=== PATIENT | male | born 1970 | race Two or more races ===

== ENCOUNTER 2019-07-15 22:43 | Emergency (ER) | payer MEDICAID ==
[~2019-07-15] VITALS: Ht 182.9 cm; Wt 176.9 kg
[2019-07-15] MEDS ORDERED: IPRATROPIUM BROM 0.5 MG/2.5ML INH SOL NEB ONE (23:00)
[2019-07-15] MEDS ORDERED: ALBUTEROL SULF 2.5 MG/0.5ML(0.5%) NEB SOLN NEB ONE (23:00)
[2019-07-15 23:39] LABS: Basophils # (auto) 0.1 uL; Basophils % (auto) 0.9 % (0.0-2.0); Eosinophils # (auto) 0.2 uL; Eosinophils % (auto) 2.3 % (0.0-7.0); Hemoglobin 12.3 g/dL (13.5-17.5); Lymphocytes # (auto) 0.6 uL; Lymphocytes % (auto) 7.3 % (10.0-50.0); Mean Corpuscular Hemoglobin 26.1 pg (28.0-32.0); Mean Corpuscular Hgb Conc. 33.1 g/dL (32.0-36.0); Mean Corpuscular Volume 78.7 fL (80.0-100.0); Monocytes # (auto) 0.4 uL; Monocytes % (auto) 4.9 % (0.0-12.0); Neutrophils # (auto) 6.6 uL; Neutrophils % (auto) 84.6 % (37.0-80.0); Nucleated Red Blood Cells % 0.2 %; Platelet Count (auto) 156 10^3/uL (140-450); Red Blood Cells 4.71 10^6/uL (4.5-5.90); Red Cell Distribution Width 17.2 % (11.8-14.3); White Blood Cell 7.8 10^3/uL (4.4-10.8)
[2019-07-15 23:51] LABS: Albumin 3.1 g/dL (3.4-5.0); Anion Gap 9 (5-15); Blood Urea Nitrogen 19 mg/dL (7-18); Calcium 8.7 mg/dL (8.5-10.1); Carbon Dioxide 26 mmol/L (21-32); Chloride 101 mmol/L (98-107); Glucose 175 mg/dL (74-106); Magnesium 1.9 mg/dL (1.6-2.6); Potassium 3.9 mmol/L (3.5-5.1); Sodium 136 mmol/L (136-145)
[2019-07-15 23:54] LABS: Alanine Aminotransferase 21 U/L (16-61); Aspartate Aminotransferase 16 U/L (15-37); BUN/Creatinine Ratio 15.4; GFR African American 80 mL/min; GFR Non-African American 66 mL/min
[2019-07-16] LABS: Alkaline Phosphatase 74 U/L (45-117); Bilirubin, Total 0.7 mg/dL (0.2-1.0); Total Protein 7.6 g/dL (6.4-8.2)
[2019-07-16] MEDS ORDERED: ALBUTEROL SULF 2.5 MG/0.5ML(0.5%) NEB SOLN NEB ONE (05:15)
[2019-07-16] MEDS ORDERED: IPRATROPIUM BROM 0.5 MG/2.5ML INH SOL NEB ONE (05:15)
[2019-07-16 06:09] VITALS: BP 114/118
== END 2019-07-16 06:11 | disposition home or self-care (01) ==
LOC: ER 22:43
DX: J44.1 Chronic obstructive pulmonary disease with (acute) exacerbation (principal); E66.01 Morbid (severe) obesity due to excess calories; E11.9 Type 2 diabetes mellitus without complications; I10 Essential (primary) hypertension; Z76.0 Encounter for issue of repeat prescription; Z68.43 Body mass index [BMI] 50.0-59.9, adult; Z98.61 Coronary angioplasty status
CPT/HCPCS: 36415; 71045; 80053; 83735; 83880; 84484; 85025; 93005; 94640; 99284; J7611; J7644

== ENCOUNTER 2020-08-24 15:29 | Inpatient (IN) | payer MEDICAID ==
[~2020-08-24] VITALS: Ht 182.9 cm; Wt 177.4 kg
[2020-08-24] MEDS ORDERED: cloNIDine HCL 0.1 MG TAB PO ONE (15:30)
[2020-08-24] MEDS ORDERED: FUROSEMIDE 40 MG/4 ML VIAL IV ONE ×2 (16:00→18:15)
[2020-08-24] MEDS ORDERED: METOPROLOL TARTRATE 1MG/1ML-5ML VIAL IV ONE (16:00)
[2020-08-24 16:23] LABS: Basophils # (auto) 0.1 10 ^3/uL (0-0.2); Lymphocytes # (auto) 0.9 10 ^3/uL (0.4-5.4); Monocytes # (auto) 0.3 10 ^3/uL (0-1.3); Nucleated Red Blood Cells % 0.4 %
[2020-08-24 16:25] LABS: Basophils % (auto) 0.8 % (0.0-2.0); Eosinophils # (auto) 0.2 10 ^3/uL (0-0.8); Eosinophils % (auto) 2.2 % (0.0-7.0); Hematocrit 39.1 % (41.0-53.0); Hemoglobin 12.9 g/dL (13.5-17.5); Lymphocytes % (auto) 12.5 % (10.0-50.0); Mean Corpuscular Hemoglobin 26.7 pg (28.0-32.0); Mean Corpuscular Hgb Conc. 33.1 g/dL (32.0-36.0); Mean Corpuscular Volume 80.5 fL (80.0-100.0); Monocytes % (auto) 3.8 % (0.0-12.0); Neutrophils # (auto) 5.9 10 ^3/uL (1.6-8.6); Neutrophils % (auto) 80.7 % (37.0-80.0); Platelet Count (auto) 141 10^3/uL (140-450); Red Blood Cells 4.85 10^6/uL (4.5-5.90); Red Cell Distribution Width 18.9 % (11.8-14.3); White Blood Cell 7.3 10^3/uL (4.4-10.8)
[2020-08-24 16:40] LABS: Albumin 2.8 g/dL (3.4-5.0); Calcium 8.2 mg/dL (8.5-10.1); Potassium 4.3 mmol/L (3.5-5.1)
[2020-08-24 16:42] LABS: BUN/Creatinine Ratio 12.1
[2020-08-24 16:46] LABS: Bilirubin, Total 0.6 mg/dL (0.2-1.0); Total Protein 7.4 g/dL (6.4-8.2)
[2020-08-24] MEDS ORDERED: AZITHROMYCIN 500MG/ 250ML 250 ML IV ONE (17:30)
[2020-08-24] MEDS ORDERED: cefTRIAXone 1GM/50ML D5W 50 ML IV ONE (17:30)
[2020-08-24] MEDS ORDERED: LABETALOL HCL 5 MG/ML 4ML SYRINGE IV ONE (18:15)
[2020-08-24] MEDS ORDERED: NITROGLYCERIN 0.4 MG SL TAB SL PRN ×2 (18:15→20:15)
[2020-08-24] MEDS ORDERED: INSULIN LANTUS (GLARGINE) 1 /0.01ml (100units/ml) SC ONE (18:15)
[2020-08-24] MEDS ORDERED: MORPHINE SULF INJ 2 MG/ML SYRINGE 1ML IV PRN ×3 (18:15→20:15)
[2020-08-24] MEDS ORDERED: INSLANTI SC (19:36)
[2020-08-24] MEDS ORDERED: CLOP75TA70 PO (20:00)
[2020-08-24] MEDS ORDERED: VITATAB19 PO (20:00)
[2020-08-24] MEDS ORDERED: CYCL10TA6 PO (20:00)
[2020-08-24] MEDS ORDERED: ASPI-543 PO (20:00)
[2020-08-24] MEDS ORDERED: SERT-274 PO (20:00)
[2020-08-24] MEDS ORDERED: SULF400T11 PO (20:00)
[2020-08-24] MEDS ORDERED: ISOS10TA2 PO (20:00)
[2020-08-24] MEDS ORDERED: POTA10TA51 PO (20:00)
[2020-08-24] MEDS ORDERED: GEMF600T7 PO (20:00)
[2020-08-24] MEDS ORDERED: ACET120S38 PR (20:00)
[2020-08-24] MEDS ORDERED: LOSA-69 PO (20:00)
[2020-08-24] MEDS ORDERED: FURO1TAB31 PO (20:00)
[2020-08-24] MEDS ORDERED: CARV3.1240 PO (20:00)
[2020-08-24] MEDS ORDERED: ACETAMINOPHEN 325 MG TAB PO PRN (20:15)
[2020-08-24] MEDS ORDERED: hydrALAZINE HCL 20 MG/ML VL IV PRN (20:15)
[2020-08-24] MEDS ORDERED: LORazepam 0.5 MG TAB PO PRN (20:15)
[2020-08-24] MEDS ORDERED: DOCUSATE SOD 100 MG CAP PO PRN (20:15)
[2020-08-24] MEDS ORDERED: ONDANSETRON HCL 4 MG/2 ML VIAL IV PRN (20:15)
[2020-08-24] MEDS ORDERED: DEXTROSE (50%) 50ML SYRG IV PRN (20:15)
[2020-08-24] MEDS ORDERED: ATORVASTATIN 20 MG TAB PO ONE (20:15)
[2020-08-24] MEDS ORDERED: ALUM & MAG HYDROX-SIMETH LIQ(MAALOX) 30 ML PO PRN (20:15)
[2020-08-24] MEDS: DOXYCYCLINE 100MG/250ML 250 ML IV SCH (20:52)
[2020-08-24] MEDS: ALBUMIN 25% 100 ML IV SCH ×2 (20:53→22:00)
[2020-08-24 21:42] VITALS: BP 141/90
[2020-08-24] MEDS: IPRATROPIUM BROM 0.5 MG/2.5ML INH SOL NEB SCH (21:53)
[2020-08-24] MEDS: ALBUTEROL SULF 2.5 MG/0.5ML(0.5%) NEB SOLN NEB PRN (21:53)
[2020-08-24] MEDS: methylPREDNISolone SOD SUCC 40 MG/ML VL IV SCH (22:42)
[2020-08-24] MEDS: CARVEDILOL 3.125 MG TAB PO SCH (22:43)
[2020-08-24] MEDS: ATORVASTATIN 20 MG TAB PO SCH (22:44)
[2020-08-24] MEDS: GEMFIBROZIL 600 MG TAB PO SCH (22:44)
[2020-08-24] MEDS: ENOXAPARIN SOD 40 MG/0.4 ML SYRINGE SC SCH (22:44)
[2020-08-24] MEDS: ACCU-CHEK COMFORT CURVE STRIP VI SCH (22:45)
[2020-08-24] MEDS: INSULIN LANTUS (GLARGINE) 1 /0.01ml (100units/ml) SC SCH (22:45)
[2020-08-24] MEDS: InsuLIN REG 1unit/0.01ml Soln (100units/ml) SC SCH (22:46)
[2020-08-25 01:20] VITALS: BP 128/83
[2020-08-25 01:49] VITALS: BP 128/83
[2020-08-25] MEDS ORDERED: INFLUENZA QUAD 2020-2021 0.5 ML SYRG IM ONE (02:15)
[2020-08-25 02:28] LABS: Urine Bacteria FEW /hpf (None Seen); Urine Blood Negative /uL (Negative); Urine Hyaline Cast MOD /lpf (0 - 2); Urine Mucus FEW (None Seen); Urine Specific Gravity 1.012 (1.001-1.035); Urine WBC 5 /hpf (0 - 3)
[2020-08-25 02:37] LABS: Amphetamine Screen, Urine POSITIVE (NEGATIVE); Barbiturate Scree,Urine NEGATIVE (NEGATIVE); Benzodiazephine Screen, Urine NEGATIVE (NEGATIVE); Cannabinoid Screen, Urine NEGATIVE (NEGATIVE); Cocaine Screen, Urine NEGATIVE (NEGATIVE); Phencyclidine Screen, Urine NEGATIVE (NEGATIVE)
[2020-08-25 02:44] LABS: Opiate Scree,Urine NEGATIVE (NEGATIVE)
[2020-08-25] MEDS: ALBUTEROL SULF 2.5 MG/0.5ML(0.5%) NEB SOLN NEB PRN ×6 (02:49→22:50)
[2020-08-25] MEDS: IPRATROPIUM BROM 0.5 MG/2.5ML INH SOL NEB SCH ×6 (02:49→22:50)
[2020-08-25] MEDS: FUROSEMIDE 40 MG/4 ML VIAL IV SCH ×2 (06:40→18:20)
[2020-08-25] MEDS: methylPREDNISolone SOD SUCC 40 MG/ML VL IV SCH ×3 (06:40→22:29)
[2020-08-25] MEDS: ACCU-CHEK COMFORT CURVE STRIP VI SCH ×4 (06:56→22:41)
[2020-08-25] MEDS: InsuLIN REG 1unit/0.01ml Soln (100units/ml) SC SCH ×4 (07:01→22:40)
[2020-08-25 07:50] LABS: Basophils # (auto) 0 10 ^3/uL (0-0.2); Eosinophils # (auto) 0 10 ^3/uL (0-0.8); Lymphocytes # (auto) 0.6 10 ^3/uL (0.4-5.4); Mean Corpuscular Hemoglobin 26.5 pg (28.0-32.0); Monocytes # (auto) 0.1 10 ^3/uL (0-1.3); Monocytes % (auto) 0.7 % (0.0-12.0); Neutrophils # (auto) 7.3 10 ^3/uL (1.6-8.6); Nucleated Red Blood Cells % 0.2 %
[2020-08-25 07:54] LABS: Basophils % (auto) 0.3 % (0.0-2.0); Hematocrit 37.9 % (41.0-53.0); Hemoglobin 12.5 g/dL (13.5-17.5); Lymphocytes % (auto) 7.1 % (10.0-50.0); Mean Corpuscular Hgb Conc. 32.9 g/dL (32.0-36.0); Mean Corpuscular Volume 80.7 fL (80.0-100.0); Neutrophils % (auto) 91.9 % (37.0-80.0); Platelet Count (auto) 149 10^3/uL (140-450); Red Cell Distribution Width 18.9 % (11.8-14.3); White Blood Cell 7.9 10^3/uL (4.4-10.8)
[2020-08-25 08:04] LABS: Albumin 3.3 g/dL (3.4-5.0); Calcium 8.3 mg/dL (8.5-10.1); Potassium 5.1 mmol/L (3.5-5.1)
[2020-08-25 08:12] LABS: INR 1.08 (0.9-1.15); Partial Thromboplastin Time 32.4 sec (23.0-31.2)
[2020-08-25 08:13] LABS: BUN/Creatinine Ratio 15.8; Bilirubin, Total 0.7 mg/dL (0.2-1.0); Magnesium 2.1 mg/dL (1.6-2.6); Phosphorus 4.2 mg/dL (2.5-4.90); Total Protein 7.6 g/dL (6.4-8.2)
[2020-08-25] MEDS: CARVEDILOL 3.125 MG TAB PO SCH ×2 (09:28→22:29)
[2020-08-25] MEDS: DOXYCYCLINE 100MG/250ML 250 ML IV SCH ×2 (09:28→22:30)
[2020-08-25] MEDS: LOSARTAN POTASSIUM 50 MG TAB PO SCH (09:29)
[2020-08-25] MEDS: ASPirin-EC 81 mg tab PO SCH (09:29)
[2020-08-25] MEDS: GEMFIBROZIL 600 MG TAB PO SCH ×2 (09:30→22:29)
[2020-08-25] MEDS: ISOSORBIDE DINITRATE 10 MG TAB PO SCH (09:30)
[2020-08-25] MEDS: ENOXAPARIN SOD 40 MG/0.4 ML SYRINGE SC SCH ×2 (09:31→22:29)
[2020-08-25] MEDS: SERTRALINE HCL 50 MG TAB PO SCH (09:31)
[2020-08-25] MEDS: CLOPIDOGREL BISULFATE 75 MG TAB PO SCH (09:31)
[2020-08-25] MEDS ORDERED: INSULIN LANTUS (GLARGINE) 1 /0.01ml (100units/ml) SC ONE (12:30)
[2020-08-25 12:57] VITALS: BP 131/68
[2020-08-25 16:38] VITALS: BP 127/82
[2020-08-25 22:00] VITALS: BP 149/85
[2020-08-25] MEDS: ATORVASTATIN 20 MG TAB PO SCH (22:28)
[2020-08-25] MEDS: INSULIN LANTUS (GLARGINE) 1 /0.01ml (100units/ml) SC SCH (22:40)
[2020-08-26] MEDS: IPRATROPIUM BROM 0.5 MG/2.5ML INH SOL NEB SCH ×6 (02:00→22:00)
[2020-08-26 05:00] VITALS: BP 148/83
[2020-08-26] MEDS: ALBUTEROL SULF 2.5 MG/0.5ML(0.5%) NEB SOLN NEB PRN ×3 (06:24→19:01)
[2020-08-26] MEDS: FUROSEMIDE 40 MG/4 ML VIAL IV SCH ×2 (06:29→18:09)
[2020-08-26] MEDS: methylPREDNISolone SOD SUCC 40 MG/ML VL IV SCH ×3 (06:29→22:12)
[2020-08-26] MEDS: ACCU-CHEK COMFORT CURVE STRIP VI SCH ×4 (06:30→22:10)
[2020-08-26] MEDS: InsuLIN REG 1unit/0.01ml Soln (100units/ml) SC SCH ×4 (06:30→22:11)
[2020-08-26] MEDS: DOXYCYCLINE 100MG/250ML 250 ML IV SCH ×2 (08:22→20:12)
[2020-08-26 09:00] VITALS: BP 137/89
[2020-08-26] MEDS: CARVEDILOL 3.125 MG TAB PO SCH ×2 (09:58→22:12)
[2020-08-26] MEDS: ISOSORBIDE DINITRATE 10 MG TAB PO SCH (09:58)
[2020-08-26] MEDS: ASPirin-EC 81 mg tab PO SCH (09:58)
[2020-08-26] MEDS: LOSARTAN POTASSIUM 50 MG TAB PO SCH (09:58)
[2020-08-26] MEDS: GEMFIBROZIL 600 MG TAB PO SCH ×2 (09:58→22:12)
[2020-08-26] MEDS: ENOXAPARIN SOD 40 MG/0.4 ML SYRINGE SC SCH ×2 (09:59→22:12)
[2020-08-26] MEDS: SERTRALINE HCL 50 MG TAB PO SCH (09:59)
[2020-08-26] MEDS: CLOPIDOGREL BISULFATE 75 MG TAB PO SCH (09:59)
[2020-08-26 13:00] VITALS: BP 109/75
[2020-08-26] MEDS: BUDESONIDE (INHALATION) 0.5 MG/2 ML NEB NEB SCH (19:01)
[2020-08-26] MEDS: INSULIN LANTUS (GLARGINE) 1 /0.01ml (100units/ml) SC SCH (22:10)
[2020-08-26] MEDS: ATORVASTATIN 20 MG TAB PO SCH (22:12)
[2020-08-26 22:45] VITALS: BP 117/69
[2020-08-27] VITALS (7 sets, daily range): BP systolic 114–151; BP diastolic 62–107
[2020-08-27] MEDS: IPRATROPIUM BROM 0.5 MG/2.5ML INH SOL NEB SCH ×6 (01:57→21:50)
[2020-08-27 06:20] LABS: Basophils # (auto) 0 10 ^3/uL (0-0.2); Eosinophils # (auto) 0 10 ^3/uL (0-0.8); Hematocrit 38.6 % (41.0-53.0); Hemoglobin 12.7 g/dL (13.5-17.5); Lymphocytes # (auto) 0.9 10 ^3/uL (0.4-5.4); Lymphocytes % (auto) 9.3 % (10.0-50.0); Mean Corpuscular Hemoglobin 26.2 pg (28.0-32.0); Mean Corpuscular Hgb Conc. 32.9 g/dL (32.0-36.0); Mean Corpuscular Volume 79.7 fL (80.0-100.0); Monocytes # (auto) 0.3 10 ^3/uL (0-1.3); Monocytes % (auto) 3.2 % (0.0-12.0); Neutrophils # (auto) 8.3 10 ^3/uL (1.6-8.6); Neutrophils % (auto) 87.5 % (37.0-80.0); Nucleated Red Blood Cells % 0.3 %; Platelet Count (auto) 169 10^3/uL (140-450); Red Blood Cells 4.84 10^6/uL (4.5-5.90); White Blood Cell 9.4 10^3/uL (4.4-10.8)
[2020-08-27] MEDS: methylPREDNISolone SOD SUCC 40 MG/ML VL IV SCH ×3 (06:22→21:34)
[2020-08-27] MEDS: ACCU-CHEK COMFORT CURVE STRIP VI SCH ×4 (06:22→21:43)
[2020-08-27] MEDS: FUROSEMIDE 40 MG/4 ML VIAL IV SCH ×2 (06:22→17:32)
[2020-08-27] MEDS: InsuLIN REG 1unit/0.01ml Soln (100units/ml) SC SCH ×4 (06:23→21:42)
[2020-08-27] MEDS: ALBUTEROL SULF 2.5 MG/0.5ML(0.5%) NEB SOLN NEB PRN ×4 (06:35→21:50)
[2020-08-27 06:38] LABS: BUN/Creatinine Ratio 22.9; Calcium 8.9 mg/dL (8.5-10.1); Potassium 4.4 mmol/L (3.5-5.1)
[2020-08-27] MEDS: DOXYCYCLINE 100MG/250ML 250 ML IV SCH ×2 (07:57→19:45)
[2020-08-27] MEDS: SERTRALINE HCL 50 MG TAB PO SCH (09:43)
[2020-08-27] MEDS: CLOPIDOGREL BISULFATE 75 MG TAB PO SCH (09:44)
[2020-08-27] MEDS: CARVEDILOL 3.125 MG TAB PO SCH ×2 (09:44→21:35)
[2020-08-27] MEDS: ISOSORBIDE DINITRATE 10 MG TAB PO SCH (09:45)
[2020-08-27] MEDS: ASPirin-EC 81 mg tab PO SCH (09:46)
[2020-08-27] MEDS: LOSARTAN POTASSIUM 50 MG TAB PO SCH (09:46)
[2020-08-27] MEDS: ENOXAPARIN SOD 40 MG/0.4 ML SYRINGE SC SCH ×2 (09:47→21:34)
[2020-08-27] MEDS: GEMFIBROZIL 600 MG TAB PO SCH ×2 (09:47→21:34)
[2020-08-27] MEDS: BUDESONIDE (INHALATION) 0.5 MG/2 ML NEB NEB SCH ×2 (10:31→18:30)
[2020-08-27] MEDS: cefTRIAXone 1GM/50ML D5W 50 ML IV SCH (11:01)
[2020-08-27] MEDS: INSULIN LANTUS (GLARGINE) 1 /0.01ml (100units/ml) SC SCH (21:43)
[2020-08-28] MEDS: IPRATROPIUM BROM 0.5 MG/2.5ML INH SOL NEB SCH ×6 (00:18→22:23)
[2020-08-28 05:00] VITALS: BP 125/92
[2020-08-28] MEDS: FUROSEMIDE 40 MG/4 ML VIAL IV SCH ×2 (05:52→17:08)
[2020-08-28] MEDS: methylPREDNISolone SOD SUCC 40 MG/ML VL IV SCH ×3 (05:53→21:31)
[2020-08-28] MEDS: ACCU-CHEK COMFORT CURVE STRIP VI SCH ×4 (06:05→21:32)
[2020-08-28] MEDS: InsuLIN REG 1unit/0.01ml Soln (100units/ml) SC SCH ×4 (06:16→22:00)
[2020-08-28] MEDS: ALBUTEROL SULF 2.5 MG/0.5ML(0.5%) NEB SOLN NEB PRN ×2 (06:50→19:49)
[2020-08-28] MEDS: BUDESONIDE (INHALATION) 0.5 MG/2 ML NEB NEB SCH ×2 (06:50→22:22)
[2020-08-28] MEDS: DOXYCYCLINE 100MG/250ML 250 ML IV SCH ×2 (07:58→20:07)
[2020-08-28 08:00] VITALS: BP 152/93
[2020-08-28 08:16] VITALS: BP 152/93
[2020-08-28] MEDS: LOSARTAN POTASSIUM 50 MG TAB PO SCH (09:22)
[2020-08-28] MEDS: CLOPIDOGREL BISULFATE 75 MG TAB PO SCH (09:22)
[2020-08-28] MEDS: GEMFIBROZIL 600 MG TAB PO SCH ×2 (09:23→21:31)
[2020-08-28] MEDS: SERTRALINE HCL 50 MG TAB PO SCH (09:23)
[2020-08-28] MEDS: ASPirin-EC 81 mg tab PO SCH (09:24)
[2020-08-28] MEDS: CARVEDILOL 3.125 MG TAB PO SCH ×2 (09:24→21:31)
[2020-08-28] MEDS: ISOSORBIDE DINITRATE 10 MG TAB PO SCH (09:25)
[2020-08-28] MEDS: ENOXAPARIN SOD 40 MG/0.4 ML SYRINGE SC SCH ×2 (09:25→21:32)
[2020-08-28] MEDS: cefTRIAXone 1GM/50ML D5W 50 ML IV SCH (11:00)
[2020-08-28 12:31] VITALS: BP 130/74
[2020-08-28 16:06] VITALS: BP 153/79
[2020-08-28 21:43] VITALS: BP 156/86
[2020-08-28] MEDS: INSULIN LANTUS (GLARGINE) 1 /0.01ml (100units/ml) SC SCH (21:59)
[2020-08-29] MEDS: IPRATROPIUM BROM 0.5 MG/2.5ML INH SOL NEB SCH ×6 (02:06→23:00)
[2020-08-29 05:27] VITALS: BP 126/92
[2020-08-29] MEDS: BUDESONIDE (INHALATION) 0.5 MG/2 ML NEB NEB SCH ×2 (06:00→23:00)
[2020-08-29] MEDS: methylPREDNISolone SOD SUCC 40 MG/ML VL IV SCH ×3 (06:16→21:48)
[2020-08-29] MEDS: ACCU-CHEK COMFORT CURVE STRIP VI SCH ×4 (06:16→21:41)
[2020-08-29] MEDS: FUROSEMIDE 40 MG/4 ML VIAL IV SCH ×2 (06:16→17:25)
[2020-08-29] MEDS: InsuLIN REG 1unit/0.01ml Soln (100units/ml) SC SCH ×4 (06:17→21:42)
[2020-08-29] MEDS: DOXYCYCLINE 100MG/250ML 250 ML IV SCH ×2 (07:34→20:13)
[2020-08-29 07:35] VITALS: BP 157/108
[2020-08-29 09:00] VITALS: BP 157/108
[2020-08-29] MEDS: ENOXAPARIN SOD 40 MG/0.4 ML SYRINGE SC SCH ×2 (10:22→21:41)
[2020-08-29] MEDS: CLOPIDOGREL BISULFATE 75 MG TAB PO SCH (10:22)
[2020-08-29] MEDS: ASPirin-EC 81 mg tab PO SCH (10:22)
[2020-08-29] MEDS: cefTRIAXone 1GM/50ML D5W 50 ML IV SCH (10:22)
[2020-08-29] MEDS: GEMFIBROZIL 600 MG TAB PO SCH ×2 (10:22→21:40)
[2020-08-29] MEDS: CARVEDILOL 3.125 MG TAB PO SCH ×2 (10:23→21:40)
[2020-08-29] MEDS: LOSARTAN POTASSIUM 50 MG TAB PO SCH (10:23)
[2020-08-29] MEDS: SERTRALINE HCL 50 MG TAB PO SCH (10:24)
[2020-08-29] MEDS: ISOSORBIDE DINITRATE 10 MG TAB PO SCH (10:24)
[2020-08-29 12:54] VITALS: BP 111/73
[2020-08-29 17:00] VITALS: BP 145/102
[2020-08-29] MEDS: HYDROcodone-ACET 5/325MG TAB PO PRN (17:33)
[2020-08-29] MEDS: INSULIN LANTUS (GLARGINE) 1 /0.01ml (100units/ml) SC SCH (21:41)
[2020-08-29 22:30] VITALS: BP 153/82
[2020-08-30] MEDS: HYDROcodone-ACET 5/325MG TAB PO PRN ×2 (00:06→09:24)
[2020-08-30] MEDS: IPRATROPIUM BROM 0.5 MG/2.5ML INH SOL NEB SCH ×3 (02:19→09:55)
[2020-08-30 05:30] VITALS: BP 122/71
[2020-08-30] MEDS: FUROSEMIDE 40 MG/4 ML VIAL IV SCH (05:41)
[2020-08-30] MEDS: methylPREDNISolone SOD SUCC 40 MG/ML VL IV SCH ×2 (05:41→14:00)
[2020-08-30] MEDS: BUDESONIDE (INHALATION) 0.5 MG/2 ML NEB NEB SCH (06:18)
[2020-08-30] MEDS: ACCU-CHEK COMFORT CURVE STRIP VI SCH ×2 (06:31→11:50)
[2020-08-30] MEDS: InsuLIN REG 1unit/0.01ml Soln (100units/ml) SC SCH ×2 (06:31→11:55)
[2020-08-30] MEDS: cefTRIAXone 1GM/50ML D5W 50 ML IV SCH (09:22)
[2020-08-30] MEDS: ASPirin-EC 81 mg tab PO SCH (09:23)
[2020-08-30] MEDS: LOSARTAN POTASSIUM 50 MG TAB PO SCH (09:23)
[2020-08-30] MEDS: CLOPIDOGREL BISULFATE 75 MG TAB PO SCH (09:24)
[2020-08-30] MEDS: ISOSORBIDE DINITRATE 10 MG TAB PO SCH (09:25)
[2020-08-30] MEDS: CARVEDILOL 3.125 MG TAB PO SCH (09:26)
[2020-08-30] MEDS: SERTRALINE HCL 50 MG TAB PO SCH (09:26)
[2020-08-30] MEDS: ENOXAPARIN SOD 40 MG/0.4 ML SYRINGE SC SCH (09:27)
[2020-08-30] MEDS: GEMFIBROZIL 600 MG TAB PO SCH (09:27)
[2020-08-30] MEDS: DOXYCYCLINE 100MG/250ML 250 ML IV SCH (09:28)
[2020-08-30] MEDS: ALBUTEROL SULF 2.5 MG/0.5ML(0.5%) NEB SOLN NEB PRN (09:55)
[2020-08-30 13:00] VITALS: BP 119/81
== END 2020-08-30 11:40 | disposition home or self-care (01) | DRG 139 ==
LOC: ER 15:29 → TELE 18:08 → TELE-EAST 23:30 → TELE-WESTW 08-25 03:40
PROVIDERS: ADMIT Hospitalist; ATTEND Family Medicine
DX: J18.9 Pneumonia, unspecified organism (principal); I16.1 Hypertensive emergency; I50.43 Acute on chronic combined systolic (congestive) and diastolic (congestive) heart failure; I50.82 Biventricular heart failure; E78.1 Pure hyperglyceridemia; E11.42 Type 2 diabetes mellitus with diabetic polyneuropathy; I13.0 Hypertensive heart and chronic kidney disease with heart failure and stage 1 through stage 4 chronic kidney disease, or unspecified chronic kidney disease; J44.0 Chronic obstructive pulmonary disease with (acute) lower respiratory infection; I25.5 Ischemic cardiomyopathy; E11.65 Type 2 diabetes mellitus with hyperglycemia; D64.9 Anemia, unspecified; K21.9 Gastro-esophageal reflux disease without esophagitis; J45.901 Unspecified asthma with (acute) exacerbation; E66.2 Morbid (severe) obesity with alveolar hypoventilation; I87.2 Venous insufficiency (chronic) (peripheral); E78.5 Hyperlipidemia, unspecified; I25.10 Atherosclerotic heart disease of native coronary artery without angina pectoris; F15.10 Other stimulant abuse, uncomplicated; E87.5 Hyperkalemia; Z20.822 Contact with and (suspected) exposure to COVID-19; Z68.43 Body mass index [BMI] 50.0-59.9, adult; E11.22 Type 2 diabetes mellitus with diabetic chronic kidney disease; Z79.4 Long term (current) use of insulin; Z87.01 Personal history of pneumonia (recurrent); Z95.5 Presence of coronary angioplasty implant and graft; Z23 Encounter for immunization; N18.31 Chronic kidney disease, stage 3a; E44.0 Moderate protein-calorie malnutrition
CPT/HCPCS: 36415; 71045; 71250; 80048; 80053; 80061; 80307; 81001; 82306; 82962; 83036; 83735; 83880; 84100; 84443; 84484; 85025; 85610; 85730; 87040; 87086; 87426; 87804; 93005; 93306; 94640; 96365; 96368; 96375; G0378; J0696; J1815; J3490; P9047

== ENCOUNTER 2020-09-16 22:47 | Inpatient (IN) | payer MEDICAID ==
[~2020-09-16] VITALS: Ht 182.9 cm; Wt 192.2 kg
[~2020-09-16 22:47] MED LIST: ACET120S38 PR; ASPI-543 PO; CARV3.1240 PO; CLOP75TA70 PO; CYCL10TA6 PO; FURO1TAB31 PO; GEMF600T7 PO; INSLANTI SC; ISOS10TA2 PO; LOSA-69 PO; POTA10TA51 PO; SERT-274 PO; SULF400T11 PO; VITATAB19 PO
[2020-09-16 23:59] LABS: Basophils # (auto) 0.1 10 ^3/uL (0-0.2); Basophils % (auto) 1.2 % (0.0-2.0); Eosinophils # (auto) 0.2 10 ^3/uL (0-0.8); Eosinophils % (auto) 2.9 % (0.0-7.0); Hematocrit 37.4 % (41.0-53.0); Hemoglobin 12.2 g/dL (13.5-17.5); Lymphocytes # (auto) 1.1 10 ^3/uL (0.4-5.4); Lymphocytes % (auto) 17.6 % (10.0-50.0); Mean Corpuscular Hemoglobin 26.3 pg (28.0-32.0); Mean Corpuscular Hgb Conc. 32.6 g/dL (32.0-36.0); Mean Corpuscular Volume 80.6 fL (80.0-100.0); Monocytes # (auto) 0.3 10 ^3/uL (0-1.3); Monocytes % (auto) 4.2 % (0.0-12.0); Neutrophils # (auto) 4.8 10 ^3/uL (1.6-8.6); Neutrophils % (auto) 74.1 % (37.0-80.0); Nucleated Red Blood Cells % 0.4 %; Platelet Count (auto) 115 10^3/uL (140-450); Red Blood Cells 4.64 10^6/uL (4.5-5.90); Red Cell Distribution Width 18.8 % (11.8-14.3); White Blood Cell 6.5 10^3/uL (4.4-10.8)
[2020-09-17] VITALS (7 sets, daily range): BP systolic 110–150; BP diastolic 68–101
[2020-09-17 00:12] LABS: Albumin 2.8 g/dL (3.4-5.0); BUN/Creatinine Ratio 17.3; Calcium 8.2 mg/dL (8.5-10.1); Potassium 4.2 mmol/L (3.5-5.1)
[2020-09-17 00:14] LABS: INR 1.06 (0.9-1.15); Partial Thromboplastin Time 28.9 sec (23.0-31.2)
[2020-09-17 00:22] LABS: Bilirubin, Total 0.5 mg/dL (0.2-1.0); Total Protein 6.9 g/dL (6.4-8.2)
[2020-09-17] MEDS ORDERED: FUROSEMIDE 40 MG/4 ML VIAL IV ONE (01:15)
[2020-09-17] MEDS ORDERED: AZITHROMYCIN 500MG/ 250ML 250 ML IV ONE (01:30)
[2020-09-17] MEDS ORDERED: cefTRIAXone 1GM/50ML D5W 50 ML IV ONE (01:30)
[2020-09-17] MEDS ORDERED: ONDANSETRON HCL 4 MG/2 ML VIAL IV PRN (02:45)
[2020-09-17] MEDS ORDERED: DOCUSATE SOD 100 MG CAP PO PRN (02:45)
[2020-09-17] MEDS ORDERED: NITROGLYCERIN 0.4 MG SL TAB SL PRN (02:45)
[2020-09-17] MEDS ORDERED: ACETAMINOPHEN 325 MG TAB PO PRN (02:45)
[2020-09-17] MEDS ORDERED: MORPHINE SULF INJ 2 MG/ML SYRINGE 1ML IV PRN (02:45)
[2020-09-17] MEDS ORDERED: DEXTROSE (50%) 50ML SYRG IV PRN (02:45)
[2020-09-17 02:59] LABS: Urine Bacteria FEW /hpf (None Seen); Urine Blood Negative /uL (Negative); Urine Specific Gravity 1.011 (1.001-1.035); Urine WBC 1 /hpf (0 - 3)
[2020-09-17] MEDS: HYDROcodone-ACET 5/325MG TAB PO PRN ×2 (03:07→04:25)
[2020-09-17] MEDS ORDERED: ALBUTEROL SULF HFA 90MCG INH 200DOSE IN SCH (06:00)
[2020-09-17] MEDS: SODIUM CHLOR 0.9% PF (SALINE LOCK) 10ML VIAL/SYR IV SCH ×3 (06:03→20:54)
[2020-09-17] MEDS: ACCU-CHEK COMFORT CURVE STRIP VI SCH ×6 (06:03→23:53)
[2020-09-17] MEDS: InsuLIN REG 1unit/0.01ml Soln (100units/ml) SC SCH ×6 (06:07→23:55)
[2020-09-17] MEDS: INSULIN LANTUS (GLARGINE) 1 /0.01ml (100units/ml) SC SCH ×2 (06:38→21:21)
[2020-09-17 07:28] LABS: Basophils # (auto) 0 10 ^3/uL (0-0.2); Eosinophils # (auto) 0.2 10 ^3/uL (0-0.8); Lymphocytes # (auto) 1.2 10 ^3/uL (0.4-5.4); Lymphocytes % (auto) 21.9 % (10.0-50.0); Mean Corpuscular Volume 80.5 fL (80.0-100.0); Monocytes # (auto) 0.3 10 ^3/uL (0-1.3)
[2020-09-17 07:30] LABS: Basophils % (auto) 0.7 % (0.0-2.0); Eosinophils % (auto) 3.3 % (0.0-7.0); Hematocrit 35.8 % (41.0-53.0); Hemoglobin 11.6 g/dL (13.5-17.5); Mean Corpuscular Hemoglobin 26.2 pg (28.0-32.0); Mean Corpuscular Hgb Conc. 32.5 g/dL (32.0-36.0); Monocytes % (auto) 5.5 % (0.0-12.0); Neutrophils # (auto) 3.6 10 ^3/uL (1.6-8.6); Neutrophils % (auto) 68.6 % (37.0-80.0); Nucleated Red Blood Cells % 0.1 %; Platelet Count (auto) 106 10^3/uL (140-450); Red Blood Cells 4.44 10^6/uL (4.5-5.90); Red Cell Distribution Width 18.5 % (11.8-14.3); White Blood Cell 5.3 10^3/uL (4.4-10.8)
[2020-09-17 07:42] LABS: Albumin 2.7 g/dL (3.4-5.0); Calcium 8.5 mg/dL (8.5-10.1); Potassium 3.9 mmol/L (3.5-5.1)
[2020-09-17 07:47] LABS: BUN/Creatinine Ratio 19.4; Bilirubin, Total 0.6 mg/dL (0.2-1.0); Total Protein 6.6 g/dL (6.4-8.2)
[2020-09-17] MEDS: FUROSEMIDE 40 MG/4 ML VIAL IV SCH (08:38)
[2020-09-17] MEDS: FAMOTIDINE (10MG/ML) 2ML VL IV SCH ×2 (08:38→20:50)
[2020-09-17] MEDS: ZINC SULFATE 220mg CAP or TAB PO SCH (08:39)
[2020-09-17] MEDS: ASPirin 81 mg TAB PO SCH (08:39)
[2020-09-17] MEDS: ASCORBIC ACID 500 MG TAB PO SCH ×2 (08:39→20:53)
[2020-09-17] MEDS: CHOLECALCIFEROL (VITD3) 2,000 UNIT CAP/TAB PO SCH (08:39)
[2020-09-17] MEDS: MULTIPLE VITAMIN TAB PO SCH (08:39)
[2020-09-17] MEDS: GEMFIBROZIL 600 MG TAB PO SCH (08:40)
[2020-09-17] MEDS: CARVEDILOL 12.5 MG TAB PO SCH ×2 (08:40→20:54)
[2020-09-17] MEDS: HEPARIN SODIUM (PORCINE) 5000 UNITS/ML 1ML VIAL SC SCH ×2 (08:51→21:21)
[2020-09-17] MEDS ORDERED: SERTRALINE HCL 50 MG TAB PO SCH (10:00)
[2020-09-17] MEDS: cefTRIAXone 1GM/50ML D5W 50 ML IV SCH (20:48)
[2020-09-17] MEDS: AZITHROMYCIN 500MG/ 250ML 250 ML IV SCH (21:25)
[2020-09-18] VITALS (7 sets, daily range): BP systolic 82–143; BP diastolic 48–89
[2020-09-18] MEDS ORDERED: ALBUMIN 5% 250 ML IV ONE (01:15)
[2020-09-18] MEDS: ACCU-CHEK COMFORT CURVE STRIP VI SCH ×5 (04:47→21:01)
[2020-09-18] MEDS: InsuLIN REG 1unit/0.01ml Soln (100units/ml) SC SCH ×5 (04:48→21:03)
[2020-09-18 05:37] LABS: Basophils # (auto) 0 10 ^3/uL (0-0.2); Basophils % (auto) 0.7 % (0.0-2.0); Eosinophils # (auto) 0.2 10 ^3/uL (0-0.8); Eosinophils % (auto) 3.6 % (0.0-7.0); Hematocrit 35.2 % (41.0-53.0); Hemoglobin 11.7 g/dL (13.5-17.5); Lymphocytes # (auto) 1.2 10 ^3/uL (0.4-5.4); Lymphocytes % (auto) 22.1 % (10.0-50.0); Mean Corpuscular Hgb Conc. 33.2 g/dL (32.0-36.0); Mean Corpuscular Volume 81.2 fL (80.0-100.0); Monocytes # (auto) 0.4 10 ^3/uL (0-1.3); Monocytes % (auto) 6.4 % (0.0-12.0); Neutrophils # (auto) 3.7 10 ^3/uL (1.6-8.6); Neutrophils % (auto) 67.2 % (37.0-80.0); Nucleated Red Blood Cells % 0.3 %; Platelet Count (auto) 118 10^3/uL (140-450); Red Blood Cells 4.33 10^6/uL (4.5-5.90); Red Cell Distribution Width 18.5 % (11.8-14.3); White Blood Cell 5.5 10^3/uL (4.4-10.8)
[2020-09-18] MEDS: SODIUM CHLOR 0.9% PF (SALINE LOCK) 10ML VIAL/SYR IV SCH ×3 (06:00→21:04)
[2020-09-18 06:05] LABS: Albumin 2.8 g/dL (3.4-5.0); Calcium 8.3 mg/dL (8.5-10.1); Potassium 4.4 mmol/L (3.5-5.1)
[2020-09-18 06:09] LABS: BUN/Creatinine Ratio 21.1; Bilirubin, Total 0.4 mg/dL (0.2-1.0); Total Protein 6.7 g/dL (6.4-8.2)
[2020-09-18] MEDS: INSULIN LANTUS (GLARGINE) 1 /0.01ml (100units/ml) SC SCH ×2 (07:41→21:43)
[2020-09-18] MEDS: MULTIPLE VITAMIN TAB PO SCH (10:16)
[2020-09-18] MEDS: GEMFIBROZIL 600 MG TAB PO SCH (10:16)
[2020-09-18] MEDS: ZINC SULFATE 220mg CAP or TAB PO SCH (10:16)
[2020-09-18] MEDS: ASCORBIC ACID 500 MG TAB PO SCH ×2 (10:16→21:05)
[2020-09-18] MEDS: FAMOTIDINE (10MG/ML) 2ML VL IV SCH ×2 (10:16→21:04)
[2020-09-18] MEDS: CHOLECALCIFEROL (VITD3) 2,000 UNIT CAP/TAB PO SCH (10:16)
[2020-09-18] MEDS: ASPirin 81 mg TAB PO SCH (10:16)
[2020-09-18] MEDS: HEPARIN SODIUM (PORCINE) 5000 UNITS/ML 1ML VIAL SC SCH ×2 (10:22→21:12)
[2020-09-18] MEDS: FUROSEMIDE 40 MG/4 ML VIAL IV SCH (13:29)
[2020-09-18] MEDS: CARVEDILOL 12.5 MG TAB PO SCH ×3 (13:31→21:05)
[2020-09-18] MEDS: HYDROcodone-ACET 5/325MG TAB PO PRN (21:01)
[2020-09-18] MEDS: cefTRIAXone 1GM/50ML D5W 50 ML IV SCH (21:04)
[2020-09-18] MEDS: AZITHROMYCIN 500MG/ 250ML 250 ML IV SCH (21:44)
[2020-09-19] MEDS: ACCU-CHEK COMFORT CURVE STRIP VI SCH ×4 (00:27→12:53)
[2020-09-19] MEDS: InsuLIN REG 1unit/0.01ml Soln (100units/ml) SC SCH ×4 (00:36→12:57)
[2020-09-19 05:00] VITALS: BP 131/71
[2020-09-19 06:21] LABS: Basophils # (auto) 0.1 10 ^3/uL (0-0.2); Eosinophils # (auto) 0.2 10 ^3/uL (0-0.8); Hemoglobin 11.7 g/dL (13.5-17.5); Lymphocytes # (auto) 1.3 10 ^3/uL (0.4-5.4); Monocytes # (auto) 0.3 10 ^3/uL (0-1.3); Monocytes % (auto) 6.1 % (0.0-12.0); Nucleated Red Blood Cells % 0.2 %
[2020-09-19 06:24] LABS: Eosinophils % (auto) 3.4 % (0.0-7.0); Hematocrit 35.9 % (41.0-53.0); Lymphocytes % (auto) 24.7 % (10.0-50.0); Mean Corpuscular Hemoglobin 26.5 pg (28.0-32.0); Mean Corpuscular Hgb Conc. 32.7 g/dL (32.0-36.0); Mean Corpuscular Volume 81.2 fL (80.0-100.0); Neutrophils # (auto) 3.4 10 ^3/uL (1.6-8.6); Neutrophils % (auto) 64.8 % (37.0-80.0); Platelet Count (auto) 112 10^3/uL (140-450); Red Blood Cells 4.42 10^6/uL (4.5-5.90); Red Cell Distribution Width 19.1 % (11.8-14.3); White Blood Cell 5.3 10^3/uL (4.4-10.8)
[2020-09-19 06:41] LABS: BUN/Creatinine Ratio 21.9; Calcium 8.2 mg/dL (8.5-10.1)
[2020-09-19] MEDS: SODIUM CHLOR 0.9% PF (SALINE LOCK) 10ML VIAL/SYR IV SCH ×2 (06:59→14:00)
[2020-09-19] MEDS: INSULIN LANTUS (GLARGINE) 1 /0.01ml (100units/ml) SC SCH (07:00)
[2020-09-19 08:05] VITALS: BP 134/87
[2020-09-19] MEDS: MULTIPLE VITAMIN TAB PO SCH (09:28)
[2020-09-19] MEDS: ZINC SULFATE 220mg CAP or TAB PO SCH (09:28)
[2020-09-19] MEDS: ASPirin 81 mg TAB PO SCH (09:28)
[2020-09-19] MEDS: ASCORBIC ACID 500 MG TAB PO SCH (09:29)
[2020-09-19] MEDS: GEMFIBROZIL 600 MG TAB PO SCH (09:29)
[2020-09-19] MEDS: FAMOTIDINE (10MG/ML) 2ML VL IV SCH (09:29)
[2020-09-19] MEDS: CHOLECALCIFEROL (VITD3) 2,000 UNIT CAP/TAB PO SCH (09:29)
[2020-09-19 09:30] VITALS: BP 134/87
[2020-09-19] MEDS: FUROSEMIDE 40 MG/4 ML VIAL IV SCH (09:30)
[2020-09-19] MEDS: HEPARIN SODIUM (PORCINE) 5000 UNITS/ML 1ML VIAL SC SCH (09:30)
[2020-09-19] MEDS: CARVEDILOL 12.5 MG TAB PO SCH (10:00)
[2020-09-19] MEDS ORDERED: AMOX500T86 PO (12:04)
[2020-09-19 13:08] VITALS: BP 134/87
== END 2020-09-19 14:46 | disposition home or self-care (01) | DRG 142 ==
LOC: ER 22:47 → TELE 22:48 → TELE-EAST 09-17 05:10 → TELE-WESTW 09-17 13:05
PROVIDERS: ADMIT Nurse Practitioner Family; ATTEND Internal Medicine Pulmonary Disease
DX: J84.9 Interstitial pulmonary disease, unspecified (principal); J96.01 Acute respiratory failure with hypoxia; N17.9 Acute kidney failure, unspecified; I50.31 Acute diastolic (congestive) heart failure; E44.1 Mild protein-calorie malnutrition; J44.0 Chronic obstructive pulmonary disease with (acute) lower respiratory infection; J44.1 Chronic obstructive pulmonary disease with (acute) exacerbation; E66.01 Morbid (severe) obesity due to excess calories; I48.20 Chronic atrial fibrillation, unspecified; Z68.43 Body mass index [BMI] 50.0-59.9, adult; I11.0 Hypertensive heart disease with heart failure; I48.91 Unspecified atrial fibrillation; E88.09 Other disorders of plasma-protein metabolism, not elsewhere classified; E11.65 Type 2 diabetes mellitus with hyperglycemia; Z20.822 Contact with and (suspected) exposure to COVID-19; I25.10 Atherosclerotic heart disease of native coronary artery without angina pectoris; G47.33 Obstructive sleep apnea (adult) (pediatric); G40.909 Epilepsy, unspecified, not intractable, without status epilepticus; F15.10 Other stimulant abuse, uncomplicated; E78.5 Hyperlipidemia, unspecified; Z82.3 Family history of stroke; Z91.19 Patient's noncompliance with other medical treatment and regimen; Z80.0 Family history of malignant neoplasm of digestive organs; Z82.49 Family history of ischemic heart disease and other diseases of the circulatory system; Z79.899 Other long term (current) drug therapy; Z79.4 Long term (current) use of insulin
CPT/HCPCS: 36415; 71045; 78582; 80048; 80053; 80061; 81001; 82962; 83880; 84484; 85025; 85379; 85610; 85730; 87040; 87081; 87426; 93005; 93970; 96365; 96367; 96375; G0378; J0696; J1815; J2405; J3490

== ENCOUNTER 2021-01-22 02:06 | Inpatient (IN) | payer MEDICAID ==
[~2021-01-22] VITALS: Ht 182.9 cm; Wt 188.2 kg
[~2021-01-22 02:06] MED LIST changes: +AMOX500T86 PO; +GEMF-19 PO; -GEMF600T7 PO; -SERT-274 PO; +SERT50TA19 PO; -SULF400T11 PO
[2021-01-22 03:20] LABS: Basophils # (auto) 0.1 10 ^3/uL (0-0.2); Eosinophils # (auto) 0.2 10 ^3/uL (0-0.8); Hemoglobin 10.1 g/dL (13.5-17.5); Mean Corpuscular Hemoglobin 24.3 pg (28.0-32.0); Monocytes # (auto) 0.4 10 ^3/uL (0-1.3); Nucleated Red Blood Cells % 0.1 %; Red Blood Cells 4.14 10^6/uL (4.5-5.90)
[2021-01-22 03:22] LABS: Basophils % (auto) 1.4 % (0.0-2.0); Eosinophils % (auto) 3.2 % (0.0-7.0); Hematocrit 31.1 % (41.0-53.0); Lymphocytes % (auto) 15.1 % (10.0-50.0); Mean Corpuscular Hgb Conc. 32.3 g/dL (32.0-36.0); Monocytes % (auto) 5.6 % (0.0-12.0); Neutrophils # (auto) 5.1 10 ^3/uL (1.6-8.6); Neutrophils % (auto) 74.7 % (37.0-80.0); Red Cell Distribution Width 19.8 % (11.8-14.3); White Blood Cell 6.8 10^3/uL (4.4-10.8)
[2021-01-22 03:40] LABS: Alanine Aminotransferase 20 U/L (16-61); Albumin 3.3 g/dL (3.4-5.0); Anion Gap 6 (5-15); Aspartate Aminotransferase 17 U/L (15-37); BUN/Creatinine Ratio 24.3; Blood Urea Nitrogen 37 mg/dL (7-18); Calcium 8.4 mg/dL (8.5-10.1); Carbon Dioxide 26 mmol/L (21-32); Chloride 105 mmol/L (98-107); GFR African American 62 mL/min; GFR Non-African American 51 mL/min; Glucose 173 mg/dL (74-106); Potassium 3.8 mmol/L (3.5-5.1); Sodium 137 mmol/L (136-145)
[2021-01-22 03:44] LABS: Alkaline Phosphatase 84 U/L (45-117); Bilirubin, Total 0.5 mg/dL (0.2-1.0); Total Protein 7.5 g/dL (6.4-8.2)
[2021-01-22] MEDS ORDERED: ACETAMINOPHEN 500 MG TAB PO ONE (04:00)
[2021-01-22] MEDS ORDERED: CLINDAMYCIN 600MG IV 50 ML IV ONE (07:15)
[2021-01-22] MEDS ORDERED: cefTRIAXone 1GM/50ML D5W 50 ML IV ONE (07:15)
[2021-01-22] MEDS ORDERED: FUROSEMIDE 40 MG/4 ML VIAL IV ONE (07:45)
[2021-01-22] MEDS ORDERED: ONDANSETRON HCL 4 MG/2 ML VIAL IV PRN ×2 (09:45)
[2021-01-22] MEDS ORDERED: MORPHINE SULF INJ 2 MG/ML SYRINGE 1ML IV PRN ×3 (09:45)
[2021-01-22] MEDS ORDERED: ACETAMINOPHEN 500 MG TAB PO PRN ×2 (09:45)
[2021-01-22] MEDS ORDERED: NITROGLYCERIN 0.4 MG SL TAB SL PRN (09:45)
[2021-01-22] MEDS ORDERED: hydrALAZINE HCL 20 MG/ML VL IV PRN (09:45)
[2021-01-22] MEDS ORDERED: HYDROcodone-ACET 5/325MG TAB PO PRN (09:45)
[2021-01-22] MEDS ORDERED: DEXTROSE (50%) 50ML SYRG IV PRN (10:00)
[2021-01-22] MEDS: METOPROLOL TARTRATE 25 MG TAB PO SCH ×2 (10:32→22:39)
[2021-01-22] MEDS: ASPirin-EC 81 mg tab PO SCH (10:32)
[2021-01-22] MEDS: LISINOPRIL 10 MG TAB PO SCH (10:33)
[2021-01-22] MEDS: HYDROcodone-ACET 5/325MG TAB PO PRN ×2 (10:38→23:51)
[2021-01-22] MEDS: InsuLIN REG 1unit/0.01ml Soln (100units/ml) SC SCH ×3 (11:30→23:00)
[2021-01-22] MEDS: ACCU-CHEK COMFORT CURVE STRIP VI SCH ×3 (11:41→22:54)
[2021-01-22] MEDS ORDERED: CLINDAMYCIN 300MG IV 50 ML IV SCH (14:00)
[2021-01-22] MEDS: FUROSEMIDE 20 MG/2 ML VIAL IV SCH (18:00)
[2021-01-22] MEDS: ATORVASTATIN 20 MG TAB PO SCH (22:38)
[2021-01-22] MEDS: CLINDAMYCIN 300MG IV 50 ML IV SCH (22:54)
[2021-01-22] MEDS ORDERED: METO25TA5 PO (23:45)
[2021-01-22] MEDS ORDERED: MULTCAP45 PO (23:45)
[2021-01-22] MEDS ORDERED: FERR-20 PO (23:45)
[2021-01-22] MEDS ORDERED: CHOLPOW40 XX (23:45)
[2021-01-22] MEDS ORDERED: RIV20T PO (23:45)
[2021-01-23 00:10] VITALS: BP 124/68
[2021-01-23] MEDS ORDERED: INFLUENZA QUAD 2020-2021 0.5 ML SYRG IM ONE (00:45)
[2021-01-23 05:15] VITALS: BP 101/55
[2021-01-23] MEDS: CLINDAMYCIN 300MG IV 50 ML IV SCH ×3 (05:58→21:21)
[2021-01-23] MEDS: ACCU-CHEK COMFORT CURVE STRIP VI SCH ×4 (06:07→21:31)
[2021-01-23] MEDS: FUROSEMIDE 20 MG/2 ML VIAL IV SCH ×2 (06:07→17:56)
[2021-01-23] MEDS: InsuLIN REG 1unit/0.01ml Soln (100units/ml) SC SCH ×4 (06:07→21:33)
[2021-01-23 08:41] VITALS: BP 103/61
[2021-01-23] MEDS: METOPROLOL TARTRATE 25 MG TAB PO SCH ×2 (10:00→21:21)
[2021-01-23] MEDS: ASPirin-EC 81 mg tab PO SCH (10:00)
[2021-01-23] MEDS: LISINOPRIL 10 MG TAB PO SCH (10:00)
[2021-01-23] MEDS: cefTRIAXone 1GM/50ML D5W 50 ML IV SCH (10:00)
[2021-01-23] MEDS: HYDROcodone-ACET 5/325MG TAB PO PRN ×2 (10:09→21:22)
[2021-01-23 13:00] VITALS: BP 97/61
[2021-01-23 17:00] VITALS: BP 123/74
[2021-01-23] MEDS: ATORVASTATIN 20 MG TAB PO SCH (21:21)
[2021-01-23 21:36] VITALS: BP 150/89
[2021-01-24 04:35] VITALS: BP 128/68
[2021-01-24] MEDS: CLINDAMYCIN 300MG IV 50 ML IV SCH ×3 (05:57→21:43)
[2021-01-24] MEDS: FUROSEMIDE 20 MG/2 ML VIAL IV SCH ×2 (05:57→17:16)
[2021-01-24] MEDS: InsuLIN REG 1unit/0.01ml Soln (100units/ml) SC SCH ×4 (06:04→21:53)
[2021-01-24] MEDS: ACCU-CHEK COMFORT CURVE STRIP VI SCH ×4 (06:04→21:52)
[2021-01-24 08:54] VITALS: BP 120/71
[2021-01-24] MEDS: cefTRIAXone 1GM/50ML D5W 50 ML IV SCH (08:54)
[2021-01-24] MEDS: ASPirin-EC 81 mg tab PO SCH (09:35)
[2021-01-24] MEDS: METOPROLOL TARTRATE 25 MG TAB PO SCH ×2 (09:36→21:43)
[2021-01-24] MEDS: LISINOPRIL 10 MG TAB PO SCH (09:38)
[2021-01-24 13:00] VITALS: BP 117/77
[2021-01-24 17:00] VITALS: BP 142/89
[2021-01-24] MEDS: HYDROcodone-ACET 5/325MG TAB PO PRN ×2 (17:03→21:43)
[2021-01-24] MEDS: ATORVASTATIN 20 MG TAB PO SCH (21:43)
[2021-01-24 22:00] VITALS: BP 125/72
[2021-01-25 05:00] VITALS: BP 125/70
[2021-01-25] MEDS: CLINDAMYCIN 300MG IV 50 ML IV SCH (05:53)
[2021-01-25] MEDS: FUROSEMIDE 20 MG/2 ML VIAL IV SCH (05:54)
[2021-01-25] MEDS: InsuLIN REG 1unit/0.01ml Soln (100units/ml) SC SCH ×2 (06:01→11:48)
[2021-01-25] MEDS: ACCU-CHEK COMFORT CURVE STRIP VI SCH ×2 (06:01→11:42)
[2021-01-25 08:42] VITALS: BP 141/84
[2021-01-25] MEDS: ASPirin-EC 81 mg tab PO SCH (08:54)
[2021-01-25] MEDS: cefTRIAXone 1GM/50ML D5W 50 ML IV SCH (08:54)
[2021-01-25] MEDS: METOPROLOL TARTRATE 25 MG TAB PO SCH (08:56)
[2021-01-25] MEDS: HYDROcodone-ACET 5/325MG TAB PO PRN (08:56)
[2021-01-25] MEDS: LISINOPRIL 10 MG TAB PO SCH (08:56)
[2021-01-25 13:31] VITALS: BP 125/72
[2021-01-25 13:55] VITALS: BP 141/84
== END 2021-01-25 14:00 | disposition home health service (06) | DRG 133 ==
LOC: ER 02:06 → TELE 09:41 → TELE-CENTR 22:40
PROVIDERS: ADMIT Nurse Practitioner Acute Care; ATTEND Family Medicine
DX: J96.21 Acute and chronic respiratory failure with hypoxia (principal); I50.43 Acute on chronic combined systolic (congestive) and diastolic (congestive) heart failure; J18.9 Pneumonia, unspecified organism; E11.22 Type 2 diabetes mellitus with diabetic chronic kidney disease; L03.115 Cellulitis of right lower limb; I13.0 Hypertensive heart and chronic kidney disease with heart failure and stage 1 through stage 4 chronic kidney disease, or unspecified chronic kidney disease; N18.32 Chronic kidney disease, stage 3b; E66.01 Morbid (severe) obesity due to excess calories; E88.09 Other disorders of plasma-protein metabolism, not elsewhere classified; I25.10 Atherosclerotic heart disease of native coronary artery without angina pectoris; D63.8 Anemia in other chronic diseases classified elsewhere; B96.5 Pseudomonas (aeruginosa) (mallei) (pseudomallei) as the cause of diseases classified elsewhere; Z68.43 Body mass index [BMI] 50.0-59.9, adult; E78.00 Pure hypercholesterolemia, unspecified; F41.9 Anxiety disorder, unspecified; I48.91 Unspecified atrial fibrillation; J44.1 Chronic obstructive pulmonary disease with (acute) exacerbation; Z20.822 Contact with and (suspected) exposure to COVID-19; Z79.4 Long term (current) use of insulin; Z79.899 Other long term (current) drug therapy; Z80.0 Family history of malignant neoplasm of digestive organs; Z82.3 Family history of stroke; Z82.49 Family history of ischemic heart disease and other diseases of the circulatory system; Z98.61 Coronary angioplasty status
CPT/HCPCS: 36415; 71045; 80053; 82962; 83605; 83880; 84484; 85025; 86141; 87040; 87077; 87081; 87186; 87205; 87426; 93005; 96365; 96366; 96367; 96375; 99291; G0378; J0696; J1815; J3490

== ENCOUNTER 2021-03-05 04:24 | Inpatient (IN) | payer MEDICAID ==
[~2021-03-05] VITALS: Ht 182.9 cm; Wt 192.0 kg
[~2021-03-05 04:24] MED LIST changes: +CHOLPOW40 XX; +FERR-20 PO; +METO25TA5 PO; +MULTCAP45 PO; +RIV20T PO
[2021-03-05] MEDS ORDERED: NITROGLYCERIN 0.4MG/HR TOPICAL PATCH TD ONE (05:00)
[2021-03-05] MEDS ORDERED: ENALAPRILAT 1.25 MG/ML-1ML VIAL IV ONE (05:00)
[2021-03-05] MEDS ORDERED: methylPREDNISolone SOD SUCC 125 MG/2 ML VL IV ONE (06:15)
[2021-03-05] MEDS ORDERED: HYDROcodone-ACET 10/325MG TAB PO ONE (06:30)
[2021-03-05 06:52] LABS: Basophils # (auto) 0.1 10 ^3/uL (0-0.2); Eosinophils # (auto) 0.3 10 ^3/uL (0-0.8); Monocytes # (auto) 0.4 10 ^3/uL (0-1.3); Red Blood Cells 4.52 10^6/uL (4.5-5.90); White Blood Cell 6.3 10^3/uL (4.4-10.8)
[2021-03-05 06:55] LABS: Basophils % (auto) 1.3 % (0.0-2.0); Eosinophils % (auto) 4.9 % (0.0-7.0); Hemoglobin 10.8 g/dL (13.5-17.5); Lymphocytes % (auto) 15.8 % (10.0-50.0); Mean Corpuscular Hemoglobin 23.8 pg (28.0-32.0); Mean Corpuscular Hgb Conc. 32.5 g/dL (32.0-36.0); Mean Corpuscular Volume 73.1 fL (80.0-100.0); Monocytes % (auto) 5.9 % (0.0-12.0); Neutrophils # (auto) 4.6 10 ^3/uL (1.6-8.6); Neutrophils % (auto) 72.1 % (37.0-80.0); Nucleated Red Blood Cells % 0.1 %
[2021-03-05 07:05] LABS: Red Cell Distribution Width 20.6 % (11.8-14.3)
[2021-03-05 07:33] LABS: Albumin 3.1 g/dL (3.4-5.0); Anion Gap 8 (5-15); Blood Urea Nitrogen 34 mg/dL (7-18); Calcium 8.7 mg/dL (8.5-10.1); Carbon Dioxide 27 mmol/L (21-32); Chloride 104 mmol/L (98-107); Glucose 131 mg/dL (74-106); Magnesium 2.5 mg/dL (1.6-2.6); Potassium 4.1 mmol/L (3.5-5.1); Sodium 139 mmol/L (136-145)
[2021-03-05 07:35] LABS: Alanine Aminotransferase 17 U/L (16-61); Aspartate Aminotransferase 18 U/L (15-37); BUN/Creatinine Ratio 20.7; GFR African American 57 mL/min; GFR Non-African American 47 mL/min
[2021-03-05 07:40] LABS: Alkaline Phosphatase 97 U/L (45-117); Bilirubin, Total 0.6 mg/dL (0.2-1.0); Total Protein 7.5 g/dL (6.4-8.2)
[2021-03-05 08:20] LABS: Urine Bacteria NONE SEEN /hpf (None Seen); Urine Blood Negative /uL (Negative); Urine Hyaline Cast FEW /lpf (0 - 2); Urine Specific Gravity 1.011 (1.001-1.035); Urine WBC 3 /hpf (0 - 3)
[2021-03-05] MEDS ORDERED: NITROGLYCERIN 0.4 MG SL TAB SL PRN (09:30)
[2021-03-05] MEDS ORDERED: MORPHINE SULFATE INJECTION 2 MG/ML SYRG IV PRN ×2 (09:30)
[2021-03-05] MEDS ORDERED: ACETAMINOPHEN 500 MG TAB PO PRN (09:30)
[2021-03-05] MEDS ORDERED: DOCUSATE SOD 100 MG CAP PO PRN (09:30)
[2021-03-05] MEDS ORDERED: ONDANSETRON HCL 4 MG/2 ML VIAL IV PRN (09:30)
[2021-03-05] MEDS: cefTRIAXone 1GM/50ML D5W 50 ML IV SCH (11:08)
[2021-03-05] MEDS: LOSARTAN POTASSIUM 50 MG TAB PO SCH (11:09)
[2021-03-05] MEDS: CARVEDILOL 3.125 MG TAB PO SCH ×2 (11:09→22:13)
[2021-03-05] MEDS: ASPirin-EC 81 mg tab PO SCH (11:10)
[2021-03-05] MEDS: CLOPIDOGREL BISULFATE 75 MG TAB PO SCH (11:10)
[2021-03-05] MEDS: GEMFIBROZIL 600 MG TAB PO SCH ×2 (11:10→22:13)
[2021-03-05] MEDS: SERTRALINE HCL 50 MG TAB PO SCH (11:10)
[2021-03-05] MEDS: INSULIN LANTUS (GLARGINE) 1 /0.01ml (100units/ml) SC SCH (11:11)
[2021-03-05] MEDS: BUDESONIDE (INHALATION) 0.5 MG/2 ML NEB NEB SCH ×2 (11:17→18:53)
[2021-03-05] MEDS: IPRATROPIUM BROM 0.5 MG/2.5ML INH SOL NEB SCH ×2 (11:17→18:53)
[2021-03-05] MEDS: ALBUTEROL SULF 2.5 MG/0.5ML(0.5%) NEB SOLN NEB SCH ×2 (11:17→18:53)
[2021-03-05] MEDS ORDERED: ALBUTEROL SULF HFA 90MCG INH 200DOSE IN SCH (14:00)
[2021-03-05] MEDS: CYCLOBENZAPRINE HCL 10 MG TAB PO SCH ×2 (14:07→22:13)
[2021-03-05] MEDS: HYDROcodone-ACET 5/325MG TAB PO PRN (16:25)
[2021-03-05] MEDS: BUMETANIDE 2.5mg/10ml (0.25 mg/ml) INJ IV SCH (18:00)
[2021-03-05] MEDS: SPIRONOLACTONE 25 MG TAB PO SCH (18:00)
[2021-03-06 03:15] VITALS: BP 133/91
[2021-03-06] MEDS: BUDESONIDE (INHALATION) 0.5 MG/2 ML NEB NEB SCH ×2 (05:32→18:58)
[2021-03-06] MEDS: ALBUTEROL SULF 2.5 MG/0.5ML(0.5%) NEB SOLN NEB SCH ×3 (05:32→18:58)
[2021-03-06] MEDS: IPRATROPIUM BROM 0.5 MG/2.5ML INH SOL NEB SCH ×3 (05:32→18:58)
[2021-03-06] MEDS: SPIRONOLACTONE 25 MG TAB PO SCH ×2 (06:14→17:22)
[2021-03-06] MEDS: BUMETANIDE 2.5mg/10ml (0.25 mg/ml) INJ IV SCH (06:14)
[2021-03-06] MEDS: CYCLOBENZAPRINE HCL 10 MG TAB PO SCH ×3 (06:15→21:26)
[2021-03-06] MEDS: ASPirin-EC 81 mg tab PO SCH (08:55)
[2021-03-06] MEDS: CARVEDILOL 3.125 MG TAB PO SCH ×2 (08:55→21:26)
[2021-03-06] MEDS: LOSARTAN POTASSIUM 50 MG TAB PO SCH (08:55)
[2021-03-06] MEDS: cefTRIAXone 1GM/50ML D5W 50 ML IV SCH (08:55)
[2021-03-06] MEDS: SERTRALINE HCL 50 MG TAB PO SCH (08:56)
[2021-03-06] MEDS: GEMFIBROZIL 600 MG TAB PO SCH ×2 (08:56→21:27)
[2021-03-06] MEDS: CLOPIDOGREL BISULFATE 75 MG TAB PO SCH (08:56)
[2021-03-06] MEDS: INSULIN LANTUS (GLARGINE) 1 /0.01ml (100units/ml) SC SCH (09:37)
[2021-03-06 17:00] VITALS: BP 138/94
[2021-03-06] MEDS: HYDROcodone-ACET 5/325MG TAB PO PRN (17:23)
[2021-03-06] MEDS ORDERED: predniSONE 20 MG TAB PO ONE (19:30)
[2021-03-06] MEDS: ENOXAPARIN SOD 150 MG/1 ML SYRINGE SC SCH (21:27)
[2021-03-06 22:20] VITALS: BP 117/74
[2021-03-07 05:00] VITALS: BP 120/69
[2021-03-07] MEDS: FUROSEMIDE 100 MG/10ML VIAL IV SCH ×2 (05:20→17:36)
[2021-03-07] MEDS: SPIRONOLACTONE 25 MG TAB PO SCH ×2 (05:20→17:36)
[2021-03-07] MEDS: CYCLOBENZAPRINE HCL 10 MG TAB PO SCH ×3 (05:21→20:47)
[2021-03-07 05:30] LABS: Alcohol, Urine < 3.0 mg/dL (0-10); Amphetamine Screen, Urine NEGATIVE (NEGATIVE); Barbiturate Scree,Urine NEGATIVE (NEGATIVE); Benzodiazephine Screen, Urine NEGATIVE (NEGATIVE); Cannabinoid Screen, Urine NEGATIVE (NEGATIVE); Cocaine Screen, Urine NEGATIVE (NEGATIVE); Opiate Scree,Urine NEGATIVE (NEGATIVE); Phencyclidine Screen, Urine NEGATIVE (NEGATIVE)
[2021-03-07] MEDS: BUDESONIDE (INHALATION) 0.5 MG/2 ML NEB NEB SCH ×2 (07:34→19:47)
[2021-03-07] MEDS: ALBUTEROL SULF 2.5 MG/0.5ML(0.5%) NEB SOLN NEB SCH ×3 (07:34→19:47)
[2021-03-07] MEDS: IPRATROPIUM BROM 0.5 MG/2.5ML INH SOL NEB SCH ×3 (07:34→19:47)
[2021-03-07 09:00] VITALS: BP 132/85
[2021-03-07] MEDS: cefTRIAXone 1GM/50ML D5W 50 ML IV SCH (09:29)
[2021-03-07] MEDS: CLOPIDOGREL BISULFATE 75 MG TAB PO SCH (09:30)
[2021-03-07] MEDS: ASPirin-EC 81 mg tab PO SCH (09:30)
[2021-03-07] MEDS: GEMFIBROZIL 600 MG TAB PO SCH ×2 (09:30→20:47)
[2021-03-07] MEDS: CARVEDILOL 3.125 MG TAB PO SCH ×2 (09:30→20:47)
[2021-03-07] MEDS: LOSARTAN POTASSIUM 50 MG TAB PO SCH (09:30)
[2021-03-07] MEDS: ENOXAPARIN SOD 150 MG/1 ML SYRINGE SC SCH ×2 (09:31→20:46)
[2021-03-07] MEDS: SERTRALINE HCL 50 MG TAB PO SCH (09:31)
[2021-03-07] MEDS ORDERED: predniSONE 20 MG TAB PO SCH (10:00)
[2021-03-07] MEDS: INSULIN LANTUS (GLARGINE) 1 /0.01ml (100units/ml) SC SCH (10:30)
[2021-03-07] MEDS: HYDROcodone-ACET 5/325MG TAB PO PRN ×2 (12:52→20:36)
[2021-03-07 13:00] VITALS: BP 147/100
[2021-03-07 17:00] VITALS: BP 145/88
[2021-03-07 22:37] VITALS: BP 151/102
[2021-03-08 05:04] VITALS: BP 134/79
[2021-03-08] MEDS: FUROSEMIDE 100 MG/10ML VIAL IV SCH ×2 (05:47→18:18)
[2021-03-08] MEDS: SPIRONOLACTONE 25 MG TAB PO SCH ×2 (05:47→18:18)
[2021-03-08] MEDS: CYCLOBENZAPRINE HCL 10 MG TAB PO SCH ×3 (05:48→21:47)
[2021-03-08 06:14] LABS: Basophils # (auto) 0 10 ^3/uL (0-0.2); Eosinophils # (auto) 0 10 ^3/uL (0-0.8); Eosinophils % (auto) 0.7 % (0.0-7.0); Hemoglobin 11.1 g/dL (13.5-17.5); Monocytes # (auto) 0.4 10 ^3/uL (0-1.3); Nucleated Red Blood Cells % 0.1 %
[2021-03-08 06:16] LABS: Basophils % (auto) 0.4 % (0.0-2.0); Hematocrit 34.3 % (41.0-53.0); Lymphocytes # (auto) 0.8 10 ^3/uL (0.4-5.4); Lymphocytes % (auto) 11.8 % (10.0-50.0); Mean Corpuscular Hemoglobin 23.8 pg (28.0-32.0); Mean Corpuscular Hgb Conc. 32.3 g/dL (32.0-36.0); Mean Corpuscular Volume 73.5 fL (80.0-100.0); Monocytes % (auto) 6.7 % (0.0-12.0); Neutrophils # (auto) 5.2 10 ^3/uL (1.6-8.6); Neutrophils % (auto) 80.4 % (37.0-80.0); Red Blood Cells 4.66 10^6/uL (4.5-5.90); Red Cell Distribution Width 19.6 % (11.8-14.3); White Blood Cell 6.5 10^3/uL (4.4-10.8)
[2021-03-08] MEDS: ALBUTEROL SULF 2.5 MG/0.5ML(0.5%) NEB SOLN NEB SCH ×3 (06:25→18:27)
[2021-03-08] MEDS: IPRATROPIUM BROM 0.5 MG/2.5ML INH SOL NEB SCH ×3 (06:25→18:27)
[2021-03-08] MEDS: BUDESONIDE (INHALATION) 0.5 MG/2 ML NEB NEB SCH ×2 (06:26→18:27)
[2021-03-08 06:30] LABS: BUN/Creatinine Ratio 30.3; Potassium 3.9 mmol/L (3.5-5.1)
[2021-03-08] MEDS: cefTRIAXone 1GM/50ML D5W 50 ML IV SCH (11:29)
[2021-03-08] MEDS: ENOXAPARIN SOD 150 MG/1 ML SYRINGE SC SCH ×2 (11:30→21:47)
[2021-03-08] MEDS: GEMFIBROZIL 600 MG TAB PO SCH ×2 (11:30→21:47)
[2021-03-08] MEDS: ASPirin-EC 81 mg tab PO SCH (11:30)
[2021-03-08] MEDS: SERTRALINE HCL 50 MG TAB PO SCH (11:30)
[2021-03-08] MEDS: CLOPIDOGREL BISULFATE 75 MG TAB PO SCH (11:31)
[2021-03-08] MEDS: CARVEDILOL 3.125 MG TAB PO SCH ×2 (11:32→21:55)
[2021-03-08] MEDS: LOSARTAN POTASSIUM 50 MG TAB PO SCH (11:32)
[2021-03-08] MEDS: INSULIN LANTUS (GLARGINE) 1 /0.01ml (100units/ml) SC SCH (11:38)
[2021-03-08] MEDS: HYDROcodone-ACET 5/325MG TAB PO PRN (15:41)
[2021-03-08 22:00] VITALS: BP 124/79
[2021-03-09 05:00] VITALS: BP 130/84
[2021-03-09] MEDS: IPRATROPIUM BROM 0.5 MG/2.5ML INH SOL NEB SCH ×2 (06:39→12:08)
[2021-03-09] MEDS: SPIRONOLACTONE 25 MG TAB PO SCH (06:39)
[2021-03-09] MEDS: FUROSEMIDE 100 MG/10ML VIAL IV SCH (06:39)
[2021-03-09] MEDS: CYCLOBENZAPRINE HCL 10 MG TAB PO SCH ×2 (06:39→14:00)
[2021-03-09] MEDS: ALBUTEROL SULF 2.5 MG/0.5ML(0.5%) NEB SOLN NEB SCH ×2 (06:39→12:08)
[2021-03-09] MEDS: BUDESONIDE (INHALATION) 0.5 MG/2 ML NEB NEB SCH (06:40)
[2021-03-09 09:00] VITALS: BP 131/76
[2021-03-09] MEDS: SERTRALINE HCL 50 MG TAB PO SCH (09:10)
[2021-03-09] MEDS: GEMFIBROZIL 600 MG TAB PO SCH (09:10)
[2021-03-09] MEDS: cefTRIAXone 1GM/50ML D5W 50 ML IV SCH (09:10)
[2021-03-09] MEDS: CLOPIDOGREL BISULFATE 75 MG TAB PO SCH (09:10)
[2021-03-09] MEDS: ASPirin-EC 81 mg tab PO SCH (09:10)
[2021-03-09] MEDS: ENOXAPARIN SOD 150 MG/1 ML SYRINGE SC SCH (09:11)
[2021-03-09] MEDS: LOSARTAN POTASSIUM 50 MG TAB PO SCH (09:43)
[2021-03-09] MEDS: CARVEDILOL 3.125 MG TAB PO SCH (09:43)
[2021-03-09] MEDS: INSULIN LANTUS (GLARGINE) 1 /0.01ml (100units/ml) SC SCH (09:46)
[2021-03-09] MEDS ORDERED: FURO1TAB31 PO (11:57)
[2021-03-09] MEDS ORDERED: POTA10TA51 PO (11:57)
[2021-03-09] MEDS ORDERED: SPIR25TA PO (11:59)
[2021-03-09 13:00] VITALS: BP_SYST 129; BP_SYST 131; BP_DIAS 76; BP_DIAS 87
== END 2021-03-09 15:30 | disposition home health service (06) | DRG 133 ==
LOC: ER 04:24 → TELE 09:17 → TELE-WESTW 03-06 11:51
PROVIDERS: ADMIT Nurse Practitioner Acute Care; ATTEND Internal Medicine Nephrology
DX: J96.21 Acute and chronic respiratory failure with hypoxia (principal); I50.43 Acute on chronic combined systolic (congestive) and diastolic (congestive) heart failure; L03.115 Cellulitis of right lower limb; J44.1 Chronic obstructive pulmonary disease with (acute) exacerbation; Z68.43 Body mass index [BMI] 50.0-59.9, adult; L03.116 Cellulitis of left lower limb; E11.22 Type 2 diabetes mellitus with diabetic chronic kidney disease; R56.9 Unspecified convulsions; I13.0 Hypertensive heart and chronic kidney disease with heart failure and stage 1 through stage 4 chronic kidney disease, or unspecified chronic kidney disease; E66.01 Morbid (severe) obesity due to excess calories; N18.31 Chronic kidney disease, stage 3a; I48.91 Unspecified atrial fibrillation; E78.5 Hyperlipidemia, unspecified; Z20.822 Contact with and (suspected) exposure to COVID-19; I25.10 Atherosclerotic heart disease of native coronary artery without angina pectoris; Z79.01 Long term (current) use of anticoagulants; Z79.02 Long term (current) use of antithrombotics/antiplatelets; Z79.4 Long term (current) use of insulin; Z79.899 Other long term (current) drug therapy; Z80.0 Family history of malignant neoplasm of digestive organs; Z82.3 Family history of stroke; Z82.49 Family history of ischemic heart disease and other diseases of the circulatory system; Z83.3 Family history of diabetes mellitus; Z86.718 Personal history of other venous thrombosis and embolism; Z87.09 Personal history of other diseases of the respiratory system
CPT/HCPCS: 36415; 71045; 71250; 80048; 80053; 80307; 81001; 82962; 83735; 83880; 84484; 85025; 85379; 87040; 87081; 87086; 87426; 93005; 93306; 93970; 94640; 96374; 96375; 99291; G0378; J0696; J1815

== ENCOUNTER 2021-04-08 00:43 | Inpatient (IN) | payer MEDICAID ==
[~2021-04-08] VITALS: Ht 182.9 cm; Wt 176.9 kg
[~2021-04-08 00:43] MED LIST changes: -ACET120S38 PR; -AMOX500T86 PO; -ASPI-543 PO; -CARV3.1240 PO; -CYCL10TA6 PO; -POTA10TA51 PO; +SPIR25TA PO; -VITATAB19 PO
[2021-04-08 01:38] LABS: Basophils # (auto) 0.1 10 ^3/uL (0-0.2); Basophils % (auto) 1.6 % (0.0-2.0); Eosinophils # (auto) 0.1 10 ^3/uL (0-0.8); Eosinophils % (auto) 2.3 % (0.0-7.0); Hematocrit 35.5 % (41.0-53.0); Hemoglobin 11.2 g/dL (13.5-17.5); Lymphocytes # (auto) 0.7 10 ^3/uL (0.4-5.4); Mean Corpuscular Hemoglobin 23.5 pg (28.0-32.0); Mean Corpuscular Hgb Conc. 31.6 g/dL (32.0-36.0); Mean Corpuscular Volume 74.3 fL (80.0-100.0); Monocytes # (auto) 0.4 10 ^3/uL (0-1.3); Neutrophils % (auto) 79.1 % (37.0-80.0); Nucleated Red Blood Cells % 0.2 %; Red Blood Cells 4.78 10^6/uL (4.5-5.90); Red Cell Distribution Width 21.4 % (11.8-14.3); White Blood Cell 6.3 10^3/uL (4.4-10.8)
[2021-04-08 01:57] LABS: Albumin 3.4 g/dL (3.4-5.0); Anion Gap 7 (5-15); BUN/Creatinine Ratio 23.4; Blood Urea Nitrogen 36 mg/dL (7-18); Calcium 8.7 mg/dL (8.5-10.1); Carbon Dioxide 26 mmol/L (21-32); Chloride 105 mmol/L (98-107); GFR African American 61 mL/min; GFR Non-African American 51 mL/min; Glucose 221 mg/dL (74-106); Potassium 4.6 mmol/L (3.5-5.1); Sodium 138 mmol/L (136-145)
[2021-04-08 02:05] LABS: INR 1.26 (0.9-1.15); Partial Thromboplastin Time 32.6 sec (23.6-33.0)
[2021-04-08 02:06] LABS: Alanine Aminotransferase 24 U/L (16-61); Alkaline Phosphatase 83 U/L (45-117); Aspartate Aminotransferase 17 U/L (15-37); Bilirubin, Total 0.5 mg/dL (0.2-1.0); Total Protein 7.7 g/dL (6.4-8.2)
[2021-04-08] MEDS ORDERED: FUROSEMIDE 100 MG/10ML VIAL IV ONE (03:00)
[2021-04-08] MEDS ORDERED: ONDANSETRON HCL 4 MG/2 ML VIAL IV PRN (07:30)
[2021-04-08] MEDS ORDERED: DOCUSATE SOD 100 MG CAP PO PRN (07:30)
[2021-04-08] MEDS ORDERED: NITROGLYCERIN 0.4 MG SL TAB SL PRN (07:30)
[2021-04-08] MEDS ORDERED: ACETAMINOPHEN 325 MG TAB PO PRN (07:30)
[2021-04-08] MEDS ORDERED: MORPHINE SULFATE 4 MG/ML SYR/VIAL IV PRN (07:30)
[2021-04-08] MEDS ORDERED: MORPHINE SULFATE INJECTION 2 MG/ML SYRG IV PRN (07:30)
[2021-04-08] MEDS ORDERED: DEXTROSE (50%) 50ML SYRG IV PRN (07:30)
[2021-04-08 08:08] LABS: Eosinophils # (auto) 0.2 10 ^3/uL (0-0.8); Monocytes # (auto) 0.4 10 ^3/uL (0-1.3); Neutrophils # (auto) 4.9 10 ^3/uL (1.6-8.6); Red Blood Cells 4.87 10^6/uL (4.5-5.90); White Blood Cell 6.4 10^3/uL (4.4-10.8)
[2021-04-08 08:09] LABS: Basophils # (auto) 0.1 10 ^3/uL (0-0.2); Eosinophils % (auto) 3.3 % (0.0-7.0); Hematocrit 36.5 % (41.0-53.0); Hemoglobin 11.4 g/dL (13.5-17.5); Lymphocytes # (auto) 0.9 10 ^3/uL (0.4-5.4); Lymphocytes % (auto) 13.8 % (10.0-50.0); Mean Corpuscular Hemoglobin 23.5 pg (28.0-32.0); Mean Corpuscular Hgb Conc. 31.4 g/dL (32.0-36.0); Mean Corpuscular Volume 74.9 fL (80.0-100.0); Monocytes % (auto) 6.2 % (0.0-12.0); Neutrophils % (auto) 75.7 % (37.0-80.0); Nucleated Red Blood Cells % 0.4 %; Red Cell Distribution Width 20.7 % (11.8-14.3)
[2021-04-08 08:24] LABS: Albumin 3.7 g/dL (3.4-5.0); Potassium 4.9 mmol/L (3.5-5.1)
[2021-04-08 08:31] LABS: BUN/Creatinine Ratio 21.7; Bilirubin, Total 0.7 mg/dL (0.2-1.0); Calcium 9.4 mg/dL (8.5-10.1)
[2021-04-08] MEDS: HYDROcodone-ACET 5/325MG TAB PO PRN ×2 (09:03→23:00)
[2021-04-08] MEDS: CARVEDILOL 12.5 MG TAB PO SCH ×2 (10:00→23:00)
[2021-04-08] MEDS ORDERED: FAMOTIDINE (10MG/ML) 2ML VL IV SCH (10:00)
[2021-04-08] MEDS: HEPARIN SODIUM (PORCINE) 5000 UNITS/ML 1ML VIAL SC SCH ×2 (10:00→23:00)
[2021-04-08] MEDS: ASCORBIC ACID 500 MG TAB PO SCH ×2 (10:00→23:00)
[2021-04-08] MEDS ORDERED: ZINC SULFATE 220mg CAP or TAB PO SCH (10:00)
[2021-04-08] MEDS ORDERED: FUROSEMIDE 20 MG/2 ML VIAL IV ONE (13:45)
[2021-04-08] MEDS: SODIUM CHLOR 0.9% PF (SALINE LOCK) 10ML VIAL/SYR IV SCH ×2 (14:00→23:00)
[2021-04-08] MEDS: methylPREDNISolone SOD SUCC 40 MG/ML VL IV SCH ×2 (14:00→23:00)
[2021-04-08] MEDS: ACCU-CHEK COMFORT CURVE STRIP VI SCH ×2 (17:00→23:00)
[2021-04-08] MEDS ORDERED: InsuLIN REG 1unit/0.01ml Soln (100units/ml) SC SCH (22:00)
[2021-04-08] MEDS: FUROSEMIDE 40 MG/4 ML VIAL IV SCH (23:00)
[2021-04-08] MEDS: InsuLIN REG 1unit/0.01ml Soln (100units/ml) SC SCH (23:00)
[2021-04-08] MEDS: CLOPIDOGREL BISULFATE 75 MG TAB PO SCH (23:00)
[2021-04-08] MEDS: MULTIPLE VITAMIN TAB PO SCH (23:00)
[2021-04-09 06:30] LABS: Basophils # (auto) 0 10 ^3/uL (0-0.2); Eosinophils # (auto) 0 10 ^3/uL (0-0.8); Eosinophils % (auto) 0.2 % (0.0-7.0); Hemoglobin 11.1 g/dL (13.5-17.5); Monocytes # (auto) 0.1 10 ^3/uL (0-1.3); Monocytes % (auto) 1.1 % (0.0-12.0)
[2021-04-09 06:32] LABS: Basophils % (auto) 0.2 % (0.0-2.0); Hematocrit 34.4 % (41.0-53.0); Lymphocytes # (auto) 0.5 10 ^3/uL (0.4-5.4); Mean Corpuscular Hemoglobin 23.9 pg (28.0-32.0); Mean Corpuscular Hgb Conc. 32.3 g/dL (32.0-36.0); Neutrophils # (auto) 7.4 10 ^3/uL (1.6-8.6); Neutrophils % (auto) 92.5 % (37.0-80.0); Nucleated Red Blood Cells % 0.2 %; Red Blood Cells 4.65 10^6/uL (4.5-5.90); Red Cell Distribution Width 20.7 % (11.8-14.3)
[2021-04-09 06:53] LABS: Albumin 3.4 g/dL (3.4-5.0); BUN/Creatinine Ratio 26.6; Bilirubin, Total 0.6 mg/dL (0.2-1.0); Calcium 8.9 mg/dL (8.5-10.1); Total Protein 7.4 g/dL (6.4-8.2)
[2021-04-09 06:58] LABS: Potassium 5.8 mmol/L (3.5-5.1)
[2021-04-09] MEDS: ACCU-CHEK COMFORT CURVE STRIP VI SCH ×2 (07:00→11:30)
[2021-04-09] MEDS: InsuLIN REG 1unit/0.01ml Soln (100units/ml) SC SCH ×2 (07:00→12:17)
[2021-04-09] MEDS ORDERED: SODIUM ZIRCONIUM CYCL 10 GM PAK PO ONE ×2 (07:00→08:00)
[2021-04-09] MEDS: methylPREDNISolone SOD SUCC 40 MG/ML VL IV SCH (07:12)
[2021-04-09] MEDS ORDERED: ALBUTEROL SULF 2.5 MG/0.5ML(0.5%) NEB SOLN NEB ONE (08:00)
[2021-04-09] MEDS: HEPARIN SODIUM (PORCINE) 5000 UNITS/ML 1ML VIAL SC SCH (10:00)
[2021-04-09] MEDS: FUROSEMIDE 40 MG/4 ML VIAL IV SCH (10:23)
[2021-04-09] MEDS: MULTIPLE VITAMIN TAB PO SCH (10:24)
[2021-04-09] MEDS: CARVEDILOL 12.5 MG TAB PO SCH (10:24)
[2021-04-09] MEDS: CLOPIDOGREL BISULFATE 75 MG TAB PO SCH (10:25)
[2021-04-09 12:20] VITALS: BP 146/97
[2021-04-09] MEDS ORDERED: ERGOCALCIFEROL 50,000 UNIT(1.25MG) CAP PO SCH (23:00)
== END 2021-04-09 14:06 | disposition home or self-care (01) | DRG 194 ==
LOC: ER 00:44 → TELE 07:25
PROVIDERS: ADMIT Nurse Practitioner Family; ATTEND Internal Medicine
DX: I13.0 Hypertensive heart and chronic kidney disease with heart failure and stage 1 through stage 4 chronic kidney disease, or unspecified chronic kidney disease (principal); Z68.43 Body mass index [BMI] 50.0-59.9, adult; I42.9 Cardiomyopathy, unspecified; E11.22 Type 2 diabetes mellitus with diabetic chronic kidney disease; E87.5 Hyperkalemia; I50.43 Acute on chronic combined systolic (congestive) and diastolic (congestive) heart failure; E66.01 Morbid (severe) obesity due to excess calories; I87.2 Venous insufficiency (chronic) (peripheral); E78.5 Hyperlipidemia, unspecified; I25.10 Atherosclerotic heart disease of native coronary artery without angina pectoris; I48.91 Unspecified atrial fibrillation; I50.82 Biventricular heart failure; J44.9 Chronic obstructive pulmonary disease, unspecified; Z20.822 Contact with and (suspected) exposure to COVID-19; N18.9 Chronic kidney disease, unspecified; R56.9 Unspecified convulsions; E55.9 Vitamin D deficiency, unspecified; Z80.0 Family history of malignant neoplasm of digestive organs; Z82.3 Family history of stroke; Z82.49 Family history of ischemic heart disease and other diseases of the circulatory system; Z83.3 Family history of diabetes mellitus
CPT/HCPCS: 36415; 71045; 80053; 80061; 82962; 83880; 84132; 84484; 85025; 85610; 85730; 87426; 93005; 94640; G0378; J1815

== ENCOUNTER 2021-07-13 19:32 | Inpatient (IN) | payer MEDICAID ==
[~2021-07-13] VITALS: Ht 182.9 cm; Wt 174.6 kg
[2021-07-13 22:31] LABS: Basophils # (auto) 0.1 10 ^3/uL (0-0.2); Basophils % (auto) 0.8 % (0.0-2.0); Eosinophils # (auto) 0.2 10 ^3/uL (0-0.8); Mean Corpuscular Volume 79.3 fL (80.0-100.0); Monocytes # (auto) 0.4 10 ^3/uL (0-1.3)
[2021-07-13 22:32] LABS: Albumin 3.2 g/dL (3.4-5.0); Calcium 8.4 mg/dL (8.5-10.1); Potassium 4.2 mmol/L (3.5-5.1)
[2021-07-13 22:33] LABS: Eosinophils % (auto) 2.3 % (0.0-7.0); Hematocrit 35.1 % (41.0-53.0); Hemoglobin 11.5 g/dL (13.5-17.5); Lymphocytes # (auto) 0.8 10 ^3/uL (0.4-5.4); Lymphocytes % (auto) 11.3 % (10.0-50.0); Mean Corpuscular Hemoglobin 26.1 pg (28.0-32.0); Mean Corpuscular Hgb Conc. 32.9 g/dL (32.0-36.0); Monocytes % (auto) 5.6 % (0.0-12.0); Neutrophils # (auto) 5.4 10 ^3/uL (1.6-8.6); Nucleated Red Blood Cells % 0.2 %; Red Blood Cells 4.43 10^6/uL (4.5-5.90); White Blood Cell 6.8 10^3/uL (4.4-10.8)
[2021-07-13 22:38] LABS: Red Cell Distribution Width 22.2 % (11.8-14.3)
[2021-07-13 22:39] LABS: BUN/Creatinine Ratio 18.1; Bilirubin, Total 0.8 mg/dL (0.2-1.0)
[2021-07-14] MEDS ORDERED: ASPirin 81 mg TAB PO ONE (05:00)
[2021-07-14] MEDS ORDERED: MORPHINE SULFATE INJECTION 2 MG/ML SYRG IV PRN (06:45)
[2021-07-14] MEDS ORDERED: MORPHINE SULFATE 4 MG/ML SYR/VIAL IV PRN (06:45)
[2021-07-14] MEDS ORDERED: ONDANSETRON HCL 4 MG/2 ML VIAL IV PRN (06:45)
[2021-07-14] MEDS ORDERED: NITROGLYCERIN 0.4 MG SL TAB SL PRN (06:45)
[2021-07-14] MEDS ORDERED: DOCUSATE SOD 100 MG CAP PO PRN (06:45)
[2021-07-14] MEDS ORDERED: DEXTROSE (50%) 50ML SYRG IV PRN (06:45)
[2021-07-14] MEDS ORDERED: ACETAMINOPHEN 325 MG TAB PO PRN (06:45)
[2021-07-14 07:58] LABS: Cholesterol 146 mg/dL (< 200); HDL Cholesterol 34 mg/dL (40-59); LDL Cholesterol 81 mg/dL (< 100); Triglycerides 175 mg/dL (< 150)
[2021-07-14] MEDS: ACCU-CHEK COMFORT CURVE STRIP VI SCH ×4 (08:00→23:01)
[2021-07-14] MEDS: InsuLIN REG 1unit/0.01ml Soln (100units/ml) SC SCH ×4 (08:30→23:25)
[2021-07-14 08:40] LABS: Urine Bacteria NONE SEEN /hpf (None Seen); Urine Blood Negative /uL (Negative); Urine Specific Gravity 1.016 (1.001-1.035); Urine WBC 19 /hpf (0 - 3)
[2021-07-14] MEDS: AZITHROMYCIN 500MG/ 250ML 250 ML IV SCH (09:16)
[2021-07-14] MEDS: FAMOTIDINE (10MG/ML) 2ML VL IV SCH ×2 (09:16→23:25)
[2021-07-14] MEDS: ASPirin 81 mg TAB PO SCH (09:16)
[2021-07-14] MEDS: FUROSEMIDE 40 MG/4 ML VIAL IV SCH (09:16)
[2021-07-14] MEDS: HYDROcodone-ACET 5/325MG TAB PO PRN ×2 (09:16→23:25)
[2021-07-14] MEDS: APIXABAN 5 MG TAB PO SCH ×2 (09:16→22:45)
[2021-07-14] MEDS ORDERED: cefTRIAXone 1GM/50ML D5W 50 ML IV ONE (12:15)
[2021-07-14] MEDS: SODIUM CHLOR 0.9% PF (SALINE LOCK) 10ML VIAL/SYR IV SCH ×2 (15:19→22:45)
[2021-07-14] MEDS: methylPREDNISolone SOD SUCC 40 MG/ML VL IV SCH ×2 (15:30→23:25)
[2021-07-14] MEDS ORDERED: hydrALAZINE HCL 20 MG/ML VL IV PRN (18:45)
[2021-07-14] MEDS: ATORVASTATIN 20 MG TAB PO SCH (22:45)
[2021-07-15 03:37] LABS: Basophils # (auto) 0 10 ^3/uL (0-0.2); Eosinophils # (auto) 0 10 ^3/uL (0-0.8); Lymphocytes # (auto) 0.5 10 ^3/uL (0.4-5.4); Mean Corpuscular Hgb Conc. 32.6 g/dL (32.0-36.0); Mean Corpuscular Volume 79.5 fL (80.0-100.0); Monocytes # (auto) 0.1 10 ^3/uL (0-1.3); Nucleated Red Blood Cells % 0.1 %
[2021-07-15 03:40] LABS: Basophils % (auto) 0.5 % (0.0-2.0); Hematocrit 38.7 % (41.0-53.0); Hemoglobin 12.6 g/dL (13.5-17.5); Lymphocytes % (auto) 5.8 % (10.0-50.0); Monocytes % (auto) 1.2 % (0.0-12.0); Neutrophils # (auto) 7.9 10 ^3/uL (1.6-8.6); Neutrophils % (auto) 92.5 % (37.0-80.0); Red Blood Cells 4.86 10^6/uL (4.5-5.90); White Blood Cell 8.5 10^3/uL (4.4-10.8)
[2021-07-15 03:41] LABS: Red Cell Distribution Width 22.2 % (11.8-14.3)
[2021-07-15 03:53] LABS: Albumin 3.7 g/dL (3.4-5.0); Calcium 9.5 mg/dL (8.5-10.1); Potassium 4.9 mmol/L (3.5-5.1)
[2021-07-15 03:56] LABS: BUN/Creatinine Ratio 20.3
[2021-07-15 04:18] LABS: Bilirubin, Total 0.9 mg/dL (0.2-1.0); Total Protein 7.6 g/dL (6.4-8.2)
[2021-07-15] MEDS: methylPREDNISolone SOD SUCC 40 MG/ML VL IV SCH ×3 (06:35→21:26)
[2021-07-15] MEDS: SODIUM CHLOR 0.9% PF (SALINE LOCK) 10ML VIAL/SYR IV SCH ×3 (06:35→21:27)
[2021-07-15] MEDS: ACCU-CHEK COMFORT CURVE STRIP VI SCH ×4 (06:40→21:28)
[2021-07-15] MEDS: InsuLIN REG 1unit/0.01ml Soln (100units/ml) SC SCH ×4 (07:13→21:13)
[2021-07-15] MEDS: HYDROcodone-ACET 5/325MG TAB PO PRN ×3 (08:16→21:27)
[2021-07-15] MEDS: APIXABAN 5 MG TAB PO SCH ×2 (08:18→21:28)
[2021-07-15] MEDS: ASPirin 81 mg TAB PO SCH (08:18)
[2021-07-15] MEDS: cefTRIAXone 1GM/50ML D5W 50 ML IV SCH (08:19)
[2021-07-15] MEDS: FAMOTIDINE (10MG/ML) 2ML VL IV SCH ×2 (09:03→21:26)
[2021-07-15] MEDS: AZITHROMYCIN 500MG/ 250ML 250 ML IV SCH (09:03)
[2021-07-15] MEDS: FUROSEMIDE 40 MG/4 ML VIAL IV SCH (09:03)
[2021-07-15 18:20] VITALS: BP 149/100
[2021-07-15] MEDS: ATORVASTATIN 20 MG TAB PO SCH (21:27)
[2021-07-15 22:00] VITALS: BP 152/94
[2021-07-15] MEDS ORDERED: INSULIN LANTUS (GLARGINE) 1 /0.01ml (100units/ml) SC SCH (22:00)
[2021-07-15 22:40] VITALS: BP 152/94
[2021-07-16 04:30] VITALS: BP 162/79
[2021-07-16] MEDS: InsuLIN REG 1unit/0.01ml Soln (100units/ml) SC SCH ×2 (05:30→12:09)
[2021-07-16] MEDS: ACCU-CHEK COMFORT CURVE STRIP VI SCH ×2 (05:42→12:09)
[2021-07-16] MEDS: SODIUM CHLOR 0.9% PF (SALINE LOCK) 10ML VIAL/SYR IV SCH ×2 (05:42→14:09)
[2021-07-16] MEDS: methylPREDNISolone SOD SUCC 40 MG/ML VL IV SCH ×2 (05:42→14:09)
[2021-07-16 06:08] VITALS: BP 147/75
[2021-07-16 09:00] VITALS: BP 129/92
[2021-07-16] MEDS: FUROSEMIDE 40 MG/4 ML VIAL IV SCH (09:59)
[2021-07-16] MEDS: ASPirin 81 mg TAB PO SCH (09:59)
[2021-07-16] MEDS: FAMOTIDINE (10MG/ML) 2ML VL IV SCH (09:59)
[2021-07-16] MEDS: APIXABAN 5 MG TAB PO SCH (09:59)
[2021-07-16] MEDS: cefTRIAXone 1GM/50ML D5W 50 ML IV SCH (09:59)
[2021-07-16] MEDS: AZITHROMYCIN 500MG/ 250ML 250 ML IV SCH (10:00)
[2021-07-16] MEDS ORDERED: ALBUAER3 IN (10:04)
[2021-07-16] MEDS ORDERED: PRED20TA2 PO (10:04)
[2021-07-16] MEDS ORDERED: AZIT500T66 PO (10:04)
[2021-07-16] MEDS ORDERED: ALBU0.084 NEB (10:04)
[2021-07-16 13:00] VITALS: BP 141/91
[2021-07-16 13:18] VITALS: BP 141/91
== END 2021-07-16 15:00 | disposition home or self-care (01) | DRG 139 ==
LOC: EDBD 19:34 → ER 19:34 → TELE 07-14 06:35 → TELE-CENTR 07-15 18:10
PROVIDERS: ADMIT Nurse Practitioner Family; ATTEND Family Medicine
PROC: 5A09357 Assistance with Respiratory Ventilation, Less than 24 Consecutive Hours, Continuous Positive Airway Pressure (ICD-10-PCS; principal; 2021-07-15)
DX: J18.9 Pneumonia, unspecified organism (principal); J96.21 Acute and chronic respiratory failure with hypoxia; I50.23 Acute on chronic systolic (congestive) heart failure; J44.1 Chronic obstructive pulmonary disease with (acute) exacerbation; I13.0 Hypertensive heart and chronic kidney disease with heart failure and stage 1 through stage 4 chronic kidney disease, or unspecified chronic kidney disease; J44.0 Chronic obstructive pulmonary disease with (acute) lower respiratory infection; E11.65 Type 2 diabetes mellitus with hyperglycemia; N39.0 Urinary tract infection, site not specified; E66.01 Morbid (severe) obesity due to excess calories; E11.22 Type 2 diabetes mellitus with diabetic chronic kidney disease; E11.40 Type 2 diabetes mellitus with diabetic neuropathy, unspecified; E78.00 Pure hypercholesterolemia, unspecified; E78.5 Hyperlipidemia, unspecified; I25.10 Atherosclerotic heart disease of native coronary artery without angina pectoris; I48.91 Unspecified atrial fibrillation; N18.9 Chronic kidney disease, unspecified; Z20.822 Contact with and (suspected) exposure to COVID-19; Z68.43 Body mass index [BMI] 50.0-59.9, adult; Z79.899 Other long term (current) drug therapy; Z80.0 Family history of malignant neoplasm of digestive organs; Z82.3 Family history of stroke; Z82.49 Family history of ischemic heart disease and other diseases of the circulatory system; Z83.3 Family history of diabetes mellitus; Z95.5 Presence of coronary angioplasty implant and graft; Z99.81 Dependence on supplemental oxygen
CPT/HCPCS: 36415; 71045; 80053; 80061; 81001; 82962; 83036; 83880; 84443; 84484; 85025; 87426; 93005; 94660; G0378; J0696; J1815; J3490

== ENCOUNTER 2021-07-22 00:19 | Inpatient (IN) | payer MEDICAID ==
[~2021-07-22] VITALS: Ht 182.9 cm; Wt 184.7 kg
[~2021-07-22 00:19] MED LIST changes: +ALBU0.084 NEB; +ALBUAER3 IN; +AZIT500T66 PO; +PRED20TA2 PO
[2021-07-22 02:09] LABS: Basophils # (auto) 0.1 10 ^3/uL (0-0.2); Eosinophils # (auto) 0 10 ^3/uL (0-0.8); Eosinophils % (auto) 0.4 % (0.0-7.0); Lymphocytes # (auto) 0.6 10 ^3/uL (0.4-5.4); Monocytes # (auto) 0.3 10 ^3/uL (0-1.3)
[2021-07-22 02:13] LABS: Basophils % (auto) 0.7 % (0.0-2.0); Hematocrit 39.1 % (41.0-53.0); Hemoglobin 12.5 g/dL (13.5-17.5); Lymphocytes % (auto) 5.6 % (10.0-50.0); Mean Corpuscular Hemoglobin 25.6 pg (28.0-32.0); Mean Corpuscular Hgb Conc. 31.8 g/dL (32.0-36.0); Mean Corpuscular Volume 80.4 fL (80.0-100.0); Monocytes % (auto) 2.9 % (0.0-12.0); Neutrophils # (auto) 9.4 10 ^3/uL (1.6-8.6); Neutrophils % (auto) 90.4 % (37.0-80.0); Nucleated Red Blood Cells % 0.1 %; Red Blood Cells 4.87 10^6/uL (4.5-5.90); White Blood Cell 10.4 10^3/uL (4.4-10.8)
[2021-07-22 02:15] LABS: Red Cell Distribution Width 21.1 % (11.8-14.3)
[2021-07-22 02:43] LABS: BUN/Creatinine Ratio 21.1; Calcium 8.3 mg/dL (8.5-10.1); Potassium 4.6 mmol/L (3.5-5.1)
[2021-07-22 02:48] LABS: Bilirubin, Total 0.6 mg/dL (0.2-1.0); Total Protein 6.7 g/dL (6.4-8.2)
[2021-07-22] MEDS ORDERED: levoFLOXacin 750MG 150 ML IV ONE (06:30)
[2021-07-22] MEDS ORDERED: cefTRIAXone 1GM/50ML D5W 50 ML IV ONE (06:30)
[2021-07-22] MEDS ORDERED: DEXTROSE (50%) 50ML SYRG IV PRN (10:15)
[2021-07-22] MEDS ORDERED: NITROGLYCERIN 0.4 MG SL TAB SL PRN (10:15)
[2021-07-22] MEDS ORDERED: MORPHINE SULFATE INJECTION 2 MG/ML SYRG IV PRN (10:15)
[2021-07-22] MEDS: ACCU-CHEK COMFORT CURVE STRIP VI SCH ×3 (15:04→22:00)
[2021-07-22] MEDS: InsuLIN REG 1unit/0.01ml Soln (100units/ml) SC SCH ×3 (15:05→22:00)
[2021-07-22] MEDS: DexAMETHasone SOD PHOS 10MG/1ML VIAL INJ IV SCH (15:07)
[2021-07-22 17:00] VITALS: BP 151/87
[2021-07-22 18:15] VITALS: BP 142/82
[2021-07-22] MEDS: HYDROcodone-ACET 10/325MG TAB PO PRN (19:13)
[2021-07-22] MEDS: METOPROLOL TARTRATE 25 MG TAB PO SCH (22:00)
[2021-07-22] MEDS: ASCORBIC ACID 500 MG TAB PO SCH (22:00)
[2021-07-22 23:00] VITALS: BP 149/91
[2021-07-23 06:00] VITALS: BP 147/86
[2021-07-23 06:11] LABS: Eosinophils # (auto) 0 10 ^3/uL (0-0.8); Hemoglobin 12.9 g/dL (13.5-17.5)
[2021-07-23 06:14] LABS: Basophils # (auto) 0 10 ^3/uL (0-0.2); Basophils % (auto) 0.4 % (0.0-2.0); Eosinophils % (auto) 0.1 % (0.0-7.0); Hematocrit 39.1 % (41.0-53.0); Lymphocytes # (auto) 0.9 10 ^3/uL (0.4-5.4); Lymphocytes % (auto) 9.3 % (10.0-50.0); Mean Corpuscular Hemoglobin 26.1 pg (28.0-32.0); Mean Corpuscular Hgb Conc. 32.9 g/dL (32.0-36.0); Mean Corpuscular Volume 79.2 fL (80.0-100.0); Monocytes # (auto) 0.5 10 ^3/uL (0-1.3); Monocytes % (auto) 4.6 % (0.0-12.0); Neutrophils # (auto) 8.5 10 ^3/uL (1.6-8.6); Neutrophils % (auto) 85.6 % (37.0-80.0); Nucleated Red Blood Cells % 0.2 %; Red Blood Cells 4.93 10^6/uL (4.5-5.90)
[2021-07-23 06:15] LABS: Red Cell Distribution Width 20.3 % (11.8-14.3)
[2021-07-23 06:53] LABS: Potassium 4.9 mmol/L (3.5-5.1)
[2021-07-23] MEDS: ACCU-CHEK COMFORT CURVE STRIP VI SCH ×4 (06:56→22:08)
[2021-07-23] MEDS: InsuLIN REG 1unit/0.01ml Soln (100units/ml) SC SCH ×4 (06:59→22:32)
[2021-07-23 07:03] LABS: Albumin 3.2 g/dL (3.4-5.0); BUN/Creatinine Ratio 27.7; Bilirubin, Total 0.4 mg/dL (0.2-1.0); Calcium 8.1 mg/dL (8.5-10.1); Total Protein 6.3 g/dL (6.4-8.2)
[2021-07-23] MEDS: HYDROcodone-ACET 10/325MG TAB PO PRN ×2 (08:08→18:06)
[2021-07-23] MEDS: cefTRIAXone 1GM/50ML D5W 50 ML IV SCH (08:23)
[2021-07-23] MEDS: DexAMETHasone SOD PHOS 10MG/1ML VIAL INJ IV SCH (08:24)
[2021-07-23] MEDS ORDERED: ENOXAPARIN SOD 40 MG/0.4 ML SYRINGE SC SCH (10:00)
[2021-07-23] MEDS ORDERED: AZITHROMYCIN 500MG/ 250ML 250 ML IV SCH (10:00)
[2021-07-23] MEDS: ZINC SULFATE 220mg CAP or TAB PO SCH (10:07)
[2021-07-23] MEDS: CLOPIDOGREL BISULFATE 75 MG TAB PO SCH (10:09)
[2021-07-23] MEDS: METOPROLOL TARTRATE 25 MG TAB PO SCH ×2 (10:09→22:08)
[2021-07-23] MEDS: ASCORBIC ACID 500 MG TAB PO SCH ×2 (10:09→22:08)
[2021-07-23] MEDS: CHOLECALCIFEROL (VITD3) 2,000 UNIT CAP/TAB PO SCH (10:10)
[2021-07-23] MEDS: INSULIN LANTUS (GLARGINE) 1 /0.01ml (100units/ml) SC SCH (10:12)
[2021-07-23] MEDS: ISOSORBIDE DINITRATE 10 MG TAB PO SCH (10:13)
[2021-07-23] MEDS ORDERED: SPIRONOLACTONE 25 MG TAB PO ONE (12:45)
[2021-07-23] MEDS ORDERED: FUROSEMIDE 40 MG/4 ML VIAL IV ONE (12:45)
[2021-07-23] MEDS ORDERED: REMDESIVIR PER PHARMACY 0 ML IV SCH (13:00)
[2021-07-23] MEDS ORDERED: REMDESIVIR 200 MG in NS 210ml LOADING DOSE ADULT IV ONE (15:00)
[2021-07-23] MEDS: RIVAROXABAN 20 MG TAB PO SCH (18:09)
[2021-07-23 22:00] VITALS: BP 122/89
[2021-07-24 05:15] VITALS: BP 134/90
[2021-07-24] MEDS: ACCU-CHEK COMFORT CURVE STRIP VI SCH ×4 (06:00→21:56)
[2021-07-24] MEDS: InsuLIN REG 1unit/0.01ml Soln (100units/ml) SC SCH ×4 (06:14→21:57)
[2021-07-24 07:14] LABS: Albumin 3.3 g/dL (3.4-5.0); BUN/Creatinine Ratio 27.5; Bilirubin, Total 0.4 mg/dL (0.2-1.0); Calcium 8.4 mg/dL (8.5-10.1); Total Protein 6.7 g/dL (6.4-8.2)
[2021-07-24 09:00] VITALS: BP 133/102
[2021-07-24] MEDS: HYDROcodone-ACET 10/325MG TAB PO PRN ×2 (10:15→21:56)
[2021-07-24] MEDS: DexAMETHasone SOD PHOS 4 MG/1ML SDV INJ IV SCH (11:42)
[2021-07-24] MEDS: cefTRIAXone 1GM/50ML D5W 50 ML IV SCH (11:42)
[2021-07-24] MEDS: FUROSEMIDE 40 MG/4 ML VIAL IV SCH (11:42)
[2021-07-24] MEDS: SPIRONOLACTONE 25 MG TAB PO SCH (11:43)
[2021-07-24] MEDS: ZINC SULFATE 220mg CAP or TAB PO SCH (11:43)
[2021-07-24] MEDS: ISOSORBIDE DINITRATE 10 MG TAB PO SCH (11:43)
[2021-07-24] MEDS: METOPROLOL TARTRATE 25 MG TAB PO SCH ×2 (11:43→21:55)
[2021-07-24] MEDS: CLOPIDOGREL BISULFATE 75 MG TAB PO SCH (11:43)
[2021-07-24] MEDS: ASCORBIC ACID 500 MG TAB PO SCH ×2 (11:44→21:55)
[2021-07-24] MEDS: CHOLECALCIFEROL (VITD3) 2,000 UNIT CAP/TAB PO SCH (11:44)
[2021-07-24] MEDS: SERTRALINE HCL 50 MG TAB PO SCH (11:44)
[2021-07-24] MEDS: INSULIN LANTUS (GLARGINE) 1 /0.01ml (100units/ml) SC SCH (12:02)
[2021-07-24 13:00] VITALS: BP 121/70
[2021-07-24] MEDS: REMDESIVIR 100mg 100 MG in SODIUM CHL 0.9% 230 ML IV SCH (15:40)
[2021-07-24 17:00] VITALS: BP 133/80
[2021-07-24] MEDS: RIVAROXABAN 20 MG TAB PO SCH (18:04)
[2021-07-24 22:00] VITALS: BP 150/100
[2021-07-25 05:00] VITALS: BP 129/89
[2021-07-25] MEDS: InsuLIN REG 1unit/0.01ml Soln (100units/ml) SC SCH ×4 (06:10→21:56)
[2021-07-25] MEDS: ACCU-CHEK COMFORT CURVE STRIP VI SCH ×4 (06:10→21:55)
[2021-07-25 07:09] LABS: Basophils # (auto) 0.1 10 ^3/uL (0-0.2); Hemoglobin 13.2 g/dL (13.5-17.5); Lymphocytes # (auto) 1.7 10 ^3/uL (0.4-5.4); Monocytes # (auto) 0.7 10 ^3/uL (0-1.3); Nucleated Red Blood Cells % 0.2 %; Red Cell Distribution Width 20.3 % (11.8-14.3)
[2021-07-25 07:15] LABS: Basophils % (auto) 0.6 % (0.0-2.0); Eosinophils # (auto) 0.1 10 ^3/uL (0-0.8); Eosinophils % (auto) 0.6 % (0.0-7.0); Hematocrit 40.7 % (41.0-53.0); Lymphocytes % (auto) 17.2 % (10.0-50.0); Mean Corpuscular Hemoglobin 25.9 pg (28.0-32.0); Mean Corpuscular Hgb Conc. 32.4 g/dL (32.0-36.0); Mean Corpuscular Volume 79.7 fL (80.0-100.0); Monocytes % (auto) 6.7 % (0.0-12.0); Neutrophils # (auto) 7.3 10 ^3/uL (1.6-8.6); Neutrophils % (auto) 74.9 % (37.0-80.0); White Blood Cell 9.8 10^3/uL (4.4-10.8)
[2021-07-25 07:39] LABS: Potassium 4.2 mmol/L (3.5-5.1)
[2021-07-25 07:40] VITALS: BP 142/94
[2021-07-25 08:01] LABS: Albumin 3.2 g/dL (3.4-5.0); BUN/Creatinine Ratio 25.4; Calcium 8.7 mg/dL (8.5-10.1)
[2021-07-25 08:04] LABS: Bilirubin, Total 0.5 mg/dL (0.2-1.0); Total Protein 6.8 g/dL (6.4-8.2)
[2021-07-25] MEDS: cefTRIAXone 1GM/50ML D5W 50 ML IV SCH (09:49)
[2021-07-25] MEDS: CHOLECALCIFEROL (VITD3) 2,000 UNIT CAP/TAB PO SCH (09:51)
[2021-07-25] MEDS: SERTRALINE HCL 50 MG TAB PO SCH (09:52)
[2021-07-25] MEDS: AZITHROMYCIN 250 MG TAB PO SCH (09:52)
[2021-07-25] MEDS: ASCORBIC ACID 500 MG TAB PO SCH ×2 (09:53→21:30)
[2021-07-25] MEDS: METOPROLOL TARTRATE 25 MG TAB PO SCH ×2 (09:53→21:29)
[2021-07-25] MEDS: SPIRONOLACTONE 25 MG TAB PO SCH (09:53)
[2021-07-25] MEDS: CLOPIDOGREL BISULFATE 75 MG TAB PO SCH (09:53)
[2021-07-25] MEDS: DexAMETHasone SOD PHOS 4 MG/1ML SDV INJ IV SCH (09:54)
[2021-07-25] MEDS: FUROSEMIDE 40 MG/4 ML VIAL IV SCH (09:54)
[2021-07-25] MEDS: ISOSORBIDE DINITRATE 10 MG TAB PO SCH (09:54)
[2021-07-25] MEDS: ZINC SULFATE 220mg CAP or TAB PO SCH (10:00)
[2021-07-25] MEDS: HYDROcodone-ACET 10/325MG TAB PO PRN ×2 (10:15→18:32)
[2021-07-25] MEDS: INSULIN LANTUS (GLARGINE) 1 /0.01ml (100units/ml) SC SCH (12:29)
[2021-07-25 12:55] VITALS: BP 108/63
[2021-07-25 16:25] VITALS: BP 109/71
[2021-07-25] MEDS: REMDESIVIR 100mg 100 MG in SODIUM CHL 0.9% 230 ML IV SCH (17:31)
[2021-07-25] MEDS: RIVAROXABAN 20 MG TAB PO SCH (17:31)
[2021-07-25 22:00] VITALS: BP 130/86
[2021-07-26 05:00] VITALS: BP 135/95
[2021-07-26] MEDS: ACCU-CHEK COMFORT CURVE STRIP VI SCH ×3 (05:57→17:00)
[2021-07-26] MEDS: InsuLIN REG 1unit/0.01ml Soln (100units/ml) SC SCH ×3 (05:58→17:00)
[2021-07-26] MEDS: HYDROcodone-ACET 10/325MG TAB PO PRN ×2 (05:58→16:36)
[2021-07-26 07:17] LABS: Albumin 3.2 g/dL (3.4-5.0); Calcium 8.3 mg/dL (8.5-10.1)
[2021-07-26 07:20] LABS: BUN/Creatinine Ratio 29.7; Bilirubin, Total 0.4 mg/dL (0.2-1.0); Total Protein 6.5 g/dL (6.4-8.2)
[2021-07-26 09:00] VITALS: BP 131/84
[2021-07-26] MEDS: cefTRIAXone 1GM/50ML D5W 50 ML IV SCH (09:14)
[2021-07-26] MEDS: FUROSEMIDE 40 MG/4 ML VIAL IV SCH (09:15)
[2021-07-26] MEDS: ZINC SULFATE 220mg CAP or TAB PO SCH (09:15)
[2021-07-26] MEDS: AZITHROMYCIN 250 MG TAB PO SCH (09:15)
[2021-07-26] MEDS: SPIRONOLACTONE 25 MG TAB PO SCH (09:16)
[2021-07-26] MEDS: METOPROLOL TARTRATE 25 MG TAB PO SCH (09:17)
[2021-07-26] MEDS: ISOSORBIDE DINITRATE 10 MG TAB PO SCH (09:17)
[2021-07-26] MEDS: CHOLECALCIFEROL (VITD3) 2,000 UNIT CAP/TAB PO SCH (09:18)
[2021-07-26] MEDS: ASCORBIC ACID 500 MG TAB PO SCH (09:18)
[2021-07-26] MEDS: CLOPIDOGREL BISULFATE 75 MG TAB PO SCH (09:18)
[2021-07-26] MEDS: SERTRALINE HCL 50 MG TAB PO SCH (09:18)
[2021-07-26] MEDS ORDERED: DexAMETHasone 4 MG TAB PO SCH (10:00)
[2021-07-26] MEDS: INSULIN LANTUS (GLARGINE) 1 /0.01ml (100units/ml) SC SCH (11:31)
[2021-07-26] MEDS ORDERED: DEXA4TAB90 PO (11:42)
[2021-07-26] MEDS ORDERED: ASCO500C5 OR (11:42)
[2021-07-26] MEDS ORDERED: ZINC220T6 PO (11:42)
[2021-07-26 12:57] VITALS: BP 131/84
[2021-07-26 13:06] VITALS: BP 122/80
[2021-07-26] MEDS: REMDESIVIR 100mg 100 MG in SODIUM CHL 0.9% 230 ML IV SCH (16:20)
[2021-07-26 17:00] VITALS: BP 132/88
[2021-07-26] MEDS: RIVAROXABAN 20 MG TAB PO SCH (18:00)
== END 2021-07-26 20:55 | disposition home or self-care (01) | DRG 720 ==
LOC: ER 00:21 → TELE 10:02 → TELE-EAST 16:37 → TELE-WESTW 07-24 06:30
PROVIDERS: ADMIT Internal Medicine; ATTEND Internal Medicine
PROC: XW033E5 Introduction of Remdesivir Anti-infective into Peripheral Vein, Percutaneous Approach, New Technology Group 5 (ICD-10-PCS; principal; 2021-07-23)
PROC: 5A09357 Assistance with Respiratory Ventilation, Less than 24 Consecutive Hours, Continuous Positive Airway Pressure (ICD-10-PCS; 2021-07-24)
PROC: 5A09357 Assistance with Respiratory Ventilation, Less than 24 Consecutive Hours, Continuous Positive Airway Pressure (ICD-10-PCS; 2021-07-25)
DX: A41.89 Other specified sepsis (principal); J96.01 Acute respiratory failure with hypoxia; J12.82 Pneumonia due to coronavirus disease 2019; I50.43 Acute on chronic combined systolic (congestive) and diastolic (congestive) heart failure; U07.1 COVID-19; D89.839 Cytokine release syndrome, grade unspecified; N17.9 Acute kidney failure, unspecified; N18.9 Chronic kidney disease, unspecified; E11.22 Type 2 diabetes mellitus with diabetic chronic kidney disease; I48.91 Unspecified atrial fibrillation; E66.01 Morbid (severe) obesity due to excess calories; Z68.43 Body mass index [BMI] 50.0-59.9, adult; G47.30 Sleep apnea, unspecified; I25.10 Atherosclerotic heart disease of native coronary artery without angina pectoris; I13.0 Hypertensive heart and chronic kidney disease with heart failure and stage 1 through stage 4 chronic kidney disease, or unspecified chronic kidney disease; J44.0 Chronic obstructive pulmonary disease with (acute) lower respiratory infection; F32.A Depression, unspecified; J96.21 Acute and chronic respiratory failure with hypoxia; Z83.3 Family history of diabetes mellitus; Z82.49 Family history of ischemic heart disease and other diseases of the circulatory system; Z80.0 Family history of malignant neoplasm of digestive organs; Z79.02 Long term (current) use of antithrombotics/antiplatelets; Z79.899 Other long term (current) drug therapy; Z82.3 Family history of stroke
CPT/HCPCS: 36415; 71045; 80053; 82962; 83605; 83880; 84484; 85025; 87040; 87426; 93005; 94660; 94760; 96365; G0378; J0696; J1100; J1815; J1956

== ENCOUNTER 2021-09-20 23:14 | Emergency (ER) | payer MEDICAID ==
[~2021-09-20] VITALS: Ht 182.9 cm; Wt 179.2 kg
[~2021-09-20 23:14] MED LIST changes: +ASCO500C5 OR; +DEXA4TAB90 PO; +ZINC220T6 PO
[2021-09-21 00:07] LABS: Basophils # (auto) 0.1 10 ^3/uL (0-0.2); Basophils % (auto) 1.2 % (0.0-2.0); Eosinophils # (auto) 0.2 10 ^3/uL (0-0.8); Eosinophils % (auto) 1.9 % (0.0-7.0); Hematocrit 41.9 % (41.0-53.0); Hemoglobin 14.3 g/dL (13.5-17.5); Lymphocytes # (auto) 1.2 10 ^3/uL (0.4-5.4); Lymphocytes % (auto) 12.1 % (10.0-50.0); Mean Corpuscular Hemoglobin 27.4 pg (28.0-32.0); Mean Corpuscular Hgb Conc. 34.1 g/dL (32.0-36.0); Mean Corpuscular Volume 80.2 fL (80.0-100.0); Monocytes # (auto) 0.4 10 ^3/uL (0-1.3); Monocytes % (auto) 4.3 % (0.0-12.0); Neutrophils % (auto) 80.5 % (37.0-80.0); Nucleated Red Blood Cells % 0.4 %; Red Blood Cells 5.22 10^6/uL (4.5-5.90)
[2021-09-21 00:12] LABS: Red Cell Distribution Width 20.5 % (11.8-14.3)
[2021-09-21] MEDS ORDERED: HYDROmorphone HCL 2 MG/ML VL IV ONE (00:15)
[2021-09-21 00:24] LABS: Albumin 3.5 g/dL (3.4-5.0); Potassium 3.9 mmol/L (3.5-5.1)
[2021-09-21 00:26] LABS: BUN/Creatinine Ratio 13.4
[2021-09-21 00:40] LABS: Bilirubin, Total 1.2 mg/dL (0.2-1.0); Total Protein 7.3 g/dL (6.4-8.2)
[2021-09-21] MEDS ORDERED: KETOROLAC TROMETH 30 MG/ML 1ML VIAL IV ONE (06:00)
[2021-09-21 07:02] VITALS: BP 143/87
== END 2021-09-21 05:49 | disposition home or self-care (01) ==
LOC: ER 23:16
DX: M54.6 Pain in thoracic spine (principal); E66.01 Morbid (severe) obesity due to excess calories; I13.0 Hypertensive heart and chronic kidney disease with heart failure and stage 1 through stage 4 chronic kidney disease, or unspecified chronic kidney disease; E11.22 Type 2 diabetes mellitus with diabetic chronic kidney disease; N18.9 Chronic kidney disease, unspecified; I50.89 Other heart failure; J44.9 Chronic obstructive pulmonary disease, unspecified; E78.6 Lipoprotein deficiency; Z68.43 Body mass index [BMI] 50.0-59.9, adult
CPT/HCPCS: 36415; 71045; 80053; 83690; 83880; 84484; 85025; 93005; 96374; 96375; 99285; J1170; J1885

== ENCOUNTER 2021-11-30 14:55 | Inpatient (IN) | payer MEDICAID ==
[~2021-11-30] VITALS: Ht 182.9 cm; Wt 180.6 kg
[2021-11-30] MEDS ORDERED: PANTOPRAZOLE 40 MG/10 ML VIAL INJ IV ONE (15:15)
[2021-11-30] MEDS ORDERED: KETOROLAC TROMETH 30 MG/ML 1ML VIAL IV ONE (15:15)
[2021-11-30] MEDS ORDERED: MORPHINE SULFATE 4 MG/ML SYR/VIAL IV ONE (15:15)
[2021-11-30 15:43] LABS: Basophils # (auto) 0.1 10 ^3/uL (0-0.2); Basophils % (auto) 0.8 % (0.0-2.0); Eosinophils # (auto) 0.2 10 ^3/uL (0-0.8); Eosinophils % (auto) 1.4 % (0.0-7.0); Hematocrit 38.6 % (41.0-53.0); Hemoglobin 12.6 g/dL (13.5-17.5); Lymphocytes # (auto) 0.8 10 ^3/uL (0.4-5.4); Lymphocytes % (auto) 6.7 % (10.0-50.0); Mean Corpuscular Hemoglobin 27.1 pg (28.0-32.0); Mean Corpuscular Hgb Conc. 32.7 g/dL (32.0-36.0); Mean Corpuscular Volume 82.7 fL (80.0-100.0); Monocytes # (auto) 0.5 10 ^3/uL (0-1.3); Monocytes % (auto) 4.8 % (0.0-12.0); Neutrophils # (auto) 9.7 10 ^3/uL (1.6-8.6); Neutrophils % (auto) 86.3 % (37.0-80.0); Nucleated Red Blood Cells % 0.2 %; Red Blood Cells 4.66 10^6/uL (4.5-5.90); Red Cell Distribution Width 18.7 % (11.8-14.3); White Blood Cell 11.2 10^3/uL (4.4-10.8)
[2021-11-30 16:00] LABS: Albumin 3.2 g/dL (3.4-5.0); BUN/Creatinine Ratio 15.3; Calcium 8.6 mg/dL (8.5-10.1); Potassium 4.6 mmol/L (3.5-5.1)
[2021-11-30 16:03] LABS: Total Protein 6.7 g/dL (6.4-8.2)
[2021-11-30 16:44] LABS: INR 1.19 (0.9-1.15); Partial Thromboplastin Time 33.4 sec (23.6-33.0)
[2021-11-30] MEDS ORDERED: methylPREDNISolone SOD SUCC 125 MG/2 ML VL IV ONE (16:45)
[2021-11-30] MEDS ORDERED: levoFLOXacin 500MG 100 ML IV ONE (16:45)
[2021-11-30] MEDS ORDERED: ALBUTEROL SULF HFA 90MCG INH 200DOSE IN SCH (22:00)
[2021-11-30] MEDS ORDERED: LORazepam 2MG/ML-1ML VIAL ONE (22:19)
[2021-11-30] MEDS ORDERED: ONDANSETRON HCL 4 MG/2 ML VIAL IV PRN (22:30)
[2021-11-30] MEDS ORDERED: ACETAMINOPHEN 325 MG TAB PO PRN (22:30)
[2021-11-30] MEDS ORDERED: AZITHROMYCIN 500MG/ 250ML 250 ML IV ONE (22:30)
[2021-11-30] MEDS ORDERED: DEXTROSE (50%) 50ML SYRG IV PRN (22:30)
[2021-11-30] MEDS ORDERED: DOCUSATE SOD 100 MG CAP PO PRN (22:30)
[2021-11-30] MEDS ORDERED: MORPHINE SULFATE INJ 2 MG/ml SYRG IV PRN (23:15)
[2021-11-30] MEDS ORDERED: NITROGLYCERIN 0.4 MG SL TAB SL PRN (23:15)
[2021-12-01 03:48] LABS: Basophils # (auto) 0 10 ^3/uL (0-0.2); Basophils % (auto) 0.3 % (0.0-2.0); Eosinophils # (auto) 0 10 ^3/uL (0-0.8); Eosinophils % (auto) 0.1 % (0.0-7.0); Hematocrit 41.8 % (41.0-53.0); Hemoglobin 13.8 g/dL (13.5-17.5); Lymphocytes # (auto) 0.4 10 ^3/uL (0.4-5.4); Lymphocytes % (auto) 3.5 % (10.0-50.0); Mean Corpuscular Hemoglobin 27.5 pg (28.0-32.0); Mean Corpuscular Volume 83.3 fL (80.0-100.0); Monocytes # (auto) 0.2 10 ^3/uL (0-1.3); Monocytes % (auto) 1.4 % (0.0-12.0); Neutrophils # (auto) 10.6 10 ^3/uL (1.6-8.6); Neutrophils % (auto) 94.7 % (37.0-80.0); Nucleated Red Blood Cells % 0.2 %; Red Blood Cells 5.02 10^6/uL (4.5-5.90); Red Cell Distribution Width 18.8 % (11.8-14.3); White Blood Cell 11.2 10^3/uL (4.4-10.8)
[2021-12-01 04:14] LABS: Albumin 3.7 g/dL (3.4-5.0); BUN/Creatinine Ratio 16.8; Calcium 8.8 mg/dL (8.5-10.1)
[2021-12-01 04:17] LABS: Total Protein 7.1 g/dL (6.4-8.2)
[2021-12-01 04:46] LABS: Potassium 5.7 mmol/L (3.5-5.1)
[2021-12-01] MEDS: SODIUM CHLOR 0.9% PF (SALINE LOCK) 10ML VIAL/SYR IV SCH ×3 (07:34→22:03)
[2021-12-01] MEDS: methylPREDNISolone SOD SUCC 40 MG/ML VL IV SCH ×3 (07:42→22:03)
[2021-12-01] MEDS: ACCU-CHEK COMFORT CURVE STRIP VI SCH ×4 (07:42→23:42)
[2021-12-01] MEDS: InsuLIN REG 1unit/0.01ml Soln (100units/ml) SC SCH ×4 (07:43→23:49)
[2021-12-01] MEDS: cefTRIAXone 1GM/50ML D5W 50 ML IV SCH (09:24)
[2021-12-01] MEDS: MULTIPLE VITAMIN TAB PO SCH (09:32)
[2021-12-01] MEDS: CLOPIDOGREL BISULFATE 75 MG TAB PO SCH (09:32)
[2021-12-01] MEDS: ASPirin 81 mg TAB PO SCH (09:32)
[2021-12-01] MEDS: ASCORBIC ACID 500 MG TAB PO SCH ×2 (09:32→23:49)
[2021-12-01] MEDS: ZINC SULFATE 220mg CAP or TAB PO SCH (09:32)
[2021-12-01] MEDS: FAMOTIDINE (10MG/ML) 2ML VL IV SCH ×2 (09:33→22:03)
[2021-12-01] MEDS ORDERED: FUROSEMIDE 40 MG/4 ML VIAL IV SCH (10:00)
[2021-12-01 10:40] LABS: Potassium 5.2 mmol/L (3.5-5.1)
[2021-12-01 10:47] LABS: Albumin 3.2 g/dL (3.4-5.0); BUN/Creatinine Ratio 18.6; Bilirubin, Total 0.8 mg/dL (0.2-1.0); Calcium 8.5 mg/dL (8.5-10.1); Total Protein 7.4 g/dL (6.4-8.2)
[2021-12-01 13:55] LABS: Cholesterol 179 mg/dL (< 200)
[2021-12-01 13:57] LABS: HDL Cholesterol 37 mg/dL (40-59); LDL Cholesterol 122 mg/dL (< 100); Triglycerides 145 mg/dL (< 150)
[2021-12-01 16:30] LABS: Urine Bacteria NONE SEEN /hpf (None Seen); Urine Blood Negative /uL (Negative); Urine Specific Gravity 1.016 (1.001-1.035); Urine WBC 4 /hpf (0 - 3)
[2021-12-01 16:40] VITALS: BP 126/87
[2021-12-01 16:47] LABS: Protein, Urine 91.2 mg/dL (0.0-11.9)
[2021-12-01] MEDS ORDERED: SPIR25TA8 PO (17:21)
[2021-12-01] MEDS ORDERED: ERGO2000 PO (17:21)
[2021-12-01] MEDS ORDERED: ISOS20TA5 PO (17:21)
[2021-12-01] MEDS ORDERED: FURO40TA4 PO (17:21)
[2021-12-01] MEDS ORDERED: POTA10TA51 PO (17:21)
[2021-12-01] MEDS ORDERED: METO25TA5 PO (17:21)
[2021-12-01] MEDS ORDERED: APIX5TAB PO (17:21)
[2021-12-01 17:28] VITALS: BP 124/82
[2021-12-01] MEDS: FUROSEMIDE 40 MG/4 ML VIAL IV SCH (17:38)
[2021-12-01 18:27] VITALS: BP 126/87
[2021-12-01 18:37] LABS: Urine Bacteria FEW /hpf (None Seen); Urine Blood Negative /uL (Negative); Urine Hyaline Cast FEW /lpf (0 - 2); Urine Specific Gravity 1.011 (1.001-1.035); Urine WBC 17 /hpf (0 - 3)
[2021-12-01 22:00] VITALS: BP 106/70
[2021-12-01] MEDS: AZITHROMYCIN 500MG/ 250ML 250 ML IV SCH (22:02)
[2021-12-02 05:00] VITALS: BP 121/70
[2021-12-02] MEDS: SODIUM CHLOR 0.9% PF (SALINE LOCK) 10ML VIAL/SYR IV SCH ×3 (05:36→21:02)
[2021-12-02] MEDS: FUROSEMIDE 40 MG/4 ML VIAL IV SCH ×2 (05:36→12:35)
[2021-12-02] MEDS: methylPREDNISolone SOD SUCC 40 MG/ML VL IV SCH ×2 (05:37→21:01)
[2021-12-02] MEDS: ACCU-CHEK COMFORT CURVE STRIP VI SCH ×4 (05:58→21:08)
[2021-12-02] MEDS: InsuLIN REG 1unit/0.01ml Soln (100units/ml) SC SCH ×4 (06:35→21:15)
[2021-12-02 08:10] VITALS: BP 130/76
[2021-12-02 09:00] VITALS: BP 130/76
[2021-12-02] MEDS: cefTRIAXone 1GM/50ML D5W 50 ML IV SCH (09:50)
[2021-12-02] MEDS: ZINC SULFATE 220mg CAP or TAB PO SCH (09:50)
[2021-12-02] MEDS: ASPirin 81 mg TAB PO SCH (09:50)
[2021-12-02] MEDS: FAMOTIDINE (10MG/ML) 2ML VL IV SCH (09:50)
[2021-12-02] MEDS: ASCORBIC ACID 500 MG TAB PO SCH ×2 (09:51→21:01)
[2021-12-02] MEDS: CLOPIDOGREL BISULFATE 75 MG TAB PO SCH (09:51)
[2021-12-02] MEDS: MULTIPLE VITAMIN TAB PO SCH (09:51)
[2021-12-02] MEDS: HYDROcodone-ACET 5/325MG TAB PO PRN (12:54)
[2021-12-02 13:00] VITALS: BP 128/71
[2021-12-02] MEDS ORDERED: IPRATROPIUM BROM 0.5 MG/2.5ML INH SOL NEB PRN (13:45)
[2021-12-02] MEDS ORDERED: LEVALBUTEROL HCL 1.25 MG/3 ML NEB NEB PRN (13:45)
[2021-12-02 16:44] VITALS: BP 127/82
[2021-12-02] MEDS ORDERED: SODIUM ZIRCONIUM CYCL 10 GM PAK PO ONE (19:45)
[2021-12-02 20:30] LABS: BUN/Creatinine Ratio 28.3; Calcium 8.7 mg/dL (8.5-10.1); Potassium 4.5 mmol/L (3.5-5.1)
[2021-12-02] MEDS: APIXABAN 5 MG TAB PO SCH (21:01)
[2021-12-02] MEDS: AZITHROMYCIN 500MG/ 250ML 250 ML IV SCH (21:02)
[2021-12-02] MEDS: METOPROLOL TARTRATE 25 MG TAB PO SCH (21:07)
[2021-12-02] MEDS: INSULIN LANTUS (GLARGINE) 1 /0.01ml (100units/ml) SC SCH (21:16)
[2021-12-02] MEDS: PANTOPRAZOLE 40 MG TAB PO SCH (21:43)
[2021-12-02 22:00] VITALS: BP 132/71
[2021-12-03 05:00] VITALS: BP 115/84
[2021-12-03 05:53] LABS: Basophils # (auto) 0 10 ^3/uL (0-0.2); Basophils % (auto) 0.1 % (0.0-2.0); Eosinophils # (auto) 0 10 ^3/uL (0-0.8); Hematocrit 42.2 % (41.0-53.0); Hemoglobin 14.1 g/dL (13.5-17.5); Lymphocytes # (auto) 0.8 10 ^3/uL (0.4-5.4); Lymphocytes % (auto) 7.1 % (10.0-50.0); Mean Corpuscular Hemoglobin 27.8 pg (28.0-32.0); Mean Corpuscular Hgb Conc. 33.4 g/dL (32.0-36.0); Mean Corpuscular Volume 83.2 fL (80.0-100.0); Monocytes # (auto) 0.5 10 ^3/uL (0-1.3); Neutrophils # (auto) 10.4 10 ^3/uL (1.6-8.6); Neutrophils % (auto) 88.8 % (37.0-80.0); Nucleated Red Blood Cells % 0.1 %; Red Blood Cells 5.07 10^6/uL (4.5-5.90); Red Cell Distribution Width 18.3 % (11.8-14.3); White Blood Cell 11.7 10^3/uL (4.4-10.8)
[2021-12-03] MEDS: SODIUM CHLOR 0.9% PF (SALINE LOCK) 10ML VIAL/SYR IV SCH (06:09)
[2021-12-03] MEDS: ACCU-CHEK COMFORT CURVE STRIP VI SCH ×4 (06:09→22:14)
[2021-12-03] MEDS: InsuLIN REG 1unit/0.01ml Soln (100units/ml) SC SCH ×4 (06:10→22:13)
[2021-12-03 06:23] LABS: Potassium 4.4 mmol/L (3.5-5.1)
[2021-12-03 06:35] LABS: Albumin 3.4 g/dL (3.4-5.0); BUN/Creatinine Ratio 31.1; Calcium 8.9 mg/dL (8.5-10.1)
[2021-12-03 06:37] LABS: Bilirubin, Total 0.5 mg/dL (0.2-1.0); Magnesium 2.5 mg/dL (1.6-2.6)
[2021-12-03 08:35] VITALS: BP 136/92
[2021-12-03] MEDS: cefTRIAXone 1GM/50ML D5W 50 ML IV SCH (10:27)
[2021-12-03] MEDS: FUROSEMIDE 40 MG/4 ML VIAL IV SCH (10:28)
[2021-12-03] MEDS: methylPREDNISolone SOD SUCC 40 MG/ML VL IV SCH (10:29)
[2021-12-03] MEDS: ASPirin 81 mg TAB PO SCH (10:30)
[2021-12-03] MEDS: APIXABAN 5 MG TAB PO SCH ×2 (10:30→22:10)
[2021-12-03] MEDS: PANTOPRAZOLE 40 MG TAB PO SCH (10:32)
[2021-12-03] MEDS: ASCORBIC ACID 500 MG TAB PO SCH ×2 (10:33→22:10)
[2021-12-03] MEDS: METOPROLOL TARTRATE 25 MG TAB PO SCH ×2 (10:33→22:11)
[2021-12-03] MEDS: CHOLECALCIFEROL (VITD3) 2,000 UNIT CAP/TAB PO SCH (10:34)
[2021-12-03 12:37] VITALS: BP 112/74
[2021-12-03 17:24] VITALS: BP 149/95
[2021-12-03] MEDS: AZITHROMYCIN 500MG/ 250ML 250 ML IV SCH (20:32)
[2021-12-03] MEDS: HYDROcodone-ACET 5/325MG TAB PO PRN (21:02)
[2021-12-03 22:00] VITALS: BP 117/89
[2021-12-03] MEDS: INSULIN LANTUS (GLARGINE) 1 /0.01ml (100units/ml) SC SCH (22:12)
[2021-12-04 05:00] VITALS: BP 131/90
[2021-12-04 06:34] LABS: Basophils # (auto) 0 10 ^3/uL (0-0.2); Basophils % (auto) 0.2 % (0.0-2.0); Eosinophils # (auto) 0 10 ^3/uL (0-0.8); Eosinophils % (auto) 0.4 % (0.0-7.0); Hematocrit 41.4 % (41.0-53.0); Hemoglobin 13.7 g/dL (13.5-17.5); Lymphocytes # (auto) 1.1 10 ^3/uL (0.4-5.4); Lymphocytes % (auto) 12.2 % (10.0-50.0); Mean Corpuscular Hemoglobin 27.3 pg (28.0-32.0); Mean Corpuscular Hgb Conc. 33.1 g/dL (32.0-36.0); Mean Corpuscular Volume 82.5 fL (80.0-100.0); Monocytes # (auto) 0.7 10 ^3/uL (0-1.3); Monocytes % (auto) 7.8 % (0.0-12.0); Neutrophils # (auto) 7.3 10 ^3/uL (1.6-8.6); Neutrophils % (auto) 79.4 % (37.0-80.0); Nucleated Red Blood Cells % 0.3 %; Red Blood Cells 5.02 10^6/uL (4.5-5.90); Red Cell Distribution Width 18.1 % (11.8-14.3); White Blood Cell 9.2 10^3/uL (4.4-10.8)
[2021-12-04 06:56] LABS: Calcium 8.6 mg/dL (8.5-10.1); Potassium 3.9 mmol/L (3.5-5.1)
[2021-12-04] MEDS: ACCU-CHEK COMFORT CURVE STRIP VI SCH ×3 (07:12→16:52)
[2021-12-04] MEDS: InsuLIN REG 1unit/0.01ml Soln (100units/ml) SC SCH ×3 (07:12→16:52)
[2021-12-04 09:00] VITALS: BP 124/74
[2021-12-04] MEDS: cefTRIAXone 1GM/50ML D5W 50 ML IV SCH (09:02)
[2021-12-04] MEDS: FUROSEMIDE 40 MG/4 ML VIAL IV SCH (09:02)
[2021-12-04] MEDS: APIXABAN 5 MG TAB PO SCH (09:03)
[2021-12-04] MEDS: METOPROLOL TARTRATE 25 MG TAB PO SCH (09:04)
[2021-12-04] MEDS: CHOLECALCIFEROL (VITD3) 2,000 UNIT CAP/TAB PO SCH (09:04)
[2021-12-04] MEDS: ASCORBIC ACID 500 MG TAB PO SCH (09:04)
[2021-12-04] MEDS: PANTOPRAZOLE 40 MG TAB PO SCH (09:04)
[2021-12-04] MEDS ORDERED: predniSONE 20 MG TAB PO SCH (10:00)
[2021-12-04 13:00] VITALS: BP 127/70
[2021-12-04] MEDS ORDERED: DOXY-286 PO (13:01)
[2021-12-04] MEDS ORDERED: PRED20TA2 PO (13:01)
[2021-12-04 14:53] VITALS: BP 127/70
== END 2021-12-04 17:03 | disposition home or self-care (01) | DRG 133 ==
LOC: ER 14:55 → EDBD 14:55 → TELE 23:08 → TELE-WESTW 12-01 16:40
PROVIDERS: ADMIT Nurse Practitioner Family; ATTEND Internal Medicine
PROC: 5A09357 Assistance with Respiratory Ventilation, Less than 24 Consecutive Hours, Continuous Positive Airway Pressure (ICD-10-PCS; principal; 2021-12-02)
PROC: 5A09357 Assistance with Respiratory Ventilation, Less than 24 Consecutive Hours, Continuous Positive Airway Pressure (ICD-10-PCS; 2021-12-03)
PROC: 5A09357 Assistance with Respiratory Ventilation, Less than 24 Consecutive Hours, Continuous Positive Airway Pressure (ICD-10-PCS; 2021-12-04)
DX: J96.21 Acute and chronic respiratory failure with hypoxia (principal); N17.0 Acute kidney failure with tubular necrosis; I50.43 Acute on chronic combined systolic (congestive) and diastolic (congestive) heart failure; J18.9 Pneumonia, unspecified organism; I13.0 Hypertensive heart and chronic kidney disease with heart failure and stage 1 through stage 4 chronic kidney disease, or unspecified chronic kidney disease; I48.19 Other persistent atrial fibrillation; D63.8 Anemia in other chronic diseases classified elsewhere; E11.22 Type 2 diabetes mellitus with diabetic chronic kidney disease; E66.2 Morbid (severe) obesity with alveolar hypoventilation; Z20.822 Contact with and (suspected) exposure to COVID-19; J44.1 Chronic obstructive pulmonary disease with (acute) exacerbation; K21.9 Gastro-esophageal reflux disease without esophagitis; J98.11 Atelectasis; E11.65 Type 2 diabetes mellitus with hyperglycemia; M19.032 Primary osteoarthritis, left wrist; N18.32 Chronic kidney disease, stage 3b; E87.5 Hyperkalemia; E55.9 Vitamin D deficiency, unspecified; E78.5 Hyperlipidemia, unspecified; I25.10 Atherosclerotic heart disease of native coronary artery without angina pectoris; J44.0 Chronic obstructive pulmonary disease with (acute) lower respiratory infection; T38.0X5A Adverse effect of glucocorticoids and synthetic analogues, initial encounter; I25.2 Old myocardial infarction; Z79.02 Long term (current) use of antithrombotics/antiplatelets; Z79.4 Long term (current) use of insulin; Z80.0 Family history of malignant neoplasm of digestive organs; Z82.3 Family history of stroke; Z82.49 Family history of ischemic heart disease and other diseases of the circulatory system; Z83.3 Family history of diabetes mellitus; Z86.16 Personal history of COVID-19; Y92.89 Other specified places as the place of occurrence of the external cause; Z68.43 Body mass index [BMI] 50.0-59.9, adult
CPT/HCPCS: 36415; 36600; 71045; 71046; 73100; 76775; 80048; 80053; 80061; 81001; 82010; 82306; 82570; 82728; 82805; 82962; 83036; 83735; 83880; 83970; 84100; 84156; 84300; 84443; 84484; 85025; 85379; 85610; 85730; 86141; 93005; 93306; 94660; 96365; 96375; C9113; G0378; J0696; J1815; J1885; J1956; J3490

== ENCOUNTER 2022-01-02 01:25 | Emergency (ER) | payer MEDICAID ==
[~2022-01-02] VITALS: Ht 182.9 cm; Wt 176.9 kg
[~2022-01-02 01:25] MED LIST changes: +APIX5TAB PO; -AZIT500T66 PO; -CHOLPOW40 XX; -CLOP75TA70 PO; -DEXA4TAB90 PO; +DOXY-286 PO; +ERGO2000 PO; +FURO40TA4 PO; -GEMF-19 PO; -ISOS10TA2 PO; +ISOS20TA5 PO; -LOSA-69 PO; -MULTCAP45 PO; +POTA10TA51 PO; -RIV20T PO; -SERT50TA19 PO; +SPIR25TA8 PO
[2022-01-02 02:56] LABS: Basophils # (auto) 0.1 10 ^3/uL (0-0.2); Eosinophils # (auto) 0.2 10 ^3/uL (0-0.8); Eosinophils % (auto) 2.8 % (0.0-7.0); Hematocrit 38.5 % (41.0-53.0); Hemoglobin 12.8 g/dL (13.5-17.5); Lymphocytes # (auto) 0.9 10 ^3/uL (0.4-5.4); Lymphocytes % (auto) 12.2 % (10.0-50.0); Mean Corpuscular Hgb Conc. 33.2 g/dL (32.0-36.0); Mean Corpuscular Volume 81.2 fL (80.0-100.0); Monocytes # (auto) 0.4 10 ^3/uL (0-1.3); Neutrophils # (auto) 5.7 10 ^3/uL (1.6-8.6); Nucleated Red Blood Cells % 0.3 %; Red Blood Cells 4.74 10^6/uL (4.5-5.90); Red Cell Distribution Width 18.6 % (11.8-14.3); White Blood Cell 7.2 10^3/uL (4.4-10.8)
[2022-01-02 03:12] LABS: Albumin 3.1 g/dL (3.4-5.0); BUN/Creatinine Ratio 16.5; Calcium 8.6 mg/dL (8.5-10.1); Magnesium 1.8 mg/dL (1.6-2.6); Potassium 4.1 mmol/L (3.5-5.1)
[2022-01-02 03:15] LABS: Bilirubin, Total 0.8 mg/dL (0.2-1.0); Total Protein 6.5 g/dL (6.4-8.2)
[2022-01-02] MEDS ORDERED: NITROGLYCERIN 0.4 MG SL TAB SL ONE (04:00)
[2022-01-02] MEDS ORDERED: FUROSEMIDE 100 MG/10ML VIAL IV ONE (04:00)
[2022-01-02] MEDS ORDERED: HYDROcodone-ACET 5/325MG TAB PO ONE (07:00)
[2022-01-02 07:35] VITALS: BP 130/88
== END 2022-01-02 08:53 | disposition home or self-care (01) ==
LOC: ER 01:25
DX: R07.89 Other chest pain (principal); R06.00 Dyspnea, unspecified; I13.0 Hypertensive heart and chronic kidney disease with heart failure and stage 1 through stage 4 chronic kidney disease, or unspecified chronic kidney disease; E11.22 Type 2 diabetes mellitus with diabetic chronic kidney disease; N18.9 Chronic kidney disease, unspecified; I50.9 Heart failure, unspecified; I25.10 Atherosclerotic heart disease of native coronary artery without angina pectoris; I48.91 Unspecified atrial fibrillation; J44.9 Chronic obstructive pulmonary disease, unspecified; E78.5 Hyperlipidemia, unspecified; Z86.2 Personal history of diseases of the blood and blood-forming organs and certain disorders involving the immune mechanism; Z79.4 Long term (current) use of insulin; Z79.899 Other long term (current) drug therapy; Z79.2 Long term (current) use of antibiotics; Z20.822 Contact with and (suspected) exposure to COVID-19
CPT/HCPCS: 36415; 71045; 80053; 83605; 83735; 83880; 84484; 85025; 87426; 93005; 96374; 99285; J1940

== ENCOUNTER 2022-01-08 05:30 | Inpatient (IN) | payer MEDICAID ==
[~2022-01-08] VITALS: Ht 188 cm; Wt 179.3 kg
[2022-01-08 06:23] LABS: Albumin 3.4 g/dL (3.4-5.0); BUN/Creatinine Ratio 19.3; Calcium 8.6 mg/dL (8.5-10.1)
[2022-01-08 06:25] LABS: Basophils # (auto) 0.1 10 ^3/uL (0-0.2); Basophils % (auto) 0.8 % (0.0-2.0); Bilirubin, Total 0.8 mg/dL (0.2-1.0); Eosinophils # (auto) 0.1 10 ^3/uL (0-0.8); Eosinophils % (auto) 1.6 % (0.0-7.0); Hematocrit 39.4 % (41.0-53.0); Hemoglobin 12.9 g/dL (13.5-17.5); Lymphocytes % (auto) 12.3 % (10.0-50.0); Mean Corpuscular Hemoglobin 26.6 pg (28.0-32.0); Mean Corpuscular Hgb Conc. 32.7 g/dL (32.0-36.0); Mean Corpuscular Volume 81.5 fL (80.0-100.0); Monocytes # (auto) 0.4 10 ^3/uL (0-1.3); Monocytes % (auto) 4.4 % (0.0-12.0); Neutrophils # (auto) 6.7 10 ^3/uL (1.6-8.6); Neutrophils % (auto) 80.9 % (37.0-80.0); Nucleated Red Blood Cells % 0.7 %; Red Blood Cells 4.84 10^6/uL (4.5-5.90); Red Cell Distribution Width 19.5 % (11.8-14.3); Total Protein 6.8 g/dL (6.4-8.2); White Blood Cell 8.3 10^3/uL (4.4-10.8)
[2022-01-08] MEDS ORDERED: FUROSEMIDE 40 MG/4 ML VIAL IV ONE (07:00)
[2022-01-08] MEDS ORDERED: HYDROcodone-ACET 5/325MG TAB PO ONE (10:45)
[2022-01-08] MEDS ORDERED: HEPARIN SODIUM (PORCINE) 5000 UNITS/ML 1ML VIAL SC SCH (11:45)
[2022-01-08] MEDS ORDERED: DOCUSATE SOD 100 MG CAP PO PRN (11:45)
[2022-01-08] MEDS ORDERED: NITROGLYCERIN 0.4 MG SL TAB SL PRN (11:45)
[2022-01-08] MEDS ORDERED: ACETAMINOPHEN 325 MG TAB PO PRN (11:45)
[2022-01-08] MEDS ORDERED: MORPHINE SULFATE INJ 2 MG/ml SYRG IV PRN (11:45)
[2022-01-08] MEDS ORDERED: ONDANSETRON HCL 4 MG/2 ML VIAL IV PRN (11:45)
[2022-01-08] MEDS ORDERED: HYDROmorphone HCL 2 MG/ML VL/or syr IV PRN (11:45)
[2022-01-08] MEDS ORDERED: DEXTROSE (50%) 50ML SYRG IV PRN (12:00)
[2022-01-08] MEDS ORDERED: ALBUTEROL SULF HFA 90MCG INH 200DOSE IN PRN (12:00)
[2022-01-08] MEDS ORDERED: ERGOCALCIFEROL 50,000 UNIT(1.25MG) CAP PO SCH (12:30)
[2022-01-08] MEDS ORDERED: LABETALOL HCL 5 MG/ML 4ML SYRINGE IV PRN (13:15)
[2022-01-08] MEDS: ceFAZolin 1GM/50ML 50 ML IV SCH (13:20)
[2022-01-08 13:37] VITALS: BP 159/117
[2022-01-08] MEDS ORDERED: ALBUTEROL SULF 2.5 MG/0.5ML(0.5%) NEB SOLN NEB PRN (14:00)
[2022-01-08 14:02] LABS: Creatinine, Urine 45 mg/dL (30.0-125.0); Sodium Urine 86 mmol/L (40-220)
[2022-01-08] MEDS: SODIUM CHLOR 0.9% PF (SALINE LOCK) 10ML VIAL/SYR IV SCH ×2 (14:02→22:28)
[2022-01-08] MEDS: ACCU-CHEK COMFORT CURVE STRIP VI SCH ×2 (17:00→22:30)
[2022-01-08] MEDS: InsuLIN REG 1unit/0.01ml Soln (100units/ml) SC SCH ×2 (17:04→22:52)
[2022-01-08] MEDS: SPIRONOLACTONE 25 MG TAB PO SCH (18:17)
[2022-01-08] MEDS: APIXABAN 5 MG TAB PO SCH (22:48)
[2022-01-08] MEDS: METOPROLOL TARTRATE 25 MG TAB PO SCH (22:49)
[2022-01-08] MEDS: FUROSEMIDE 40 MG/4 ML VIAL IV SCH (22:49)
[2022-01-08] MEDS: INSULIN LANTUS (GLARGINE) 1 /0.01ml (100units/ml) SC SCH (22:54)
[2022-01-09] VITALS (7 sets, daily range): BP systolic 94–130; BP diastolic 40–79
[2022-01-09] MEDS: ceFAZolin 1GM/50ML 50 ML IV SCH ×4 (00:52→22:11)
[2022-01-09] MEDS: HYDROcodone-ACET 5/325MG TAB PO PRN ×2 (00:53→18:13)
[2022-01-09] MEDS: SPIRONOLACTONE 25 MG TAB PO SCH ×2 (06:06→17:09)
[2022-01-09] MEDS: SODIUM CHLOR 0.9% PF (SALINE LOCK) 10ML VIAL/SYR IV SCH ×3 (06:06→22:14)
[2022-01-09] MEDS: InsuLIN REG 1unit/0.01ml Soln (100units/ml) SC SCH ×4 (07:00→22:18)
[2022-01-09] MEDS: ACCU-CHEK COMFORT CURVE STRIP VI SCH ×4 (07:57→22:16)
[2022-01-09] MEDS: FUROSEMIDE 40 MG/4 ML VIAL IV SCH ×2 (09:52→22:13)
[2022-01-09] MEDS: SACUBITRIL-VALSARTAN 24mg/26mg TAB PO SCH ×2 (09:53→22:14)
[2022-01-09] MEDS: ASCORBIC ACID 500 MG TAB PO SCH (09:53)
[2022-01-09] MEDS: DAPAGLIFLOZIN 5 MG TAB PO SCH (09:53)
[2022-01-09] MEDS: ZINC SULFATE 220mg CAP or TAB PO SCH (09:53)
[2022-01-09] MEDS: ISOSORBIDE DINITRATE 10 MG TAB PO SCH (09:54)
[2022-01-09] MEDS: METOPROLOL TARTRATE 25 MG TAB PO SCH ×2 (09:55→22:21)
[2022-01-09] MEDS: APIXABAN 5 MG TAB PO SCH ×2 (09:55→22:14)
[2022-01-09] MEDS: FERROUS SULFATE 325mg EC TAB PO SCH (12:01)
[2022-01-09] MEDS: INSULIN LANTUS (GLARGINE) 1 /0.01ml (100units/ml) SC SCH (22:17)
[2022-01-10] VITALS (8 sets, daily range): BP systolic 99–137; BP diastolic 50–74
[2022-01-10] MEDS: SPIRONOLACTONE 25 MG TAB PO SCH ×2 (05:38→17:07)
[2022-01-10] MEDS: ceFAZolin 1GM/50ML 50 ML IV SCH ×3 (05:38→22:19)
[2022-01-10] MEDS: SODIUM CHLOR 0.9% PF (SALINE LOCK) 10ML VIAL/SYR IV SCH ×3 (06:07→22:19)
[2022-01-10] MEDS: ACCU-CHEK COMFORT CURVE STRIP VI SCH ×4 (06:08→22:19)
[2022-01-10] MEDS: InsuLIN REG 1unit/0.01ml Soln (100units/ml) SC SCH ×4 (06:08→22:53)
[2022-01-10] MEDS: FUROSEMIDE 40 MG/4 ML VIAL IV SCH ×2 (09:57→22:17)
[2022-01-10] MEDS: ISOSORBIDE DINITRATE 10 MG TAB PO SCH (09:57)
[2022-01-10] MEDS: ZINC SULFATE 220mg CAP or TAB PO SCH (09:58)
[2022-01-10] MEDS: DAPAGLIFLOZIN 5 MG TAB PO SCH (09:58)
[2022-01-10] MEDS: SACUBITRIL-VALSARTAN 24mg/26mg TAB PO SCH ×2 (09:58→22:17)
[2022-01-10] MEDS: ASCORBIC ACID 500 MG TAB PO SCH (09:58)
[2022-01-10] MEDS: METOPROLOL TARTRATE 25 MG TAB PO SCH ×2 (09:58→22:18)
[2022-01-10] MEDS: APIXABAN 5 MG TAB PO SCH ×2 (09:58→22:18)
[2022-01-10] MEDS: FERROUS SULFATE 325mg EC TAB PO SCH (12:03)
[2022-01-10] MEDS: INSULIN LANTUS (GLARGINE) 1 /0.01ml (100units/ml) SC SCH (22:52)
[2022-01-10] MEDS: HYDROcodone-ACET 5/325MG TAB PO PRN (23:39)
[2022-01-11 04:46] VITALS: BP 127/66
[2022-01-11] MEDS: SODIUM CHLOR 0.9% PF (SALINE LOCK) 10ML VIAL/SYR IV SCH ×2 (05:57→14:10)
[2022-01-11] MEDS: SPIRONOLACTONE 25 MG TAB PO SCH (05:57)
[2022-01-11] MEDS: ceFAZolin 1GM/50ML 50 ML IV SCH ×2 (05:57→14:10)
[2022-01-11] MEDS: InsuLIN REG 1unit/0.01ml Soln (100units/ml) SC SCH ×2 (06:48→12:06)
[2022-01-11] MEDS: ACCU-CHEK COMFORT CURVE STRIP VI SCH ×2 (06:48→12:04)
[2022-01-11] MEDS ORDERED: DAPA1TAB4 PO (08:05)
[2022-01-11] MEDS ORDERED: SACU1TAB PO (08:05)
[2022-01-11 09:00] VITALS: BP 140/67
[2022-01-11] MEDS: ZINC SULFATE 220mg CAP or TAB PO SCH (09:17)
[2022-01-11] MEDS: APIXABAN 5 MG TAB PO SCH (09:17)
[2022-01-11] MEDS: ISOSORBIDE DINITRATE 10 MG TAB PO SCH (09:18)
[2022-01-11] MEDS: METOPROLOL TARTRATE 25 MG TAB PO SCH (09:19)
[2022-01-11] MEDS: DAPAGLIFLOZIN 5 MG TAB PO SCH (09:19)
[2022-01-11] MEDS: FUROSEMIDE 40 MG/4 ML VIAL IV SCH (09:20)
[2022-01-11] MEDS: SACUBITRIL-VALSARTAN 24mg/26mg TAB PO SCH (09:20)
[2022-01-11] MEDS: ASCORBIC ACID 500 MG TAB PO SCH (09:20)
[2022-01-11 10:25] VITALS: BP 123/67
[2022-01-11] MEDS: FERROUS SULFATE 325mg EC TAB PO SCH (12:02)
[2022-01-11 12:58] VITALS: BP 82/49
[2022-01-11 14:50] VITALS: BP 100/62
== END 2022-01-11 16:15 | disposition home or self-care (01) | DRG 194 ==
LOC: ER 05:30 → TELE 11:51 → TELE-CENTR 23:21
PROVIDERS: ADMIT Internal Medicine Cardiovascular Disease; ATTEND Family Medicine
DX: I13.0 Hypertensive heart and chronic kidney disease with heart failure and stage 1 through stage 4 chronic kidney disease, or unspecified chronic kidney disease (principal); J96.20 Acute and chronic respiratory failure, unspecified whether with hypoxia or hypercapnia; D68.59 Other primary thrombophilia; D63.8 Anemia in other chronic diseases classified elsewhere; L03.116 Cellulitis of left lower limb; E66.2 Morbid (severe) obesity with alveolar hypoventilation; I42.9 Cardiomyopathy, unspecified; I48.19 Other persistent atrial fibrillation; I50.33 Acute on chronic diastolic (congestive) heart failure; Z68.43 Body mass index [BMI] 50.0-59.9, adult; E11.22 Type 2 diabetes mellitus with diabetic chronic kidney disease; N18.9 Chronic kidney disease, unspecified; E11.40 Type 2 diabetes mellitus with diabetic neuropathy, unspecified; E78.00 Pure hypercholesterolemia, unspecified; I25.10 Atherosclerotic heart disease of native coronary artery without angina pectoris; Z20.822 Contact with and (suspected) exposure to COVID-19; J44.1 Chronic obstructive pulmonary disease with (acute) exacerbation; Z79.01 Long term (current) use of anticoagulants; Z86.16 Personal history of COVID-19; Z87.01 Personal history of pneumonia (recurrent); Z95.5 Presence of coronary angioplasty implant and graft; Z71.3 Dietary counseling and surveillance; Z79.4 Long term (current) use of insulin
CPT/HCPCS: 36415; 71045; 80053; 82570; 82962; 83880; 84300; 84484; 85025; 87081; 93005; 96372; 96374; 96375; 96376; G0378; J0690; J1815

== ENCOUNTER 2022-02-17 07:08 | Emergency (ER) | payer MEDICAID ==
[~2022-02-17] VITALS: Ht 182.9 cm; Wt 172.0 kg
[~2022-02-17 07:08] MED LIST changes: +DAPA1TAB4 PO; +SACU1TAB PO
[2022-02-17 07:45] VITALS: BP 125/58
[2022-02-17] MEDS ORDERED: HYDROcodone-ACET 5/325MG TAB PO ONE (07:45)
[2022-02-17] MEDS ORDERED: ONDANSETRON ODT 4 MG TAB PO ONE (07:45)
[2022-02-17] MEDS ORDERED: HYDROcodone-ACET 10/325MG TAB PO ONE (08:00)
== END 2022-02-17 10:12 | disposition home or self-care (01) ==
LOC: ER 07:08
DX: S52.614A Nondisplaced fracture of right ulna styloid process, initial encounter for closed fracture (principal); I13.0 Hypertensive heart and chronic kidney disease with heart failure and stage 1 through stage 4 chronic kidney disease, or unspecified chronic kidney disease; E11.22 Type 2 diabetes mellitus with diabetic chronic kidney disease; N18.9 Chronic kidney disease, unspecified; I50.9 Heart failure, unspecified; I25.10 Atherosclerotic heart disease of native coronary artery without angina pectoris; E78.5 Hyperlipidemia, unspecified; I48.91 Unspecified atrial fibrillation; J44.9 Chronic obstructive pulmonary disease, unspecified; Z79.899 Other long term (current) drug therapy; Z79.4 Long term (current) use of insulin; X58.XXXA Exposure to other specified factors, initial encounter; Y93.89 Activity, other specified; Y92.89 Other specified places as the place of occurrence of the external cause; Y99.8 Other external cause status
CPT/HCPCS: 29125; 73100; 99283; Q0162

== ENCOUNTER 2022-05-08 23:40 | Emergency (ER) | payer MEDICAID ==
[~2022-05-08] VITALS: Ht 182.9 cm; Wt 180.5 kg
[2022-05-09] MEDS ORDERED: KETOROLAC TROMETH 60MG/2ML VIAL IM ONE (07:00)
[2022-05-09] MEDS ORDERED: methylPREDNISolone SOD SUCC 125 MG/2 ML VL IM ONE (07:00)
[2022-05-09] MEDS ORDERED: METH4PAK PO (07:16)
[2022-05-09] MEDS ORDERED: COLC1CAP PO (07:16)
[2022-05-09 07:37] VITALS: BP 115/77
== END 2022-05-09 07:47 | disposition home or self-care (01) ==
LOC: ER 23:49
DX: M10.9 Gout, unspecified (principal); I13.0 Hypertensive heart and chronic kidney disease with heart failure and stage 1 through stage 4 chronic kidney disease, or unspecified chronic kidney disease; E11.22 Type 2 diabetes mellitus with diabetic chronic kidney disease; N18.9 Chronic kidney disease, unspecified; I50.9 Heart failure, unspecified; I25.10 Atherosclerotic heart disease of native coronary artery without angina pectoris; I48.91 Unspecified atrial fibrillation; E78.5 Hyperlipidemia, unspecified; J44.9 Chronic obstructive pulmonary disease, unspecified; Z86.2 Personal history of diseases of the blood and blood-forming organs and certain disorders involving the immune mechanism; Z79.4 Long term (current) use of insulin; Z79.899 Other long term (current) drug therapy
CPT/HCPCS: 96372; 99284; J1885; J2930

== ENCOUNTER 2022-08-21 19:36 | Inpatient (IN) | payer MEDICAID ==
[~2022-08-21] VITALS: Ht 188 cm; Wt 174.5 kg
[~2022-08-21 19:36] MED LIST changes: +COLC1CAP PO; +METH4PAK PO
[2022-08-21 21:32] LABS: Basophils # (auto) 0.1 10 ^3/uL (0-0.2); Basophils % (auto) 0.4 % (0.0-2.0); Eosinophils # (auto) 0.1 10 ^3/uL (0-0.8); Eosinophils % (auto) 0.9 % (0.0-7.0); Hematocrit 45.9 % (41.0-53.0); Hemoglobin 15.5 g/dL (13.5-17.5); Lymphocytes # (auto) 0.9 10 ^3/uL (0.4-5.4); Lymphocytes % (auto) 6.1 % (10.0-50.0); Mean Corpuscular Hgb Conc. 33.7 g/dL (32.0-36.0); Monocytes # (auto) 0.8 10 ^3/uL (0-1.3); Neutrophils # (auto) 13.1 10 ^3/uL (1.6-8.6); Neutrophils % (auto) 87.6 % (37.0-80.0); Nucleated Red Blood Cells % 0.1 %; Red Blood Cells 5.53 10^6/uL (4.5-5.90); Red Cell Distribution Width 18.5 % (11.8-14.3)
[2022-08-21 21:45] LABS: Albumin 3.3 g/dL (3.4-5.0); BUN/Creatinine Ratio 15.7; Calcium 8.8 mg/dL (8.5-10.1); Magnesium 2.3 mg/dL (1.6-2.6); Potassium 4.4 mmol/L (3.5-5.1)
[2022-08-21 21:48] LABS: Bilirubin, Total 1.4 mg/dL (0.2-1.0); Total Protein 7.4 g/dL (6.4-8.2)
[2022-08-21 22:42] LABS: INR 1.13 (0.9-1.15); Partial Thromboplastin Time 40.9 sec (24.6-33.4)
[2022-08-22] MEDS ORDERED: DEXTROSE (50%) 50ML SYRG IV PRN (02:00)
[2022-08-22] MEDS ORDERED: ONDANSETRON HCL 4 MG/2 ML VIAL IV PRN (02:00)
[2022-08-22] MEDS ORDERED: DOCUSATE SOD 100 MG CAP PO PRN (02:00)
[2022-08-22] MEDS ORDERED: ACETAMINOPHEN 325 MG TAB PO PRN (02:00)
[2022-08-22 03:08] LABS: Albumin 2.8 g/dL (3.4-5.0); BUN/Creatinine Ratio 16.9; Basophils # (auto) 0.1 10 ^3/uL (0-0.2); Basophils % (auto) 0.6 % (0.0-2.0); Calcium 8.6 mg/dL (8.5-10.1); Eosinophils # (auto) 0.1 10 ^3/uL (0-0.8); Eosinophils % (auto) 0.8 % (0.0-7.0); Hematocrit 43.1 % (41.0-53.0); Hemoglobin 14.3 g/dL (13.5-17.5); Lymphocytes % (auto) 7.7 % (10.0-50.0); Mean Corpuscular Hemoglobin 27.6 pg (28.0-32.0); Mean Corpuscular Hgb Conc. 33.2 g/dL (32.0-36.0); Mean Corpuscular Volume 83.1 fL (80.0-100.0); Monocytes # (auto) 0.7 10 ^3/uL (0-1.3); Monocytes % (auto) 5.6 % (0.0-12.0); Neutrophils % (auto) 85.3 % (37.0-80.0); Nucleated Red Blood Cells % 0.3 %; Potassium 4.4 mmol/L (3.5-5.1); Red Blood Cells 5.18 10^6/uL (4.5-5.90); White Blood Cell 12.9 10^3/uL (4.4-10.8)
[2022-08-22 03:10] LABS: Bilirubin, Total 1.2 mg/dL (0.2-1.0); Total Protein 6.6 g/dL (6.4-8.2)
[2022-08-22] MEDS ORDERED: NITROGLYCERIN 0.4 MG SL TAB SL PRN (03:30)
[2022-08-22] MEDS ORDERED: MORPHINE SULFATE INJ 2 MG/ml SYRG IV PRN (03:30)
[2022-08-22 03:46] LABS: Urine Bacteria FEW /hpf (None Seen); Urine Blood Negative /uL (Negative); Urine Specific Gravity 1.009 (1.001-1.035); Urine WBC 6 /hpf (0 - 3)
[2022-08-22] MEDS: SODIUM CHLOR 0.9% PF (SALINE LOCK) 10ML VIAL/SYR IV SCH ×2 (06:13→14:00)
[2022-08-22] MEDS: ACCU-CHEK COMFORT CURVE STRIP VI SCH ×3 (07:04→17:00)
[2022-08-22] MEDS: InsuLIN REG 1unit/0.01ml Soln (100units/ml) SC SCH ×3 (07:25→17:56)
[2022-08-22] MEDS: cefTRIAXone 1GM/50ML D5W 50 ML IV SCH (09:11)
[2022-08-22] MEDS: APIXABAN 5 MG TAB PO SCH ×2 (10:04→21:23)
[2022-08-22] MEDS: CARVEDILOL 3.125 MG TAB PO SCH ×2 (10:05→21:24)
[2022-08-22] MEDS: SPIRONOLACTONE 25 MG TAB PO SCH (10:05)
[2022-08-22] MEDS: FAMOTIDINE (10MG/ML) 2ML VL IV SCH (10:05)
[2022-08-22] MEDS: HYDROcodone-ACET 5/325MG TAB PO PRN ×2 (10:06→21:23)
[2022-08-22] MEDS ORDERED: IPRATROPIUM BROM 0.5 MG/2.5ML INH SOL NEB PRN (18:00)
[2022-08-22 21:09] VITALS: BP 96/61
[2022-08-22 22:04] VITALS: BP 117/66
[2022-08-23] MEDS: SODIUM CHLOR 0.9% PF (SALINE LOCK) 10ML VIAL/SYR IV SCH ×4 (00:53→22:48)
[2022-08-23] MEDS: HYDROcodone-ACET 5/325MG TAB PO PRN ×3 (00:54→22:55)
[2022-08-23] MEDS: ACCU-CHEK COMFORT CURVE STRIP VI SCH ×5 (00:54→22:48)
[2022-08-23] MEDS: InsuLIN REG 1unit/0.01ml Soln (100units/ml) SC SCH ×5 (00:57→22:50)
[2022-08-23 05:00] VITALS: BP 100/64
[2022-08-23 07:08] LABS: Basophils # (auto) 0.1 10 ^3/uL (0-0.2); Basophils % (auto) 0.7 % (0.0-2.0); Eosinophils # (auto) 0.2 10 ^3/uL (0-0.8); Eosinophils % (auto) 1.9 % (0.0-7.0); Hematocrit 41.5 % (41.0-53.0); Hemoglobin 13.9 g/dL (13.5-17.5); Lymphocytes # (auto) 1.1 10 ^3/uL (0.4-5.4); Lymphocytes % (auto) 13.4 % (10.0-50.0); Mean Corpuscular Hgb Conc. 33.6 g/dL (32.0-36.0); Mean Corpuscular Volume 83.3 fL (80.0-100.0); Monocytes # (auto) 0.7 10 ^3/uL (0-1.3); Monocytes % (auto) 7.9 % (0.0-12.0); Neutrophils # (auto) 6.4 10 ^3/uL (1.6-8.6); Neutrophils % (auto) 76.1 % (37.0-80.0); Nucleated Red Blood Cells % 0.2 %; Red Blood Cells 4.98 10^6/uL (4.5-5.90); Red Cell Distribution Width 18.8 % (11.8-14.3); White Blood Cell 8.4 10^3/uL (4.4-10.8)
[2022-08-23 07:38] LABS: Albumin 2.5 g/dL (3.4-5.0); BUN/Creatinine Ratio 18.9; Calcium 8.5 mg/dL (8.5-10.1); Potassium 4.3 mmol/L (3.5-5.1)
[2022-08-23 07:41] LABS: Bilirubin, Total 0.9 mg/dL (0.2-1.0); Total Protein 6.4 g/dL (6.4-8.2)
[2022-08-23 09:00] VITALS: BP 118/83
[2022-08-23] MEDS: FAMOTIDINE (10MG/ML) 2ML VL IV SCH (09:41)
[2022-08-23] MEDS: cefTRIAXone 1GM/50ML D5W 50 ML IV SCH (09:41)
[2022-08-23] MEDS: SPIRONOLACTONE 25 MG TAB PO SCH (09:41)
[2022-08-23] MEDS: APIXABAN 5 MG TAB PO SCH ×2 (09:42→22:55)
[2022-08-23] MEDS: CARVEDILOL 3.125 MG TAB PO SCH ×2 (09:43→22:56)
[2022-08-23 13:00] VITALS: BP 117/73
[2022-08-23 17:00] VITALS: BP 120/71
[2022-08-23 22:00] VITALS: BP 133/83
[2022-08-23] MEDS: METOPROLOL TARTRATE 25 MG TAB PO SCH (22:57)
[2022-08-24 05:00] VITALS: BP 101/50
[2022-08-24] MEDS: SODIUM CHLOR 0.9% PF (SALINE LOCK) 10ML VIAL/SYR IV SCH ×3 (06:51→21:41)
[2022-08-24] MEDS: ACCU-CHEK COMFORT CURVE STRIP VI SCH ×4 (06:51→21:41)
[2022-08-24] MEDS: FUROSEMIDE 40 MG/4 ML VIAL IV SCH ×2 (06:51→17:23)
[2022-08-24] MEDS: InsuLIN REG 1unit/0.01ml Soln (100units/ml) SC SCH ×4 (06:57→22:00)
[2022-08-24 09:00] VITALS: BP 115/63
[2022-08-24] MEDS: cefTRIAXone 1GM/50ML D5W 50 ML IV SCH (09:36)
[2022-08-24] MEDS ORDERED: FUROSEMIDE 40 MG TAB PO SCH (10:00)
[2022-08-24] MEDS: CARVEDILOL 3.125 MG TAB PO SCH ×2 (10:54→21:39)
[2022-08-24] MEDS: FAMOTIDINE (10MG/ML) 2ML VL IV SCH (10:54)
[2022-08-24] MEDS: SPIRONOLACTONE 25 MG TAB PO SCH (10:54)
[2022-08-24] MEDS: APIXABAN 5 MG TAB PO SCH ×2 (10:55→21:37)
[2022-08-24] MEDS: METOPROLOL TARTRATE 25 MG TAB PO SCH ×2 (10:56→21:40)
[2022-08-24 13:00] VITALS: BP 106/71
[2022-08-24 17:00] VITALS: BP 109/76
[2022-08-24] MEDS: HYDROcodone-ACET 5/325MG TAB PO PRN (21:38)
[2022-08-24 22:00] VITALS: BP 131/84
[2022-08-25 05:00] VITALS: BP 118/60
[2022-08-25] MEDS: FUROSEMIDE 40 MG/4 ML VIAL IV SCH ×2 (05:38→17:46)
[2022-08-25] MEDS: SODIUM CHLOR 0.9% PF (SALINE LOCK) 10ML VIAL/SYR IV SCH ×3 (05:38→21:55)
[2022-08-25] MEDS: ACCU-CHEK COMFORT CURVE STRIP VI SCH ×4 (06:15→21:55)
[2022-08-25] MEDS: InsuLIN REG 1unit/0.01ml Soln (100units/ml) SC SCH ×4 (06:16→21:46)
[2022-08-25 09:00] VITALS: BP 131/87
[2022-08-25] MEDS: APIXABAN 5 MG TAB PO SCH ×2 (09:42→21:49)
[2022-08-25] MEDS: CARVEDILOL 3.125 MG TAB PO SCH ×2 (09:43→21:49)
[2022-08-25] MEDS: cefTRIAXone 1GM/50ML D5W 50 ML IV SCH (09:44)
[2022-08-25] MEDS: FAMOTIDINE (10MG/ML) 2ML VL IV SCH (09:44)
[2022-08-25] MEDS: METOPROLOL TARTRATE 25 MG TAB PO SCH ×2 (09:45→21:51)
[2022-08-25] MEDS: HYDROcodone-ACET 5/325MG TAB PO PRN ×2 (09:46→21:49)
[2022-08-25] MEDS: SPIRONOLACTONE 25 MG TAB PO SCH (09:46)
[2022-08-25 13:00] VITALS: BP 118/70
[2022-08-25 16:51] VITALS: BP 119/67
[2022-08-25 20:39] VITALS: BP 119/67
[2022-08-25 22:00] VITALS: BP 116/87
[2022-08-26 05:00] VITALS: BP 155/72
[2022-08-26] MEDS: InsuLIN REG 1unit/0.01ml Soln (100units/ml) SC SCH ×2 (07:12→12:09)
[2022-08-26] MEDS: FUROSEMIDE 40 MG/4 ML VIAL IV SCH (07:15)
[2022-08-26] MEDS: HYDROcodone-ACET 5/325MG TAB PO PRN (07:18)
[2022-08-26] MEDS: ACCU-CHEK COMFORT CURVE STRIP VI SCH ×2 (07:19→12:07)
[2022-08-26] MEDS: SODIUM CHLOR 0.9% PF (SALINE LOCK) 10ML VIAL/SYR IV SCH ×2 (07:19→14:39)
[2022-08-26 09:00] VITALS: BP 147/91
[2022-08-26] MEDS: APIXABAN 5 MG TAB PO SCH (09:48)
[2022-08-26] MEDS: FAMOTIDINE (10MG/ML) 2ML VL IV SCH (09:49)
[2022-08-26] MEDS: CARVEDILOL 3.125 MG TAB PO SCH (09:50)
[2022-08-26] MEDS: SPIRONOLACTONE 25 MG TAB PO SCH (09:50)
[2022-08-26] MEDS: METOPROLOL TARTRATE 25 MG TAB PO SCH (09:51)
[2022-08-26] MEDS: cefTRIAXone 1GM/50ML D5W 50 ML IV SCH (09:52)
[2022-08-26] MEDS ORDERED: FURO1TAB31 PO (10:26)
[2022-08-26 13:00] VITALS: BP 103/60
[2022-08-26 14:48] VITALS: BP 118/58
== END 2022-08-26 16:36 | disposition home or self-care (01) | DRG 111 ==
LOC: ER 19:36 → EDBD 19:36 → TELE 08-22 03:30 → TELE-EAST 08-22 20:36
PROVIDERS: ADMIT Nurse Practitioner Family; ATTEND Internal Medicine
DX: H81.10 Benign paroxysmal vertigo, unspecified ear (principal); J96.01 Acute respiratory failure with hypoxia; Z68.43 Body mass index [BMI] 50.0-59.9, adult; I50.9 Heart failure, unspecified; I13.0 Hypertensive heart and chronic kidney disease with heart failure and stage 1 through stage 4 chronic kidney disease, or unspecified chronic kidney disease; D72.829 Elevated white blood cell count, unspecified; R55 Syncope and collapse; E11.22 Type 2 diabetes mellitus with diabetic chronic kidney disease; I48.91 Unspecified atrial fibrillation; E78.5 Hyperlipidemia, unspecified; Z20.822 Contact with and (suspected) exposure to COVID-19; E66.01 Morbid (severe) obesity due to excess calories; S96.919A Strain of unspecified muscle and tendon at ankle and foot level, unspecified foot, initial encounter; N18.9 Chronic kidney disease, unspecified; I25.10 Atherosclerotic heart disease of native coronary artery without angina pectoris; J44.9 Chronic obstructive pulmonary disease, unspecified; W18.39XA Other fall on same level, initial encounter; Y93.89 Activity, other specified; Y92.89 Other specified places as the place of occurrence of the external cause; Y99.8 Other external cause status; Z83.3 Family history of diabetes mellitus; Z82.49 Family history of ischemic heart disease and other diseases of the circulatory system; Z82.3 Family history of stroke; Z80.0 Family history of malignant neoplasm of digestive organs
CPT/HCPCS: 36415; 70450; 73610; 74176; 80053; 81001; 82962; 83036; 83690; 83735; 83880; 84484; 85025; 85379; 85610; 85730; 87040; 87426; 93005; 93306; 93971; 94640; 96365; 96372; 96375; G0378; J0696; J1815; J3490

== ENCOUNTER 2022-09-03 14:29 | Inpatient (IN) | payer MEDICAID ==
[~2022-09-03] VITALS: Ht 188 cm; Wt 186.0 kg
[~2022-09-03 14:29] MED LIST changes: -FURO40TA4 PO
[2022-09-03 14:53] LABS: Basophils # (auto) 0.1 10 ^3/uL (0-0.2); Basophils % (auto) 0.9 % (0.0-2.0); Eosinophils # (auto) 0.2 10 ^3/uL (0-0.8); Eosinophils % (auto) 2.4 % (0.0-7.0); Hematocrit 43.4 % (41.0-53.0); Hemoglobin 14.3 g/dL (13.5-17.5); Lymphocytes # (auto) 0.9 10 ^3/uL (0.4-5.4); Lymphocytes % (auto) 10.3 % (10.0-50.0); Mean Corpuscular Hgb Conc. 32.9 g/dL (32.0-36.0); Mean Corpuscular Volume 81.8 fL (80.0-100.0); Monocytes # (auto) 0.5 10 ^3/uL (0-1.3); Monocytes % (auto) 5.1 % (0.0-12.0); Neutrophils # (auto) 7.2 10 ^3/uL (1.6-8.6); Neutrophils % (auto) 81.3 % (37.0-80.0); Nucleated Red Blood Cells % 0.7 %; Red Cell Distribution Width 18.7 % (11.8-14.3); White Blood Cell 8.8 10^3/uL (4.4-10.8)
[2022-09-03 15:20] LABS: INR 1.08 (0.9-1.15); Partial Thromboplastin Time 36.6 sec (24.6-33.4)
[2022-09-03 15:23] LABS: Albumin 3.2 g/dL (3.4-5.0); BUN/Creatinine Ratio 22.4; Calcium 8.7 mg/dL (8.5-10.1); Potassium 4.4 mmol/L (3.5-5.1)
[2022-09-03 15:26] LABS: Bilirubin, Total 0.7 mg/dL (0.2-1.0); Total Protein 6.7 g/dL (6.4-8.2)
[2022-09-03] MEDS ORDERED: FUROSEMIDE 40 MG/4 ML VIAL IV ONE (16:00)
[2022-09-03] MEDS ORDERED: IPRATROPIUM BROM 0.5 MG/2.5ML INH SOL NEB PRN (18:45)
[2022-09-03] MEDS ORDERED: MORPHINE SULFATE INJ 2 MG/ml SYRG IV PRN (18:45)
[2022-09-03] MEDS ORDERED: NITROGLYCERIN 0.4 MG SL TAB SL PRN (18:45)
[2022-09-03] MEDS ORDERED: ALBUTEROL SULF 2.5 MG/0.5ML(0.5%) NEB SOLN NEB PRN (18:45)
[2022-09-03 19:21] VITALS: BP 160/97
[2022-09-03] MEDS ORDERED: PANTOPRAZOLE 40 MG/10 ML VIAL INJ IV ONE (19:45)
[2022-09-03] MEDS ORDERED: DEXTROSE (50%) 50ML SYRG IV PRN (19:45)
[2022-09-03 21:55] LABS: INR 1.09 (0.9-1.15)
[2022-09-03 21:56] LABS: Partial Thromboplastin Time 36.5 sec (24.6-33.4)
[2022-09-03] MEDS: ACCU-CHEK COMFORT CURVE STRIP VI SCH (22:00)
[2022-09-03] MEDS: ENOXAPARIN SOD 150 MG/1 ML SYRINGE SC SCH (22:42)
[2022-09-03] MEDS: methylPREDNISolone SOD SUCC 125 MG/2 ML VL IV SCH (22:42)
[2022-09-03] MEDS: SODIUM CHLORIDE 0.9% 1,000 ML IV SCH (22:43)
[2022-09-03] MEDS: InsuLIN REG 1unit/0.01ml Soln (100units/ml) SC SCH (22:43)
[2022-09-04 01:12] LABS: Urine Bacteria NONE SEEN /hpf (None Seen); Urine Blood Negative /uL (Negative); Urine Hyaline Cast FEW /lpf (0 - 2); Urine Specific Gravity 1.008 (1.001-1.035); Urine WBC 8 /hpf (0 - 3)
[2022-09-04] MEDS ORDERED: HYDROcodone-ACET 5/325MG TAB PO ONE (01:15)
[2022-09-04 05:14] LABS: Basophils # (auto) 0 10 ^3/uL (0-0.2); Basophils % (auto) 0.2 % (0.0-2.0); Eosinophils # (auto) 0 10 ^3/uL (0-0.8); Eosinophils % (auto) 0.3 % (0.0-7.0); Hematocrit 43.3 % (41.0-53.0); Hemoglobin 14.4 g/dL (13.5-17.5); Lymphocytes # (auto) 0.6 10 ^3/uL (0.4-5.4); Lymphocytes % (auto) 5.5 % (10.0-50.0); Mean Corpuscular Hemoglobin 27.5 pg (28.0-32.0); Mean Corpuscular Hgb Conc. 33.4 g/dL (32.0-36.0); Mean Corpuscular Volume 82.4 fL (80.0-100.0); Monocytes # (auto) 0.1 10 ^3/uL (0-1.3); Monocytes % (auto) 1.2 % (0.0-12.0); Neutrophils # (auto) 9.9 10 ^3/uL (1.6-8.6); Neutrophils % (auto) 92.8 % (37.0-80.0); Nucleated Red Blood Cells % 0.4 %; Red Blood Cells 5.25 10^6/uL (4.5-5.90); Red Cell Distribution Width 18.5 % (11.8-14.3); White Blood Cell 10.7 10^3/uL (4.4-10.8)
[2022-09-04 05:18] LABS: Calcium 9.1 mg/dL (8.5-10.1); Potassium 4.5 mmol/L (3.5-5.1)
[2022-09-04 05:22] LABS: Albumin 3.3 g/dL (3.4-5.0); BUN/Creatinine Ratio 24.5
[2022-09-04 05:24] LABS: Bilirubin, Total 0.9 mg/dL (0.2-1.0); Total Protein 7.8 g/dL (6.4-8.2)
[2022-09-04] MEDS: InsuLIN REG 1unit/0.01ml Soln (100units/ml) SC SCH ×4 (06:59→22:17)
[2022-09-04] MEDS: ACCU-CHEK COMFORT CURVE STRIP VI SCH ×4 (07:00→22:24)
[2022-09-04] MEDS ORDERED: dilTIAZem 25 MG/5 ML VIAL IV ONE (07:00)
[2022-09-04] MEDS: IPRATROPIUM BROM 0.5 MG/2.5ML INH SOL NEB SCH ×3 (07:12→18:06)
[2022-09-04] MEDS: ALBUTEROL SULF 2.5 MG/0.5ML(0.5%) NEB SOLN NEB SCH ×2 (07:12→11:43)
[2022-09-04] MEDS: SODIUM CHLORIDE 0.9% 1,000 ML IV SCH ×2 (08:38→10:45)
[2022-09-04] MEDS ORDERED: ONDANSETRON HCL 4 MG/2 ML VIAL IV PRN (08:45)
[2022-09-04] MEDS: methylPREDNISolone SOD SUCC 125 MG/2 ML VL IV SCH (10:26)
[2022-09-04] MEDS: FUROSEMIDE 20 MG/2 ML VIAL IV SCH (10:26)
[2022-09-04] MEDS: ENOXAPARIN SOD 150 MG/1 ML SYRINGE SC SCH (10:26)
[2022-09-04] MEDS: PANTOPRAZOLE 40 MG/10 ML VIAL INJ IV SCH (10:26)
[2022-09-04 14:42] VITALS: BP 148/99
[2022-09-04] MEDS: HYDROcodone-ACET 5/325MG TAB PO PRN (16:58)
[2022-09-04] MEDS: LEVALBUTEROL HCL 1.25 MG/3 ML NEB NEB SCH (18:06)
[2022-09-04] MEDS ORDERED: METOPROLOL TARTRATE 25 MG TAB PO SCH (22:00)
[2022-09-04] MEDS: APIXABAN 5 MG TAB PO SCH (22:21)
[2022-09-04] MEDS: METOPROLOL TARTRATE 25 MG TAB PO SCH (22:22)
[2022-09-04] MEDS: SACUBITRIL-VALSARTAN 24mg/26mg TAB PO SCH (22:22)
[2022-09-04 23:36] VITALS: BP 145/98
[2022-09-05] MEDS: LEVALBUTEROL HCL 1.25 MG/3 ML NEB NEB SCH ×3 (00:16→11:43)
[2022-09-05 04:56] VITALS: BP 153/99
[2022-09-05] MEDS: InsuLIN REG 1unit/0.01ml Soln (100units/ml) SC SCH ×3 (06:20→16:03)
[2022-09-05] MEDS: ACCU-CHEK COMFORT CURVE STRIP VI SCH ×3 (06:34→15:44)
[2022-09-05] MEDS: IPRATROPIUM BROM 0.5 MG/2.5ML INH SOL NEB SCH ×2 (07:00→11:43)
[2022-09-05] MEDS ORDERED: EMPAGLIFLOZIN 10 MG TAB PO SCH (07:00)
[2022-09-05 07:14] LABS: BUN/Creatinine Ratio 25.6; Calcium 8.4 mg/dL (8.5-10.1); Potassium 4.1 mmol/L (3.5-5.1)
[2022-09-05 07:30] VITALS: BP 115/80
[2022-09-05 07:36] LABS: Basophils # (auto) 0 10 ^3/uL (0-0.2); Basophils % (auto) 0.1 % (0.0-2.0); Eosinophils # (auto) 0 10 ^3/uL (0-0.8); Hematocrit 41.2 % (41.0-53.0); Hemoglobin 13.7 g/dL (13.5-17.5); Lymphocytes # (auto) 0.8 10 ^3/uL (0.4-5.4); Lymphocytes % (auto) 7.7 % (10.0-50.0); Mean Corpuscular Hemoglobin 27.5 pg (28.0-32.0); Mean Corpuscular Hgb Conc. 33.2 g/dL (32.0-36.0); Mean Corpuscular Volume 82.7 fL (80.0-100.0); Monocytes # (auto) 0.5 10 ^3/uL (0-1.3); Monocytes % (auto) 5.3 % (0.0-12.0); Neutrophils # (auto) 8.9 10 ^3/uL (1.6-8.6); Neutrophils % (auto) 86.9 % (37.0-80.0); Nucleated Red Blood Cells % 0.8 %; Red Blood Cells 4.98 10^6/uL (4.5-5.90); Red Cell Distribution Width 18.1 % (11.8-14.3); White Blood Cell 10.2 10^3/uL (4.4-10.8)
[2022-09-05 08:00] VITALS: BP 115/80
[2022-09-05] MEDS ORDERED: DEXTROSE (50%) 50ML SYRG IV PRN (10:15)
[2022-09-05] MEDS: PANTOPRAZOLE 40 MG/10 ML VIAL INJ IV SCH (10:34)
[2022-09-05] MEDS: HYDROcodone-ACET 5/325MG TAB PO PRN (10:35)
[2022-09-05] MEDS: FUROSEMIDE 20 MG/2 ML VIAL IV SCH (10:35)
[2022-09-05] MEDS: APIXABAN 5 MG TAB PO SCH (10:36)
[2022-09-05] MEDS: SACUBITRIL-VALSARTAN 24mg/26mg TAB PO SCH (10:36)
[2022-09-05] MEDS: METOPROLOL TARTRATE 25 MG TAB PO SCH (10:36)
[2022-09-05 12:00] VITALS: BP 142/82
[2022-09-05 12:46] VITALS: BP 115/80
[2022-09-05 16:00] VITALS: BP 129/87
== END 2022-09-05 17:31 | disposition home or self-care (01) | DRG 133 ==
LOC: ER 14:29 → TELE 18:56 → TELE-E-ADS 09-04 15:42 → TELE-EAST 09-04 18:09
PROVIDERS: ADMIT Registered Nurse; ATTEND Nurse Practitioner Acute Care
PROC: 5A09357 Assistance with Respiratory Ventilation, Less than 24 Consecutive Hours, Continuous Positive Airway Pressure (ICD-10-PCS; principal; 2022-09-04)
DX: J96.21 Acute and chronic respiratory failure with hypoxia (principal); I50.43 Acute on chronic combined systolic (congestive) and diastolic (congestive) heart failure; N17.9 Acute kidney failure, unspecified; Z68.43 Body mass index [BMI] 50.0-59.9, adult; I13.0 Hypertensive heart and chronic kidney disease with heart failure and stage 1 through stage 4 chronic kidney disease, or unspecified chronic kidney disease; E11.22 Type 2 diabetes mellitus with diabetic chronic kidney disease; I48.91 Unspecified atrial fibrillation; E11.65 Type 2 diabetes mellitus with hyperglycemia; E66.01 Morbid (severe) obesity due to excess calories; G47.33 Obstructive sleep apnea (adult) (pediatric); I25.10 Atherosclerotic heart disease of native coronary artery without angina pectoris; N18.32 Chronic kidney disease, stage 3b; J44.9 Chronic obstructive pulmonary disease, unspecified; E78.5 Hyperlipidemia, unspecified; Z20.822 Contact with and (suspected) exposure to COVID-19; Z87.01 Personal history of pneumonia (recurrent)
CPT/HCPCS: 36415; 71045; 78582; 80048; 80053; 81001; 82962; 83880; 84484; 85025; 85379; 85610; 85730; 87426; 93005; 93970; 94640; 94660; C9113; G0378; J1815

== ENCOUNTER 2023-02-06 00:02 | Inpatient (IN) | payer MEDICAID ==
[~2023-02-06] VITALS: Ht 182.9 cm; Wt 177.2 kg
[~2023-02-06 00:02] MED LIST changes: -FERR-20 PO; +FERR325T24 PO
[2023-02-06 00:32] LABS: Basophils # (auto) 0.1 10 ^3/uL (0-0.2); Basophils % (auto) 1.3 % (0.0-2.0); Eosinophils # (auto) 0.2 10 ^3/uL (0-0.8); Eosinophils % (auto) 2.8 % (0.0-7.0); Hematocrit 47.1 % (41.0-53.0); Hemoglobin 15.5 g/dL (13.5-17.5); Lymphocytes # (auto) 1.1 10 ^3/uL (0.4-5.4); Lymphocytes % (auto) 13.4 % (10.0-50.0); Mean Corpuscular Hemoglobin 27.7 pg (28.0-32.0); Mean Corpuscular Hgb Conc. 32.8 g/dL (32.0-36.0); Mean Corpuscular Volume 84.5 fL (80.0-100.0); Monocytes # (auto) 0.4 10 ^3/uL (0-1.3); Monocytes % (auto) 5.1 % (0.0-12.0); Neutrophils # (auto) 6.6 10 ^3/uL (1.6-8.6); Neutrophils % (auto) 77.4 % (37.0-80.0); Nucleated Red Blood Cells % 1.3 %; Red Blood Cells 5.58 10^6/uL (4.5-5.90); Red Cell Distribution Width 19.2 % (11.8-14.3); White Blood Cell 8.5 10^3/uL (4.4-10.8)
[2023-02-06 00:45] LABS: Large Platelets FEW; Platelet Estimate Decreased
[2023-02-06 00:47] LABS: INR 1.17 (0.9-1.15); Partial Thromboplastin Time 35.3 SEC (24.5-34.5); Prothrombin Time 12.2 sec (9.3-11.8)
[2023-02-06 00:52] LABS: Albumin 3.3 g/dL (3.4-5.0); BUN/Creatinine Ratio 18.8 (10.0-20.0); Calcium 8.5 mg/dL (8.5-10.1); Magnesium 2.2 mg/dL (1.6-2.6)
[2023-02-06] MEDS ORDERED: IPRATROPIUM BROM 0.5 MG/2.5ML INH SOL ONE (04:13)
[2023-02-06] MEDS ORDERED: ALBUTEROL SULF 2.5 MG/0.5ML(0.5%) NEB SOLN ONE (04:13)
[2023-02-06] MEDS ORDERED: DexAMETHasone SOD PHOS 10MG/1ML VIAL INJ IV ONE (04:15)
[2023-02-06] MEDS ORDERED: FUROSEMIDE 20 MG/2 ML VIAL IV ONE (04:15)
[2023-02-06] MEDS ORDERED: IPRATROPIUM BROM 0.5 MG/2.5ML INH SOL NEB ONE (04:15)
[2023-02-06] MEDS ORDERED: ALBUTEROL SULF 2.5 MG/0.5ML(0.5%) NEB SOLN NEB ONE (04:15)
[2023-02-06 04:52] VITALS: PULSE 101; RESP 20; O2SAT 96
[2023-02-06] MEDS ORDERED: ONDANSETRON HCL 4 MG/2 ML VIAL IV PRN (06:15)
[2023-02-06] MEDS ORDERED: ALBUTEROL SULF 2.5 MG/0.5ML(0.5%) NEB SOLN NEB PRN (06:15)
[2023-02-06] MEDS ORDERED: MORPHINE SULFATE INJ 2 MG/ml SYRG IV PRN ×3 (06:15→19:15)
[2023-02-06] MEDS ORDERED: DEXTROSE (50%) 50ML SYRG IV PRN ×2 (06:15→12:45)
[2023-02-06] MEDS ORDERED: NITROGLYCERIN 0.4 MG SL TAB SL PRN (06:15)
[2023-02-06] MEDS ORDERED: IPRATROPIUM BROM 0.5 MG/2.5ML INH SOL NEB PRN (06:15)
[2023-02-06] MEDS ORDERED: HYDROcodone-ACET 10/325MG TAB PO ONE (06:15)
[2023-02-06] MEDS ORDERED: ACETAMINOPHEN 325 MG TAB PO PRN (06:15)
[2023-02-06] MEDS ORDERED: DOCUSATE SOD 100 MG CAP PO PRN (06:15)
[2023-02-06 06:50] VITALS: BP 110/86; PULSE 105; RESP 20; TEMP 98.6; O2SAT 96
[2023-02-06] MEDS ORDERED: ACCU-CHEK COMFORT CURVE STRIP VI SCH (07:00)
[2023-02-06] MEDS ORDERED: InsuLIN REG 1unit/0.01ml Soln (100units/ml) SC SCH ×2 (07:00→22:00)
[2023-02-06 07:28] LABS: Basophils # (auto) 0.1 10 ^3/uL (0-0.2); Basophils % (auto) 0.7 % (0.0-2.0); Eosinophils # (auto) 0.2 10 ^3/uL (0-0.8); Eosinophils % (auto) 2.2 % (0.0-7.0); Hematocrit 46.9 % (41.0-53.0); Hemoglobin 15.4 g/dL (13.5-17.5); Lymphocytes # (auto) 0.7 10 ^3/uL (0.4-5.4); Lymphocytes % (auto) 8.6 % (10.0-50.0); Mean Corpuscular Hemoglobin 27.6 pg (28.0-32.0); Mean Corpuscular Hgb Conc. 32.8 g/dL (32.0-36.0); Mean Corpuscular Volume 84.4 fL (80.0-100.0); Monocytes # (auto) 0.2 10 ^3/uL (0-1.3); Monocytes % (auto) 2.6 % (0.0-12.0); Neutrophils # (auto) 6.8 10 ^3/uL (1.6-8.6); Neutrophils % (auto) 85.9 % (37.0-80.0); Nucleated Red Blood Cells % 0.2 %; Red Blood Cells 5.56 10^6/uL (4.5-5.90); Red Cell Distribution Width 18.9 % (11.8-14.3); White Blood Cell 7.9 10^3/uL (4.4-10.8)
[2023-02-06 07:31] LABS: Potassium 3.9 mmol/L (3.5-5.1)
[2023-02-06 07:37] LABS: Albumin 3.3 g/dL (3.4-5.0); BUN/Creatinine Ratio 19.9 (10.0-20.0); Bilirubin, Total 0.9 mg/dL (0.2-1.0); Calcium 8.7 mg/dL (8.5-10.1); Total Protein 7.2 g/dL (6.4-8.2)
[2023-02-06 08:00] VITALS: PULSE 102; RESP 14; O2SAT 94
[2023-02-06] MEDS ORDERED: CARVEDILOL 12.5 MG TAB PO SCH (10:00)
[2023-02-06] MEDS ORDERED: cefTRIAXone 1GM/50ML D5W 50 ML IV ONE (12:45)
[2023-02-06] MEDS ORDERED: amLODIPine BESYLATE 5 MG TAB PO ONE (12:45)
[2023-02-06] MEDS ORDERED: AZITHROMYCIN 500MG/ 250ML 250 ML IV ONE (13:45)
[2023-02-06 13:58] LABS: Urine Bacteria NONE SEEN /hpf (None Seen); Urine Blood TRACE /uL (Negative); Urine Clarity Clear (Clear); Urine Color Yellow (Yellow); Urine Protein, UAD 3+ (Negative); Urine Specific Gravity 1.015 (1.001-1.035); Urine Urobilinogen Normal (Negative); Urine WBC 10 /hpf (0 - 3)
[2023-02-06] MEDS ORDERED: methylPREDNISolone SOD SUCC 40 MG/ML VL IV SCH (14:00)
[2023-02-06] MEDS: FUROSEMIDE 20 MG/2 ML VIAL IV SCH (16:03)
[2023-02-06] MEDS: APIXABAN 5 MG TAB PO SCH (16:04)
[2023-02-06] MEDS: methylPREDNISolone SOD SUCC 40 MG/ML VL IV SCH ×2 (16:05→22:00)
[2023-02-06] MEDS: SODIUM CHLOR 0.9% PF (SALINE LOCK) 10ML VIAL/SYR IV SCH ×2 (16:06→22:00)
[2023-02-06] MEDS: ACCU-CHEK COMFORT CURVE STRIP VI SCH (18:51)
[2023-02-06] MEDS: HYDROcodone-ACET 5/325MG TAB PO PRN (19:39)
[2023-02-06] MEDS: InsuLIN REG 1unit/0.01ml Soln (100units/ml) SC SCH (19:39)
[2023-02-06 20:35] LABS: COVID19 ANTIGEN SOFIA FIA NEGATIVE (NEGATIVE); Rapid Influenza A Negative (Negative); Rapid Influenza B Negative (Negative)
[2023-02-06] MEDS: ATORVASTATIN 20 MG TAB PO SCH (22:00)
[2023-02-06 22:45] VITALS: BP 165/99; PULSE 79; RESP 20; RESP 22; TEMP 98.1; O2SAT 95
[2023-02-06 23:03] VITALS: RESP 22; O2SAT 3
[2023-02-07] VITALS (15 sets, daily range): BP systolic 131–162; BP diastolic 77–101; PULSE 62–98; RESP 16–21; TEMP 97.4–98.4; O2SAT 97–100
[2023-02-07] MEDS: DOXYCYCLINE 100 MG TAB/CAP PO SCH ×3 (00:23→21:16)
[2023-02-07] MEDS: CARVEDILOL 3.125 MG TAB PO SCH ×3 (00:25→21:23)
[2023-02-07] MEDS: APIXABAN 5 MG TAB PO SCH ×3 (00:26→21:16)
[2023-02-07 05:53] LABS: Basophils # (auto) 0 10 ^3/uL (0-0.2); Basophils % (auto) 0.1 % (0.0-2.0); Eosinophils # (auto) 0 10 ^3/uL (0-0.8); Hematocrit 48.4 % (41.0-53.0); Hemoglobin 15.6 g/dL (13.5-17.5); Lymphocytes # (auto) 0.7 10 ^3/uL (0.4-5.4); Lymphocytes % (auto) 7.4 % (10.0-50.0); Mean Corpuscular Hemoglobin 27.5 pg (28.0-32.0); Mean Corpuscular Hgb Conc. 32.3 g/dL (32.0-36.0); Mean Corpuscular Volume 85.1 fL (80.0-100.0); Monocytes # (auto) 0.1 10 ^3/uL (0-1.3); Monocytes % (auto) 1.5 % (0.0-12.0); Neutrophils # (auto) 8.2 10 ^3/uL (1.6-8.6); Nucleated Red Blood Cells % 0.7 %; Red Blood Cells 5.68 10^6/uL (4.5-5.90); Red Cell Distribution Width 19.2 % (11.8-14.3)
[2023-02-07] MEDS: InsuLIN REG 1unit/0.01ml Soln (100units/ml) SC SCH ×4 (06:00→17:35)
[2023-02-07] MEDS: ACCU-CHEK COMFORT CURVE STRIP VI SCH ×3 (06:00→17:32)
[2023-02-07 06:12] LABS: Potassium 4.4 mmol/L (3.5-5.1)
[2023-02-07 06:19] LABS: Albumin 3.3 g/dL (3.4-5.0); BUN/Creatinine Ratio 20.8 (10.0-20.0); Calcium 8.7 mg/dL (8.5-10.1); Total Protein 7.3 g/dL (6.4-8.2)
[2023-02-07] MEDS: SODIUM CHLOR 0.9% PF (SALINE LOCK) 10ML VIAL/SYR IV SCH ×3 (06:55→21:29)
[2023-02-07] MEDS: methylPREDNISolone SOD SUCC 40 MG/ML VL IV SCH ×3 (06:57→21:16)
[2023-02-07 08:01] LABS: Giant Platelets Few; Platelet Estimate Decreased
[2023-02-07] MEDS ORDERED: INSULIN LANTUS (GLARGINE) 1 /0.01ml (100units/ml) SC SCH (08:34)
[2023-02-07] MEDS: cefTRIAXone 1GM/50ML D5W 50 ML IV SCH (08:52)
[2023-02-07 09:05] LABS: Cholesterol 229 mg/dL (< 200); Triglycerides 141 mg/dL (< 150)
[2023-02-07 09:08] LABS: HDL Cholesterol 44 mg/dL (40-59); LDL Cholesterol 160 mg/dL (< 100)
[2023-02-07] MEDS ORDERED: AZITHROMYCIN 500MG/ 250ML 250 ML IV SCH (10:00)
[2023-02-07] MEDS ORDERED: amLODIPine BESYLATE 5 MG TAB PO SCH (10:00)
[2023-02-07] MEDS: FUROSEMIDE 20 MG/2 ML VIAL IV SCH (10:09)
[2023-02-07] MEDS: amLODIPine BESYLATE 5 MG TAB PO SCH (10:09)
[2023-02-07] MEDS: ATORVASTATIN 20 MG TAB PO SCH (21:17)
[2023-02-07] MEDS: HYDROcodone-ACET 5/325MG TAB PO PRN (21:49)
[2023-02-07] MEDS ORDERED: ATORVASTATIN 20 MG TAB PO SCH (22:00)
[2023-02-08] VITALS (13 sets, daily range): BP systolic 127–155; BP diastolic 78–90; PULSE 63–98; RESP 16–21; TEMP 97.7–98.2; O2SAT 97–100
[2023-02-08] MEDS: SODIUM CHLOR 0.9% PF (SALINE LOCK) 10ML VIAL/SYR IV SCH ×3 (06:11→22:34)
[2023-02-08] MEDS: methylPREDNISolone SOD SUCC 40 MG/ML VL IV SCH ×3 (06:21→22:35)
[2023-02-08] MEDS: INSULIN LANTUS (GLARGINE) 1 /0.01ml (100units/ml) SC SCH (06:22)
[2023-02-08] MEDS: ACCU-CHEK COMFORT CURVE STRIP VI SCH ×4 (06:23→17:39)
[2023-02-08] MEDS: InsuLIN REG 1unit/0.01ml Soln (100units/ml) SC SCH ×4 (06:26→17:39)
[2023-02-08 06:34] LABS: Calcium 8.6 mg/dL (8.5-10.1); Potassium 4.7 mmol/L (3.5-5.1)
[2023-02-08 06:36] LABS: BUN/Creatinine Ratio 27.9 (10.0-20.0)
[2023-02-08] MEDS: cefTRIAXone 1GM/50ML D5W 50 ML IV SCH (09:21)
[2023-02-08] MEDS: FUROSEMIDE 20 MG/2 ML VIAL IV SCH (09:22)
[2023-02-08] MEDS: CARVEDILOL 3.125 MG TAB PO SCH ×3 (09:23→23:36)
[2023-02-08] MEDS: amLODIPine BESYLATE 5 MG TAB PO SCH (09:26)
[2023-02-08] MEDS: DOXYCYCLINE 100 MG TAB/CAP PO SCH ×2 (09:26→22:39)
[2023-02-08] MEDS: APIXABAN 5 MG TAB PO SCH ×2 (09:26→22:38)
[2023-02-08 09:42] LABS: Basophils # (auto) 0 10 ^3/uL (0-0.2); Basophils % (auto) 0.1 % (0.0-2.0); Eosinophils # (auto) 0 10 ^3/uL (0-0.8); Hematocrit 47.9 % (41.0-53.0); Hemoglobin 15.4 g/dL (13.5-17.5); Lymphocytes # (auto) 0.5 10 ^3/uL (0.4-5.4); Lymphocytes % (auto) 5.6 % (10.0-50.0); Mean Corpuscular Hemoglobin 27.5 pg (28.0-32.0); Mean Corpuscular Hgb Conc. 32.1 g/dL (32.0-36.0); Mean Corpuscular Volume 85.8 fL (80.0-100.0); Monocytes # (auto) 0.2 10 ^3/uL (0-1.3); Monocytes % (auto) 2.3 % (0.0-12.0); Nucleated Red Blood Cells % 0.1 %; Red Blood Cells 5.58 10^6/uL (4.5-5.90); Red Cell Distribution Width 19.2 % (11.8-14.3); White Blood Cell 9.7 10^3/uL (4.4-10.8)
[2023-02-08] MEDS: ATORVASTATIN 20 MG TAB PO SCH (22:38)
[2023-02-08] MEDS: HYDROcodone-ACET 5/325MG TAB PO PRN (22:40)
[2023-02-09] VITALS (8 sets, daily range): BP systolic 104–155; BP diastolic 69–90; PULSE 82–98; RESP 17–26; TEMP 96.1–97.8; O2SAT 97–100
[2023-02-09] MEDS: InsuLIN REG 1unit/0.01ml Soln (100units/ml) SC SCH ×4 (06:00→17:23)
[2023-02-09] MEDS: SODIUM CHLOR 0.9% PF (SALINE LOCK) 10ML VIAL/SYR IV SCH ×2 (06:00→13:36)
[2023-02-09] MEDS: ACCU-CHEK COMFORT CURVE STRIP VI SCH ×4 (06:00→17:24)
[2023-02-09] MEDS: methylPREDNISolone SOD SUCC 40 MG/ML VL IV SCH (06:00)
[2023-02-09] MEDS: INSULIN LANTUS (GLARGINE) 1 /0.01ml (100units/ml) SC SCH (06:51)
[2023-02-09] MEDS: cefTRIAXone 1GM/50ML D5W 50 ML IV SCH (08:26)
[2023-02-09] MEDS: CARVEDILOL 3.125 MG TAB PO SCH (08:27)
[2023-02-09] MEDS: FUROSEMIDE 20 MG/2 ML VIAL IV SCH (08:27)
[2023-02-09] MEDS: DOXYCYCLINE 100 MG TAB/CAP PO SCH (08:27)
[2023-02-09] MEDS: APIXABAN 5 MG TAB PO SCH (08:28)
[2023-02-09] MEDS: amLODIPine BESYLATE 5 MG TAB PO SCH (08:28)
[2023-02-09] MEDS ORDERED: METH4PAK PO (10:45)
[2023-02-09] MEDS ORDERED: DOXY-286 PO ×2 (10:45)
[2023-02-09 11:04] LABS: Calcium 8.4 mg/dL (8.5-10.1)
[2023-02-09] MEDS: HYDROcodone-ACET 5/325MG TAB PO PRN (12:12)
[2023-02-09 12:16] LABS: Potassium 4.4 mmol/L (3.5-5.1)
[2023-02-09 12:51] LABS: BUN/Creatinine Ratio 28.4 (10.0-20.0)
[2023-02-10] MEDS ORDERED: INSULIN LANTUS (GLARGINE) 1 /0.01ml (100units/ml) SC SCH (07:00)
[2023-02-10] MEDS ORDERED: methylPREDNISolone SOD SUCC 40 MG/ML VL IV SCH (10:00)
== END 2023-02-09 18:20 | disposition home or self-care (01) | DRG 133 ==
LOC: ER 00:02 → TELE 06:25 → TELE-EAST 22:17 → EAST 02-07 18:05
PROVIDERS: ADMIT Internal Medicine; ATTEND Student in an Organized Health Care Education/Training Program
PROC: 5A09357 Assistance with Respiratory Ventilation, Less than 24 Consecutive Hours, Continuous Positive Airway Pressure (ICD-10-PCS; principal; 2023-02-07)
PROC: 5A09357 Assistance with Respiratory Ventilation, Less than 24 Consecutive Hours, Continuous Positive Airway Pressure (ICD-10-PCS; 2023-02-08)
PROC: 5A09357 Assistance with Respiratory Ventilation, Less than 24 Consecutive Hours, Continuous Positive Airway Pressure (ICD-10-PCS; 2023-02-09)
DX: J96.21 Acute and chronic respiratory failure with hypoxia (principal); N17.0 Acute kidney failure with tubular necrosis; I50.23 Acute on chronic systolic (congestive) heart failure; J44.1 Chronic obstructive pulmonary disease with (acute) exacerbation; J45.901 Unspecified asthma with (acute) exacerbation; Z68.43 Body mass index [BMI] 50.0-59.9, adult; E11.65 Type 2 diabetes mellitus with hyperglycemia; E66.01 Morbid (severe) obesity due to excess calories; I13.0 Hypertensive heart and chronic kidney disease with heart failure and stage 1 through stage 4 chronic kidney disease, or unspecified chronic kidney disease; E11.22 Type 2 diabetes mellitus with diabetic chronic kidney disease; N18.31 Chronic kidney disease, stage 3a; D64.9 Anemia, unspecified; E78.5 Hyperlipidemia, unspecified; M10.9 Gout, unspecified; I25.10 Atherosclerotic heart disease of native coronary artery without angina pectoris; I48.91 Unspecified atrial fibrillation; Z20.822 Contact with and (suspected) exposure to COVID-19; G47.33 Obstructive sleep apnea (adult) (pediatric); N39.0 Urinary tract infection, site not specified; Z98.61 Coronary angioplasty status; Z82.3 Family history of stroke; Z82.49 Family history of ischemic heart disease and other diseases of the circulatory system; Z83.3 Family history of diabetes mellitus; Z80.0 Family history of malignant neoplasm of digestive organs; Z79.01 Long term (current) use of anticoagulants; Z99.81 Dependence on supplemental oxygen
CPT/HCPCS: 36415; 71045; 71250; 76775; 80048; 80053; 80061; 81001; 82962; 83036; 83605; 83735; 83880; 84484; 85025; 85610; 85730; 87426; 87804; 93005; 93306; 94640; 94660; 96374; 96375; G0378; J0696; J1100; J1815

== ENCOUNTER 2023-02-23 11:58 | Inpatient (IN) | payer MEDICAID ==
[2023-02-23] VITALS (7 sets, daily range): BP systolic 139; BP diastolic 91; PULSE 87–100; RESP 12–20; O2SAT 95–99
[~2023-02-23] VITALS: Ht 182.9 cm; Wt 170.9 kg
[2023-02-23 12:58] LABS: Urine Bacteria MOD /hpf (None Seen); Urine Blood Negative /uL (Negative); Urine Clarity Clear (Clear); Urine Mucus FEW (None Seen); Urine Protein, UAD 2+ (Negative); Urine Specific Gravity 1.012 (1.001-1.035); Urine Urobilinogen Normal (Negative); Urine WBC 9 /hpf (0 - 3); Urine pH 5.5 (5.0-8.0)
[2023-02-23 12:59] LABS: Urine Color Straw (Yellow)
[2023-02-23 13:11] LABS: Alanine Aminotransferase 31 U/L (7-40); Albumin 3.9 g/dL (3.2-4.8); Alkaline Phosphatase 111 U/L (46-116); Anion Gap 6.1 (5-15); Aspartate Aminotransferase 17 U/L (13-40); Bilirubin, Total 0.7 mg/dL (0.2-1.0); Blood Urea Nitrogen 36 mg/dL (9-23); Calcium 8.8 mg/dL (8.5-10.1); Carbon Dioxide 25.9 mmol/L (20-30); Chloride 108 mmol/L (98-107); Glucose 192 mg/dL (74-106); Potassium 4.5 mmol/L (3.5-5.1); Sodium 140 mmol/L (136-145)
[2023-02-23] MEDS ORDERED: FUROSEMIDE 40 MG/4 ML VIAL IV ONE (15:30)
[2023-02-23] MEDS ORDERED: cefTRIAXone 1GM/50ML D5W 50 ML IV ONE (15:30)
[2023-02-23] MEDS ORDERED: DEXTROSE (50%) 50ML SYRG IV PRN (15:45)
[2023-02-23] MEDS ORDERED: MORPHINE SULFATE INJ 2 MG/ml SYRG IV PRN (15:45)
[2023-02-23] MEDS ORDERED: ACETAMINOPHEN 325 MG TAB PO PRN (15:45)
[2023-02-23] MEDS ORDERED: NITROGLYCERIN 0.4 MG SL TAB SL PRN (15:45)
[2023-02-23] MEDS ORDERED: ALBUTEROL SULF 2.5 MG/0.5ML(0.5%) NEB SOLN NEB PRN (16:00)
[2023-02-23] MEDS ORDERED: ERGOCALCIFEROL 50,000 UNIT(1.25MG) CAP PO SCH (16:00)
[2023-02-23] MEDS: ACCU-CHEK COMFORT CURVE STRIP VI SCH (17:46)
[2023-02-23] MEDS: InsuLIN REG 1unit/0.01ml Soln (100units/ml) SC SCH (17:46)
[2023-02-23] MEDS: ALBUTEROL SULF 2.5 MG/0.5ML(0.5%) NEB SOLN NEB SCH ×2 (18:03→21:30)
[2023-02-23] MEDS: IPRATROPIUM BROM 0.5 MG/2.5ML INH SOL NEB SCH ×2 (18:03→21:30)
[2023-02-24] VITALS (10 sets, daily range): PULSE 84–106; RESP 14–20; O2SAT 94–100
[2023-02-24] MEDS: InsuLIN REG 1unit/0.01ml Soln (100units/ml) SC SCH ×5 (01:18→22:53)
[2023-02-24] MEDS: ACCU-CHEK COMFORT CURVE STRIP VI SCH ×5 (01:18→22:47)
[2023-02-24] MEDS: APIXABAN 5 MG TAB PO SCH ×3 (01:41→23:11)
[2023-02-24] MEDS: COLCHICINE 0.6 MG CAP PO SCH ×3 (01:41→23:11)
[2023-02-24] MEDS: SACUBITRIL-VALSARTAN 24mg/26mg TAB PO SCH ×3 (01:42→23:12)
[2023-02-24] MEDS: METOPROLOL TARTRATE 25 MG TAB PO SCH ×3 (01:44→23:18)
[2023-02-24] MEDS: ALBUTEROL SULF 2.5 MG/0.5ML(0.5%) NEB SOLN NEB SCH ×6 (03:09→22:07)
[2023-02-24] MEDS: IPRATROPIUM BROM 0.5 MG/2.5ML INH SOL NEB SCH ×6 (03:09→22:07)
[2023-02-24 05:00] LABS: Basophils # (auto) 0 10 ^3/uL (0-0.2); Basophils % (auto) 0.6 % (0.0-2.0); Eosinophils # (auto) 0.2 10 ^3/uL (0-0.8); Eosinophils % (auto) 2.9 % (0.0-7.0); Hematocrit 43.2 % (41.0-53.0); Lymphocytes # (auto) 0.7 10 ^3/uL (0.4-5.4); Lymphocytes % (auto) 12.8 % (10.0-50.0); Mean Corpuscular Hemoglobin 27.5 pg (28.0-32.0); Mean Corpuscular Hgb Conc. 32.4 g/dL (32.0-36.0); Mean Corpuscular Volume 84.9 fL (80.0-100.0); Monocytes # (auto) 0.3 10 ^3/uL (0-1.3); Monocytes % (auto) 6.2 % (0.0-12.0); Neutrophils # (auto) 4.4 10 ^3/uL (1.6-8.6); Neutrophils % (auto) 77.5 % (37.0-80.0); Nucleated Red Blood Cells % 0.3 %; Red Blood Cells 5.09 10^6/uL (4.5-5.90); Red Cell Distribution Width 18.8 % (11.8-14.3); White Blood Cell 5.7 10^3/uL (4.4-10.8)
[2023-02-24 05:13] LABS: Alanine Aminotransferase 22 U/L (7-40); Albumin 3.8 g/dL (3.2-4.8); Alkaline Phosphatase 88 U/L (46-116); Anion Gap 5.8 (5-15); Aspartate Aminotransferase 12 U/L (13-40); BUN/Creatinine Ratio 19.2 (10.0-20.0); Calcium 8.5 mg/dL (8.7-10.4); Carbon Dioxide 25.2 mmol/L (20-30); Chloride 108 mmol/L (98-107); Glucose 121 mg/dL (74-106); Sodium 139 mmol/L (136-145)
[2023-02-24 05:58] LABS: Blood Urea Nitrogen 25 mg/dL (9-23)
[2023-02-24 09:12] LABS: Large Platelets FEW; Platelet Estimate Decreased
[2023-02-24] MEDS ORDERED: ENOXAPARIN SOD 40 MG/0.4 ML SYRINGE SC SCH (10:00)
[2023-02-24] MEDS: FUROSEMIDE 40 MG/4 ML VIAL IV SCH ×2 (10:04→12:36)
[2023-02-24] MEDS: cefTRIAXone 1GM/50ML D5W 50 ML IV SCH (10:04)
[2023-02-24] MEDS: FERROUS SULFATE 325mg EC TAB PO SCH (12:23)
[2023-02-24] MEDS: ISOSORBIDE DINITRATE 10 MG TAB PO SCH (12:26)
[2023-02-24] MEDS: HYDROcodone-ACET 5/325MG TAB PO PRN ×2 (12:27→20:35)
[2023-02-24] MEDS: ASCORBIC ACID 500 MG TAB PO SCH (12:27)
[2023-02-24] MEDS: ZINC SULFATE 220mg CAP or TAB PO SCH (12:31)
[2023-02-25] VITALS (20 sets, daily range): BP systolic 98–126; BP diastolic 58–81; PULSE 57–89; RESP 16–20; TEMP 97.7–98.2; O2SAT 96–100
[2023-02-25] MEDS ORDERED: HYDR-4072 PO (01:15)
[2023-02-25 01:46] LABS: COVID19 ANTIGEN SOFIA FIA NEGATIVE (NEGATIVE)
[2023-02-25] MEDS: ALBUTEROL SULF 2.5 MG/0.5ML(0.5%) NEB SOLN NEB SCH ×6 (01:58→22:03)
[2023-02-25] MEDS: IPRATROPIUM BROM 0.5 MG/2.5ML INH SOL NEB SCH ×6 (01:58→22:03)
[2023-02-25] MEDS: ACCU-CHEK COMFORT CURVE STRIP VI SCH ×4 (05:57→22:16)
[2023-02-25] MEDS: InsuLIN REG 1unit/0.01ml Soln (100units/ml) SC SCH ×4 (05:57→22:17)
[2023-02-25] MEDS: cefTRIAXone 1GM/50ML D5W 50 ML IV SCH (09:18)
[2023-02-25] MEDS: APIXABAN 5 MG TAB PO SCH ×2 (09:18→22:20)
[2023-02-25] MEDS: COLCHICINE 0.6 MG CAP PO SCH ×2 (09:18→22:19)
[2023-02-25] MEDS: ASCORBIC ACID 500 MG TAB PO SCH (09:19)
[2023-02-25] MEDS: HYDROcodone-ACET 5/325MG TAB PO PRN ×2 (09:19→22:19)
[2023-02-25] MEDS: FUROSEMIDE 40 MG/4 ML VIAL IV SCH (09:19)
[2023-02-25] MEDS: ISOSORBIDE DINITRATE 10 MG TAB PO SCH (09:20)
[2023-02-25] MEDS: ZINC SULFATE 220mg CAP or TAB PO SCH (10:15)
[2023-02-25] MEDS: SACUBITRIL-VALSARTAN 24mg/26mg TAB PO SCH ×2 (10:15→22:20)
[2023-02-25] MEDS: METOPROLOL TARTRATE 25 MG TAB PO SCH ×2 (10:16→22:00)
[2023-02-25] MEDS: FERROUS SULFATE 325mg EC TAB PO SCH (12:04)
[2023-02-26] VITALS (10 sets, daily range): BP systolic 104–118; BP diastolic 57–76; PULSE 55–97; RESP 16–20; TEMP 98.1–98.4; O2SAT 97–100
[2023-02-26] MEDS: IPRATROPIUM BROM 0.5 MG/2.5ML INH SOL NEB SCH ×3 (02:13→10:46)
[2023-02-26] MEDS: ALBUTEROL SULF 2.5 MG/0.5ML(0.5%) NEB SOLN NEB SCH ×3 (02:13→10:46)
[2023-02-26] MEDS: ACCU-CHEK COMFORT CURVE STRIP VI SCH ×2 (06:25→12:28)
[2023-02-26] MEDS: InsuLIN REG 1unit/0.01ml Soln (100units/ml) SC SCH ×2 (06:25→12:29)
[2023-02-26] MEDS: ASCORBIC ACID 500 MG TAB PO SCH (09:21)
[2023-02-26] MEDS: ZINC SULFATE 220mg CAP or TAB PO SCH (09:21)
[2023-02-26] MEDS: COLCHICINE 0.6 MG CAP PO SCH (09:21)
[2023-02-26] MEDS: cefTRIAXone 1GM/50ML D5W 50 ML IV SCH (09:21)
[2023-02-26] MEDS: APIXABAN 5 MG TAB PO SCH (09:21)
[2023-02-26] MEDS: SACUBITRIL-VALSARTAN 24mg/26mg TAB PO SCH (09:22)
[2023-02-26] MEDS: ISOSORBIDE DINITRATE 10 MG TAB PO SCH (09:22)
[2023-02-26] MEDS: METOPROLOL TARTRATE 25 MG TAB PO SCH (09:25)
[2023-02-26] MEDS: FUROSEMIDE 40 MG/4 ML VIAL IV SCH (09:25)
[2023-02-26] MEDS: HYDROcodone-ACET 5/325MG TAB PO PRN (10:27)
[2023-02-26] MEDS: FERROUS SULFATE 325mg EC TAB PO SCH (12:28)
== END 2023-02-26 14:15 | disposition home or self-care (01) | DRG 133 ==
LOC: ER 11:58 → TELE 15:45 → TELE-WESTW 02-24 23:51
PROVIDERS: ADMIT Nurse Practitioner Family; ATTEND Family Medicine
DX: J96.01 Acute respiratory failure with hypoxia (principal); I42.9 Cardiomyopathy, unspecified; N17.9 Acute kidney failure, unspecified; D63.8 Anemia in other chronic diseases classified elsewhere; I48.20 Chronic atrial fibrillation, unspecified; I13.0 Hypertensive heart and chronic kidney disease with heart failure and stage 1 through stage 4 chronic kidney disease, or unspecified chronic kidney disease; I50.22 Chronic systolic (congestive) heart failure; E11.22 Type 2 diabetes mellitus with diabetic chronic kidney disease; J44.1 Chronic obstructive pulmonary disease with (acute) exacerbation; D64.9 Anemia, unspecified; E11.65 Type 2 diabetes mellitus with hyperglycemia; E66.01 Morbid (severe) obesity due to excess calories; Z20.822 Contact with and (suspected) exposure to COVID-19; N18.9 Chronic kidney disease, unspecified; E78.5 Hyperlipidemia, unspecified; I25.10 Atherosclerotic heart disease of native coronary artery without angina pectoris; M10.9 Gout, unspecified; N39.0 Urinary tract infection, site not specified; Z99.81 Dependence on supplemental oxygen; Z95.5 Presence of coronary angioplasty implant and graft; Z79.899 Other long term (current) drug therapy; Z79.01 Long term (current) use of anticoagulants; Z68.43 Body mass index [BMI] 50.0-59.9, adult
CPT/HCPCS: 36415; 71045; 80053; 81001; 82962; 83880; 84484; 85025; 85379; 87086; 87426; 93005; 94640; 97163; 99291; G0378; J0696; J1815

== ENCOUNTER 2023-03-18 16:42 | Inpatient (IN) | payer MEDICAID ==
[2023-03-18] VITALS: PULSE 118; RESP 18; O2SAT 95
[~2023-03-18] VITALS: Ht 182.9 cm; Wt 175.1 kg
[~2023-03-18 16:42] MED LIST changes: -COLC1CAP PO; -DOXY-286 PO; -ERGO2000 PO; -FERR325T24 PO; +HYDR-4072 PO; -PRED20TA2 PO; -SPIR25TA8 PO
[2023-03-18 17:16] LABS: Urine Bacteria FEW /hpf (None Seen); Urine Blood Negative /uL (Negative); Urine Clarity Clear (Clear); Urine Color Yellow (Yellow); Urine Hyaline Cast FEW /lpf (0 - 2); Urine Protein, UAD 2+ (Negative); Urine Urobilinogen Normal (Negative); Urine WBC 15 /hpf (0 - 3); Urine pH 6.5 (5.0-8.0)
[2023-03-18 17:18] LABS: Basophils # (auto) 0.1 10 ^3/uL (0-0.2); Basophils % (auto) 1.2 % (0.0-2.0); Eosinophils # (auto) 0.2 10 ^3/uL (0-0.8); Eosinophils % (auto) 2.1 % (0.0-7.0); Hematocrit 43.3 % (41.0-53.0); Hemoglobin 14.3 g/dL (13.5-17.5); Lymphocytes # (auto) 0.9 10 ^3/uL (0.4-5.4); Lymphocytes % (auto) 10.8 % (10.0-50.0); Mean Corpuscular Hemoglobin 27.5 pg (28.0-32.0); Mean Corpuscular Hgb Conc. 32.9 g/dL (32.0-36.0); Mean Corpuscular Volume 83.5 fL (80.0-100.0); Monocytes # (auto) 0.4 10 ^3/uL (0-1.3); Monocytes % (auto) 5.4 % (0.0-12.0); Neutrophils # (auto) 6.4 10 ^3/uL (1.6-8.6); Neutrophils % (auto) 80.5 % (37.0-80.0); Nucleated Red Blood Cells % 0.6 %; Red Blood Cells 5.19 10^6/uL (4.5-5.90); Red Cell Distribution Width 18.6 % (11.8-14.3)
[2023-03-18 17:37] LABS: Alanine Aminotransferase 17 U/L (7-40); Albumin 4.4 g/dL (3.2-4.8); Alkaline Phosphatase 128 U/L (46-116); Anion Gap 5 (5-15); Aspartate Aminotransferase 13 U/L (13-40); BUN/Creatinine Ratio 14.8 (10.0-20.0); Blood Urea Nitrogen 22 mg/dL (9-23); Calcium 8.9 mg/dL (8.7-10.4); Carbon Dioxide 30 mmol/L (20-30); Chloride 106 mmol/L (98-107); Glucose 148 mg/dL (74-106); INR 1.16 (0.9-1.15); Magnesium 1.8 mg/dL (1.6-2.6); Partial Thromboplastin Time 35.7 SEC (24.5-34.5); Potassium 4.4 mmol/L (3.5-5.1); Prothrombin Time 12.1 sec (9.3-11.8); Sodium 141 mmol/L (136-145)
[2023-03-18 17:38] LABS: Bilirubin, Total 1.1 mg/dL (0.2-1.0); Total Protein 6.5 g/dL (5.7-8.2)
[2023-03-18] MEDS ORDERED: methylPREDNISolone SOD SUCC 40 MG/ML VL IV ONE (18:15)
[2023-03-18] MEDS ORDERED: ALBUTEROL SULF 2.5 MG/0.5ML(0.5%) NEB SOLN NEB ONE (18:15)
[2023-03-18] MEDS ORDERED: IPRATROPIUM BROM 0.5 MG/2.5ML INH SOL NEB ONE (18:15)
[2023-03-18] MEDS ORDERED: FUROSEMIDE 100 MG/10ML VIAL IV ONE (18:30)
[2023-03-18] MEDS ORDERED: cefTRIAXone 1GM/50ML D5W 50 ML IV ONE (19:00)
[2023-03-18] MEDS ORDERED: DOCUSATE SOD 100 MG CAP PO PRN (19:00)
[2023-03-18] MEDS ORDERED: ONDANSETRON HCL 4 MG/2 ML VIAL IV PRN (19:00)
[2023-03-18] MEDS ORDERED: ACETAMINOPHEN 325 MG TAB PO PRN (19:00)
[2023-03-18 19:33] VITALS: PULSE 106; RESP 15; O2SAT 94
[2023-03-18] MEDS ORDERED: DEXTROSE (50%) 50ML SYRG IV PRN (20:15)
[2023-03-18] MEDS ORDERED: MORPHINE SULFATE INJ 2 MG/ml SYRG IV PRN (20:15)
[2023-03-18] MEDS ORDERED: NITROGLYCERIN 0.4 MG SL TAB SL PRN (20:15)
[2023-03-18 21:53] VITALS: BP 144/80; PULSE 54; RESP 22; TEMP 98.8; O2SAT 95
[2023-03-18] MEDS: SODIUM CHLOR 0.9% PF (SALINE LOCK) 10ML VIAL/SYR IV SCH (22:12)
[2023-03-18] MEDS: ACCU-CHEK COMFORT CURVE STRIP VI SCH (22:20)
[2023-03-18] MEDS: APIXABAN 5 MG TAB PO SCH (22:33)
[2023-03-18] MEDS: methylPREDNISolone SOD SUCC 40 MG/ML VL IV SCH (22:33)
[2023-03-18] MEDS: FAMOTIDINE (10MG/ML) 2ML VL IV SCH (22:33)
[2023-03-18] MEDS: CARVEDILOL 3.125 MG TAB PO SCH (22:34)
[2023-03-18] MEDS: HYDROcodone-ACET 5/325MG TAB PO PRN (22:35)
[2023-03-18] MEDS: InsuLIN REG 1unit/0.01ml Soln (100units/ml) SC SCH (22:36)
[2023-03-18 23:50] VITALS: PULSE 107; RESP 18; O2SAT 93
[2023-03-18] MEDS: ALBUTEROL SULF 2.5 MG/0.5ML(0.5%) NEB SOLN NEB PRN (23:50)
[2023-03-18] MEDS: IPRATROPIUM BROM 0.5 MG/2.5ML INH SOL NEB PRN (23:50)
[2023-03-19] VITALS (13 sets, daily range): BP systolic 144–151; BP diastolic 70–92; PULSE 80–112; RESP 17–20; TEMP 98.7–98.8; O2SAT 90–97
[2023-03-19] MEDS ORDERED: guaiFENesin-DM 100/10mg/5ml SYR PO PRN (00:15)
[2023-03-19] MEDS ORDERED: dilTIAZem 25 MG/5 ML VIAL IV ONE (05:15)
[2023-03-19 05:22] LABS: Basophils # (auto) 0 10 ^3/uL (0-0.2); Basophils % (auto) 0.5 % (0.0-2.0); Eosinophils # (auto) 0 10 ^3/uL (0-0.8); Eosinophils % (auto) 0.1 % (0.0-7.0); Hematocrit 45.5 % (41.0-53.0); Hemoglobin 15.1 g/dL (13.5-17.5); Lymphocytes # (auto) 0.5 10 ^3/uL (0.4-5.4); Lymphocytes % (auto) 5.8 % (10.0-50.0); Mean Corpuscular Hemoglobin 27.8 pg (28.0-32.0); Mean Corpuscular Hgb Conc. 33.1 g/dL (32.0-36.0); Mean Corpuscular Volume 83.9 fL (80.0-100.0); Monocytes # (auto) 0.1 10 ^3/uL (0-1.3); Monocytes % (auto) 0.8 % (0.0-12.0); Neutrophils # (auto) 8.2 10 ^3/uL (1.6-8.6); Neutrophils % (auto) 92.8 % (37.0-80.0); Nucleated Red Blood Cells % 0.5 %; Red Blood Cells 5.42 10^6/uL (4.5-5.90); Red Cell Distribution Width 18.5 % (11.8-14.3); White Blood Cell 8.8 10^3/uL (4.4-10.8)
[2023-03-19] MEDS: methylPREDNISolone SOD SUCC 40 MG/ML VL IV SCH (05:34)
[2023-03-19] MEDS: SODIUM CHLOR 0.9% PF (SALINE LOCK) 10ML VIAL/SYR IV SCH ×3 (05:34→21:19)
[2023-03-19 05:40] LABS: Alanine Aminotransferase 17 U/L (7-40); Albumin 4.8 g/dL (3.2-4.8); Alkaline Phosphatase 137 U/L (46-116); Anion Gap 7 (5-15); Aspartate Aminotransferase 17 U/L (13-40); BUN/Creatinine Ratio 14.2 (10.0-20.0); Bilirubin, Total 1.1 mg/dL (0.2-1.0); Blood Urea Nitrogen 21 mg/dL (9-23); Calcium 9.4 mg/dL (8.7-10.4); Carbon Dioxide 28 mmol/L (20-30); Chloride 103 mmol/L (98-107); Potassium 4.4 mmol/L (3.5-5.1); Sodium 138 mmol/L (136-145)
[2023-03-19 05:41] LABS: Total Protein 7.5 g/dL (5.7-8.2)
[2023-03-19 05:52] LABS: Glucose 250 mg/dL (74-106)
[2023-03-19] MEDS: ALBUTEROL SULF 2.5 MG/0.5ML(0.5%) NEB SOLN NEB PRN ×2 (06:05→21:57)
[2023-03-19] MEDS: IPRATROPIUM BROM 0.5 MG/2.5ML INH SOL NEB PRN ×2 (06:05→21:57)
[2023-03-19] MEDS: ACCU-CHEK COMFORT CURVE STRIP VI SCH ×4 (06:43→21:19)
[2023-03-19] MEDS: InsuLIN REG 1unit/0.01ml Soln (100units/ml) SC SCH ×4 (06:43→21:16)
[2023-03-19 07:26] LABS: Anisocytosis Slight; Platelet Estimate Decreased
[2023-03-19 07:27] LABS: Giant Platelets Few
[2023-03-19] MEDS ORDERED: METOPROLOL TARTRATE 1MG/1ML-5ML VIAL IV ONE (08:15)
[2023-03-19] MEDS: cefTRIAXone 1GM/50ML D5W 50 ML IV SCH (08:59)
[2023-03-19] MEDS: HYDROcodone-ACET 5/325MG TAB PO PRN ×2 (09:05→21:14)
[2023-03-19] MEDS: FUROSEMIDE 40 MG/4 ML VIAL IV SCH (10:23)
[2023-03-19] MEDS: FAMOTIDINE (10MG/ML) 2ML VL IV SCH (10:24)
[2023-03-19] MEDS: CARVEDILOL 3.125 MG TAB PO SCH ×2 (10:24→21:13)
[2023-03-19] MEDS: APIXABAN 5 MG TAB PO SCH ×2 (10:24→21:13)
[2023-03-19 12:38] LABS: COVID19 ANTIGEN SOFIA FIA NEGATIVE (NEGATIVE)
[2023-03-19 12:39] LABS: Rapid Influenza A Negative (Negative); Rapid Influenza B Negative (Negative)
[2023-03-19] MEDS ORDERED: POTA-228 PO (12:56)
[2023-03-19] MEDS ORDERED: MET25T PO (12:56)
[2023-03-19] MEDS ORDERED: FURO40TA4 PO (12:56)
[2023-03-19] MEDS ORDERED: ALBU108A5 PO (12:56)
[2023-03-20] VITALS (11 sets, daily range): BP systolic 118–145; BP diastolic 88–97; PULSE 83–107; RESP 16–20; TEMP 97.4–98.1; O2SAT 91–100
[2023-03-20] MEDS: ACCU-CHEK COMFORT CURVE STRIP VI SCH ×4 (06:38→20:56)
[2023-03-20] MEDS: InsuLIN REG 1unit/0.01ml Soln (100units/ml) SC SCH ×4 (06:40→20:57)
[2023-03-20] MEDS: SODIUM CHLOR 0.9% PF (SALINE LOCK) 10ML VIAL/SYR IV SCH ×3 (06:41→20:56)
[2023-03-20] MEDS: cefTRIAXone 1GM/50ML D5W 50 ML IV SCH (09:31)
[2023-03-20] MEDS: FUROSEMIDE 40 MG/4 ML VIAL IV SCH (09:31)
[2023-03-20] MEDS: methylPREDNISolone SOD SUCC 40 MG/ML VL IV SCH (09:31)
[2023-03-20] MEDS: HYDROcodone-ACET 5/325MG TAB PO PRN ×2 (09:32→21:01)
[2023-03-20] MEDS: APIXABAN 5 MG TAB PO SCH ×2 (09:33→20:55)
[2023-03-20] MEDS: CARVEDILOL 3.125 MG TAB PO SCH ×2 (09:33→20:55)
[2023-03-21] VITALS (10 sets, daily range): BP systolic 137–160; BP diastolic 84–105; PULSE 81–98; RESP 17–20; TEMP 97.8–98; O2SAT 94–100
[2023-03-21] MEDS: ACCU-CHEK COMFORT CURVE STRIP VI SCH ×2 (06:57→11:41)
[2023-03-21] MEDS: InsuLIN REG 1unit/0.01ml Soln (100units/ml) SC SCH ×2 (06:57→11:41)
[2023-03-21] MEDS: SODIUM CHLOR 0.9% PF (SALINE LOCK) 10ML VIAL/SYR IV SCH ×2 (06:57→13:43)
[2023-03-21] MEDS: cefTRIAXone 1GM/50ML D5W 50 ML IV SCH (09:15)
[2023-03-21] MEDS: APIXABAN 5 MG TAB PO SCH (09:19)
[2023-03-21] MEDS: methylPREDNISolone SOD SUCC 40 MG/ML VL IV SCH (09:19)
[2023-03-21] MEDS: HYDROcodone-ACET 5/325MG TAB PO PRN (09:19)
[2023-03-21] MEDS: CARVEDILOL 3.125 MG TAB PO SCH (09:19)
[2023-03-21] MEDS: FUROSEMIDE 40 MG/4 ML VIAL IV SCH (09:20)
[2023-03-21] MEDS: ALBUTEROL SULF 2.5 MG/0.5ML(0.5%) NEB SOLN NEB PRN (09:54)
[2023-03-21] MEDS: IPRATROPIUM BROM 0.5 MG/2.5ML INH SOL NEB PRN (09:54)
[2023-03-21] MEDS ORDERED: METH4PAK PO (10:50)
[2023-03-21] MEDS ORDERED: AZIT500T66 PO (10:50)
[2023-03-23 08:54] LABS: Hepatitis B Surface Antigen Negative (Negative)
[2023-03-23 09:17] LABS: Hepatitis C Antibody Negative (Negative)
== END 2023-03-21 14:03 | disposition home or self-care (01) | DRG 140 ==
LOC: ER 16:42 → TELE 20:24 → TELE-WESTW 03-19 13:20
PROVIDERS: ADMIT Nurse Practitioner Family; ATTEND Family Medicine
PROC: 5A09357 Assistance with Respiratory Ventilation, Less than 24 Consecutive Hours, Continuous Positive Airway Pressure (ICD-10-PCS; principal; 2023-03-20)
PROC: 5A09357 Assistance with Respiratory Ventilation, Less than 24 Consecutive Hours, Continuous Positive Airway Pressure (ICD-10-PCS; 2023-03-21)
DX: J44.1 Chronic obstructive pulmonary disease with (acute) exacerbation (principal); J96.21 Acute and chronic respiratory failure with hypoxia; I50.23 Acute on chronic systolic (congestive) heart failure; N17.9 Acute kidney failure, unspecified; D63.8 Anemia in other chronic diseases classified elsewhere; Z68.43 Body mass index [BMI] 50.0-59.9, adult; I13.0 Hypertensive heart and chronic kidney disease with heart failure and stage 1 through stage 4 chronic kidney disease, or unspecified chronic kidney disease; N39.0 Urinary tract infection, site not specified; N18.9 Chronic kidney disease, unspecified; E11.22 Type 2 diabetes mellitus with diabetic chronic kidney disease; Z20.822 Contact with and (suspected) exposure to COVID-19; E66.01 Morbid (severe) obesity due to excess calories; M10.9 Gout, unspecified; I25.10 Atherosclerotic heart disease of native coronary artery without angina pectoris; I48.91 Unspecified atrial fibrillation; Z79.01 Long term (current) use of anticoagulants; Z80.0 Family history of malignant neoplasm of digestive organs; Z82.3 Family history of stroke; Z82.49 Family history of ischemic heart disease and other diseases of the circulatory system; Z83.3 Family history of diabetes mellitus; Z87.891 Personal history of nicotine dependence; Z95.5 Presence of coronary angioplasty implant and graft
CPT/HCPCS: 36415; 36600; 71045; 80053; 81001; 82805; 82962; 83036; 83735; 83880; 84484; 85025; 85379; 85610; 85730; 86803; 87081; 87086; 87340; 87426; 87804; 93005; 94640; 94660; 99291; G0378; J0696; J1815; J3490

== ENCOUNTER 2023-04-20 23:40 | Inpatient (IN) | payer MEDICAID ==
[~2023-04-20] VITALS: Ht 182.9 cm; Wt 177.6 kg
[~2023-04-20 23:40] MED LIST changes: -ALBU0.084 NEB; +ALBU108A5 PO; -ALBUAER3 IN; +AZIT500T66 PO; -FURO1TAB31 PO; +FURO40TA4 PO; +MET25T PO; -METO25TA5 PO; +POTA-228 PO; -POTA10TA51 PO
[2023-04-21] MEDS ORDERED: IPRATROPIUM BROM 0.5 MG/2.5ML INH SOL NEB ONE
[2023-04-21] MEDS ORDERED: ALBUTEROL SULF 2.5 MG/0.5ML(0.5%) NEB SOLN NEB ONE
[2023-04-21] MEDS ORDERED: ALBUTEROL MEDNEB 2.5 mg/3ml NEB ONE ×2 (00:05→13:39)
[2023-04-21 00:55] LABS: Basophils # (auto) 0.1 10 ^3/uL (0-0.2); Basophils % (auto) 1.1 % (0.0-2.0); Eosinophils # (auto) 0.2 10 ^3/uL (0-0.8); Eosinophils % (auto) 3.2 % (0.0-7.0); Hematocrit 47.7 % (41.0-53.0); Hemoglobin 15.4 g/dL (13.5-17.5); Lymphocytes # (auto) 0.9 10 ^3/uL (0.4-5.4); Lymphocytes % (auto) 12.4 % (10.0-50.0); Mean Corpuscular Hgb Conc. 32.3 g/dL (32.0-36.0); Mean Corpuscular Volume 86.6 fL (80.0-100.0); Monocytes # (auto) 0.4 10 ^3/uL (0-1.3); Monocytes % (auto) 5.5 % (0.0-12.0); Neutrophils # (auto) 5.4 10 ^3/uL (1.6-8.6); Neutrophils % (auto) 77.8 % (37.0-80.0); Nucleated Red Blood Cells % 0.2 %; Red Blood Cells 5.51 10^6/uL (4.5-5.90); White Blood Cell 6.9 10^3/uL (4.4-10.8)
[2023-04-21 00:56] LABS: Red Cell Distribution Width 21.2 % (11.8-14.3)
[2023-04-21 01:21] LABS: Alanine Aminotransferase 12 U/L (7-40); Albumin 4.3 g/dL (3.2-4.8); Alkaline Phosphatase 111 U/L (46-116); Anion Gap 7 (5-15); Aspartate Aminotransferase 11 U/L (13-40); BUN/Creatinine Ratio 13.6 (10.0-20.0); Bilirubin, Total 1.2 mg/dL (0.2-1.0); Blood Urea Nitrogen 22 mg/dL (9-23); Calcium 9.2 mg/dL (8.7-10.4); Carbon Dioxide 29 mmol/L (20-30); Chloride 105 mmol/L (98-107); Glucose 140 mg/dL (74-106); Potassium 4.3 mmol/L (3.5-5.1); Sodium 141 mmol/L (136-145); Total Protein 7.1 g/dL (5.7-8.2)
[2023-04-21] MEDS ORDERED: HEPARIN SODIUM (PORCINE) 5000 UNITS/ML 1ML VIAL IV ONE (02:00)
[2023-04-21] MEDS ORDERED: FUROSEMIDE 40 MG/4 ML VIAL IV ONE (02:00)
[2023-04-21 05:30] LABS: INR 1.14 (0.9-1.15); Partial Thromboplastin Time 35.8 SEC (24.5-34.5); Prothrombin Time 11.9 sec (9.3-11.8)
[2023-04-21] MEDS ORDERED: MORPHINE SULFATE INJ 2 MG/ml SYRG IV PRN ×2 (10:45→12:30)
[2023-04-21] MEDS ORDERED: DEXTROSE (50%) 50ML SYRG IV PRN ×2 (10:45→12:30)
[2023-04-21] MEDS ORDERED: ALBUTEROL SULF 2.5 MG/0.5ML(0.5%) NEB SOLN NEB PRN (10:45)
[2023-04-21] MEDS ORDERED: ACETAMINOPHEN 325 MG TAB PO PRN ×2 (10:45→12:00)
[2023-04-21] MEDS ORDERED: NITROGLYCERIN 0.4 MG SL TAB SL PRN ×2 (10:45→12:30)
[2023-04-21] MEDS ORDERED: HYDROcodone-ACET 10/325MG TAB PO PRN (10:45)
[2023-04-21] MEDS ORDERED: ASCORBIC ACID 500 MG TAB PO SCH (10:45)
[2023-04-21] MEDS ORDERED: ZINC SULFATE 220mg CAP or TAB PO SCH (10:46)
[2023-04-21] MEDS ORDERED: ENOXAPARIN SOD 150 MG/1 ML SYRINGE SC SCH ×2 (10:55→22:00)
[2023-04-21] MEDS ORDERED: ISOSORBIDE DINITRATE 10 MG TAB PO SCH (10:55)
[2023-04-21] MEDS ORDERED: ACCU-CHEK COMFORT CURVE STRIP VI SCH (11:30)
[2023-04-21] MEDS ORDERED: InsuLIN REG 1unit/0.01ml Soln (100units/ml) SC SCH (11:30)
[2023-04-21] MEDS ORDERED: ALBUTEROL MEDNEB 2.5 mg/3ml NEB NEB PRN ×2 (12:15→12:30)
[2023-04-21 12:21] VITALS: PULSE 108; RESP 20; O2SAT 98
[2023-04-21] MEDS ORDERED: ENOXAPARIN SOD 150 MG/1 ML SYRINGE SC ONE (13:20)
[2023-04-21] MEDS: ENOXAPARIN SOD 150 MG/1 ML SYRINGE SC SCH ×2 (13:21→23:54)
[2023-04-21] MEDS ORDERED: HYDROcodone-ACET 10/325MG TAB ONE (13:21)
[2023-04-21] MEDS: HYDROcodone-ACET 10/325MG TAB PO PRN ×2 (13:22→23:55)
[2023-04-21] MEDS ORDERED: IPRATROPIUM BROM 0.5 MG/2.5ML INH SOL ONE (13:39)
[2023-04-21] MEDS ORDERED: IPRATROPIUM BROM 0.5 MG/2.5ML INH SOL NEB SCH (14:00)
[2023-04-21] MEDS ORDERED: ALBUTEROL MEDNEB 2.5 mg/3ml NEB NEB SCH (14:00)
[2023-04-21] MEDS: ALBUTEROL MEDNEB 2.5 mg/3ml NEB NEB SCH ×3 (14:37→21:46)
[2023-04-21] MEDS: IPRATROPIUM BROM 0.5 MG/2.5ML INH SOL NEB SCH ×3 (14:37→21:46)
[2023-04-21] MEDS: ACCU-CHEK COMFORT CURVE STRIP VI SCH ×2 (17:00→22:00)
[2023-04-21] MEDS: InsuLIN REG 1unit/0.01ml Soln (100units/ml) SC SCH ×2 (17:58→22:50)
[2023-04-21] MEDS ORDERED: SPIRONOLACTONE 25 MG TAB PO SCH (18:00)
[2023-04-21] MEDS: SPIRONOLACTONE 25 MG TAB PO SCH (18:19)
[2023-04-21 18:20] VITALS: PULSE 97; RESP 20; O2SAT 96
[2023-04-21 18:30] VITALS: PULSE 99; RESP 20; O2SAT 98
[2023-04-21 19:45] VITALS: PULSE 99; RESP 19; O2SAT 95
[2023-04-21 21:40] VITALS: PULSE 93; RESP 20; O2SAT 99
[2023-04-21] MEDS ORDERED: SACUBITRIL-VALSARTAN 24mg/26mg TAB PO SCH (22:00)
[2023-04-21] MEDS: SACUBITRIL-VALSARTAN 24mg/26mg TAB PO SCH (23:11)
[2023-04-21 23:33] VITALS: BP_SYST 121; BP_SYST 125; BP_DIAS 63; PULSE 66; RESP 18; TEMP 36.6; O2SAT 96
[2023-04-22] VITALS (20 sets, daily range): BP systolic 100–126; BP diastolic 55–102; PULSE 58–112; RESP 17–22; TEMP 97.5–98.1; O2SAT 93–100
[2023-04-22] MEDS: IPRATROPIUM BROM 0.5 MG/2.5ML INH SOL NEB SCH ×5 (02:07→22:18)
[2023-04-22] MEDS: ALBUTEROL MEDNEB 2.5 mg/3ml NEB NEB SCH ×5 (02:08→22:17)
[2023-04-22 05:59] LABS: Basophils # (auto) 0.1 10 ^3/uL (0-0.2); Eosinophils # (auto) 0.2 10 ^3/uL (0-0.8); Eosinophils % (auto) 3.5 % (0.0-7.0); Hematocrit 42.6 % (41.0-53.0); Hemoglobin 13.8 g/dL (13.5-17.5); Mean Corpuscular Hemoglobin 27.8 pg (28.0-32.0); Mean Corpuscular Hgb Conc. 32.5 g/dL (32.0-36.0); Mean Corpuscular Volume 85.6 fL (80.0-100.0); Monocytes # (auto) 0.4 10 ^3/uL (0-1.3); Monocytes % (auto) 7.7 % (0.0-12.0); Neutrophils # (auto) 3.5 10 ^3/uL (1.6-8.6); Neutrophils % (auto) 67.8 % (37.0-80.0); Nucleated Red Blood Cells % 0.4 %; Red Blood Cells 4.97 10^6/uL (4.5-5.90); White Blood Cell 5.2 10^3/uL (4.4-10.8)
[2023-04-22 06:15] LABS: Alanine Aminotransferase 10 U/L (7-40); Albumin 3.9 g/dL (3.2-4.8); Alkaline Phosphatase 86 U/L (46-116); Anion Gap 7 (5-15); Aspartate Aminotransferase 15 U/L (13-40); BUN/Creatinine Ratio 15.3 (10.0-20.0); Bilirubin, Total 0.9 mg/dL (0.2-1.0); Blood Urea Nitrogen 28 mg/dL (9-23); Calcium 8.9 mg/dL (8.5-10.1); Carbon Dioxide 29 mmol/L (20-30); Chloride 105 mmol/L (98-107); Glucose 151 mg/dL (74-106); Potassium 4.3 mmol/L (3.5-5.1); Sodium 141 mmol/L (136-145); Total Protein 6.3 g/dL (5.7-8.2)
[2023-04-22 06:59] LABS: Red Cell Distribution Width 20.7 % (11.8-14.3)
[2023-04-22] MEDS: InsuLIN REG 1unit/0.01ml Soln (100units/ml) SC SCH ×4 (06:59→22:07)
[2023-04-22] MEDS: ACCU-CHEK COMFORT CURVE STRIP VI SCH ×4 (07:02→22:05)
[2023-04-22] MEDS: SPIRONOLACTONE 25 MG TAB PO SCH ×2 (07:02→17:29)
[2023-04-22] MEDS: ISOSORBIDE DINITRATE 10 MG TAB PO SCH (10:00)
[2023-04-22] MEDS ORDERED: METOPROLOL TARTRATE 25 MG TAB PO SCH (10:00)
[2023-04-22] MEDS ORDERED: POTASSIUM CHL 10 Meq TABLET PO SCH (10:00)
[2023-04-22] MEDS: HYDROcodone-ACET 10/325MG TAB PO PRN (11:34)
[2023-04-22] MEDS: SACUBITRIL-VALSARTAN 24mg/26mg TAB PO SCH ×2 (11:34→22:10)
[2023-04-22] MEDS: ASCORBIC ACID 500 MG TAB PO SCH (11:35)
[2023-04-22] MEDS: POTASSIUM CHL 10 Meq TABLET PO SCH (11:36)
[2023-04-22] MEDS: ZINC SULFATE 220mg CAP or TAB PO SCH (11:38)
[2023-04-22] MEDS: METOPROLOL TARTRATE 25 MG TAB PO SCH (11:38)
[2023-04-22 12:22] LABS: Free T4 (Free Thyroxine) 0.97 ng/dL (0.89-1.76)
[2023-04-22 12:35] LABS: Magnesium 2.2 mg/dL (1.6-2.6)
[2023-04-22] MEDS: ENOXAPARIN SOD 150 MG/1 ML SYRINGE SC SCH ×2 (13:38→23:41)
[2023-04-22 13:41] LABS: Base Excess -3.3 mmol/L (-2.0-2.0)
[2023-04-22 16:28] LABS: Urine Bacteria FEW /hpf (None Seen); Urine Blood Negative /uL (Negative); Urine Clarity HAZY (Clear); Urine Color Yellow (Yellow); Urine Hyaline Cast FEW /lpf (0 - 2); Urine Protein, UAD 2+ (Negative); Urine Specific Gravity 1.021 (1.001-1.035); Urine Sperm PRESENT /hpf (None Seen); Urine WBC 5 /hpf (0 - 3); Urine pH 5.5 (5.0-8.0)
[2023-04-22 16:39] LABS: Amphetamine Screen, Urine Pos (NEGATIVE); Barbiturate Scree,Urine Neg (NEGATIVE); Benzodiazephine Screen, Urine Neg (NEGATIVE); Cocaine Screen, Urine Neg (NEGATIVE); Opiate Scree,Urine Pos (NEGATIVE); Phencyclidine Screen, Urine Neg (NEGATIVE)
[2023-04-22 16:40] LABS: Cannabinoid Screen, Urine Neg (NEGATIVE)
[2023-04-23] VITALS (14 sets, daily range): BP systolic 97–114; BP diastolic 55–78; PULSE 58–115; RESP 18–22; TEMP 97.6–98.6; O2SAT 97–100
[2023-04-23] MEDS: HYDROcodone-ACET 10/325MG TAB PO PRN ×2 (01:53→10:03)
[2023-04-23] MEDS: ALBUTEROL MEDNEB 2.5 mg/3ml NEB NEB SCH ×4 (02:22→14:13)
[2023-04-23] MEDS: IPRATROPIUM BROM 0.5 MG/2.5ML INH SOL NEB SCH ×4 (02:22→14:13)
[2023-04-23] MEDS: SPIRONOLACTONE 25 MG TAB PO SCH (06:28)
[2023-04-23] MEDS: InsuLIN REG 1unit/0.01ml Soln (100units/ml) SC SCH ×2 (06:29→12:00)
[2023-04-23] MEDS: ACCU-CHEK COMFORT CURVE STRIP VI SCH ×2 (06:29→12:00)
[2023-04-23] MEDS ORDERED: EMPAGLIFLOZIN 10 MG TAB PO SCH (07:00)
[2023-04-23] MEDS: ISOSORBIDE DINITRATE 10 MG TAB PO SCH (09:53)
[2023-04-23] MEDS: SACUBITRIL-VALSARTAN 24mg/26mg TAB PO SCH (09:54)
[2023-04-23] MEDS: ZINC SULFATE 220mg CAP or TAB PO SCH (09:55)
[2023-04-23] MEDS: METOPROLOL TARTRATE 25 MG TAB PO SCH (09:55)
[2023-04-23] MEDS: POTASSIUM CHL 10 Meq TABLET PO SCH (09:56)
[2023-04-23] MEDS: ASCORBIC ACID 500 MG TAB PO SCH (09:56)
[2023-04-23] MEDS: ENOXAPARIN SOD 150 MG/1 ML SYRINGE SC SCH (12:01)
== END 2023-04-23 15:45 | disposition home or self-care (01) | DRG 194 ==
LOC: ER 23:40 → TELE 04-21 10:43 → TELE-CENTR 04-21 23:36
PROVIDERS: ADMIT Internal Medicine Pulmonary Disease; ATTEND Student in an Organized Health Care Education/Training Program
PROC: 5A09357 Assistance with Respiratory Ventilation, Less than 24 Consecutive Hours, Continuous Positive Airway Pressure (ICD-10-PCS; principal; 2023-04-22)
DX: I13.0 Hypertensive heart and chronic kidney disease with heart failure and stage 1 through stage 4 chronic kidney disease, or unspecified chronic kidney disease (principal); J96.21 Acute and chronic respiratory failure with hypoxia; N17.9 Acute kidney failure, unspecified; J44.1 Chronic obstructive pulmonary disease with (acute) exacerbation; I48.91 Unspecified atrial fibrillation; G62.9 Polyneuropathy, unspecified; I82.612 Acute embolism and thrombosis of superficial veins of left upper extremity; E11.22 Type 2 diabetes mellitus with diabetic chronic kidney disease; I50.23 Acute on chronic systolic (congestive) heart failure; L97.919 Non-pressure chronic ulcer of unspecified part of right lower leg with unspecified severity; L97.929 Non-pressure chronic ulcer of unspecified part of left lower leg with unspecified severity; N18.32 Chronic kidney disease, stage 3b; E66.01 Morbid (severe) obesity due to excess calories; I25.10 Atherosclerotic heart disease of native coronary artery without angina pectoris; E78.5 Hyperlipidemia, unspecified; M10.9 Gout, unspecified; Z86.718 Personal history of other venous thrombosis and embolism; Z68.43 Body mass index [BMI] 50.0-59.9, adult; Z99.81 Dependence on supplemental oxygen; Z71.3 Dietary counseling and surveillance
CPT/HCPCS: 36415; 36600; 71045; 80053; 80061; 80307; 81001; 82805; 82962; 83036; 83735; 83880; 84439; 84443; 84481; 84484; 85025; 85379; 85610; 85730; 93005; 93971; 94640; 94660; G0378; J1815

== ENCOUNTER 2023-05-14 16:07 | Inpatient (IN) | payer MEDICAID ==
[~2023-05-14] VITALS: Ht 182.9 cm; Wt 175.2 kg
[2023-05-14 17:41] LABS: Basophils # (auto) 0 10 ^3/uL (0-0.2); Basophils % (auto) 0.5 % (0.0-2.0); Eosinophils # (auto) 0.3 10 ^3/uL (0-0.8); Eosinophils % (auto) 4.3 % (0.0-7.0); Hematocrit 43.6 % (41.0-53.0); Lymphocytes # (auto) 0.5 10 ^3/uL (0.4-5.4); Lymphocytes % (auto) 7.9 % (10.0-50.0); Mean Corpuscular Hemoglobin 27.4 pg (28.0-32.0); Mean Corpuscular Volume 85.5 fL (80.0-100.0); Monocytes # (auto) 0.3 10 ^3/uL (0-1.3); Monocytes % (auto) 4.6 % (0.0-12.0); Neutrophils # (auto) 5.2 10 ^3/uL (1.6-8.6); Neutrophils % (auto) 82.7 % (37.0-80.0); Nucleated Red Blood Cells % 0.4 %; White Blood Cell 6.3 10^3/uL (4.4-10.8)
[2023-05-14 17:43] LABS: Red Cell Distribution Width 20.8 % (11.8-14.3)
[2023-05-14 17:59] LABS: Alanine Aminotransferase 16 U/L (7-40); Alkaline Phosphatase 104 U/L (46-116); Anion Gap 7 (5-15); Aspartate Aminotransferase 20 U/L (13-40); BUN/Creatinine Ratio 17.4 (10.0-20.0); Blood Urea Nitrogen 26 mg/dL (9-23); Calcium 8.5 mg/dL (8.7-10.4); Carbon Dioxide 27 mmol/L (20-30); Chloride 106 mmol/L (98-107); Glucose 189 mg/dL (74-106); Magnesium 2.1 mg/dL (1.6-2.6); Potassium 4.4 mmol/L (3.5-5.1); Sodium 140 mmol/L (136-145)
[2023-05-14 18:00] LABS: Bilirubin, Total 1.8 mg/dL (0.2-1.0); Total Protein 6.1 g/dL (5.7-8.2)
[2023-05-14 18:01] LABS: INR 1.16 (0.9-1.15); Partial Thromboplastin Time 35.2 SEC (24.5-34.5); Prothrombin Time 12.1 sec (9.3-11.8)
[2023-05-14] MEDS ORDERED: FUROSEMIDE 40 MG/4 ML VIAL IV ONE (18:30)
[2023-05-14 18:56] LABS: Platelet Estimate Decreased
[2023-05-14 18:57] LABS: Anisocytosis Slight
[2023-05-14] MEDS ORDERED: ALBUTEROL SULF 2.5 MG/0.5ML(0.5%) NEB SOLN NEB ONE (19:00)
[2023-05-14] MEDS ORDERED: IPRATROPIUM BROM 0.5 MG/2.5ML INH SOL NEB ONE (19:00)
[2023-05-14] MEDS ORDERED: methylPREDNISolone SOD SUCC 125 MG/2 ML VL IV ONE (19:00)
[2023-05-14] MEDS ORDERED: ALBUTEROL MEDNEB 2.5 mg/3ml NEB ONE (19:05)
[2023-05-14] MEDS ORDERED: ACETAMINOPHEN 325 MG TAB PO PRN (23:15)
[2023-05-14] MEDS ORDERED: DEXTROSE (50%) 50ML SYRG IV PRN (23:15)
[2023-05-14] MEDS ORDERED: NITROGLYCERIN 0.4 MG SL TAB SL PRN (23:15)
[2023-05-14] MEDS ORDERED: MORPHINE SULFATE INJ 2 MG/ml SYRG IV PRN (23:15)
[2023-05-14] MEDS ORDERED: ONDANSETRON HCL 4 MG/2 ML VIAL IV PRN (23:15)
[2023-05-14] MEDS ORDERED: DOCUSATE SOD 100 MG CAP PO PRN (23:15)
[2023-05-14] MEDS ORDERED: hydrALAZINE HCL 20 MG/ML VL IV PRN (23:15)
[2023-05-14 23:20] VITALS: PULSE 71; RESP 17; O2SAT 98
[2023-05-15 00:02] VITALS: O2SAT 95
[2023-05-15] MEDS: HYDROcodone-ACET 5/325MG TAB PO PRN ×2 (04:52→23:02)
[2023-05-15] MEDS ORDERED: methylPREDNISolone SOD SUCC 40 MG/ML VL IV SCH (06:00)
[2023-05-15] MEDS: SODIUM CHLOR 0.9% PF (SALINE LOCK) 10ML VIAL/SYR IV SCH ×3 (06:19→22:25)
[2023-05-15] MEDS: ACCU-CHEK COMFORT CURVE STRIP VI SCH ×4 (06:50→23:07)
[2023-05-15] MEDS: InsuLIN REG 1unit/0.01ml Soln (100units/ml) SC SCH ×4 (06:51→23:18)
[2023-05-15 07:33] LABS: Alanine Aminotransferase 12 U/L (7-40); Albumin 4.1 g/dL (3.2-4.8); Alkaline Phosphatase 101 U/L (46-116); Anion Gap 10 (5-15); Aspartate Aminotransferase 17 U/L (13-40); BUN/Creatinine Ratio 16.4 (10.0-20.0); Blood Urea Nitrogen 22 mg/dL (9-23); Calcium 8.3 mg/dL (8.5-10.1); Carbon Dioxide 23 mmol/L (20-30); Chloride 105 mmol/L (98-107); Glucose 228 mg/dL (74-106); Potassium 4.6 mmol/L (3.5-5.1); Sodium 138 mmol/L (136-145)
[2023-05-15 07:34] LABS: Bilirubin, Total 1.6 mg/dL (0.2-1.0); Total Protein 6.5 g/dL (5.7-8.2)
[2023-05-15 07:45] LABS: Basophils # (auto) 0 10 ^3/uL (0-0.2); Basophils % (auto) 0.3 % (0.0-2.0); Eosinophils # (auto) 0 10 ^3/uL (0-0.8); Eosinophils % (auto) 0.3 % (0.0-7.0); Hematocrit 46.7 % (41.0-53.0); Hemoglobin 15.2 g/dL (13.5-17.5); Lymphocytes # (auto) 0.4 10 ^3/uL (0.4-5.4); Lymphocytes % (auto) 4.9 % (10.0-50.0); Mean Corpuscular Hemoglobin 27.8 pg (28.0-32.0); Mean Corpuscular Hgb Conc. 32.6 g/dL (32.0-36.0); Mean Corpuscular Volume 85.1 fL (80.0-100.0); Monocytes # (auto) 0.1 10 ^3/uL (0-1.3); Monocytes % (auto) 1.1 % (0.0-12.0); Neutrophils # (auto) 7.1 10 ^3/uL (1.6-8.6); Neutrophils % (auto) 93.4 % (37.0-80.0); Nucleated Red Blood Cells % 0.1 %; Red Blood Cells 5.48 10^6/uL (4.5-5.90); White Blood Cell 7.6 10^3/uL (4.4-10.8)
[2023-05-15 08:05] LABS: Red Cell Distribution Width 20.7 % (11.8-14.3)
[2023-05-15] MEDS ORDERED: CALCIUM GLUC 1,000mg/50ml-NS 50 ML IV ONE (08:45)
[2023-05-15] MEDS: APIXABAN 5 MG TAB PO SCH ×2 (10:00→23:02)
[2023-05-15] MEDS: FAMOTIDINE (10MG/ML) 2ML VL IV SCH ×2 (10:00→23:00)
[2023-05-15] MEDS: FUROSEMIDE 40 MG/4 ML VIAL IV SCH (10:00)
[2023-05-15] MEDS: CARVEDILOL 12.5 MG TAB PO SCH ×2 (10:00→23:03)
[2023-05-15] MEDS: SACUBITRIL-VALSARTAN 24mg/26mg TAB PO SCH ×2 (11:06→23:01)
[2023-05-15] MEDS: SPIRONOLACTONE 25 MG TAB PO SCH (11:06)
[2023-05-15 17:44] VITALS: PULSE 118; RESP 23; O2SAT 96
[2023-05-15 19:30] VITALS: PULSE 107; RESP 17; O2SAT 94
[2023-05-15 20:12] VITALS: BP 168/95; PULSE 118; RESP 20; TEMP 97.7; O2SAT 96
[2023-05-15] MEDS: methylPREDNISolone SOD SUCC 40 MG/ML VL IV SCH (23:00)
[2023-05-15 23:46] VITALS: BP 156/78; PULSE 96; RESP 18; TEMP 97.9; O2SAT 96; O2SAT 98
[2023-05-16] VITALS (10 sets, daily range): BP systolic 131–149; BP diastolic 82–98; PULSE 69–88; RESP 18–21; TEMP 97.3–97.7; O2SAT 92–100
[2023-05-16] MEDS: IPRATROPIUM BROM 0.5 MG/2.5ML INH SOL NEB PRN ×2 (01:45→06:53)
[2023-05-16] MEDS: ALBUTEROL MEDNEB 2.5 mg/3ml NEB NEB PRN ×2 (01:45→06:53)
[2023-05-16] MEDS: SODIUM CHLOR 0.9% PF (SALINE LOCK) 10ML VIAL/SYR IV SCH ×3 (05:27→22:00)
[2023-05-16] MEDS: ACCU-CHEK COMFORT CURVE STRIP VI SCH ×4 (05:28→23:11)
[2023-05-16] MEDS: InsuLIN REG 1unit/0.01ml Soln (100units/ml) SC SCH ×4 (05:44→23:22)
[2023-05-16 06:50] LABS: Basophils # (auto) 0 10 ^3/uL (0-0.2); Basophils % (auto) 0.1 % (0.0-2.0); Eosinophils # (auto) 0 10 ^3/uL (0-0.8); Hematocrit 45.9 % (41.0-53.0); Hemoglobin 14.8 g/dL (13.5-17.5); Lymphocytes # (auto) 0.6 10 ^3/uL (0.4-5.4); Lymphocytes % (auto) 5.7 % (10.0-50.0); Mean Corpuscular Hemoglobin 27.7 pg (28.0-32.0); Mean Corpuscular Hgb Conc. 32.3 g/dL (32.0-36.0); Mean Corpuscular Volume 85.5 fL (80.0-100.0); Monocytes # (auto) 0.3 10 ^3/uL (0-1.3); Monocytes % (auto) 2.5 % (0.0-12.0); Neutrophils # (auto) 9.7 10 ^3/uL (1.6-8.6); Neutrophils % (auto) 91.7 % (37.0-80.0); Nucleated Red Blood Cells % 0.1 %; Red Blood Cells 5.36 10^6/uL (4.5-5.90); Red Cell Distribution Width 20.4 % (11.8-14.3); White Blood Cell 10.6 10^3/uL (4.4-10.8)
[2023-05-16 07:15] LABS: Alanine Aminotransferase 14 U/L (7-40); Anion Gap 11 (5-15); Aspartate Aminotransferase 19 U/L (13-40); BUN/Creatinine Ratio 20.6 (10.0-20.0); Blood Urea Nitrogen 28 mg/dL (9-23); Calcium 8.6 mg/dL (8.5-10.1); Carbon Dioxide 22 mmol/L (20-30); Chloride 105 mmol/L (98-107); Glucose 235 mg/dL (74-106); LDL Cholesterol 92 mg/dL (< 100); Potassium 4.7 mmol/L (3.5-5.1); Sodium 138 mmol/L (136-145); Triglycerides 135 mg/dL (< 150)
[2023-05-16 07:17] LABS: Bilirubin, Total 1.1 mg/dL (0.2-1.0); Cholesterol 138 mg/dL (< 200); HDL Cholesterol 26 mg/dL (40-59); Total Protein 6.4 g/dL (5.7-8.2)
[2023-05-16 09:32] LABS: Alkaline Phosphatase 101 U/L (46-116); Magnesium 2.3 mg/dL (1.6-2.6)
[2023-05-16] MEDS: FUROSEMIDE 40 MG/4 ML VIAL IV SCH (10:27)
[2023-05-16] MEDS: FAMOTIDINE (10MG/ML) 2ML VL IV SCH ×2 (10:27→23:11)
[2023-05-16] MEDS: CARVEDILOL 12.5 MG TAB PO SCH ×2 (10:27→23:10)
[2023-05-16] MEDS: methylPREDNISolone SOD SUCC 40 MG/ML VL IV SCH ×2 (10:27→23:10)
[2023-05-16] MEDS: APIXABAN 5 MG TAB PO SCH ×2 (10:27→23:03)
[2023-05-16] MEDS: SPIRONOLACTONE 25 MG TAB PO SCH (10:50)
[2023-05-16] MEDS: SACUBITRIL-VALSARTAN 24mg/26mg TAB PO SCH ×2 (10:50→23:03)
[2023-05-16] MEDS: HYDROcodone-ACET 5/325MG TAB PO PRN ×2 (17:28→23:02)
[2023-05-16] MEDS: ATORVASTATIN 20 MG TAB PO SCH (23:02)
[2023-05-17] VITALS (11 sets, daily range): BP systolic 134–142; BP diastolic 79–101; PULSE 70–94; RESP 18–20; TEMP 97.6–98.8; O2SAT 93–100
[2023-05-17] MEDS: SODIUM CHLOR 0.9% PF (SALINE LOCK) 10ML VIAL/SYR IV SCH ×3 (06:24→22:06)
[2023-05-17] MEDS: ACCU-CHEK COMFORT CURVE STRIP VI SCH ×4 (06:35→22:06)
[2023-05-17] MEDS: InsuLIN REG 1unit/0.01ml Soln (100units/ml) SC SCH ×4 (06:40→22:10)
[2023-05-17] MEDS: IPRATROPIUM BROM 0.5 MG/2.5ML INH SOL NEB PRN ×2 (06:51→07:30)
[2023-05-17] MEDS: ALBUTEROL MEDNEB 2.5 mg/3ml NEB NEB PRN ×2 (06:51→07:30)
[2023-05-17 06:59] LABS: Urine Bacteria NONE SEEN /hpf (None Seen); Urine Blood Negative /uL (Negative); Urine Clarity Clear (Clear); Urine Color Yellow (Yellow); Urine Mucus FEW (None Seen); Urine Protein, UAD 2+ (Negative); Urine Specific Gravity 1.019 (1.001-1.035); Urine Urobilinogen Normal (Negative); Urine WBC 7 /hpf (0 - 3)
[2023-05-17 07:04] LABS: Amphetamine Screen, Urine Neg (NEGATIVE); Barbiturate Scree,Urine Neg (NEGATIVE); Benzodiazephine Screen, Urine Neg (NEGATIVE); Cannabinoid Screen, Urine Neg (NEGATIVE); Cocaine Screen, Urine Neg (NEGATIVE); Opiate Scree,Urine Neg (NEGATIVE); Phencyclidine Screen, Urine Neg (NEGATIVE)
[2023-05-17 07:05] LABS: Creatinine, Urine 61.16 mg/dL (30.0-125.0); Urine Protein/Creatinine Ratio 3.88
[2023-05-17] MEDS: HYDROcodone-ACET 5/325MG TAB PO PRN ×3 (08:36→20:46)
[2023-05-17] MEDS: FUROSEMIDE 40 MG/4 ML VIAL IV SCH (10:21)
[2023-05-17] MEDS: FAMOTIDINE (10MG/ML) 2ML VL IV SCH ×2 (10:21→22:06)
[2023-05-17] MEDS: SPIRONOLACTONE 25 MG TAB PO SCH (10:22)
[2023-05-17] MEDS: methylPREDNISolone SOD SUCC 40 MG/ML VL IV SCH ×2 (10:22→22:06)
[2023-05-17] MEDS: SACUBITRIL-VALSARTAN 24mg/26mg TAB PO SCH ×2 (10:22→22:03)
[2023-05-17] MEDS: APIXABAN 5 MG TAB PO SCH ×2 (10:22→22:03)
[2023-05-17] MEDS: CARVEDILOL 12.5 MG TAB PO SCH ×2 (10:22→22:04)
[2023-05-17] MEDS: ATORVASTATIN 20 MG TAB PO SCH (22:03)
[2023-05-18] VITALS (10 sets, daily range): BP systolic 140–156; BP diastolic 70–108; PULSE 67–99; RESP 15–20; TEMP 97.7–98.1; O2SAT 96–98
[2023-05-18] MEDS: SODIUM CHLOR 0.9% PF (SALINE LOCK) 10ML VIAL/SYR IV SCH ×2 (05:53→14:00)
[2023-05-18] MEDS: ACCU-CHEK COMFORT CURVE STRIP VI SCH ×3 (05:54→17:00)
[2023-05-18 06:03] LABS: Basophils # (auto) 0 10 ^3/uL (0-0.2); Basophils % (auto) 0.2 % (0.0-2.0); Eosinophils # (auto) 0 10 ^3/uL (0-0.8); Hematocrit 44.6 % (41.0-53.0); Hemoglobin 14.6 g/dL (13.5-17.5); Lymphocytes # (auto) 0.6 10 ^3/uL (0.4-5.4); Lymphocytes % (auto) 7.3 % (10.0-50.0); Mean Corpuscular Hemoglobin 27.8 pg (28.0-32.0); Mean Corpuscular Hgb Conc. 32.6 g/dL (32.0-36.0); Mean Corpuscular Volume 85.1 fL (80.0-100.0); Monocytes # (auto) 0.2 10 ^3/uL (0-1.3); Monocytes % (auto) 2.8 % (0.0-12.0); Neutrophils # (auto) 7.8 10 ^3/uL (1.6-8.6); Neutrophils % (auto) 89.7 % (37.0-80.0); Nucleated Red Blood Cells % 0.6 %; Red Blood Cells 5.24 10^6/uL (4.5-5.90); Red Cell Distribution Width 19.9 % (11.8-14.3); White Blood Cell 8.7 10^3/uL (4.4-10.8)
[2023-05-18 06:05] LABS: Alanine Aminotransferase 18 U/L (7-40); Albumin 3.8 g/dL (3.2-4.8); Alkaline Phosphatase 78 U/L (46-116); Anion Gap 2 (5-15); Aspartate Aminotransferase 14 U/L (13-40); BUN/Creatinine Ratio 21.1 (10.0-20.0); Blood Urea Nitrogen 30 mg/dL (9-23); Calcium 8.6 mg/dL (8.7-10.4); Carbon Dioxide 31 mmol/L (20-30); Chloride 101 mmol/L (98-107); Glucose 236 mg/dL (74-106); Potassium 4.7 mmol/L (3.5-5.1); Sodium 134 mmol/L (136-145)
[2023-05-18 06:06] LABS: Total Protein 6.2 g/dL (5.7-8.2)
[2023-05-18] MEDS: InsuLIN REG 1unit/0.01ml Soln (100units/ml) SC SCH ×4 (06:30→19:55)
[2023-05-18] MEDS: APIXABAN 5 MG TAB PO SCH (08:54)
[2023-05-18] MEDS: methylPREDNISolone SOD SUCC 40 MG/ML VL IV SCH (08:54)
[2023-05-18] MEDS: SACUBITRIL-VALSARTAN 24mg/26mg TAB PO SCH (08:54)
[2023-05-18] MEDS: FAMOTIDINE (10MG/ML) 2ML VL IV SCH (08:54)
[2023-05-18] MEDS: CARVEDILOL 12.5 MG TAB PO SCH (08:55)
[2023-05-18] MEDS: FUROSEMIDE 40 MG/4 ML VIAL IV SCH (08:55)
[2023-05-18] MEDS: SPIRONOLACTONE 25 MG TAB PO SCH (08:55)
[2023-05-18 10:20] LABS: Hepatitis B Surface Antigen Negative (Negative)
[2023-05-18 10:42] LABS: Hepatitis C Antibody Negative (Negative)
[2023-05-18] MEDS: HYDROcodone-ACET 5/325MG TAB PO PRN ×2 (11:30→20:39)
[2023-05-18] MEDS ORDERED: PRED20TA2 PO (16:04)
[2023-05-18] MEDS ORDERED: UMEC1AER IN (16:04)
== END 2023-05-18 20:40 | disposition home or self-care (01) | DRG 133 ==
LOC: ER 16:07 → TELE 23:22 → TELE-WESTW 05-15 22:40
PROVIDERS: ADMIT Nurse Practitioner Family; ATTEND Nurse Practitioner Acute Care
PROC: 5A09357 Assistance with Respiratory Ventilation, Less than 24 Consecutive Hours, Continuous Positive Airway Pressure (ICD-10-PCS; principal; 2023-05-17)
PROC: 5A09357 Assistance with Respiratory Ventilation, Less than 24 Consecutive Hours, Continuous Positive Airway Pressure (ICD-10-PCS; 2023-05-18)
DX: J96.21 Acute and chronic respiratory failure with hypoxia (principal); I50.23 Acute on chronic systolic (congestive) heart failure; N17.9 Acute kidney failure, unspecified; E66.2 Morbid (severe) obesity with alveolar hypoventilation; I48.19 Other persistent atrial fibrillation; E11.22 Type 2 diabetes mellitus with diabetic chronic kidney disease; I13.0 Hypertensive heart and chronic kidney disease with heart failure and stage 1 through stage 4 chronic kidney disease, or unspecified chronic kidney disease; E11.65 Type 2 diabetes mellitus with hyperglycemia; Z68.43 Body mass index [BMI] 50.0-59.9, adult; E78.5 Hyperlipidemia, unspecified; I25.10 Atherosclerotic heart disease of native coronary artery without angina pectoris; N18.9 Chronic kidney disease, unspecified; J44.1 Chronic obstructive pulmonary disease with (acute) exacerbation; Z80.0 Family history of malignant neoplasm of digestive organs; Z82.3 Family history of stroke; Z82.49 Family history of ischemic heart disease and other diseases of the circulatory system; Z82.5 Family history of asthma and other chronic lower respiratory diseases; Z83.3 Family history of diabetes mellitus; Z95.5 Presence of coronary angioplasty implant and graft
CPT/HCPCS: 36415; 71045; 76775; 80053; 80061; 80307; 81001; 82306; 82570; 82607; 82962; 83605; 83735; 83880; 83970; 84100; 84156; 84300; 84443; 84484; 85025; 85610; 85730; 86803; 87340; 93005; 94640; 94660; G0378; J1815; J3490

== ENCOUNTER 2023-11-18 01:15 | Inpatient (IN) | payer MEDICAID ==
[~2023-11-18] VITALS: Ht 182.9 cm; Wt 164.3 kg
[2023-11-18] VITALS (9 sets, daily range): BP systolic 131; BP diastolic 81; PULSE 98–117; RESP 18–20; TEMP 98; O2SAT 92–98
[~2023-11-18 01:15] MED LIST changes: -AZIT500T66 PO; -METH4PAK PO; +PRED20TA2 PO; +UMEC1AER IN
[2023-11-18 01:51] LABS: Basophils # (auto) 0.1 10 ^3/uL (0-0.2); Basophils % (auto) 0.9 % (0.0-2.0); Eosinophils # (auto) 0.3 10 ^3/uL (0-0.8); Hematocrit 48.1 % (41.0-53.0); Hemoglobin 15.2 g/dL (13.5-17.5); Lymphocytes # (auto) 0.9 10 ^3/uL (0.4-5.4); Lymphocytes % (auto) 10.6 % (10.0-50.0); Mean Corpuscular Hemoglobin 27.2 pg (28.0-32.0); Mean Corpuscular Hgb Conc. 31.5 g/dL (32.0-36.0); Mean Corpuscular Volume 86.4 fL (80.0-100.0); Monocytes # (auto) 0.5 10 ^3/uL (0-1.3); Monocytes % (auto) 5.6 % (0.0-12.0); Neutrophils % (auto) 79.9 % (37.0-80.0); Nucleated Red Blood Cells % 0.2 %; Red Blood Cells 5.57 10^6/uL (4.5-5.90); Red Cell Distribution Width 19.4 % (11.8-14.3); White Blood Cell 8.8 10^3/uL (4.4-10.8)
[2023-11-18 02:07] LABS: INR 1.23 (0.9-1.15); Partial Thromboplastin Time 29.9 SEC (24.5-34.5); Prothrombin Time 12.8 sec (9.3-11.8)
[2023-11-18 02:18] LABS: Alanine Aminotransferase 21 U/L (7-40); Albumin 3.9 g/dL (3.2-4.8); Alkaline Phosphatase 105 U/L (46-116); Anion Gap 5 (5-15); Aspartate Aminotransferase 21 U/L (13-40); BUN/Creatinine Ratio 14.8 (10.0-20.0); Bilirubin, Total 1.1 mg/dL (0.2-1.0); Blood Urea Nitrogen 25 mg/dL (9-23); Calcium 9.6 mg/dL (8.7-10.4); Carbon Dioxide 30 mmol/L (20-30); Chloride 107 mmol/L (98-107); Glucose 122 mg/dL (74-106); Magnesium 2.2 mg/dL (1.6-2.6); Potassium 4.3 mmol/L (3.5-5.1); Sodium 142 mmol/L (136-145); Total Protein 6.6 g/dL (5.7-8.2)
[2023-11-18 02:23] LABS: Giant Platelets Few; Large Platelets FEW; Platelet Estimate Decreased
[2023-11-18 06:10] LABS: Urine Bacteria FEW /hpf (None Seen); Urine Blood TRACE /uL (Negative); Urine Clarity Clear (Clear); Urine Color Light-Yellow (Yellow); Urine Hyaline Cast FEW /lpf (0 - 2); Urine Protein, UAD 2+ (Negative); Urine Specific Gravity 1.012 (1.001-1.035); Urine Urobilinogen Normal (Negative); Urine WBC 5 /hpf (0 - 3); Urine pH 5.5 (5.0-9.0)
[2023-11-18] MEDS: ONDANSETRON HCL 4 MG/2 ML VIAL IV ONE (11:26)
[2023-11-18] MEDS: MORPHINE SULFATE INJ 2 MG/ml SYRG IV ONE (11:26)
[2023-11-18] MEDS: cefTRIAXone 1GM/50ML D5W 50 ML IV ONE (11:27)
[2023-11-18] MEDS: METOPROLOL TARTRATE 50 MG TAB PO ONE (14:15)
[2023-11-18] MEDS ORDERED: IPRATROPIUM BROM 0.5 MG/2.5ML INH SOL NEB PRN (14:15)
[2023-11-18] MEDS ORDERED: DEXTROSE (50%) 50ML SYRG IV PRN (14:30)
[2023-11-18] MEDS ORDERED: MORPHINE SULFATE INJ 2 MG/ml SYRG IV PRN (14:30)
[2023-11-18] MEDS ORDERED: NITROGLYCERIN 0.4 MG SL TAB SL PRN (14:30)
[2023-11-18 14:54] LABS: Triglycerides 313 mg/dL (< 150)
[2023-11-18 14:55] LABS: LDL Cholesterol 95 mg/dL (< 100)
[2023-11-18 14:56] LABS: Cholesterol 162 mg/dL (< 200); HDL Cholesterol 28 mg/dL (40-59)
[2023-11-18] MEDS ORDERED: SERT-160 PO (14:59)
[2023-11-18] MEDS ORDERED: ATOR40TA52 PO (14:59)
[2023-11-18] MEDS: methylPREDNISolone SOD SUCC 125 MG/2 ML VL IV SCH (16:08)
[2023-11-18] MEDS: FUROSEMIDE 40 MG/4 ML VIAL IV ONE (16:08)
[2023-11-18] MEDS: InsuLIN REG 1unit/0.01ml Soln (100units/ml) SC SCH (17:30)
[2023-11-18] MEDS: ACCU-CHEK COMFORT CURVE STRIP VI SCH (17:30)
[2023-11-18] MEDS: METOPROLOL TARTRATE 25 MG TAB PO SCH (18:56)
[2023-11-18] MEDS: IPRATROPIUM BROM 0.5 MG/2.5ML INH SOL NEB SCH (19:01)
[2023-11-18] MEDS: HYDROcodone-ACET 5/325MG TAB PO ONE (20:53)
[2023-11-18] MEDS: CLINDAMYCIN 600MG IV 50 ML IV SCH (23:52)
[2023-11-19] VITALS (20 sets, daily range): BP systolic 116–142; BP diastolic 77–106; PULSE 57–97; RESP 16–22; TEMP 97.2–98.3; O2SAT 90–100
[2023-11-19] MEDS: HEPARIN SODIUM (PORCINE) 5000 UNITS/ML 1ML VIAL SC SCH (00:04)
[2023-11-19] MEDS: INSULIN LANTUS (GLARGINE) 1 /0.01ml (100units/ml) SC SCH ×2 (00:10→22:32)
[2023-11-19 06:08] LABS: Basophils # (auto) 0 10 ^3/uL (0-0.2); Basophils % (auto) 0.3 % (0.0-2.0); Eosinophils # (auto) 0 10 ^3/uL (0-0.8); Eosinophils % (auto) 0.1 % (0.0-7.0); Hemoglobin 16.1 g/dL (13.5-17.5); Lymphocytes # (auto) 0.5 10 ^3/uL (0.4-5.4); Lymphocytes % (auto) 6.8 % (10.0-50.0); Mean Corpuscular Hemoglobin 27.4 pg (28.0-32.0); Mean Corpuscular Hgb Conc. 31.5 g/dL (32.0-36.0); Mean Corpuscular Volume 86.9 fL (80.0-100.0); Monocytes # (auto) 0.1 10 ^3/uL (0-1.3); Monocytes % (auto) 1.1 % (0.0-12.0); Neutrophils # (auto) 6.4 10 ^3/uL (1.6-8.6); Neutrophils % (auto) 91.7 % (37.0-80.0); Nucleated Red Blood Cells % 0.2 %; Red Blood Cells 5.87 10^6/uL (4.5-5.90); Red Cell Distribution Width 19.3 % (11.8-14.3)
[2023-11-19 06:18] LABS: Chloride 106 mmol/L (98-107); Potassium 4.6 mmol/L (3.5-5.1); Sodium 140 mmol/L (136-145)
[2023-11-19 06:19] LABS: Anion Gap 8 (5-15); Calcium 9.4 mg/dL (8.7-10.4); Carbon Dioxide 26 mmol/L (20-30)
[2023-11-19 06:24] LABS: BUN/Creatinine Ratio 15.9 (10.0-20.0); Blood Urea Nitrogen 28 mg/dL (9-23); Glucose 178 mg/dL (74-106)
[2023-11-19 06:25] LABS: Magnesium 2.5 mg/dL (1.6-2.6)
[2023-11-19] MEDS: METOPROLOL TARTRATE 50 MG TAB PO SCH (08:44)
[2023-11-19] MEDS: ISOSORBIDE DINITRATE 10 MG TAB PO SCH (08:45)
[2023-11-19] MEDS: EMPAGLIFLOZIN 10 MG TAB PO SCH (08:45)
[2023-11-19] MEDS: POTASSIUM CHL 10 Meq TABLET PO SCH (08:45)
[2023-11-19] MEDS: FUROSEMIDE 40 MG/4 ML VIAL IV SCH (08:45)
[2023-11-19] MEDS ORDERED: UMEC1AER INH (13:52)
[2023-11-19] MEDS: HYDROcodone-ACET 10/325MG TAB PO PRN (14:14)
[2023-11-19] MEDS: INSULIN LANTUS (GLARGINE) 1 /0.01ml (100units/ml) SC ONE (14:17)
[2023-11-19] MEDS ORDERED: IPRA0.00 NEB (15:45)
[2023-11-19] MEDS ORDERED: SEMA2INJ3 SC (15:45)
[2023-11-19] MEDS ORDERED: INSU1INJ19 SC (15:45)
[2023-11-19] MEDS ORDERED: IBUP-1456 PO (15:45)
[2023-11-19] MEDS ORDERED: ENOXAPARIN SOD 100 MG/1 ML SYRINGE SC SCH (22:00)
[2023-11-19] MEDS: methylPREDNISolone SOD SUCC 125 MG/2 ML VL IV SCH (22:21)
[2023-11-19] MEDS: ENOXAPARIN SOD 150 MG/1 ML SYRINGE SC SCH (22:22)
[2023-11-20] VITALS (19 sets, daily range): BP systolic 109–126; BP diastolic 64–86; PULSE 52–101; RESP 16–20; TEMP 97.3–98; O2SAT 92–100
[2023-11-20 07:51] LABS: INR 1.31 (0.9-1.15); Partial Thromboplastin Time 33.8 SEC (24.5-34.5); Prothrombin Time 13.6 sec (9.3-11.8)
[2023-11-20 08:02] LABS: Basophils # (auto) 0 10 ^3/uL (0-0.2); Basophils % (auto) 0.5 % (0.0-2.0); Eosinophils # (auto) 0 10 ^3/uL (0-0.8); Hematocrit 47.6 % (41.0-53.0); Hemoglobin 14.9 g/dL (13.5-17.5); Lymphocytes # (auto) 0.5 10 ^3/uL (0.4-5.4); Lymphocytes % (auto) 5.2 % (10.0-50.0); Mean Corpuscular Hemoglobin 26.8 pg (28.0-32.0); Mean Corpuscular Hgb Conc. 31.2 g/dL (32.0-36.0); Mean Corpuscular Volume 85.8 fL (80.0-100.0); Monocytes # (auto) 0.3 10 ^3/uL (0-1.3); Monocytes % (auto) 3.4 % (0.0-12.0); Neutrophils # (auto) 9.1 10 ^3/uL (1.6-8.6); Neutrophils % (auto) 90.9 % (37.0-80.0); Nucleated Red Blood Cells % 0.6 %; Red Blood Cells 5.55 10^6/uL (4.5-5.90); Red Cell Distribution Width 19.4 % (11.8-14.3)
[2023-11-20 08:09] LABS: Alanine Aminotransferase 28 U/L (7-40); Albumin 4.1 g/dL (3.2-4.8); Alkaline Phosphatase 100 U/L (46-116); Anion Gap 7 (5-15); Aspartate Aminotransferase 27 U/L (13-40); BUN/Creatinine Ratio 16.3 (10.0-20.0); Blood Urea Nitrogen 29 mg/dL (9-23); Calcium 9.1 mg/dL (8.5-10.1); Carbon Dioxide 23 mmol/L (20-30); Chloride 105 mmol/L (98-107); Glucose 145 mg/dL (74-106); Magnesium 2.5 mg/dL (1.6-2.6); Potassium 4.7 mmol/L (3.5-5.1)
[2023-11-20 08:10] LABS: Bilirubin, Total 0.9 mg/dL (0.2-1.0); Phosphorus 5.5 mg/dL (2.4-5.1); Total Protein 6.6 g/dL (5.7-8.2)
[2023-11-20 08:13] LABS: Sodium 135 mmol/L (136-145)
[2023-11-20] MEDS: FUROSEMIDE 40 MG TAB PO SCH (11:31)
[2023-11-20] MEDS ORDERED: VANCOMYCIN PER PHARMACY 0 MG IV SCH (15:30)
[2023-11-20] MEDS ORDERED: CEFEPIME 1GM/ 50ML 50 ML IV SCH (15:51)
[2023-11-20] MEDS ORDERED: VANCOMYCIN 1GM/200ML 200 ML IV ONE ×2 (16:00→16:15)
[2023-11-20] MEDS: CEFEPIME 1GM/ 50ML 50 ML IV ONE (16:23)
[2023-11-20] MEDS: VANCOMYCIN 1GM/200ML 200 ML IV SCH (17:58)
[2023-11-20] MEDS: CEFEPIME 1GM/ 50ML 50 ML IV SCH (22:02)
[2023-11-21] VITALS (22 sets, daily range): BP systolic 107–126; BP diastolic 76–87; PULSE 62–99; RESP 15–20; TEMP 97.7–98; O2SAT 97–100
[2023-11-21 05:45] LABS: Basophils # (auto) 0 10 ^3/uL (0-0.2); Eosinophils # (auto) 0 10 ^3/uL (0-0.8); Red Cell Distribution Width 19.3 % (11.8-14.3)
[2023-11-21 05:48] LABS: Basophils % (auto) 0.3 % (0.0-2.0); Hematocrit 49.7 % (41.0-53.0); Hemoglobin 15.5 g/dL (13.5-17.5); Lymphocytes % (auto) 9.5 % (10.0-50.0); Mean Corpuscular Hemoglobin 26.8 pg (28.0-32.0); Mean Corpuscular Hgb Conc. 31.3 g/dL (32.0-36.0); Mean Corpuscular Volume 85.8 fL (80.0-100.0); Monocytes # (auto) 0.7 10 ^3/uL (0-1.3); Monocytes % (auto) 7.1 % (0.0-12.0); Neutrophils # (auto) 8.4 10 ^3/uL (1.6-8.6); Neutrophils % (auto) 83.1 % (37.0-80.0); Nucleated Red Blood Cells % 0.7 %; Red Blood Cells 5.79 10^6/uL (4.5-5.90); White Blood Cell 10.1 10^3/uL (4.4-10.8)
[2023-11-21 06:03] LABS: Alanine Aminotransferase 31 U/L (7-40); Albumin 4.2 g/dL (3.2-4.8); Alkaline Phosphatase 92 U/L (46-116); Anion Gap 6 (5-15); Aspartate Aminotransferase 21 U/L (13-40); Calcium 9.3 mg/dL (8.7-10.4); Carbon Dioxide 27 mmol/L (20-30); Chloride 103 mmol/L (98-107); Glucose 119 mg/dL (74-106); Magnesium 2.6 mg/dL (1.6-2.6); Phosphorus 4.7 mg/dL (2.4-5.1); Potassium 4.1 mmol/L (3.5-5.1); Sodium 136 mmol/L (136-145)
[2023-11-21 06:04] LABS: Bilirubin, Total 0.7 mg/dL (0.2-1.0); Total Protein 6.8 g/dL (5.7-8.2)
[2023-11-21 06:09] LABS: Blood Urea Nitrogen 38 mg/dL (9-23)
[2023-11-21 08:26] LABS: Large Platelets FEW; Platelet Estimate Decrea; Stomatocytes Few
[2023-11-21] MEDS: methylPREDNISolone SOD SUCC 125 MG/2 ML VL IV SCH (10:07)
[2023-11-21] MEDS: VANCOMYCIN 1GM/200ML 200 ML IV SCH (19:27)
[2023-11-22] VITALS (22 sets, daily range): BP systolic 109–141; BP diastolic 73–90; PULSE 50–102; RESP 18–22; TEMP 97.4–98.7; O2SAT 94–100
[2023-11-22 06:03] LABS: Basophils # (auto) 0 10 ^3/uL (0-0.2); Basophils % (auto) 0.3 % (0.0-2.0); Eosinophils # (auto) 0 10 ^3/uL (0-0.8); Hematocrit 44.3 % (41.0-53.0); Hemoglobin 14.2 g/dL (13.5-17.5); Lymphocytes # (auto) 0.8 10 ^3/uL (0.4-5.4); Mean Corpuscular Hemoglobin 27.2 pg (28.0-32.0); Monocytes # (auto) 0.7 10 ^3/uL (0-1.3); Monocytes % (auto) 9.1 % (0.0-12.0); Neutrophils # (auto) 6.1 10 ^3/uL (1.6-8.6); Neutrophils % (auto) 79.6 % (37.0-80.0); Nucleated Red Blood Cells % 0.1 %; Red Blood Cells 5.21 10^6/uL (4.5-5.90); Red Cell Distribution Width 18.9 % (11.8-14.3); White Blood Cell 7.7 10^3/uL (4.4-10.8)
[2023-11-22 06:23] LABS: Anion Gap 6 (5-15); Carbon Dioxide 25 mmol/L (20-30); Chloride 105 mmol/L (98-107); Potassium 4.1 mmol/L (3.5-5.1); Sodium 136 mmol/L (136-145)
[2023-11-22 06:24] LABS: Calcium 8.5 mg/dL (8.5-10.1)
[2023-11-22 06:29] LABS: Glucose 136 mg/dL (74-106)
[2023-11-22 06:37] LABS: BUN/Creatinine Ratio 23.6 (10.0-20.0); Blood Urea Nitrogen 41 mg/dL (9-23)
[2023-11-22 21:38] LABS: Amphetamine Screen, Urine Neg (NEGATIVE); Barbiturate Scree,Urine Neg (NEGATIVE); Benzodiazephine Screen, Urine Neg (NEGATIVE); Cannabinoid Screen, Urine Neg (NEGATIVE); Cocaine Screen, Urine Neg (NEGATIVE); Opiate Scree,Urine Neg (NEGATIVE); Phencyclidine Screen, Urine Neg (NEGATIVE)
[2023-11-23] VITALS (22 sets, daily range): BP systolic 117–186; BP diastolic 80–99; PULSE 59–100; RESP 18–20; TEMP 97.6–98.5; O2SAT 95–100
[2023-11-23 05:28] LABS: Basophils # (auto) 0 10 ^3/uL (0-0.2); Basophils % (auto) 0.2 % (0.0-2.0); Eosinophils # (auto) 0 10 ^3/uL (0-0.8); Eosinophils % (auto) 0.3 % (0.0-7.0); Hematocrit 46.8 % (41.0-53.0); Lymphocytes # (auto) 0.8 10 ^3/uL (0.4-5.4); Lymphocytes % (auto) 13.1 % (10.0-50.0); Mean Corpuscular Hemoglobin 27.1 pg (28.0-32.0); Mean Corpuscular Volume 84.7 fL (80.0-100.0); Monocytes # (auto) 0.6 10 ^3/uL (0-1.3); Monocytes % (auto) 9.9 % (0.0-12.0); Neutrophils # (auto) 4.9 10 ^3/uL (1.6-8.6); Neutrophils % (auto) 76.5 % (37.0-80.0); Nucleated Red Blood Cells % 0.5 %; Red Blood Cells 5.53 10^6/uL (4.5-5.90); Red Cell Distribution Width 18.8 % (11.8-14.3); White Blood Cell 6.5 10^3/uL (4.4-10.8)
[2023-11-23 05:44] LABS: Alanine Aminotransferase 43 U/L (7-40); Albumin 4.1 g/dL (3.2-4.8); Alkaline Phosphatase 81 U/L (46-116); Anion Gap 4 (5-15); Aspartate Aminotransferase 29 U/L (13-40); BUN/Creatinine Ratio 22.4 (10.0-20.0); Bilirubin, Total 0.6 mg/dL (0.2-1.0); Blood Urea Nitrogen 43 mg/dL (9-23); Calcium 9.1 mg/dL (8.7-10.4); Carbon Dioxide 29 mmol/L (20-30); Chloride 105 mmol/L (98-107); Glucose 117 mg/dL (74-106); Potassium 4.3 mmol/L (3.5-5.1); Sodium 138 mmol/L (136-145); Total Protein 6.5 g/dL (5.7-8.2)
[2023-11-23] MEDS: VANCOMYCIN 1GM/200ML 200 ML IV SCH (10:52)
[2023-11-24] VITALS (28 sets, daily range): BP systolic 118–172; BP diastolic 68–100; PULSE 56–101; RESP 15–20; TEMP 97.7–98.3; O2SAT 94–100
[2023-11-24 05:38] LABS: Basophils # (auto) 0.1 10 ^3/uL (0-0.2); Eosinophils # (auto) 0.1 10 ^3/uL (0-0.8); Eosinophils % (auto) 2.1 % (0.0-7.0); Hematocrit 46.3 % (41.0-53.0); Hemoglobin 14.5 g/dL (13.5-17.5); Lymphocytes # (auto) 0.8 10 ^3/uL (0.4-5.4); Lymphocytes % (auto) 12.4 % (10.0-50.0); Mean Corpuscular Hemoglobin 27.1 pg (28.0-32.0); Mean Corpuscular Hgb Conc. 31.4 g/dL (32.0-36.0); Mean Corpuscular Volume 86.2 fL (80.0-100.0); Monocytes # (auto) 0.5 10 ^3/uL (0-1.3); Monocytes % (auto) 8.6 % (0.0-12.0); Neutrophils # (auto) 4.8 10 ^3/uL (1.6-8.6); Neutrophils % (auto) 75.9 % (37.0-80.0); Nucleated Red Blood Cells % 0.6 %; Red Blood Cells 5.37 10^6/uL (4.5-5.90); Red Cell Distribution Width 18.9 % (11.8-14.3); White Blood Cell 6.3 10^3/uL (4.4-10.8)
[2023-11-24 05:49] LABS: INR 1.23 (0.9-1.15); Partial Thromboplastin Time 32.5 SEC (24.5-34.5); Prothrombin Time 12.8 sec (9.3-11.8)
[2023-11-24 05:58] LABS: Alanine Aminotransferase 44 U/L (7-40); Albumin 3.8 g/dL (3.2-4.8); Alkaline Phosphatase 69 U/L (46-116); Anion Gap 7 (5-15); Aspartate Aminotransferase 28 U/L (13-40); BUN/Creatinine Ratio 19.8 (10.0-20.0); Calcium 8.8 mg/dL (8.7-10.4); Carbon Dioxide 25 mmol/L (20-30); Chloride 106 mmol/L (98-107); Glucose 108 mg/dL (74-106); Magnesium 2.6 mg/dL (1.6-2.6); Phosphorus 3.3 mg/dL (2.4-5.1); Potassium 4.3 mmol/L (3.5-5.1); Sodium 138 mmol/L (136-145)
[2023-11-24 05:59] LABS: Bilirubin, Total 0.8 mg/dL (0.2-1.0)
[2023-11-24 06:14] LABS: Blood Urea Nitrogen 33 mg/dL (9-23)
[2023-11-24] MEDS: CARVEDILOL 3.125 MG TAB PO SCH (11:26)
[2023-11-24] MEDS ORDERED: LIDOCAINE 1% (LOCAL ANESTH.) PF 5ml SDV ID ONE (14:45)
[2023-11-24] MEDS: SODIUM CHLOR 0.9% PF (SALINE LOCK) 10ML VIAL/SYR IV SCH (22:07)
[2023-11-25] VITALS (17 sets, daily range): BP systolic 123–165; BP diastolic 71–99; PULSE 48–101; RESP 16–21; TEMP 36.9; O2SAT 92–100
[2023-11-25 03:23] LABS: Basophils # (auto) 0.1 10 ^3/uL (0-0.2); Basophils % (auto) 0.9 % (0.0-2.0); Eosinophils # (auto) 0.2 10 ^3/uL (0-0.8); Hemoglobin 14.1 g/dL (13.5-17.5); Lymphocytes # (auto) 0.6 10 ^3/uL (0.4-5.4); Mean Corpuscular Hemoglobin 26.6 pg (28.0-32.0); Mean Corpuscular Hgb Conc. 31.6 g/dL (32.0-36.0); Mean Corpuscular Volume 84.1 fL (80.0-100.0); Monocytes # (auto) 0.5 10 ^3/uL (0-1.3); Monocytes % (auto) 8.1 % (0.0-12.0); Neutrophils # (auto) 5.3 10 ^3/uL (1.6-8.6); White Blood Cell 6.7 10^3/uL (4.4-10.8)
[2023-11-25 03:34] LABS: Alanine Aminotransferase 43 U/L (7-40); Alkaline Phosphatase 79 U/L (46-116); Anion Gap 7 (5-15); Aspartate Aminotransferase 27 U/L (13-40); BUN/Creatinine Ratio 18.3 (10.0-20.0); Bilirubin, Total 0.9 mg/dL (0.2-1.0); Blood Urea Nitrogen 30 mg/dL (9-23); Calcium 9.2 mg/dL (8.7-10.4); Carbon Dioxide 23 mmol/L (20-30); Chloride 108 mmol/L (98-107); Glucose 94 mg/dL (74-106); Magnesium 2.5 mg/dL (1.6-2.6); Phosphorus 3.1 mg/dL (2.4-5.1); Potassium 4.1 mmol/L (3.5-5.1); Sodium 138 mmol/L (136-145); Total Protein 6.3 g/dL (5.7-8.2)
[2023-11-25 03:35] LABS: Eosinophils % (auto) 2.9 % (0.0-7.0); Hematocrit 44.7 % (41.0-53.0); Neutrophils % (auto) 79.1 % (37.0-80.0); Nucleated Red Blood Cells % 0.2 %; Red Blood Cells 5.32 10^6/uL (4.5-5.90); Red Cell Distribution Width 18.7 % (11.8-14.3)
[2023-11-25] MEDS ORDERED: HYDR-2792 PO (10:43)
[2023-11-25] MEDS ORDERED: CARV-214 PO (10:43)
[2023-11-25] MEDS: hydrALAZINE HCL 10 MG TAB PO SCH (13:33)
[2023-11-25] MEDS ORDERED: ASPI-325 PO (14:41)
[2023-11-25] MEDS: cefTRIAXone 1GM/50ML D5W 50 ML IV ONE (15:07)
[2023-11-25] MEDS: VANCOMYCIN 1GM/200ML 200 ML IV SCH (21:56)
[2023-11-26] VITALS (21 sets, daily range): BP systolic 122–147; BP diastolic 67–90; PULSE 49–77; RESP 16–20; TEMP 97.4–98.2; O2SAT 94–100
[2023-11-26] MEDS: cefTRIAXone 1GM/50ML D5W 50 ML IV SCH (08:56)
[2023-11-26] MEDS: APIXABAN 5 MG TAB PO SCH (10:42)
[2023-11-27] VITALS (11 sets, daily range): BP systolic 117–132; BP diastolic 72–100; PULSE 48–80; RESP 16–24; TEMP 97.5–98.1; O2SAT 96–100
[2023-11-27 06:13] LABS: Potassium 4.3 mmol/L (3.5-5.1)
[2023-11-27 06:14] LABS: Calcium 8.9 mg/dL (8.5-10.1)
[2023-11-27 06:19] LABS: BUN/Creatinine Ratio 25.5 (10.0-20.0)
[2023-11-27 06:21] LABS: Albumin 3.8 g/dL (3.2-4.8); Phosphorus 3.6 mg/dL (2.4-5.1)
[2023-11-27] MEDS ORDERED: CLOT1CRE56 TOP (16:18)
[2023-11-27] MEDS: VANCOMYCIN 1GM/200ML 200 ML IV SCH (17:01)
[2023-11-27] MEDS ORDERED: CLOTRIMAZOLE 1 % CREAM 15GM TOP SCH (22:00)
== END 2023-11-27 18:51 | disposition home health service (06) | DRG 133 ==
LOC: ER 01:15 → TELE 14:22 → TELE-CENTR 21:55 → CENTRAL 11-26 03:07
PROVIDERS: ADMIT Internal Medicine Pulmonary Disease; ATTEND Emergency Medicine
PROC: 5A09357 Assistance with Respiratory Ventilation, Less than 24 Consecutive Hours, Continuous Positive Airway Pressure (ICD-10-PCS; 2023-11-19)
PROC: 5A09357 Assistance with Respiratory Ventilation, Less than 24 Consecutive Hours, Continuous Positive Airway Pressure (ICD-10-PCS; 2023-11-21)
PROC: 5A09357 Assistance with Respiratory Ventilation, Less than 24 Consecutive Hours, Continuous Positive Airway Pressure (ICD-10-PCS; 2023-11-22)
PROC: 5A09357 Assistance with Respiratory Ventilation, Less than 24 Consecutive Hours, Continuous Positive Airway Pressure (ICD-10-PCS; 2023-11-23)
PROC: 02HV33Z Insertion of Infusion Device into Superior Vena Cava, Percutaneous Approach (ICD-10-PCS; principal; 2023-11-24)
PROC: B548ZZA Ultrasonography of Superior Vena Cava, Guidance (ICD-10-PCS; 2023-11-24)
PROC: 5A09357 Assistance with Respiratory Ventilation, Less than 24 Consecutive Hours, Continuous Positive Airway Pressure (ICD-10-PCS; 2023-11-24)
PROC: 5A09357 Assistance with Respiratory Ventilation, Less than 24 Consecutive Hours, Continuous Positive Airway Pressure (ICD-10-PCS; 2023-11-25)
DX: J96.01 Acute respiratory failure with hypoxia (principal); N17.0 Acute kidney failure with tubular necrosis; I50.43 Acute on chronic combined systolic (congestive) and diastolic (congestive) heart failure; J44.1 Chronic obstructive pulmonary disease with (acute) exacerbation; J45.901 Unspecified asthma with (acute) exacerbation; I48.19 Other persistent atrial fibrillation; M86.8X7 Other osteomyelitis, ankle and foot; I13.0 Hypertensive heart and chronic kidney disease with heart failure and stage 1 through stage 4 chronic kidney disease, or unspecified chronic kidney disease; E11.621 Type 2 diabetes mellitus with foot ulcer; L97.529 Non-pressure chronic ulcer of other part of left foot with unspecified severity; E66.01 Morbid (severe) obesity due to excess calories; E11.22 Type 2 diabetes mellitus with diabetic chronic kidney disease; F41.9 Anxiety disorder, unspecified; E78.5 Hyperlipidemia, unspecified; N18.32 Chronic kidney disease, stage 3b; I25.10 Atherosclerotic heart disease of native coronary artery without angina pectoris; E11.51 Type 2 diabetes mellitus with diabetic peripheral angiopathy without gangrene; I87.2 Venous insufficiency (chronic) (peripheral); G47.33 Obstructive sleep apnea (adult) (pediatric); E11.69 Type 2 diabetes mellitus with other specified complication; Z98.61 Coronary angioplasty status; I25.2 Old myocardial infarction; Z68.42 Body mass index [BMI] 45.0-49.9, adult; Z82.49 Family history of ischemic heart disease and other diseases of the circulatory system; Z82.3 Family history of stroke; Z82.5 Family history of asthma and other chronic lower respiratory diseases; Z83.3 Family history of diabetes mellitus; Z80.0 Family history of malignant neoplasm of digestive organs; Z80.1 Family history of malignant neoplasm of trachea, bronchus and lung; Z79.01 Long term (current) use of anticoagulants
CPT/HCPCS: 36415; 36569; 71045; 73630; 73700; 73718; 78582; 80048; 80053; 80061; 80069; 80202; 80307; 80320; 81001; 82306; 82565; 82607; 82962; 83036; 83605; 83735; 83880; 84100; 84443; 84484; 84550; 85025; 85379; 85610; 85730; 86850; 86900; 86901; 87040; 87077; 87086; 87186; 87205; 93005; 93306; 93925; 93970; 94640; 94660; G0378; J1815; J2405; J3490; J7042

== ENCOUNTER 2023-12-18 13:27 | Emergency (ER) | payer MEDICAID ==
[~2023-12-18] VITALS: Ht 182.9 cm; Wt 174.4 kg
[~2023-12-18 13:27] MED LIST changes: +ASPI-325 PO; +ATOR40TA52 PO; +CARV-214 PO; +CLOT1CRE56 TOP; +HYDR-2792 PO; +INSU1INJ19 SC; +IPRA0.00 NEB; -MET25T PO; -PRED20TA2 PO; -SACU1TAB PO; +SEMA2INJ3 SC; +SERT-160 PO; -SPIR25TA PO; -UMEC1AER IN; +UMEC1AER INH; -ZINC220T6 PO
[2023-12-18 14:54] LABS: Basophils # (auto) 0.1 10 ^3/uL (0-0.2); Eosinophils # (auto) 0.4 10 ^3/uL (0-0.8); Hemoglobin 13.3 g/dL (13.5-17.5); Lymphocytes # (auto) 0.8 10 ^3/uL (0.4-5.4); White Blood Cell 6.5 10^3/uL (4.4-10.8)
[2023-12-18 14:57] LABS: Basophils % (auto) 1.2 % (0.0-2.0); Eosinophils % (auto) 5.5 % (0.0-7.0); Hematocrit 41.3 % (41.0-53.0); Lymphocytes % (auto) 11.8 % (10.0-50.0); Mean Corpuscular Hgb Conc. 32.3 g/dL (32.0-36.0); Mean Corpuscular Volume 80.6 fL (80.0-100.0); Monocytes # (auto) 0.5 10 ^3/uL (0-1.3); Monocytes % (auto) 8.2 % (0.0-12.0); Neutrophils # (auto) 4.8 10 ^3/uL (1.6-8.6); Neutrophils % (auto) 73.3 % (37.0-80.0); Nucleated Red Blood Cells % 0.4 %; Red Blood Cells 5.12 10^6/uL (4.5-5.90); Red Cell Distribution Width 19.5 % (11.8-14.3)
[2023-12-18 15:11] LABS: Alanine Aminotransferase 27 U/L (7-40); Albumin 3.8 g/dL (3.2-4.8); Alkaline Phosphatase 132 U/L (46-116); Anion Gap 3 (5-15); Aspartate Aminotransferase 23 U/L (13-40); Blood Urea Nitrogen 32 mg/dL (9-23); Carbon Dioxide 33 mmol/L (20-30); Chloride 102 mmol/L (98-107); Glucose 173 mg/dL (74-106); Potassium 4.1 mmol/L (3.5-5.1); Sodium 138 mmol/L (136-145)
[2023-12-18 15:12] LABS: Bilirubin, Total 0.7 mg/dL (0.2-1.0)
[2023-12-18 15:47] LABS: INR 1.18 (0.9-1.15); Partial Thromboplastin Time 33.9 SEC (24.5-34.5); Prothrombin Time 12.4 sec (9.3-11.8)
[2023-12-18] MEDS: LIDOCAINE 1% (LOCAL ANESTH.) PF 5ml SDV ID ONE (17:45)
[2023-12-18 19:44] VITALS: BP 118/70; PULSE 67; RESP 16; TEMP 98; O2SAT 98
[2023-12-18] MEDS ORDERED: SODIUM CHLOR 0.9% PF (SALINE LOCK) 10ML VIAL/SYR IV SCH (22:00)
== END 2023-12-18 20:15 | disposition home or self-care (01) ==
LOC: ER 13:27
DX: T82.898A Other specified complication of vascular prosthetic devices, implants and grafts, initial encounter (principal); R53.1 Weakness; E11.22 Type 2 diabetes mellitus with diabetic chronic kidney disease; I13.0 Hypertensive heart and chronic kidney disease with heart failure and stage 1 through stage 4 chronic kidney disease, or unspecified chronic kidney disease; N18.9 Chronic kidney disease, unspecified; I50.9 Heart failure, unspecified; J44.9 Chronic obstructive pulmonary disease, unspecified; E78.5 Hyperlipidemia, unspecified; Z46.6 Encounter for fitting and adjustment of urinary device
CPT/HCPCS: 36415; 71045; 80053; 82962; 83880; 85025; 85610; 85730; 93005

== ENCOUNTER 2024-08-29 16:11 | Emergency (ER) | payer MEDICAID ==
[~2024-08-29] VITALS: Ht 182.9 cm; Wt 128.0 kg
--- NOTE | 2024-08-29 17:00 | ECG ---
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
[2024-08-29 17:27] LABS: Basophils # (auto) 0.1 10 ^3/uL (0-0.2); Basophils % (auto) 1.1 % (0.0-2.0); Eosinophils # (auto) 0.3 10 ^3/uL (0-0.8); Eosinophils % (auto) 4.2 % (0.0-7.0); Hematocrit 45.1 % (41.0-53.0); Hemoglobin 14.9 g/dL (13.5-17.5); Lymphocytes # (auto) 1.2 10 ^3/uL (0.4-5.4); Lymphocytes % (auto) 14.5 % (10.0-50.0); Mean Corpuscular Hemoglobin 27.4 pg (28.0-32.0); Mean Corpuscular Hgb Conc. 32.9 g/dL (32.0-36.0); Mean Corpuscular Volume 83.1 fL (80.0-100.0); Monocytes # (auto) 0.5 10 ^3/uL (0-1.3); Monocytes % (auto) 5.9 % (0.0-12.0); Neutrophils # (auto) 5.9 10 ^3/uL (1.6-8.6); Neutrophils % (auto) 74.3 % (37.0-80.0); Nucleated Red Blood Cells % 0.7 %; Platelet Count (auto) 127 10^3/uL (140-450); Red Blood Cells 5.43 10^6/uL (4.5-5.90); Red Cell Distribution Width 19.1 % (11.8-14.3); White Blood Cell 7.9 10^3/uL (4.4-10.8)
--- NOTE | 2024-08-29 17:31 | ED.PDOC ---
HPI Comments 53 y.o male presents to the ED for an evaluation of an abnormal EKG reading at PCP office today. Patient reports going to PCP due to running out of insulin and a physical exam and was told that his EKG looked abnormal. Patient has no acute or new symptoms or pain at this time. Patient has been out of his insulin for about 3-4 days and BG upon ED arrival read 217. Vitals BP: 110/69 HR: 60 Temp: 97.6 F RR: 28 SPO2: 96% RA Past medical history: DM, HTN, AFIB. 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 REVIEW OF SYSTEMS: CONSTITUTIONAL: Denies acute: fever, diaphoresis, chills, generalized weakness. HEAD: Denies acute: headache, photophobia Eyes: Denies acute: Double vision, vision loss, eye pain, eye discharge. EARS: Denies acute: tinnitus, hearing loss, ear discharge, ear pain, THROAT: Denies acute: sore throat, swelling, difficulty swallowing , pain with swallowing, change in voice. NECK: Denies acute: neck pain, neck swelling, stiff neck. HEART: Denies acute : chest pain, palpitations, LUNGS: Denies acute: SOB, wheezing, cough, hemoptysis ABDOMEN: Denies acute: abdominal pain, Nausea, Vomiting, diarrhea, melena , hematemesis, hematochezia SKIN: Denies acute: rash, redness, lesions, itchiness. EXTREMITIES: Denies acute: calf pain, numbness, tingling, weakness, denies pain in extremity. Denies acute: Low back pain. Neuro: Denies acute: focal neurological deficit, motor or sensory focal neurological deficit, tremors, seizure like activity, confusion, dizziness, change in mental status, loss of bowel or bladder function, cauda equina like symptoms. : Denies acute: dysuria, hematuria, flank pain, increase in urinary frequency. PSYCH: Denies acute: hallucination, suicidal ideation, homicidal ideation. PHYSICAL EXAM: General: no acute distress, awake and alert. Head: normocephalic, atraumatic. Neck: supple, trachea is midline, no swelling. Throat: Normal phonation. Eyes:, no erythema, no purulent discharge, no proptosis, no icterus. Heart: regular rate, regular rhythm, no significant murmur appreciated. Lungs: no apparent respiratory distress, Able to speak in full sentences. No wheezing, no rhonchi, no crackles. No stridors Clear to auscultation bilaterally. Abdomen: non tender to palpation, non distended, soft, no guarding, no rebound, + bowel sounds. Obese Neuro: Awake, Alert, oriented to name, self, situation, follows commands GCS=15. Speech is normal. Skin: no petechia, no purpura, no cyanosis, non-pale, not jaundice. Lower extremities: --trace bilateral - Pitting edema. Noted bilateral venous stasis. no deformity, no focal swelling, no calf TTP. Makes eye contact. moves all four extremities. Face: no apparent facial droop. ED COURSE: Chief Complaint: Abnormal LAB's Time Seen by MD: 17:23 Primary Care Provider: [place] Reviewed Notes: Nurses Notes, Allergies Allergies: Coded Allergies: NO KNOWN ALLERGIES (Unverified , 08/14/13) Home Meds Active Scripts Clotrimazole (Lotrimin) 1 Applic Ap, 1 APPLIC TOP Q12HR for 42 Days, #30 GRAMS 1 Refill apply twice a day to toes Prov:AMADEO LLANOS MD 11/27/23 Aspirin (Aspirin Low Dose) 81 Mg Tab, 81 MG PO DAILY for 30 Days, #30 TAB Prov:ISAEL CHIN RESIDENT 11/25/23 Hydralazine Hcl (Hydralazine Hcl) 10 Mg Tab, 10 MG PO Q8HR for 30 Days, #90 TAB Prov:ISAEL CHIN RESIDENT 11/25/23 Carvedilol (COREG) 3.125 Mg Tab, 6.25 MG PO Q12HR for 30 Days, #120 TAB Prov:ISAEL CHIN RESIDENT 11/25/23 Dapagliflozin Propanediol (Farxiga) 10 Mg Tab, 10 MG PO DAILY, #90 TAB Prov:DESIREE MARTIN MD 01/11/22 Ascorbic Acid (VITAMIN C) 500 Mg Chw, 500 MG OR DAILY for 30 Days, #30 TAB.CHEW Prov:LELA EDUARDO MD 07/26/21 Reported Medications Ipratropium-Albuterol (Ipratropium [place]/Albut) 1 Mattie Mattie, 3 ML NEB Q6HR PRN for DIFFICULTY BREATHING 11/19/23 Insulin Glargine (Basaglar Kwikpen) 100 Unit/Ml Inj, 40 UNIT SC HS 11/19/23 Semaglutide (Ozempic) 2 Mg/3 Ml Inj, 0.25 MG SC QWEEKLY 11/19/23 Umeclidinium-Vilanterol (Anoro Ellipta 62.5-25 Mcg/INH) 1 Aer Aer, 1 PUFF INH DAILY 11/19/23 Sertraline Hcl (Sertraline Hcl) 100 Mg Tab, 1 TAB PO DAILY 11/18/23 Atorvastatin Calcium (ATORVASTATIN CALCIUM) 40 Mg Tab, 1 TAB PO DAILY 11/18/23 Potassium Chloride (Potassium Chloride ER) 10 Meq Tab, 1 TAB PO DAILY 03/19/23 Albuterol Sulfate (Albuterol Sulfate Hfa) 108 Mcg/Act Aer, 2 PUFF PO Q6HPRN PRN for dyspnea 03/19/23 Furosemide (Furosemide) 40 Mg Tab, 1 TAB PO DAILY 03/19/23 Hydrocodone-Acetaminophen (Hydrocodone/Acetaminophen 10-325 mg) 1 Tab Tab, 1 TAB PO Q6HR PRN for SEVERE PAIN 02/25/23 Apixaban Base (ELIQUIS) 5 Mg Tab, 5 MG PO BID, TAB 12/01/21 Isosorbide Dinitrate (Isosorbide Dinitrate) 20 Mg Tab, 30 MG PO DAILY, MG 12/01/21 Insulin Glargine (Lantus) 100 Unit/Ml Inj, 50 UNIT SC 08/24/20 Information Source: Patient Mode of Arrival: Wheelchair Past Medical History PAST MEDICAL HISTORY: AFIB, Anemia, Asthma, CAD, CHF, CKF, COPD, DM, Gout, High Lipids, HTN Surgical History: PTCA Family History Family History: Unknown Social History Smoker: Non-Smoker Alcohol: Denies ETOH Use Drugs: Denies Drug Use Lives In: Home Was a procedure done? Was a procedure done?: No CP Differential Dx Differential Diagnosis: N/A Differential Diagnosis: N/A X-Ray, Labs, Meds, VS Vital Signs Date Time Temp Pulse Resp B/P (MAP) Pulse Ox O2 Delivery O2 Flow Rate FiO2 08/29/24 17:52 78 08/29/24 16:36 97.6 60 28 110/69 (83) 96 Lab Test 08/29/24 23:05 08/29/24 22:50 08/29/24 20:41 08/29/24 18:23 Range/Units Influenza Type A Antigen Pending Influenza Type B Antigen Pending SARS-CoV-2 Antigen (Rapid) Pending Urine Color Pending Urine Clarity Pending Urine pH Pending Urine Specific [place] Pending Urine Protein Pending Urine Ketones Pending Urine Blood Pending Urine Nitrite Pending Urine Bilirubin Pending Urine Urobilinogen Pending Urine Leukocyte Esterase Pending Urine RBC Pending Urine Microscopic WBC Pending Urine Squamous Epithelial Cells Pending Urine Bacteria Pending Urine Glucose Pending Troponin I High Sensitivity 36 35 </=54 ng/L Test 08/29/24 17:09 Range/Units White Blood Count 7.9 4.4-10.8 10^3/uL Red Blood Count 5.43 4.5-5.90 10^6/uL Hemoglobin 14.9 13.5-17.5 g/dL Hematocrit 45.1 41.0-53.0 % Mean Corpuscular Volume 83.1 80.0-100.0 fL Mean Corpuscular Hemoglobin 27.4 L 28.0-32.0 pg Mean Corpuscular Hemoglobin Concent 32.9 32.0-36.0 g/dL Red Cell Distribution Width 19.1 H 11.8-14.3 % Platelet Count 127 L 140-450 10^3/uL Mean Platelet Volume 10.2 6.9-10.8 fL Neutrophils (%) (Auto) 74.3 37.0-80.0 % Lymphocytes (%) (Auto) 14.5 10.0-50.0 % Monocytes (%) (Auto) 5.9 0.0-12.0 % Eosinophils (%) (Auto) 4.2 0.0-7.0 % Basophils (%) (Auto) 1.1 0.0-2.0 % Neutrophils # (Auto) 5.9 1.6-8.6 10 ^3/uL Lymphocytes # (Auto) 1.2 0.4-5.4 10 ^3/uL Monocytes # (Auto) 0.5 0-1.3 10 ^3/uL Eosinophils # (Auto) 0.3 0-0.8 10 ^3/uL Basophils # (Auto) 0.1 0-0.2 10 ^3/uL Nucleated Red Blood Cells 0.7 % Sodium Level 141 136-145 mmol/L Potassium Level 4.3 3.5-5.1 mmol/L Chloride Level 102 98-107 mmol/L Carbon Dioxide Level 30 20-31 mmol/L Anion Gap 9 5-15 Blood Urea Nitrogen 33 H 9-23 mg/dL Creatinine 2.04 H 0.700-1.30 mg/dL Glomerular Filtration Rate Calc 38 >90 mL/min BUN/Creatinine Ratio 16.2 10.0-20.0 Serum Glucose 226 H 74-106 mg/dL Lactic Acid Level 2.0 0.4-2.0 mmol/L Calcium Level 9.4 8.7-10.4 mg/dL Total Bilirubin 0.8 0.2-1.0 mg/dL Aspartate Amino Transferase (AST) < 8 L 13-40 U/L Alanine Aminotransferase (ALT) 16 7-40 U/L Alkaline Phosphatase 99 46-116 U/L Troponin I High Sensitivity 34 </=54 ng/L B-Type Natriuretic Peptide 203.38 0-100 pg/mL Total Protein 6.3 5.7-8.2 g/dL Albumin 4.0 3.2-4.8 g/dL [place] [address] Ph: [phone] DIAGNOSTIC IMAGING Diagnostic Imaging Report : [id number] Signed PATIENT: TRINITY MARIANO ACCT: [id number] UNIT: [id number] : 1970 LOC: ER ROOM / BED: / AGE / SEX: 53 / M ADM STATUS: REG ER SERVICE [id number] ORDERING PHYSICIAN: ARTURO BOWLING DO PROCEDURE(s): CXRP - CHEST PORTABLE REASON: dizzy, ORDER NUMBER(s): [id number], ACCESSION NUMBER(s): [id number] CHEST RADIOGRAPH Indication: dizzy, Technique: Single frontal view of the chest was obtained COMPARISON: XY CHEST PORTABLE on DOS: 12/18/23, XY CHEST PORTABLE on DOS: 12/18/23, XY CHEST PORTABLE on DOS: 11/30/23, XY CHEST PORTABLE on DOS: 11/24/23, XY CHEST PORTABLE on DOS: 11/19/23 FINDINGS: Lines and Tubes: None Lungs: Diffuse increased interstitial prominence Pleura: No effusion. No pneumothorax. Cardiomediastinal contours: Cardiomegaly Bones: Unremarkable IMPRESSION: Pulmonary vascular congestion ATED BY: NED ORTIZ MD DICTATED DATE/TIME: 08/29/241728 SIGNED BY: NED ORTIZ MD SIGNED DATE/TIME: 08/29/241728 CC: Time of 1ST Reevaluation: 17:27 Reevaluation 1ST: Unchanged Patient Education/Counseling: Diagnosis, Treatment Family Education/Counseling: No Family Present Assigned to Dr. Dr. Marlow. Urinalysis and serology are still pending. I anticipate the patient will be discharged since he is completely asymptomatic. The care of this patient was transitioned to my colleague Dr. Marlow. Departure 1 Departure Time of Disposition: 19:46 Impression: Primary Impression: Atrial fibrillation Disposition: 30 STILL A PATIENT Condition: Stable Additional Instructions: Additional discharge instructions: You MUST follow-up with your primary care/family doctor in 1 to 2 days. If you are unable to see your primary care/family doctor, please return to our emergency room for re-assessment and re-evaluation in 1 to 2 days. Return to the emergency room here in our facility or to the nearest ER [facility] if your symptoms change or worsen. CONSULTATIONS: you MUST Follow-up for consultation as soon as possible with: -cardiology in 1-2 days. Please call for appointment You MUST call the consultants office yourself to make an appointment. You may need to arrange that through your insurance and/or your primary/family doctor. If you are unable to see the field service consultant in 1 to 2 days, you must return to our emergency room (or any other ER of your choice) for re-assessment and re- evaluation. Adequate fluid hydration. Monitor blood sugar closely. Please comply with insulin. Discharged With: Self Critical Care Note Critical Care Time?: No I personally scribed for ARTURO BOWLING DO ([email or web address]) on 08/29/24 at 17:31. Electronically submitted by Angelica Dalton ([facility]). I personally scribed for ARTURO BOWLING DO ([email or web address]) on 08/29/24 at 21:28. Electronically submitted by Angelica Dalton ([facility]). RATURO BOWLING DO Aug 29, 2024 17:31
--- NOTE | 2024-08-29 17:34 | DVH ---
CHEST RADIOGRAPH Indication: dizzy, Technique: Single frontal view of the chest was obtained COMPARISON: XY CHEST PORTABLE on DOS: 12/18/23, XY CHEST PORTABLE on DOS: 12/18/23, XY CHEST PORTABLE o n DOS: 11/30/23, XY CHEST PORTABLE on DOS: 11/24/23, XY CHEST PORTABLE on DOS: 11/19/23 FINDINGS: Lines and Tubes: None Lungs: Diffuse increased interstitial prominence Pleura: No effusion. No pneumothorax. Cardiomediastinal contours: Cardiomegaly Bones: Unremarkable IMPRESSION: Pulmonary vascular congestion
[2024-08-29 17:44] LABS: Alanine Aminotransferase 16 U/L (7-40); Alkaline Phosphatase 99 U/L (46-116); Anion Gap 9 (5-15); BUN/Creatinine Ratio 16.2 (10.0-20.0); Bilirubin, Total 0.8 mg/dL (0.2-1.0); Calcium 9.4 mg/dL (8.7-10.4); Carbon Dioxide 30 mmol/L (20-31); Chloride 102 mmol/L (98-107); Potassium 4.3 mmol/L (3.5-5.1); Sodium 141 mmol/L (136-145); Total Protein 6.3 g/dL (5.7-8.2)
[2024-08-29 18:24] LABS: Aspartate Aminotransferase < 8 U/L (13-40); Blood Urea Nitrogen 33 mg/dL (9-23); Glucose 226 mg/dL (74-106)
[2024-08-29 23:32] LABS: Urine Bacteria FEW /hpf (None Seen); Urine Blood TRACE /uL (Negative); Urine Budding Yeast OCCASIONAL /hpf (None Seen); Urine Clarity Clear (Clear); Urine Color Light-Yellow (Yellow); Urine Hyaline Cast MANY /lpf (0 - 2); Urine Mucus FEW (None Seen); Urine Protein, UAD 2+ (Negative); Urine Specific Gravity 1.014 (1.001-1.035); Urine Squamous Epithelial Cell FEW /hpf (<5); Urine Urobilinogen Normal (Negative); Urine WBC 7 /HPF (0-3); Urine pH 5.5 (5.0-9.0)
[2024-08-29 23:47] VITALS: BP 149/73; TEMP 98.1
[2024-08-29] MEDS: FUROSEMIDE 40 MG/4 ML VIAL IV ONE (23:50)
[2024-08-29 23:59] LABS: COVID19 ANTIGEN SOFIA FIA NEGATIVE (NEGATIVE)
[2024-08-30] LABS: Rapid Influenza A Negative (Negative); Rapid Influenza B Negative (Negative)
[2024-08-30] MEDS ORDERED: FLUC150T38 PO (00:23)
[2024-08-30] MEDS ORDERED: CIPR-173 PO (00:23)
[2024-08-30 01:02] VITALS: PULSE 85; RESP 14; O2SAT 98
--- NOTE | 2024-08-30 10:36 | ECG ---
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
--- NOTE | 2024-08-30 10:37 | ECG ---
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
== END 2024-08-30 01:04 | disposition home or self-care (01) ==
LOC: ER 16:11
DX: I48.91 Unspecified atrial fibrillation (principal); I11.0 Hypertensive heart disease with heart failure; I50.9 Heart failure, unspecified; E11.9 Type 2 diabetes mellitus without complications; I25.10 Atherosclerotic heart disease of native coronary artery without angina pectoris; I25.2 Old myocardial infarction; R94.31 Abnormal electrocardiogram [ECG] [EKG]; J44.9 Chronic obstructive pulmonary disease, unspecified; Z79.4 Long term (current) use of insulin; Z79.82 Long term (current) use of aspirin; Z79.84 Long term (current) use of oral hypoglycemic drugs; Z79.85 Long-term (current) use of injectable non-insulin antidiabetic drugs; Z79.899 Other long term (current) drug therapy; Z79.01 Long term (current) use of anticoagulants; Z20.822 Contact with and (suspected) exposure to COVID-19
CPT/HCPCS: 36415; 71045; 80053; 81001; 82962; 83605; 83880; 84484; 85025; 87426; 87804; 93005; 96374; 99285; J1940

== ENCOUNTER 2024-12-22 00:42 | Inpatient (IN) | payer MEDICAID ==
[~2024-12-22] VITALS: Ht 182.9 cm; Wt 180.6 kg
[2024-12-22] VITALS (12 sets, daily range): BP systolic 103–129; BP diastolic 60–83; PULSE 75–113; RESP 14–22; TEMP 97.9; O2SAT 94–100
[~2024-12-22 00:42] MED LIST changes: +CIPR-173 PO; +FLUC150T38 PO
--- NOTE | 2024-12-22 00:55 | ED.PDOC ---
History of Present Illness HPI Comments 54 y/o morbidly obese M is BIBA for c/c nonradiating, sternal chest pain. Per EMS report, pain is reported to have began, suddenly and unprovoked, 1x hour prior to arrival. Patient described pain as burning in quality. He has a history of AFib on Eliquis, CHF, COPD on home O2, HTN, IA, and PTCA. Patient was found on scene with a 98% SpO2 on home O2, systolic pressure of 150, and ST elevation in V2 and V3. Patient took 1x NTG dose prior to arrival and was given 2x additional doses en route, with pain converting from a 10/10 to an 8/10 in severity along with ST elevation absence. Patient has no further acute associated symptoms endorsed. Patient was seen here on August 29, 2024 for AFib. Per previous [facility] medical record, patient has a here serial of anemia, asthma, CAD, CK of, DM, gout, and hyperlipidemia. Time Seen by MD: 12:40 Primary Care Provider: [place] Reviewed Notes: Nurses Notes, Dinkey Mechanic Notes, Medications, Allergies Allergies: Coded Allergies: NO KNOWN ALLERGIES (Unverified , 08/14/13) Home Meds Active Scripts Fluconazole (Diflucan) 150 Mg Tab, 1 TAB PO ONCE, #1 TAB 1 Refill Prov:NGUYỄN AMADOR MD 08/30/24 Ciprofloxacin Hcl (Cipro) 500 Mg Tab, 1 TAB PO BID for 7 Days, #14 TAB Prov:NGUYỄN AMADOR MD 08/30/24 Clotrimazole (Lotrimin) 1 Applic Ap, 1 APPLIC TOP Q12HR for 42 Days, #30 GRAMS 1 Refill apply twice a day to toes Prov:AMADEO LLANOS MD 11/27/23 Aspirin (Aspirin Low Dose) 81 Mg Tab, 81 MG PO DAILY for 30 Days, #30 TAB Prov:ISAEL CHIN 11/25/23 Hydralazine Hcl (Hydralazine Hcl) 10 Mg Tab, 10 MG PO Q8HR for 30 Days, #90 TAB Prov:ISAEL CHIN 11/25/23 Carvedilol (COREG) 3.125 Mg Tab, 6.25 MG PO Q12HR for 30 Days, #120 TAB Prov:ISAEL CHIN 11/25/23 Dapagliflozin Propanediol (Farxiga) 10 Mg Tab, 10 MG PO DAILY, #90 TAB Prov:DESIREE MARTIN MD 01/11/22 Ascorbic Acid (VITAMIN C) 500 Mg Chw, 500 MG OR DAILY for 30 Days, #30 TAB.CHEW Prov:LELA EDUARDO MD 07/26/21 Reported Medications Ipratropium-Albuterol (Ipratropium [place]/Albut) 1 Mattie Mattie, 3 ML NEB Q6HR PRN for DIFFICULTY BREATHING 11/19/23 Insulin Glargine (Basaglar Kwikpen) 100 Unit/Ml Inj, 40 UNIT SC HS 11/19/23 Semaglutide (Ozempic) 2 Mg/3 Ml Inj, 0.25 MG SC QWEEKLY 11/19/23 Umeclidinium-Vilanterol (Anoro Ellipta 62.5-25 Mcg/INH) 1 Aer Aer, 1 PUFF INH DAILY 11/19/23 Sertraline Hcl (Sertraline Hcl) 100 Mg Tab, 1 TAB PO DAILY 11/18/23 Atorvastatin Calcium (ATORVASTATIN CALCIUM) 40 Mg Tab, 1 TAB PO DAILY 11/18/23 Potassium Chloride (Potassium Chloride ER) 10 Meq Tab, 1 TAB PO DAILY 03/19/23 Albuterol Sulfate (Albuterol Sulfate Hfa) 108 Mcg/Act Aer, 2 PUFF PO Q6HPRN PRN for dyspnea 03/19/23 Furosemide (Furosemide) 40 Mg Tab, 1 TAB PO DAILY 03/19/23 Hydrocodone-Acetaminophen (Hydrocodone/Acetaminophen 10-325 mg) 1 Tab Tab, 1 TAB PO Q6HR PRN for SEVERE PAIN 02/25/23 Apixaban Base (ELIQUIS) 5 Mg Tab, 5 MG PO BID, TAB 12/01/21 Isosorbide Dinitrate (Isosorbide Dinitrate) 20 Mg Tab, 30 MG PO DAILY, MG 12/01/21 Insulin Glargine (Lantus) 100 Unit/Ml Inj, 50 UNIT SC 08/24/20 Information Source: Patient, Emergency Med Personnel Mode of Arrival: EMS Severity: Moderate Timing: Hours Duration: Since onset Prehospital treatment: 12 Lead EKG, Supply Controller, NTG Past Medical History PAST MEDICAL HISTORY: AFIB, Anemia, Asthma, CAD, CHF, CKF, COPD, DM, Gout, High Lipids, HTN Surgical History: PTCA Family History Family History: Unknown Social History Smoker: Non-Smoker Alcohol: Denies ETOH Use Drugs: Denies Drug Use Lives In: Home All Other Systems: Reviewed and Negative (Comprehensive review of systems are negative unless otherwise stated in HPI) Physical Exam General Appearance: No Apparent Distress, Obese HEENT: Normal ENT Inspection, Pharynx Normal, TMs Normal Neck: Full Range of Motion, Non-Tender, Normal, Normal Inspection Respiratory: Chest Non-Tender, Lungs Clear, No Accessory Muscle Use, No Respiratory Distress, Normal Breath Sounds Cardiovascular: Irregular (irregularly irregular), No Edema, No JVD, No Murmur, No Gallop, Normal Peripheral Pulses Breast Exam: Deferred Gastrointestinal: No Organomegaly, Non Tender, No Pulsatile Mass, Normal Bowel Sounds, Soft Genitalia: Deferred Pelvic: Deferred Rectal: Deferred Extremities: No calf tenderness, Normal capillary refill, Normal inspection, Normal range of motion, Non-tender, No pedal edema Musculoskeletal : Apperance: Normal Neurologic: Alert, hearing aid specialist II-XII nml as Tested, No Motor Deficits, Normal Affect, Normal Mood, No Sensory Deficits Cerebellar Function: Normal Reflexes: Normal Skin: Dry, Normal Color, Warm Lymphatic: No Adenopathy Was a procedure done? Was a procedure done?: No EKG EKG : Pulse Rate (adult): 145 [place]: Normal Cardiac Rhythm: Afib Block: None Hypertrophy: None ST: Old, Inf, Infarct Differential Dx Considerations may include: IA, PE, ACS, URI, PNA, AFib, among others X-Ray, Labs, Meds, VS Vital Signs Date Time Temp Pulse Resp B/P (MAP) Pulse Ox O2 Delivery O2 Flow Rate FiO2 12/22/24 00:55 145 12/22/24 00:46 145 Time of 1ST Reevaluation: 13:10 Reevaluation 1ST: Unchanged Patient Education/Counseling: Diagnosis, Treatment, Other (need for admission ) Family Education/Counseling: No Family Present SEPSIS Sepsis Screen Physician Orders Type And Screen (12/22/24 00:47) Basic Metabolic Panel (12/22/24 00:47) Complete Blood Count (12/22/24 00:47) Troponin-I Hs (12/22/24 00:47) B-Type Natriuretic Peptide (12/22/24 00:47) Lactic Acid W/ Reflex Order (12/22/24 00:47) Chest Portable (12/22/24 00:47) Blood Culture (12/22/24 00:47) Troponin-I Hs (12/22/24 01:47) Troponin-I Hs (12/22/24 03:47) PTPTT (12/22/24 00:47) Electrocardigram (12/22/24 00:51) Vital Signs Date Time Temp Pulse Resp B/P (MAP) Pulse Ox O2 Delivery O2 Flow Rate FiO2 12/22/24 00:55 145 12/22/24 00:46 145 Critical Care Note Critical Care Time?: No Stability Stability form required: No Heart Score Heart Score: Heart Score Response (Comments) Value History Highly Suspicious 2 EKG Repolarization Disturb 1 Age 45-64 1 Risk Factors >3 or Hx ASHD 2 Total 6 I personally scribed for ASHOK ESPINOZA MD ([email or web address]) on 12/22/24 at 00:55. Electronically submitted by Brandon Jones ([email or web address]). I personally scribed for ASHOK ESPINOZA MD ([email or web address]) on 12/22/24 at 00:59. Electronically submitted by Brandon Jones ([email or web address]). ASHOK ESPINOZA MD Dec 22, 2024 00:55
[2024-12-22 01:23] LABS: Basophils # (auto) 0.1 10 ^3/uL (0-0.2); Basophils % (auto) 0.8 % (0.0-2.0); Eosinophils # (auto) 0.4 10 ^3/uL (0-0.8); Eosinophils % (auto) 3.9 % (0.0-7.0); Hematocrit 47.1 % (41.0-53.0); Hemoglobin 15.6 g/dL (13.5-17.5); Lymphocytes # (auto) 1.2 10 ^3/uL (0.4-5.4); Lymphocytes % (auto) 11.4 % (10.0-50.0); Mean Corpuscular Hemoglobin 28.1 pg (28.0-32.0); Mean Corpuscular Hgb Conc. 33.2 g/dL (32.0-36.0); Mean Corpuscular Volume 84.8 fL (80.0-100.0); Monocytes # (auto) 0.6 10 ^3/uL (0-1.3); Monocytes % (auto) 5.7 % (0.0-12.0); Neutrophils # (auto) 7.9 10 ^3/uL (1.6-8.6); Neutrophils % (auto) 78.2 % (37.0-80.0); Nucleated Red Blood Cells % 0.1 %; Platelet Count (auto) 134 10^3/uL (140-450); Red Blood Cells 5.56 10^6/uL (4.5-5.90); White Blood Cell 10.1 10^3/uL (4.4-10.8)
[2024-12-22 01:36] LABS: Chloride 106 mmol/L (98-107); Potassium 4.2 mmol/L (3.5-5.1); Sodium 140 mmol/L (136-145)
[2024-12-22 01:37] LABS: Anion Gap 9 (5-15); Carbon Dioxide 25 mmol/L (20-31)
[2024-12-22 01:38] LABS: Calcium 8.9 mg/dL (8.7-10.4)
--- NOTE | 2024-12-22 01:39 | DVH ---
CHEST RADIOGRAPH Indication: chest pain Technique: Single frontal view of the chest was obtained COMPARISON: XY CHEST PORTABLE on DOS: 08/29/24, XY CHEST PORTABLE on DOS: 12/18/23, XY CHEST PORTABLE on DOS: 12/18/23, XY CHEST PORTABLE on DOS: 11/30/23, XY CHEST PORTABLE on DOS: 11/24/23 FINDINGS: Lines and Tubes: None Lungs: Moderate interstitial pulmonary edema Pleura: No effusion. No pneumothorax. Cardiomediastinal contours: Mild cardiomegaly. Bones: Unremarkable IMPRESSION: 1. Moderate interstitial pulmonary edema
[2024-12-22 01:40] LABS: INR 1.14 (0.9-1.15); Partial Thromboplastin Time 31.3 SEC (24.5-34.5); Prothrombin Time 11.9 sec (9.3-11.8)
[2024-12-22 01:42] LABS: BUN/Creatinine Ratio 19.4 (10.0-20.0)
[2024-12-22 01:44] LABS: Blood Urea Nitrogen 35 mg/dL (9-23); Glucose 237 mg/dL (74-106)
[2024-12-22] MEDS ORDERED: HEPARIN SODIUM (PORCINE) 5000 UNITS/ML 1ML VIAL IV ONE (05:30)
[2024-12-22] MEDS: IPRATROPIUM BROM 0.5 MG/2.5ML INH SOL NEB PRN (05:59)
[2024-12-22] MEDS ORDERED: DEXTROSE (50%) 50ML SYRG IV PRN ×2 (06:00→09:45)
--- NOTE | 2024-12-22 06:05 | DVHHPRES ---
History of Present Illness Resident Creating Document: JOSSELIN JONES RESIDENT History of Present Illness 54 M past medical history of heart failure with reduced ejection ejection fraction, coronary artery disease status post PCI, asthma, COPD, CKD, permanent AFib,, diabetes mellitus, peripheral arterial disease, morbid obesity, obstructive sleep apnea presented with complaints of chest pain. Patient was at his friend's house at 0900 hours when he started feeling chest pain which is described as substernal which was initially burning type, relieved with nitroglycerin/rest. Patient called EMS where he was given aspirin 325 mg and nitroglycerin 3 times after which his pain resolved. Patient is on home oxygen at 2 L. Patient is currently not feeling chest pain, cough, shortness of breath, palpitations. Patient denied any nausea, vomiting, abdominal pain, headache, dizziness. 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 Tiara esparza Past medical history CHF COPD CKD Permanent AFib Diabetes mellitus Past surgical history PCI Medication history Eliquis Vitamin-C Aspirin Atorvastatin Carvedilol Farxiga Lasix Hydralazine [place] Insulin glargine Isosorbide dinitrate Semaglutide Sertraline Anoro Ellipta Social History Smoker: Non-Smoker Alcohol: Denies ETOH Use Drugs: Denies Drug Use Lives In: Home Review of Systems Review of Systems As described in the HPI Allergies: Coded Allergies: NO KNOWN ALLERGIES (Unverified , 08/14/13) Medications Current Medications Medications Dose Ordered Sig/Johana Route Start Time Stop Time Status Last Admin Dose Admin Heparin Sodium/ Dextrose 250 ml @ 20.184 mls/ hr [id number] IV 12/22/24 05:30 UNV Exam Vital Signs Vital Signs Date Time Temp Pulse Resp B/P (MAP) Pulse Ox O2 Delivery O2 Flow Rate FiO2 12/22/24 04:00 98.0 99 15 108/66 (80) 99 98.0 12/22/24 00:43 Nasal Cannula* 3 32 Exam Examination General Appearance: Alert, Oriented X3, Cooperative, No acute distress HEENT: EOMI Respiratory: Clear to auscultation, Normal air movement Cardiovascular: Regular rate, Normal S1, Normal S2 Abdominal: Normal bowel sounds Extremities: No cyanosis, No edema, Normal pulses, No tenderness/swelling Skin: No rashes, No breakdown Neuro: Normal gait, Normal speech, Strength at 5/5 X4 ext, Normal tone, Sensation intact, Cranial nerves 3-12 NL, Reflexes 2+ Psych/Mental Status: Mental status NL, Mood NL Labs/Xrays Labs Test 12/22/24 03:42 12/22/24 00:44 Range/Units Troponin I High Sensitivity 953 *H </=54 ng/L White Blood Count 10.1 4.4-10.8 10^3/uL Red Blood Count 5.56 4.5-5.90 10^6/uL Hemoglobin 15.6 13.5-17.5 g/dL Hematocrit 47.1 41.0-53.0 % Mean Corpuscular Volume 84.8 80.0-100.0 fL Mean Corpuscular Hemoglobin 28.1 28.0-32.0 pg Mean Corpuscular Hemoglobin Concent 33.2 32.0-36.0 g/dL Red Cell Distribution Width 20.0 H 11.8-14.3 % Platelet Count 134 L 140-450 10^3/uL Mean Platelet Volume 11.2 H 6.9-10.8 fL Neutrophils (%) (Auto) 78.2 37.0-80.0 % Lymphocytes (%) (Auto) 11.4 10.0-50.0 % Monocytes (%) (Auto) 5.7 0.0-12.0 % Eosinophils (%) (Auto) 3.9 0.0-7.0 % Basophils (%) (Auto) 0.8 0.0-2.0 % Neutrophils # (Auto) 7.9 1.6-8.6 10 ^3/uL Lymphocytes # (Auto) 1.2 0.4-5.4 10 ^3/uL Monocytes # (Auto) 0.6 0-1.3 10 ^3/uL Eosinophils # (Auto) 0.4 0-0.8 10 ^3/uL Basophils # (Auto) 0.1 0-0.2 10 ^3/uL Nucleated Red Blood Cells 0.1 % Prothrombin Time 11.9 H 9.3-11.8 sec Prothrombin Time INR 1.14 0.9-1.15 Activated Partial Thromboplast Time 31.3 24.5-34.5 SEC Sodium Level 140 136-145 mmol/L Potassium Level 4.2 3.5-5.1 mmol/L Chloride Level 106 98-107 mmol/L Carbon Dioxide Level 25 20-31 mmol/L Anion Gap 9 5-15 Blood Urea Nitrogen 35 H 9-23 mg/dL Creatinine 1.80 H 0.700-1.30 mg/dL Glomerular Filtration Rate Calc 44 >90 mL/min BUN/Creatinine Ratio 19.4 10.0-20.0 Serum Glucose 237 H 74-106 mg/dL Lactic Acid Level 1.9 0.4-2.0 mmol/L Calcium Level 8.9 8.7-10.4 mg/dL B-Type Natriuretic Peptide 273.82 0-100 pg/mL Assessment/Plan Assessment/Plan Assessment and plan # NSTEMI -EKG reveals no ST elevation but reveals Q-waves in multiple leads -patient was loaded with aspirin 325 mg by EMS -Started on heparin drip by ED physician -Atorvastatin 80 mg once -Cardiology consult -NPO #Acute hypoxic Resp failure due to HF exacerbation -on 3L NC # Acute HFrEF -echo -Cardiology consult -IV Lasix # COPD -No wheezing, stable # CKD -Monitor creatinine # permanent AFib -heparin drip # morbid obesity -Counseling for cessation # Obstructive sleep apnea -CPAP at night DVT prophylaxis Currently on heparin drip Case discussion with Dr. Longoria Plan discussed with: Patient, Other My Orders Orders - JOSSELIN JONES Procedure Category Date Status Time Admit ADMIT 12/22/24 Transmitted 05:30 Oxygen By Nasal RT 12/22/24 Transmitted Cannula 05:30 Notify Of Changes [facility] 12/22/24 In Process From Base 05:30 Vice President [employer] Relations For [facility] 12/22/24 In Process 24 Hours 05:30 Emergency Dysrhythmia JOSH 12/22/24 In Process Protocol 05:30 Rhythm Strips Once [facility] 12/22/24 In Process Every Shift 05:30 Echo 2d Mode Cardiac US 12/22/24 Logged DOP 05:30 Atorvastatin (Lipitor) PHA 12/22/24 Logged 05:30 Npo Except For JOSH 12/22/24 In Process Medications 05:30 * Cardiology Consult CONS 12/22/24 Transmitted 05:38 Date of Service: Dec 22, 2024 Billing Provider: JOSSELIN JONES Common Visit Codes: [id number] INP/OBS CARE (HIGH) Secondary Visit Codes: [id number] CARE PLAN 30 MINUTES JOSSELIN JONES Dec 22, 2024 06:05
[2024-12-22] MEDS: ACCU-CHEK COMFORT CURVE STRIP VI SCH ×2 (06:13→11:55)
[2024-12-22] MEDS: ATORVASTATIN 20 MG TAB PO ONE (06:22)
[2024-12-22] MEDS: FUROSEMIDE 20 MG/2 ML VIAL IV ONE (06:23)
[2024-12-22] MEDS: InsuLIN REG 1unit/0.01ml Soln (100units/ml) SC SCH ×3 (06:24→21:38)
[2024-12-22] MEDS: HEPARIN DRIP/D5W 100UNITS/ML 250 ML IV SCH ×3 (06:24→20:35)
--- NOTE | 2024-12-22 07:09 | ECG ---
[facility] Test Date: 2024-12-22 Test Time: 00:46:07 Pat Name: TRINITY MARIANO Department: ED Room: 0287T Gender: M Perinatal Coordinator: SOFÍA : 1970 Requested By: ASHOK ESPINOZA Order Number: [id number] Reading MD: Paddy Richard Measurements Intervals [place] Rate: 145 P: 0 KS: 0 QRS: -86 QRSD: 99 T: 43 QT: 338 QTc: 525 Interpretive Statements Atrial fibrillation Inferior infarct, old Extensive anterior infarct, old Lateral leads are also involved Prolonged QT interval Electronically Signed On 12-24-2024 20:04:18 PDT by Paddy Richard Please click the below link to view image of tracing.
[2024-12-22 07:53] LABS: Basophils # (auto) 0.1 10 ^3/uL (0-0.2); Basophils % (auto) 0.9 % (0.0-2.0); Eosinophils # (auto) 0.3 10 ^3/uL (0-0.8); Eosinophils % (auto) 3.9 % (0.0-7.0); Hematocrit 47.4 % (41.0-53.0); Hemoglobin 15.7 g/dL (13.5-17.5); Lymphocytes % (auto) 13.3 % (10.0-50.0); Mean Corpuscular Hemoglobin 27.9 pg (28.0-32.0); Mean Corpuscular Volume 84.5 fL (80.0-100.0); Monocytes # (auto) 0.4 10 ^3/uL (0-1.3); Monocytes % (auto) 5.3 % (0.0-12.0); Neutrophils # (auto) 5.9 10 ^3/uL (1.6-8.6); Neutrophils % (auto) 76.6 % (37.0-80.0); Nucleated Red Blood Cells % 0.1 %; Platelet Count (auto) 110 10^3/uL (140-450); Red Blood Cells 5.61 10^6/uL (4.5-5.90); Red Cell Distribution Width 19.8 % (11.8-14.3); White Blood Cell 7.8 10^3/uL (4.4-10.8)
[2024-12-22 08:06] LABS: Alanine Aminotransferase 13 U/L (7-40); Albumin 4.1 g/dL (3.2-4.8); Alkaline Phosphatase 88 U/L (46-116); Anion Gap 10 (5-15); Aspartate Aminotransferase 25 U/L (<34); BUN/Creatinine Ratio 18.8 (10.0-20.0); Bilirubin, Total 0.7 mg/dL (0.2-1.0); Blood Urea Nitrogen 34 mg/dL (9-23); Calcium 9.7 mg/dL (8.7-10.4); Carbon Dioxide 26 mmol/L (20-31); Chloride 107 mmol/L (98-107); Glucose 168 mg/dL (74-106); Magnesium 2.5 mg/dL (1.6-2.6); Potassium 4.1 mmol/L (3.5-5.1); Sodium 143 mmol/L (136-145); Total Protein 6.7 g/dL (5.7-8.2)
[2024-12-22] MEDS ORDERED: NITROGLYCERIN 0.4 MG SL TAB SL PRN (09:15)
[2024-12-22] MEDS: BUMETANIDE 2.5mg/10ml (0.25 mg/ml) INJ IV ONE (09:45)
[2024-12-22] MEDS: CARVEDILOL 3.125 MG TAB PO ONE (09:45)
[2024-12-22] MEDS ORDERED: SACUBITRIL-VALSARTAN 24mg/26mg TAB PO SCH (10:00)
[2024-12-22 10:08] LABS: Urine Bacteria FEW /hpf (None Seen); Urine Blood Negative /uL (Negative); Urine Clarity Clear (Clear); Urine Protein, UAD TRACE (Negative); Urine Specific Gravity 1.007 (1.001-1.035); Urine Squamous Epithelial Cell FEW /hpf (<5); Urine Urobilinogen Normal (Negative); Urine WBC 2 /HPF (0-3); Urine pH 5.5 (5.0-9.0)
[2024-12-22 10:09] LABS: Urine Color Light-Yellow (Yellow)
[2024-12-22 10:12] LABS: Amphetamine Screen, Urine Pos (NEGATIVE); Barbiturate Scree,Urine Neg (NEGATIVE); Benzodiazephine Screen, Urine Neg (NEGATIVE); Cocaine Screen, Urine Neg (NEGATIVE); Opiate Scree,Urine Neg (NEGATIVE); Phencyclidine Screen, Urine Neg (NEGATIVE)
[2024-12-22 10:15] LABS: Cannabinoid Screen, Urine Neg (NEGATIVE)
[2024-12-22 10:26] LABS: COVID19 ANTIGEN SOFIA FIA NEGATIVE (NEGATIVE); Rapid Influenza A Negative (Negative); Rapid Influenza B Negative (Negative)
[2024-12-22] MEDS: HYDROcodone-ACET 10/325MG TAB PO SCH (10:26)
[2024-12-22] MEDS: ASPirin 81 mg TAB PO SCH (10:26)
[2024-12-22] MEDS: SACUBITRIL-VALSARTAN 24mg/26mg TAB PO SCH (10:26)
[2024-12-22] MEDS: INSULIN LANTUS (GLARGINE) 1 /0.01ml (100units/ml) SC ONE (10:26)
--- NOTE | 2024-12-22 10:50 | DVHINCON2 ---
Date Seen: Dec 22, 2024 Referring Physician MD Manuelito resident Reason for Consultation Chest pain, NSTEMI History of Present Illness This is a 54-year-old male patient who presents to emergency room with chief complaint of chest pain. The patient reports that the chest pain began at [place] roximately 10:30 p.m. last night while he was sitting watching TV. He describes the pain as unprovoked, constant, tight in nature, substernal and nonradiating. He reports waiting approximately 10 minutes before calling EMS and was brought to the emergency room for further evaluation. Initial twelve lead electrocardiogram reveals atrial fibrillation with Q-waves in in inferior and anterior leads. Initial troponin level of 45ng/L with significant up trend and current peak level 2000ng/L. Significant past medical history includes coronary artery disease status post PTCA x 1 OLIVE, atrial fibrillation (on Eliquis), congestive heart failure, peripheral arterial disease, hypertension, dyslipidemia, COPD, type 2 diabetes mellitus, peripheral neuropathy, and morbid obesity. The patient reports he follows up with a bioinformatics programmer down at [facility]. Past Medical History Past medical history reviewed. No other significant than mentioned above. Past Surgical History Denies any previous surgeries Family History: Cardiovascular disease G8 BROTHER, , Cause: Lung cancer G8 BROTHER, , Cause: Heart attack Cerebrovascular accident (CVA) G8 MOTHER, , Cause: Stroke Chronic obstructive pulmonary disease G8 FATHER, , Cause: Stomach cancer Diabetes mellitus G8 FATHER, , Cause: Stomach cancer G8 BROTHER, , Cause: Lung cancer G8 BROTHER, , Cause: Heart attack FH: stomach cancer G8 FATHER, , Cause: Stomach cancer FHx: heart failure G8 FATHER, , Cause: Stomach cancer Hypertension G8 MOTHER, , Cause: Stroke Family History Family history reviewed. Social History Denies the use of tobacco, alcohol or illicit drugs. Of note, toxicology screen positive for amphetamines Allergies: Coded Allergies: NO KNOWN ALLERGIES (Unverified , 08/14/13) Home Meds Active Scripts Fluconazole (Diflucan) 150 Mg Tab, 1 TAB PO ONCE, #1 TAB 1 Refill Prov:NGUYỄN AMADOR MD 08/30/24 Ciprofloxacin Hcl (Cipro) 500 Mg Tab, 1 TAB PO BID for 7 Days, #14 TAB Prov:NGUYỄN AMADOR MD 08/30/24 Clotrimazole (Lotrimin) 1 Applic Ap, 1 APPLIC TOP Q12HR for 42 Days, #30 GRAMS 1 Refill apply twice a day to toes Prov:AMADEO LLANOS MD 11/27/23 Aspirin (Aspirin Low Dose) 81 Mg Tab, 81 MG PO DAILY for 30 Days, #30 TAB Prov:ISAEL CHIN RESIDENT 11/25/23 Hydralazine Hcl (Hydralazine Hcl) 10 Mg Tab, 10 MG PO Q8HR for 30 Days, #90 TAB Prov:ISAEL CHIN RESIDENT 11/25/23 Carvedilol (COREG) 3.125 Mg Tab, 6.25 MG PO Q12HR for 30 Days, #120 TAB Prov:ISAEL CHIN RESIDENT 11/25/23 Dapagliflozin Propanediol (Farxiga) 10 Mg Tab, 10 MG PO DAILY, #90 TAB Prov:DESIREE MARTIN MD 01/11/22 Ascorbic Acid (VITAMIN C) 500 Mg Chw, 500 MG OR DAILY for 30 Days, #30 TAB.CHEW Prov:LELA EDUARDO MD 07/26/21 Reported Medications Ipratropium-Albuterol (Ipratropium [place]/Albut) 1 Mattie Mattie, 3 ML NEB Q6HR PRN for DIFFICULTY BREATHING 11/19/23 Insulin Glargine (Basaglar Kwikpen) 100 Unit/Ml Inj, 40 UNIT SC HS 11/19/23 Semaglutide (Ozempic) 2 Mg/3 Ml Inj, 0.25 MG SC QWEEKLY 11/19/23 Umeclidinium-Vilanterol (Anoro Ellipta 62.5-25 Mcg/INH) 1 Aer Aer, 1 PUFF INH DAILY 11/19/23 Sertraline Hcl (Sertraline Hcl) 100 Mg Tab, 1 TAB PO DAILY 11/18/23 Atorvastatin Calcium (ATORVASTATIN CALCIUM) 40 Mg Tab, 1 TAB PO DAILY 11/18/23 Potassium Chloride (Potassium Chloride ER) 10 Meq Tab, 1 TAB PO DAILY 03/19/23 Albuterol Sulfate (Albuterol Sulfate Hfa) 108 Mcg/Act Aer, 2 PUFF PO Q6HPRN PRN for dyspnea 9/21/23 Furosemide (Furosemide) 40 Mg Tab, 1 TAB PO DAILY 03/19/23 Hydrocodone-Acetaminophen (Hydrocodone/Acetaminophen 10-325 mg) 1 Tab Tab, 1 TAB PO Q6HR PRN for SEVERE PAIN 02/25/23 Apixaban Base (ELIQUIS) 5 Mg Tab, 5 MG PO BID, TAB 12/01/21 Isosorbide Dinitrate (Isosorbide Dinitrate) 20 Mg Tab, 30 MG PO DAILY, MG 12/01/21 Insulin Glargine (Lantus) 100 Unit/Ml Inj, 50 UNIT SC 08/24/20 Home Meds Home medications reviewed. Current Medications Current Medications Medications (Trade) Dose Ordered Sig/Johana Route PRN Reason Start Time Stop Time Status Last Admin Heparin Sodium/ Dextrose 250 ml @ 10 mls/hr Q24H IV 12/22/24 06:00 12/22/24 06:24 Ipratropium [place] (Atrovent Medneb) 0.5 mg Q4HPRN PRN NEB SHORTNESS OF BREATH 12/22/24 05:45 12/22/24 05:59 Diagnostic Test (Pha) (Accu-Chek Comfort Curve T) 1 strip Q6HR 12/22/24 06:00 12/22/24 10:07 DC 12/22/24 06:13 Insulin Human Regular (InsuLIN R) Q6HR SC 12/22/24 06:00 12/22/24 10:07 DC 12/22/24 06:24 Dextrose 50 ml UD PRN IV Blood Sugar LESS THAN 60 12/22/24 06:00 12/22/24 10:07 DC Aspirin 81 mg DAILY PO 12/22/24 10:00 12/22/24 10:26 Atorvastatin Calcium (Lipitor) 80 mg HS PO 12/23/24 22:00 Carvedilol (Coreg Tablet) 3.125 mg Q12HR PO 12/22/24 22:00 Sacubitril/ Valsartan (Entresto 24-26 Mg tab) 1 tab BID PO 12/22/24 10:00 12/22/24 10:26 Sacubitril/ Valsartan (Entresto 24-26 Mg tab) 2 tab BID PO 12/22/24 10:00 12/22/24 09:33 DC Bumetanide (Bumex Injection) 2 mg BIDD IV 12/22/24 18:00 12/22/24 09:32 DC Acetaminophen/ Hydrocodone Bitart ([place] 10/325MG Tab) 1 tab DAILY PO 12/22/24 10:00 12/22/24 10:26 Nitroglycerin (Ntrostat Sublingual) 0.4 mg Q5MINP PRN SL FOR CHEST PAIN 12/22/24 09:15 Levalbuterol HCl (Xopenex Medneb) 1.25 mg Q6HR NEB 12/22/24 12:00 Ipratropium [place] (Atrovent Medneb) 0.5 mg Q6HWA NEB 12/22/24 12:00 Insulin Glargine (Lantus) 40 units HS SC 12/22/24 22:00 UNV Diagnostic Test (Pha) (Accu-Chek Comfort Curve T) 1 strip ACHS 12/22/24 11:30 Insulin Human Regular (InsuLIN R) HS SC 12/22/24 22:00 Insulin Human Regular (InsuLIN R) AC SC 12/22/24 11:30 Dextrose 50 ml UD PRN IV Blood Sugar LESS THAN 60 12/22/24 09:45 Review of Systems Constitutional: No symptom reported Ears, Nose, & Throat: No symptom reported Eyes: No symptom reported Neurological: No symptoms reported Pulmonary/Respiratory: No symptoms reported Cardiovascular: Chest pain Gastrointestinal: No symptom reported Genitourinary: No symptom reported Musculoskeletal: No symptom reported Skin: No symptom reported Psychiatric: No symptom reported Endocrine: No symptom reported Hematologic/Lymphatic: No symptom reported Vital Signs Vital Signs Date Time Temp Pulse Resp B/P (MAP) Pulse Ox O2 Delivery O2 Flow Rate FiO2 12/22/24 09:45 123/54 12/22/24 09:45 82 12/22/24 08:50 99 Nasal Cannula* 2 28 12/22/24 08:34 21 12/22/24 06:00 98.1 98.1 Labs/Diagnostic Data Labs Test 12/22/24 09:15 12/22/24 09:00 12/22/24 06:26 12/22/24 06:13 Range/Units Influenza Type A Antigen Negative Negative Influenza Type B Antigen Negative Negative SARS-CoV-2 Antigen (Rapid) Negative NEGATIVE Urine Color Light-yellow Yellow Urine Clarity Clear Clear Urine pH 5.5 5.0-9.0 Urine Specific [place] 1.007 1.001-1.035 Urine Protein Trace H Negative Urine Ketones Negative Negative Urine Blood Negative Negative /uL Urine Nitrite Negative Negative Urine Bilirubin Negative Negative Urine Urobilinogen Normal Negative mg/dL Urine Leukocyte Esterase Negative Negative /uL Urine RBC None seen 0 - 3 /hpf Urine Microscopic WBC 2 0-3 /HPF Urine Squamous Epithelial Cells Few <5 /hpf Urine Bacteria Few H None Seen /hpf Urine Glucose 3+ H Normal mg/dL Urine Opiates Screen Neg NEGATIVE Urine Fentanyl Screen Neg NEGATIVE Urine Barbiturates Screen Neg NEGATIVE Urine Phencyclidine Screen Neg NEGATIVE Urine Amphetamines Screen Pos NEGATIVE Urine Benzodiazepines Screen Neg NEGATIVE Urine Cocaine Screen Neg NEGATIVE Urine Cannabinoids Screen Neg NEGATIVE White Blood Count 7.8 4.4-10.8 10^3/uL Red Blood Count 5.61 4.5-5.90 10^6/uL Hemoglobin 15.7 13.5-17.5 g/dL Hematocrit 47.4 41.0-53.0 % Mean Corpuscular Volume 84.5 80.0-100.0 fL Mean Corpuscular Hemoglobin 27.9 L 28.0-32.0 pg Mean Corpuscular Hemoglobin Concent 33.0 32.0-36.0 g/dL Red Cell Distribution Width 19.8 H 11.8-14.3 % Platelet Count 110 L 140-450 10^3/uL Mean Platelet Volume 10.6 6.9-10.8 fL Neutrophils (%) (Auto) 76.6 37.0-80.0 % Lymphocytes (%) (Auto) 13.3 10.0-50.0 % Monocytes (%) (Auto) 5.3 0.0-12.0 % Eosinophils (%) (Auto) 3.9 0.0-7.0 % Basophils (%) (Auto) 0.9 0.0-2.0 % Neutrophils # (Auto) 5.9 1.6-8.6 10 ^3/uL Lymphocytes # (Auto) 1.0 0.4-5.4 10 ^3/uL Monocytes # (Auto) 0.4 0-1.3 10 ^3/uL Eosinophils # (Auto) 0.3 0-0.8 10 ^3/uL Basophils # (Auto) 0.1 0-0.2 10 ^3/uL Nucleated Red Blood Cells 0.1 % Sodium Level 143 136-145 mmol/L Potassium Level 4.1 3.5-5.1 mmol/L Chloride Level 107 98-107 mmol/L Carbon Dioxide Level 26 20-31 mmol/L Anion Gap 10 5-15 Blood Urea Nitrogen 34 H 9-23 mg/dL Creatinine 1.81 H 0.700-1.30 mg/dL Glomerular Filtration Rate Calc 43 >90 mL/min BUN/Creatinine Ratio 18.8 10.0-20.0 Serum Glucose 168 H 74-106 mg/dL Calcium Level 9.7 8.7-10.4 mg/dL Magnesium Level 2.5 1.6-2.6 mg/dL Total Bilirubin 0.7 0.2-1.0 mg/dL Aspartate Amino Transferase (AST) 25 <34 U/L Alanine Aminotransferase (ALT) 13 7-40 U/L Alkaline Phosphatase 88 46-116 U/L Troponin I High Sensitivity 2000 *H </=54 ng/L Total Protein 6.7 5.7-8.2 g/dL Albumin 4.1 3.2-4.8 g/dL POC Glucose 181 H 70-106 mg/dl Test 12/22/24 00:44 Range/Units Prothrombin Time 11.9 H 9.3-11.8 sec Prothrombin Time INR 1.14 0.9-1.15 Activated Partial Thromboplast Time 31.3 24.5-34.5 SEC Lactic Acid Level 1.9 0.4-2.0 mmol/L B-Type Natriuretic Peptide 273.82 0-100 pg/mL Assessment Chest pain, rule out progressive coronary artery disease Coronary artery disease status post PTCA x 1 OLIVE Atrial fibrillation, likely longstanding persistent (on Eliquis) Acute on chronic decompensated HFrEF, NYHA class III Peripheral arterial disease Hypertension Dyslipidemia COPD Type 2 diabetes mellitus Morbid obesity Amphetamine use Plan/Recommendation We will continue with the following plan/recommendations (Dr. Richard): * Transthoracic echocardiogram to evaluate cardiac function * Previous echocardiogram from 11/19/2023 reveals an EF of 35% * Initiate guideline directed medical therapy for CHF as renal function permits * Avoid nephrotoxic agents at this time. Initiate spironolactone and SGLT2i with improved renal function * Chest pain protocol * TANNER score: 3 points * HEART score: 6 points (moderate score) * Heparin drip per ACS protocol * Single antiplatelet therapy and lipid-lowering agent * [id number] VASc score: 4 points, HAS-BLED score: 1 point * Heparin gtt while inpatient, transition back to Eliquis when appropriate * Beta-yvette for rate control * Avoid antiarrhythmic agents given atrial fibrillation likely longstanding persistent * Close Cardiac surveillance: Notify Cardiology immediately for any ECG changes * Coronary angiogram- 12/23/24 * Initiate gentle IV hydration * Avoid nephrotoxic agents * Risk factor modifications, counseled * Cessation of amphetamine use Case discussed with . Given the patient's clinical presentation, 12 lead electrocardiogram, and significant cardiac history, the patient may benefit from a coronary angiogram with left heart catheterization. The procedure was discussed with the patient in full detail including risks and benefits. Risks include but are not limited to bleeding, contrast-induced nephropathy, stroke, and even . The patient understands and is agreeable to undergo the procedure. We will schedule the patient at soonest availability on 12/23/2024. Thank you for allowing us to care for this patient. Please call with any questions or concerns. Critical care time spent: 44 minutes This medical document was created using an electronic medical record system with voice recognition software and computerized dictation system. Although this document has been carefully reviewed, there might still be some phonetic and typographical errors. Occasional wrong-word or ``sound-alike substitutions may have occurred due to the inherent limitations of voice recognition software. These areas are purely typographical due to imperfections of the software programs and do not reflect any compromise in the patient's medical care. Please read the chart carefully and recognize, using context, where these substitutions have occurred. Plan discussed with: Patient NYHA Physical activity limitations: Class3(Marked) ordinary (activity causes symtoms) Date of Service: Dec 22, 2024 Billing Provider: [facility] Cardiology Common Codes: [id number] INP/OBS CARE (High) Cardiology Consultation Codes: [id number] CONSULT <45MIN [facility] Dec 22, 2024 10:50
[2024-12-22] MEDS: LEVALBUTEROL HCL 1.25 MG/3 ML NEB NEB SCH (11:25)
[2024-12-22] MEDS: IPRATROPIUM BROM 0.5 MG/2.5ML INH SOL NEB SCH (11:25)
[2024-12-22 12:20] LABS: INR 1.14 (0.9-1.15); Partial Thromboplastin Time 36.3 SEC (24.5-34.5); Prothrombin Time 11.9 sec (9.3-11.8)
--- NOTE | 2024-12-22 13:05 | CONS ---
Pharmacy Clinical Information: ARIN PER PHARMACY PREVIOUS RATE: 1000UNITS/HR APTT @1200 36.3 NEW RATE: 1200 UNITS/HR NEXT APTT TO BE DRAWN 6 HOURS FROM WHEN NEW RATE IS STARTED COVERING RN AWARE PRX RX PROTOCOL NINA ENRIQUEZ PHARMACIST Dec 22, 2024 13:05
--- NOTE | 2024-12-22 13:27 | DVHPNRES ---
Progress Note Date Seen: Dec 22, 2024 Resident Creating Document: SUNIL BOYD DARREL Has the PT tested + for MRSA If YES, has PT been informed?: No Medical Necessity Reason Pt with a Central, PICC or Fol: No Subjective Review of Systems HOSPITAL COURSE: This is a 54 M past medical history of heart failure with reduced ejection ejection fraction, coronary artery disease status post PCI, asthma, COPD, CKD, permanent AFib,, diabetes mellitus, peripheral arterial disease, morbid obesity, obstructive sleep apnea presented with complaints of chest pain. Patient was at his friend's house at 0900 hours when he started feeling chest pain which is described as substernal which was initially burning type, relieved with nitroglycerin/rest. He also reports of sweating, and shortness of breaths. Patient called EMS where he was given aspirin 325 mg and nitroglycerin 3 times after which his pain resolved. Patient is on home oxygen at 2 L. Past medical history: CHF, COPD, CKD, permanent AFib, diabetes type 2 Past surgical history: PCI Home medication: Eliquis, vitamin-C, aspirin, atorvastatin, carvedilol, Pradaxa, Lasix, hydralazine, Quimby, insulin glargine, isosorbide dinitrate, semaglutide, sertraline, Anoro Ellipta Patient seen and examined at the bedside. Patient is still complained of mild chest pain. Patient reports: No new complaints Changes from previous H/P or p: No Changes Objective vital signs Vital Sign Date Time Temp Pulse Resp B/P (MAP) Pulse Ox O2 Delivery O2 Flow Rate FiO2 12/22/24 11:33 87 20 100 12/22/24 11:26 Nasal Cannula 2.0 12/22/24 11:26 28 12/22/24 10:59 110/77 12/22/24 06:00 98.1 98.1 medications Current Medications Medications Dose Ordered Sig/Johana Route Start Time Stop Time Status Last Admin Dose Admin Ipratropium [place] 0.5 mg Q4HPRN PRN NEB 12/22/24 05:45 12/22/24 05:59 0.5 MG Aspirin 81 mg DAILY PO 12/22/24 10:00 12/22/24 10:26 81 MG Atorvastatin Calcium 80 mg HS PO 12/23/24 22:00 Carvedilol 3.125 mg Q12HR PO 12/22/24 22:00 Sacubitril/ Valsartan 1 tab BID PO 12/22/24 10:00 12/22/24 10:26 1 TAB Acetaminophen/ Hydrocodone Bitart 1 tab DAILY PO 12/22/24 10:00 12/22/24 10:26 1 TAB Nitroglycerin 0.4 mg Q5MINP PRN SL 12/22/24 09:15 Levalbuterol HCl 1.25 mg Q6HR NEB 12/22/24 12:00 12/22/24 11:25 1.25 MG Ipratropium [place] 0.5 mg Q6HWA NEB 12/22/24 12:00 12/22/24 11:25 0.5 MG Insulin Glargine 40 units HS SC 12/22/24 22:00 UNV Diagnostic Test (Pha) 1 strip ACHS 12/22/24 11:30 12/22/24 11:55 1 STRIP Insulin Human Regular HS SC 12/22/24 22:00 Insulin Human Regular AC SC 12/22/24 11:30 12/22/24 11:58 2 UNITS Dextrose 50 ml UD PRN IV 12/22/24 09:45 Heparin Sodium/ Dextrose 250 ml @ 12 mls/hr [id number] IV 12/22/24 13:00 12/22/24 13:00 12 MLS/HR Examination General Appearance: Alert, Oriented X3, Cooperative, No acute distress HEENT: Atraumatic, PERRLA, EOMI, Mucous membrane moist/pink Respiratory: Bilateral mild crackles Cardiovascular: Regular rate, Normal S1, Normal S2, No murmurs, no chest wall tenderness Abdominal: Normal bowel sounds, Soft, No tenderness, No hepatospenomegaly, No masses Extremities: Bilateral grade 2 pedal edema Skin: No rashes, No breakdown, No significant lesion Neuro: Normal gait, Normal speech, Strength at 5/5 X4 ext, Normal tone, Sensation intact, Cranial nerves 3-12 NL, Reflexes 2+ Psych/Mental Status: Mental status NL, Mood NL laboratory and microbiology Laboratory Tests 12/22/24 06:26 Test 12/22/24 06:26 Range/Units Serum Glucose 168 H 74-106 mg/dL Labs and/or images reviewed: Labs reviewed by me, Image(s) reviewed by me Problem List/Assessment/Plan Problem List/Assessment/Plan Chest pain, likely due to NSTEMI type 1 Acute on chronic hypoxic respiratory failure, likely due to heart failure Acute on chronic systolic heart failure History of coronary artery disease AFib with AVR Acquired hypercoagulopathy Hypertension Dyslipidemia Diabetes type 2 Morbid obesity Medication and adherence Methamphetamine use disorder SCOUT and CKD, likely VMN History of COPD, on 2 L of oxygen during the night Obstructive sleep apnea, on CPAP during night * EKGs shows, AFib with RVR, diffuse Q-waves * Trop I is raised, up trending * Chest x-ray shows cardiomegaly with bilateral lower zone infiltration with pulmonary vascular congestion Plan/recommendation * Atorvastatin and Aspirin and nitroglycerin sublingually * Heparin drip * Resume home meds * Insulin Lantus 40 units daily, lispro 7 units t.i.d., insulin regular according to moderate sliding scale * Consulted cardiology * Check echocardiogram * Breathing treatment * CPAP during the night DIET: NPO DVT PROPHYLAXIS: On heparin drip GI PROPHYLAXIS:: Protonix CODE STATUS: Goal of care discussed for more than 18 minutes, full code DISPOSITION: Telemetry Patient's status and plan discussed with the patient. Case discussed with Dr. Ortiz. Plan discussed with: Patient, Other (RN) My Orders My Orders Orders - SUNIL BOYD Procedure Category Date Status Time Aspirin Tablet PHA 12/22/24 In Process 10:00 Atorvastatin (Lipitor) PHA 12/23/24 In Process 22:00 * Cardiology Consult CONS 12/22/24 Transmitted 09:06 Carvedilol Tablet PHA 12/22/24 In Process (Coreg Tablet) 22:00 Sacubitril-Valsartan PHA 12/22/24 In Process (Entresto 24-26 Mg 10:00 Hydrocodone-Acet PHA 12/22/24 In Process 10/325mg Tab (Quimby 10:00 Nitroglycerin PHA 12/22/24 In Process Sublingual (Ntrostat 09:15 Levalbuterol Hcl PHA 12/22/24 In Process (Xopenex Medneb) 12:00 Ipratropium Medneb PHA 12/22/24 In Process (Atrovent Medneb) 12:00 Insulin Lantus PHA 12/22/24 Logged (Glargine) (Lantus) 22:00 Glucose Blood PHA 12/22/24 In Process (Accu-Chek Comfort 11:30 Insulin R (Human) PHA 12/22/24 In Process (Insulin R) 22:00 Insulin R (Human) PHA 12/22/24 In Process (Insulin R) 11:30 Dextrose 50% Syringe PHA 12/22/24 In Process 09:45 Date of Service: Dec 22, 2024 Billing Provider: REY ORTIZ MD Common Visit Codes: [id number] INP/OBS CARE(HIGH) SUNIL BOYD RESDILITO Dec 22, 2024 13:27 REY ORTIZ MD Dec 26, 2024 21:55
[2024-12-22] MEDS: SODIUM CHLORIDE 0.9% 1,000 ML IV ONE (16:38)
[2024-12-22] MEDS: INSULIN LISPRO (HUMAN) 100 UNITS/ML ML SC SCH (16:51)
[2024-12-22] MEDS ORDERED: BUMETANIDE 1mg/4ml VIAL (0.25mg/ml) IV SCH (18:00)
[2024-12-22] MEDS: BUMETANIDE 1mg/4ml VIAL (0.25mg/ml) IV SCH (18:25)
[2024-12-22 19:48] LABS: INR 1.14 (0.9-1.15); Partial Thromboplastin Time 35.9 SEC (24.5-34.5); Prothrombin Time 11.9 sec (9.3-11.8)
--- NOTE | 2024-12-22 20:22 | CONS ---
Pharmacy Clinical Information: INCREASE HEPARIN DRIP RATE TO 1400 UNITS/HR PER APTT OF 35.9 NEXT APTT DRAW SCHEDULED FOR 12/23 @0230 PER RX PROTOCOL ROSANGELA KWOK CONFIRMED AND READ BACK Scarlet Kingston PHARMACIST Dec 22, 2024 20:22
[2024-12-22] MEDS: CARVEDILOL 3.125 MG TAB PO SCH (21:35)
[2024-12-22] MEDS: INSULIN LANTUS (GLARGINE) 1 /0.01ml (100units/ml) SC SCH (21:48)
[2024-12-23] VITALS (20 sets, daily range): BP systolic 101–145; BP diastolic 69–93; PULSE 51–108; RESP 16–18; TEMP 96.5–98.3; O2SAT 94–100
[2024-12-23 02:31] LABS: INR 1.11 (0.9-1.15); Partial Thromboplastin Time 40.2 SEC (24.5-34.5); Prothrombin Time 11.6 sec (9.3-11.8)
[2024-12-23] MEDS: HEPARIN DRIP/D5W 100UNITS/ML 250 ML IV SCH ×3 (03:09→22:30)
[2024-12-23 05:52] LABS: Basophils # (auto) 0.1 10 ^3/uL (0-0.2); Basophils % (auto) 0.9 % (0.0-2.0); Eosinophils # (auto) 0.2 10 ^3/uL (0-0.8); Eosinophils % (auto) 3.6 % (0.0-7.0); Hemoglobin 15.8 g/dL (13.5-17.5); Lymphocytes # (auto) 1.1 10 ^3/uL (0.4-5.4); Lymphocytes % (auto) 15.9 % (10.0-50.0); Mean Corpuscular Hemoglobin 27.7 pg (28.0-32.0); Mean Corpuscular Hgb Conc. 32.9 g/dL (32.0-36.0); Mean Corpuscular Volume 84.3 fL (80.0-100.0); Monocytes # (auto) 0.5 10 ^3/uL (0-1.3); Monocytes % (auto) 6.9 % (0.0-12.0); Neutrophils # (auto) 4.9 10 ^3/uL (1.6-8.6); Neutrophils % (auto) 72.7 % (37.0-80.0); Nucleated Red Blood Cells % 0.6 %; Platelet Count (auto) 109 10^3/uL (140-450); Red Blood Cells 5.69 10^6/uL (4.5-5.90); Red Cell Distribution Width 19.7 % (11.8-14.3); White Blood Cell 6.8 10^3/uL (4.4-10.8)
[2024-12-23 05:59] LABS: Alanine Aminotransferase 12 U/L (7-40); Albumin 3.9 g/dL (3.2-4.8); Alkaline Phosphatase 86 U/L (46-116); Anion Gap 10 (5-15); Aspartate Aminotransferase 23 U/L (<34); BUN/Creatinine Ratio 18.9 (10.0-20.0); Calcium 9.5 mg/dL (8.7-10.4); Carbon Dioxide 27 mmol/L (20-31); Chloride 104 mmol/L (98-107); Potassium 3.9 mmol/L (3.5-5.1); Sodium 141 mmol/L (136-145); Total Protein 6.5 g/dL (5.7-8.2)
[2024-12-23 06:00] LABS: Bilirubin, Total 0.9 mg/dL (0.2-1.0)
[2024-12-23 06:33] LABS: Blood Urea Nitrogen 34 mg/dL (9-23); Glucose 126 mg/dL (74-106)
[2024-12-23 09:30] LABS: INR 1.12 (0.9-1.15); Partial Thromboplastin Time 39.2 SEC (24.5-34.5); Prothrombin Time 11.7 sec (9.3-11.8)
[2024-12-23] MEDS: IODIXANOL 320MG/ML 100ML BTL IV ONE (12:33)
[2024-12-23] MEDS: ANGIOMAX 250 MG VIAL IV ONE (13:04)
[2024-12-23] MEDS: VERAPAMIL 2.5MG/ML INJ 2ML VIAL IV ONE (13:05)
[2024-12-23] MEDS: MIDAZOLAM HCL 2MG/2ML 2ml VIAL (1mg/ml) ONE (13:05)
[2024-12-23] MEDS: LIDOCAINE 2%HCL (LOCAL ANESTH.) INJ 20ML MDV ONE (13:05)
[2024-12-23] MEDS: HEPARIN SODIUM (PORCINE) 5000 UNITS/ML 1ML VIAL ONE (13:05)
[2024-12-23] MEDS: SODIUM CHL 0.9% 0 ML ONE (13:05)
[2024-12-23] MEDS: fentaNYL CITRATE 100 MCG/2 ML VL ONE (13:05)
--- NOTE | 2024-12-23 15:12 | DVHPNRES ---
Progress Note Date Seen: Dec 23, 2024 Resident Creating Document: SUNIL BOYD DARREL Has the PT tested + for MRSA If YES, has PT been informed?: No Medical Necessity Reason Pt with a Central, PICC or Fol: No Subjective Review of Systems Patient seen and examined at the bedside post coronary angiogram. The patient is distal pulses are intact, with no sensory deficits. Arterial access area is clean, no hematoma and L2 bleeding has been observed. Patient reports: No new complaints, Feels better Changes from previous H/P or p: Changes Objective vital signs Vital Sign Date Time Temp Pulse Resp B/P (MAP) Pulse Ox O2 Delivery O2 Flow Rate FiO2 12/23/24 14:44 89 18 145/91 (109) 97 12/23/24 13:44 98.3 98.3 12/23/24 08:04 Nasal Cannula* 2 28 Total Intake and Output 12/22/24 12/22/24 12/23/24 15:00 23:00 07:00 Intake Total 84 ml 461 ml 300 ml Balance 84 ml 461 ml 300 ml medications Current Medications Medications Dose Ordered Sig/Johana Route Start Time Stop Time Status Last Admin Dose Admin Aspirin 81 mg DAILY PO 12/22/24 10:00 12/22/24 10:26 81 MG Atorvastatin Calcium 80 mg HS PO 12/23/24 22:00 Carvedilol 3.125 mg Q12HR PO 12/22/24 22:00 12/22/24 21:35 3.125 MG Sacubitril/ Valsartan 1 tab BID PO 12/22/24 10:00 12/22/24 21:35 1 TAB Acetaminophen/ Hydrocodone Bitart 1 tab DAILY PO 12/22/24 10:00 12/22/24 10:26 1 TAB Nitroglycerin 0.4 mg Q5MINP PRN SL 12/22/24 09:15 Levalbuterol HCl 1.25 mg Q6HR NEB 12/22/24 12:00 12/23/24 06:32 1.25 MG Ipratropium [place] 0.5 mg Q6HWA NEB 12/22/24 12:00 12/23/24 06:32 0.5 MG Insulin Glargine 40 units HS SC 12/22/24 22:00 12/22/24 21:48 40 UNITS Diagnostic Test (Pha) 1 strip ACHS 12/22/24 11:30 12/23/24 05:22 1 STRIP Insulin Human Regular HS SC 12/22/24 22:00 Insulin Human Regular AC SC 12/22/24 11:30 12/22/24 16:51 2 UNITS Dextrose 50 ml UD PRN IV 12/22/24 09:45 Insulin Human Lispro 6 units AC SC 12/22/24 17:00 12/22/24 16:51 6 UNITS Bumetanide 2 mg BIDD IV 12/22/24 18:00 12/23/24 05:18 2 MG Heparin Sodium/ Dextrose 250 ml @ 18 mls/hr [id number] IV 12/23/24 10:00 Examination General Appearance: Alert, Oriented X3, Cooperative, No acute distress HEENT: Atraumatic, PERRLA, EOMI, Mucous membrane moist/pink Respiratory: Clear to auscultation, Normal air movement Cardiovascular: Regular rate, Normal S1, Normal S2, No murmurs, no chest wall tenderness Abdominal: Normal bowel sounds, Soft, No tenderness, No hepatospenomegaly, No masses Extremities: No clubbing, No cyanosis, No edema, Normal pulses, No tenderness/swelling Skin: No rashes, No breakdown, No significant lesion Neuro: Normal gait, Normal speech, Strength at 5/5 X4 ext, Normal tone, Sensation intact, Cranial nerves 3-12 NL, Reflexes 2+ Psych/Mental Status: Mental status NL, Mood NL laboratory and microbiology Laboratory Tests 12/23/24 05:10 Test 12/23/24 05:10 Range/Units Serum Glucose 126 H 74-106 mg/dL Microbiology Date/Time Source Procedure Growth Status 12/22/24 00:44 Blood Blood Culture - Preliminary NO GROWTH AFTER 24 HOURS OF INCUBATION. Resulted Labs and/or images reviewed: Labs reviewed by me, Image(s) reviewed by me Problem List/Assessment/Plan Problem List/Assessment/Plan Chest pain, likely due to NSTEMI type 1 Acute on chronic hypoxic respiratory failure, likely due to heart failure Acute on chronic systolic heart failure History of coronary artery disease AFib with AVR Acquired hypercoagulopathy Hypertension Dyslipidemia Diabetes type 2 Morbid obesity Medication and adherence Methamphetamine use disorder SCOUT and CKD, likely VMN History of COPD, on 2 L of oxygen during the night Obstructive sleep apnea, on CPAP during night * EKGs shows, AFib with RVR, diffuse Q-waves * Trop I is raised, up trending * Chest x-ray shows cardiomegaly with bilateral lower zone infiltration with pulmonary vascular congestion Plan/recommendation * Atorvastatin and Aspirin and nitroglycerin sublingually * Heparin drip * Resume home meds * Insulin Lantus 40 units daily, lispro 7 units t.i.d., insulin regular according to moderate sliding scale * Consulted cardiology, performed left heart catheterization, has multiple coronary artery disease and recommended urgent CABG, sr. social media & mobile manager consulted for transferred to higher level of care. * Check echocardiogram * Breathing treatment * CPAP during the night DIET: NPO DVT PROPHYLAXIS: On heparin drip GI PROPHYLAXIS:: Protonix CODE STATUS: Goal of care discussed for more than 18 minutes, full code DISPOSITION: Telemetry Patient's status and plan discussed with the patient. Case discussed with Dr. Ortiz. Plan discussed with: Patient, Other (RN) My Orders My Orders Orders - SUNIL BOYD RESDILITO Procedure Category Date Status Time * Customer Insight Analyst CONS 12/23/24 Transmitted Consult Date of Service: Dec 23, 2024 Billing Provider: REY ORTIZ MD Common Visit Codes: [id number] INP/OBS CARE(HIGH) SUNIL BOYD RESDIENT Dec 23, 2024 15:12 REY ORTIZ MD Dec 26, 2024 22:14
--- NOTE | 2024-12-23 15:40 | DVHOP2 ---
Operative Report - 2 Report Details Date: 12/23/24 Preop Diagnosis: CAD Postop Diagnosis: CAD cardiomyopathy Surgeon: Heather Richard MD Anesthesiologist: Conscious sedation Anesthesia: Mac, Local Consent: The patient was informed of the risks and benefits of the procedure. These include but are not limited to complications of anesthesia, postoperative infection, incomplete relief of symptoms, recurrence of symptoms, damage to blood vessels, nerves and tendons, deep venous thrombosis, pulmonary embolism and possible need for repeat surgery in the future. Complications: No complications Findings: Severe three-vessel coronary artery disease. Cardiomyopathy. Elevated end- diastolic pressures. Indications for Surgery: Abnormal troponins. Cardiomyopathy. CAD. Name of Procedure Performed Left heart catheterization. Bilateral cine coronary angiography. Left ventriculography. Procedure Details Procedure Details: Prior local anesthesia with 2% lidocaine to the right wrist and full informed consent obtained the patient was prepped and draped in usual fashion followed by placement of a six [place] sheath into the radial artery through which a multipurpose catheter was used for for cannulation of both right and left dillan nary ostium and ventriculography. No complications. Hemodynamics: Aortic blood pressure was 130/70. End-diastolic pressure was 18. There was no gradient across the aortic valve on pullback. Coronary anatomy: The RCA is a large vessel. It has moderate plaquing. It is 99% occluded at its mid section. The acute marginal branch gives rise to the mid PDA and apical segment of the PDA. The distal RCA is filled faintly via sluggish flow from the 99% occluded mid RCA. A posterolateral branch is visuali zed however faintly filling. The left main is large and normal. Left anterior descending coronary artery is a large vessel. Has [id number] disease in his proximal mid section. There was a hazy 75-80% stenosis in its proximal portion. The mid LAD is 99% occluded. There is severe in stent restenosis. The distal LAD distal to the stent. Small. Diagonals are free of significant disease. The circumflex is a large vessel. The 1st obtuse marginal branch/intermediate has a hazy mid 60-70% stenosis. The 1st obtuse marginal branch has an ostial 99% stenosis. The distal circumflex which is codominant is 95% stenosis. Di stal to the a posterolateral branch at its proximal portion has a 95% proximal stenosis Ventriculography in the FAGAN projection shows an EF of about 25% with anterior apical hypokinesis to akinesis. A dilated left ventricle. Impression: Elevated left ventricular end-diastolic pressure rest. Decreased left ventricular ejection fraction. Three-vessel coronary artery disease as delineated above. Recommendations: suggest referral to tertiary care center for coronary bypass grafting. Condition Guarded Disposition Still a Patient Date of Service: Dec 23, 2024 Billing Provider: HEATHER RICHARD Sr., MD Cardiology Common Codes: [id number] INP/OBS CARE (High) Cardiology Procedure Codes: [id number] HEART CATH W/INTRA INJ HEATHER RICHARD Sr., MD Dec 23, 2024 15:40
--- NOTE | 2024-12-23 19:18 | DVHSR ---
APPROVED REPORT EXAM: Two-dimensional and M-mode echocardiogram with Doppler and color Doppler. Blood Pressure: 103/60 mmHg INDICATION NSTEMI RISK FACTORS Height: 70, Weight: 375 DIMENSIONS LVDd5.9 (3.8-5.7cm)LA (2D)5.6 (1.9-4.0cm)Aortic Root3.8 (2.0-3.7cm) LVDs4.8 (2.5-4.0cm)LA (MM) (1.9-4.0cm)Aortic Cusp Exc1.7 (1.5-2.0cm) EF (%) 38.0 (55-70%)Rt. Atrium (1.9-4.0cm)Asc. Aorta cm IVSd1.5 (0.7-1.1cm)RV (D) (1.8-2.4cm) PWd1.9 (0.7-1.1cm) Mitral Valve MitralMitral Stenosis E/A ratio0.02D MVAcm2 Aortic Valve Aortic ValveAortic Stenosis V10.78m/Natan Mean GR.3mmHg V21.14m/Natan Peak GR.5mmHg LVOT Diameter2.4 (1.8-2.4cm)Doppler AVA3.09cm2 Pulmonic Valve V20.74m/s Tricuspid Valve TR Velocity3.12m/s [id number] Conclusion DILATED LV MODERATE DEGREE LV GLOBAL HYPOKINESIS LV EF IS 30% MODERATELY DILATED LA HEAVILY CALCIFIED POSTERIOR MITRAL LEAFLET AND ANNULUS MODERATELY CALCIFIED AORTIC LEAFLETS RV MODERATELY DILATED AND IS HYPOKINETIC MODERATE DEGREE PULMONARY HYPERTENSION RVSP IS 45 MM F HG NO EFFUSION
[2024-12-23] MEDS: HYDROcodone-ACET 10/325MG TAB PO ONE (20:09)
[2024-12-23] MEDS: ATORVASTATIN 20 MG TAB PO SCH (21:45)
[2024-12-23 22:18] LABS: INR 1.12 (0.9-1.15); Prothrombin Time 11.7 sec (9.3-11.8)
[2024-12-24] VITALS (16 sets, daily range): BP systolic 101–140; BP diastolic 63–88; PULSE 52–105; RESP 16–20; TEMP 96.1–98.3; O2SAT 94–100
[2024-12-24 05:55] LABS: INR 1.12 (0.9-1.15); Partial Thromboplastin Time 58.7 SEC (24.5-34.5); Prothrombin Time 11.7 sec (9.3-11.8)
[2024-12-24 05:56] LABS: Chloride 102 mmol/L (98-107); Potassium 3.8 mmol/L (3.5-5.1); Sodium 139 mmol/L (136-145)
[2024-12-24 05:57] LABS: Anion Gap 9 (5-15); Carbon Dioxide 28 mmol/L (20-31)
[2024-12-24 05:58] LABS: Calcium 9.3 mg/dL (8.7-10.4)
[2024-12-24 06:02] LABS: Glucose 100 mg/dL (74-106)
[2024-12-24 06:08] LABS: Blood Urea Nitrogen 37 mg/dL (9-23)
[2024-12-24 06:10] LABS: Basophils # (auto) 0.1 10 ^3/uL (0-0.2); Basophils % (auto) 0.7 % (0.0-2.0); Eosinophils # (auto) 0.3 10 ^3/uL (0-0.8); Eosinophils % (auto) 3.6 % (0.0-7.0); Hemoglobin 15.5 g/dL (13.5-17.5); Lymphocytes # (auto) 1.1 10 ^3/uL (0.4-5.4); Lymphocytes % (auto) 13.8 % (10.0-50.0); Mean Corpuscular Hemoglobin 28.2 pg (28.0-32.0); Mean Corpuscular Hgb Conc. 33.6 g/dL (32.0-36.0); Monocytes # (auto) 0.6 10 ^3/uL (0-1.3); Monocytes % (auto) 7.6 % (0.0-12.0); Neutrophils # (auto) 5.7 10 ^3/uL (1.6-8.6); Neutrophils % (auto) 74.3 % (37.0-80.0); Nucleated Red Blood Cells % 0.1 %; Platelet Count (auto) 113 10^3/uL (140-450); Red Blood Cells 5.48 10^6/uL (4.5-5.90); Red Cell Distribution Width 19.6 % (11.8-14.3); White Blood Cell 7.7 10^3/uL (4.4-10.8)
[2024-12-24 11:36] LABS: INR 1.13 (0.9-1.15); Partial Thromboplastin Time 68.5 SEC (24.5-34.5); Prothrombin Time 11.8 sec (9.3-11.8)
[2024-12-24] MEDS ORDERED: HEPARIN DRIP/D5W 100UNITS/ML 250 ML IV SCH (13:45)
[2024-12-24] MEDS: HEPARIN DRIP/D5W 100UNITS/ML 250 ML IV SCH ×2 (13:45→18:48)
--- NOTE | 2024-12-24 13:56 | DVHPN2 ---
Consult Progress Note Subjective Patient reports: Other (Episode diaphoresis this morning blood glucose though.) Objective vital signs Vital Sign Date Time Temp Pulse Resp B/P (MAP) Pulse Ox O2 Delivery O2 Flow Rate FiO2 12/24/24 11:37 96 18 100 12/24/24 11:31 Nasal Cannula* 2 12/24/24 10:06 142/88 12/24/24 09:00 96.7 96.7 Total Intake and Output 12/23/24 12/23/24 12/24/24 15:00 23:00 07:00 Intake Total 1392 ml 600 ml Balance 1392 ml 600 ml medications Current Medications Medications Dose Ordered Sig/Johana Route Start Time Stop Time Status Last Admin Dose Admin Aspirin 81 mg DAILY PO 12/22/24 10:00 12/24/24 09:05 81 MG Atorvastatin Calcium 80 mg HS PO 12/23/24 22:00 12/23/24 21:45 80 MG Carvedilol 3.125 mg Q12HR PO 12/22/24 22:00 12/24/24 09:06 3.125 MG Sacubitril/ Valsartan 1 tab BID PO 12/22/24 10:00 12/24/24 09:06 1 TAB Acetaminophen/ Hydrocodone Bitart 1 tab DAILY PO 12/22/24 10:00 12/24/24 09:05 1 TAB Nitroglycerin 0.4 mg Q5MINP PRN SL 12/22/24 09:15 Levalbuterol HCl 1.25 mg Q6HR NEB 12/22/24 12:00 12/24/24 11:31 1.25 MG Ipratropium [place] 0.5 mg Q6HWA NEB 12/22/24 12:00 12/24/24 11:31 0.5 MG Insulin Glargine 40 units HS SC 12/22/24 22:00 12/23/24 21:49 40 UNITS Diagnostic Test (Pha) 1 strip ACHS 12/22/24 11:30 12/24/24 11:40 1 STRIP Insulin Human Regular HS SC 12/22/24 22:00 12/23/24 21:52 2 UNITS Insulin Human Regular AC SC 12/22/24 11:30 12/22/24 16:51 2 UNITS Dextrose 50 ml UD PRN IV 12/22/24 09:45 Insulin Human Lispro 6 units AC SC 12/22/24 17:00 12/24/24 05:37 6 UNITS Bumetanide 2 mg BIDD IV 12/22/24 18:00 12/24/24 05:32 2 MG Heparin Sodium/ Dextrose 250 ml @ 20 mls/hr [id number] IV 12/24/24 13:45 Examination: CVS:Normal (Denies chest pain, palpitation, shortness of breath. Telemetry consistent with atrial fibrillation and 90 beats per minute) laboratory and microbiology Laboratory Tests 12/24/24 04:55 Test 12/24/24 04:55 Range/Units Serum Glucose 100 74-106 mg/dL Problem List/Assessment/Plan Problem List/Assessment/Plan Chest pain, rule out progressive coronary artery disease Coronary artery disease status post PTCA x 1 OLIVE Atrial fibrillation, likely longstanding persistent (on Eliquis) Acute on chronic decompensated HFrEF, NYHA class III Peripheral arterial disease Hypertension Dyslipidemia COPD Type 2 diabetes mellitus Morbid obesity Amphetamine use Plan/Recommendation We will continue with the following plan/recommendations (Dr. Richard): * Transthoracic echocardiogram 30% with global LV hypokinesis moderate RV dilation with hypokinetic. Moderate pulmonary hypertension RVSP 45 mmHg * Previous echocardiogram from 11/19/2023 reveals an EF of 35% * Continue guideline directed medical therapy for CHF as renal function permits * Avoid nephrotoxic agents at this time. Initiate spironolactone and SGLT2i with improved renal function * Chest pain protocol * TANNER score: 3 points * HEART score: 6 points (moderate score) * Heparin drip per ACS protocol * Single antiplatelet therapy and lipid-lowering agent * [id number] VASc score: 4 points, HAS-BLED score: 1 point * [facility]tt [facility] * Beta-yvette for rate control * Avoid antiarrhythmic agents given atrial fibrillation likely longstanding persistent * Coronary angiogram- 12/23/24 showing multivessel disease, awaiting [facility] transfer for possible CABG * Risk factor modifications, counseled * Cessation of amphetamine use Case discussed with . S/p coronary angiogram showing multivessel disease with mid RCA 99% occlusion, moderate to severe disease in proximal LAD with hazy 75-80% stenosis in the proximal portion, mid LAD 99% occlusion. LCX with hazy mid 60 70% stenosis on OM1, distal LCX 95% stenosis. Recommend revascularization with possible CABG. Plan for transfer to high-level care. Continue on heparin drip. This medical document was created using an electronic medical record system with voice recognition software and computerized dictation system. Although this document has been carefully reviewed, there might still be some phonetic and typographical errors. Occasional wrong-word or ``sound-alike substitutions may have occurred due to the inherent limitations of voice recognition software. These areas are purely typographical due to imperfections of the software programs and do not reflect any compromise in the patient's medical care. Please read the chart carefully and recognize, using context, where these substitutions have occurred. Plan discussed with: Patient Date of Service: Dec 24, 2024 Billing Provider: DALIA NICHOLAS Common Visit Codes: [id number] INP/OBS CARE(HIGH) DALIA NICHOLAS Dec 24, 2024 13:56
[2024-12-24 17:29] LABS: INR 1.08 (0.9-1.15); Partial Thromboplastin Time 47.7 SEC (24.5-34.5); Prothrombin Time 11.4 sec (9.3-11.8)
--- NOTE | 2024-12-24 19:13 | CONS ---
Pharmacy Clinical Information: INCREASE HEPARIN DRIP RATE TO 2200 UNITS/HR PER APTT FOR 47.7 NEXT APTT DRAW SCHEDULED ON 12/25 @0100 PER RX PROTOCOL ROSANGELA BRASHER CONFIRMED AND READ BACK Scarlet Kingston PHARMACIST Dec 24, 2024 19:13
--- NOTE | 2024-12-24 23:33 | DVHPN2 ---
Subjective Patient is seen and examined at bedside. Waiting for transfer to higher level of care for CABG Reviewed: Care Plan, H&P, Labs, Medications, Previous Orders, Radiology Changes from previous H/P or p: No Changes Objective Vitals Vital Signs Date Time Temp Pulse Resp B/P (MAP) Pulse Ox O2 Delivery O2 Flow Rate FiO2 12/24/24 22:34 74 134/65 12/24/24 21:00 98.1 16 99 98.1 12/24/24 18:36 Nasal Cannula 2.0 12/24/24 18:36 28 Intake/Output Intake and Output 12/24/24 07:00 Intake Total 1992 ml Balance 1992 ml Intake Oral 1800 ml IV Total 192 ml # Voids 2 General Appearance: Alert, Oriented X3, Cooperative, No acute distress HEENT: Atraumatic, PERRLA, EOMI, Mucous membr. moist/pink Neck: Supple Lungs: Clear to auscultation, Normal air movement Cardiovascular: Regular rate, Normal S1, Normal S2, No murmurs, Gallops, Rubs Abdomen: Normal bowel sounds, Soft, No tenderness Extremities: Normal pulses Neuro: Cranial nerves 3-12 NL Psych/Mental Status: Mental status NL Medications Current Medications Medications Dose Ordered Sig/Johana Route Start Time Stop Time Status Last Admin Dose Admin Aspirin 81 mg DAILY PO 12/22/24 10:00 12/24/24 09:05 81 MG Atorvastatin Calcium 80 mg HS PO 12/23/24 22:00 12/24/24 21:05 80 MG Carvedilol 3.125 mg Q12HR PO 12/22/24 22:00 12/24/24 21:34 3.125 MG Sacubitril/ Valsartan 1 tab BID PO 12/22/24 10:00 12/24/24 21:04 1 TAB Acetaminophen/ Hydrocodone Bitart 1 tab DAILY PO 12/22/24 10:00 12/24/24 09:05 1 TAB Nitroglycerin 0.4 mg Q5MINP PRN SL 12/22/24 09:15 Levalbuterol HCl 1.25 mg Q6HR NEB 12/22/24 12:00 12/24/24 18:36 1.25 MG Ipratropium [place] 0.5 mg Q6HWA NEB 12/22/24 12:00 12/24/24 18:36 0.5 MG Insulin Glargine 40 units HS ID 12/22/24 22:00 12/24/24 22:00 40 UNITS Diagnostic Test (Pha) 1 strip ACHS 12/22/24 11:30 12/24/24 22:14 1 STRIP Insulin Human Regular HS ID 12/22/24 22:00 12/24/24 22:34 3 UNITS Insulin Human Regular AC ID 12/22/24 11:30 12/24/24 17:29 6 UNITS Dextrose 50 ml UD PRN IV 12/22/24 09:45 Insulin Human Lispro 6 units AC ID 12/22/24 17:00 12/24/24 05:37 6 UNITS Bumetanide 2 mg BIDD IV 12/22/24 18:00 12/24/24 17:27 2 MG Heparin Sodium/ Dextrose 250 ml @ 22 mls/hr [id number] IV 12/24/24 19:00 12/24/24 18:48 22 MLS/HR Laboratory Results Laboratory Tests 12/24/24 04:55 Chemistry Test 12/24/24 04:55 Calcium Level 9.3 mg/dL (8.7-10.4) Coagulation Test 12/24/24 04:55 12/24/24 11:10 12/24/24 17:06 Prothrombin Time 11.7 sec (9.3-11.8) 11.8 sec (9.3-11.8) 11.4 sec (9.3-11.8) Prothrombin Time INR 1.12 (0.9-1.15) 1.13 (0.9-1.15) 1.08 (0.9-1.15) Activated Partial Thromboplast Time 58.7 SEC (24.5-34.5) H 68.5 SEC (24.5-34.5) H 47.7 SEC (24.5-34.5) H Urinalysis Test 12/22/24 09:00 Urine Color Light-yellow (Yellow) Urine Clarity Clear (Clear) Urine pH 5.5 (5.0-9.0) Urine Specific [place] 1.007 (1.001-1.035) Urine Protein Trace (Negative) H Urine Ketones Negative (Negative) Urine Blood Negative /uL (Negative) Urine Nitrite Negative (Negative) Urine Bilirubin Negative (Negative) Urine Urobilinogen Normal mg/dL (Negative) Urine Leukocyte Esterase Negative /uL (Negative) Urine RBC None seen /hpf (0 - 3) Urine Microscopic WBC 2 /HPF (0-3) Urine Squamous Epithelial Cells Few /hpf (<5) Urine Bacteria Few /hpf (None Seen) H Urine Glucose 3+ mg/dL (Normal) H Microbiology Microbiology Date/Time Source Procedure Growth Status 12/22/24 00:44 Blood Blood Culture - Preliminary NO GROWTH AFTER 48 HOURS OF INCUBATION. Resulted Labs and/or images reviewed: Labs reviewed by me Assessment/Plan Assessment/Plan Chest pain, likely due to NSTEMI type 1 Acute on chronic hypoxic respiratory failure, likely due to heart failure Acute on chronic systolic heart failure History of coronary artery disease AFib with AVR Acquired hypercoagulopathy Hypertension Dyslipidemia Diabetes type 2 Morbid obesity Medication and adherence Methamphetamine use disorder SCOUT and CKD, likely VMN History of COPD, on 2 L of oxygen during the night Obstructive sleep apnea, on CPAP during night * EKGs shows, AFib with RVR, diffuse Q-waves * Trop I is raised, up trending * Chest x-ray shows cardiomegaly with bilateral lower zone infiltration with pulmonary vascular congestion Plan * Continue Atorvastatin and Aspirin and nitroglycerin sublingually * Heparin drip * Resume home meds * Insulin Lantus 40 units daily, lispro 7 units t.i.d., insulin regular according to moderate sliding scale * Consulted cardiology, performed left heart catheterization, has multiple coronary artery disease and recommended urgent CABG, rn social work consulted for transferred to higher level of care. * Check echocardiogram * Breathing treatment * CPAP during the night * * Continuing current management. Waiting for transfer to higher level care for open heart surgery. * * This medical document was created using an electronic medical record system with [employer] direct computerized dictation system. Although this document has been carefully reviewed, there may still be some phonetic and typographical errors. These areas are purely typographical due to imperfections of the software programs, and do not reflect any compromise in the patient's medical care. Plan discussed with: Patient Date of Service: Dec 24, 2024 Billing Provider: LARA EDMONDSON MD Common Visit Codes: [id number] INP/OBS CARE(HIGH) LARA EDMONDSON MD Dec 24, 2024 23:33
[2024-12-25] VITALS (18 sets, daily range): BP systolic 106–159; BP diastolic 63–99; PULSE 56–99; RESP 16–20; TEMP 96–98.4; O2SAT 94–100
[2024-12-25 01:14] LABS: INR 1.11 (0.9-1.15); Partial Thromboplastin Time 64.9 SEC (24.5-34.5); Prothrombin Time 11.6 sec (9.3-11.8)
[2024-12-25 07:57] LABS: INR 1.08 (0.9-1.15); Prothrombin Time 11.4 sec (9.3-11.8)
[2024-12-25 07:59] LABS: Partial Thromboplastin Time 73.4 SEC (24.5-34.5)
[2024-12-25 09:11] LABS: Basophils # (auto) 0.1 10 ^3/uL (0-0.2); Basophils % (auto) 0.8 % (0.0-2.0); Eosinophils # (auto) 0.2 10 ^3/uL (0-0.8); Eosinophils % (auto) 2.8 % (0.0-7.0); Hematocrit 46.9 % (41.0-53.0); Hemoglobin 15.7 g/dL (13.5-17.5); Lymphocytes # (auto) 0.9 10 ^3/uL (0.4-5.4); Lymphocytes % (auto) 11.8 % (10.0-50.0); Mean Corpuscular Hemoglobin 28.2 pg (28.0-32.0); Mean Corpuscular Hgb Conc. 33.4 g/dL (32.0-36.0); Mean Corpuscular Volume 84.4 fL (80.0-100.0); Monocytes # (auto) 0.4 10 ^3/uL (0-1.3); Neutrophils # (auto) 5.7 10 ^3/uL (1.6-8.6); Neutrophils % (auto) 78.6 % (37.0-80.0); Nucleated Red Blood Cells % 0.1 %; Platelet Count (auto) 105 10^3/uL (140-450); Red Blood Cells 5.55 10^6/uL (4.5-5.90); Red Cell Distribution Width 19.3 % (11.8-14.3); White Blood Cell 7.3 10^3/uL (4.4-10.8)
[2024-12-25] MEDS: MORPHINE SULFATE INJ 2 MG/ml SYRG IV PRN (11:04)
--- NOTE | 2024-12-25 12:01 | DVHPN2 ---
Consult Progress Note Subjective Patient reports: No new complaints Objective vital signs Vital Sign Date Time Temp Pulse Resp B/P (MAP) Pulse Ox O2 Delivery O2 Flow Rate FiO2 12/25/24 11:41 75 16 100 12/25/24 11:04 138/84 12/25/24 09:00 96.7 96.7 12/25/24 07:57 Nasal Cannula* 2 28 Total Intake and Output 12/24/24 12/24/24 12/25/24 15:00 23:00 07:00 Intake Total 100 ml 640 ml 300 ml Balance 100 ml 640 ml 300 ml medications Current Medications Medications Dose Ordered Sig/Johana Route Start Time Stop Time Status Last Admin Dose Admin Aspirin 81 mg DAILY PO 12/22/24 10:00 12/25/24 08:32 81 MG Atorvastatin Calcium 80 mg HS PO 12/23/24 22:00 12/24/24 21:05 80 MG Carvedilol 3.125 mg Q12HR PO 12/22/24 22:00 12/25/24 08:32 3.125 MG Sacubitril/ Valsartan 1 tab BID PO 12/22/24 10:00 12/25/24 08:32 1 TAB Acetaminophen/ Hydrocodone Bitart 1 tab DAILY PO 12/22/24 10:00 12/25/24 08:30 1 TAB Nitroglycerin 0.4 mg Q5MINP PRN SL 12/22/24 09:15 Levalbuterol HCl 1.25 mg Q6HR NEB 12/22/24 12:00 12/25/24 11:31 1.25 MG Ipratropium [place] 0.5 mg Q6HWA NEB 12/22/24 12:00 12/25/24 11:31 0.5 MG Insulin Glargine 40 units HS SC 12/22/24 22:00 12/24/24 22:00 40 UNITS Diagnostic Test (Pha) 1 strip ACHS 12/22/24 11:30 12/25/24 06:25 1 STRIP Insulin Human Regular HS SC 12/22/24 22:00 12/24/24 22:34 3 UNITS Insulin Human Regular AC SC 12/22/24 11:30 12/25/24 06:45 3 UNITS Dextrose 50 ml UD PRN IV 12/22/24 09:45 Insulin Human Lispro 6 units AC SC 12/22/24 17:00 12/24/24 05:37 6 UNITS Bumetanide 2 mg BIDD IV 12/22/24 18:00 12/25/24 06:19 2 MG Heparin Sodium/ Dextrose 250 ml @ 22 mls/hr [id number] IV 12/24/24 19:00 12/25/24 00:41 22 MLS/HR Morphine Sulfate 1 mg Q4HP PRN IV 12/25/24 10:45 12/25/24 11:04 1 MG laboratory and microbiology Laboratory Tests 12/25/24 08:44 12/24/24 04:55 Test 12/24/24 04:55 Range/Units Serum Glucose 100 74-106 mg/dL Problem List/Assessment/Plan Problem List/Assessment/Plan Chest pain, rule out progressive coronary artery disease Coronary artery disease status post PTCA x 1 OLIVE Atrial fibrillation, likely longstanding persistent (on Eliquis) Acute on chronic decompensated HFrEF, NYHA class III Peripheral arterial disease Hypertension Dyslipidemia COPD Type 2 diabetes mellitus Morbid obesity Amphetamine use Plan/Recommendation We will continue with the following plan/recommendations (Dr. Richard): * Transthoracic echocardiogram 30% with global LV hypokinesis moderate RV dilation with hypokinetic. Moderate pulmonary hypertension RVSP 45 mmHg * Previous echocardiogram from 11/19/2023 reveals an EF of 35% * Continue guideline directed medical therapy for CHF as renal function permits * Avoid nephrotoxic agents at this time. Initiate spironolactone and SGLT2i with improved renal function * Chest pain protocol * TANNER score: 3 points * HEART score: 6 points (moderate score) * Heparin drip per ACS protocol * Single antiplatelet therapy and lipid-lowering agent * [id number] VASc score: 4 points, HAS-BLED score: 1 point * Heparin gtt while inpatient, transition back to Eliquis when appropriate * Beta-yvette for rate control * Avoid antiarrhythmic agents given atrial fibrillation likely longstanding persistent * Coronary angiogram- 12/23/24 showing multivessel disease, awaiting [facility] transfer for possible CABG * Risk factor modifications, counseled * Cessation of amphetamine use Case discussed with . S/p coronary angiogram showing multivessel disease with mid RCA 99% occlusion, moderate to severe disease in proximal LAD with hazy 75-80% stenosis in the proximal portion, mid LAD 99% occlusion. LCX with hazy mid 60 70% stenosis on OM1, distal LCX 95% stenosis. Recommend revascularization with possible CABG. Plan for transfer to high-level care. Continue on heparin drip. 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 This medical document was created using an electronic medical record system with voice recognition software and computerized dictation system. Although this document has been carefully reviewed, there might still be some phonetic and typographical errors. Occasional wrong-word or ``sound-alike substitutions may have occurred due to the inherent limitations of voice recognition software. These areas are purely typographical due to imperfections of the software programs and do not reflect any compromise in the patient's medical care. Please read the chart carefully and recognize, using context, where these substitutions have occurred. Plan discussed with: Patient Date of Service: Dec 25, 2024 Billing Provider: DALIA NICHOLAS Common Visit Codes: [id number] INP/OBS CARE(HIGH) DALIA NICHOLAS Dec 25, 2024 12:01
[2024-12-25 13:46] LABS: INR 1.08 (0.9-1.15); Prothrombin Time 11.4 sec (9.3-11.8)
[2024-12-25 13:49] LABS: Partial Thromboplastin Time 72.9 SEC (24.5-34.5)
--- NOTE | 2024-12-25 14:14 | DVHPN2 ---
Subjective The patient is seen and examined at bedside. Still have chest discomfort and shortness of breast Reviewed: Care Plan, H&P, Labs, Medications, Previous Orders, Radiology Changes from previous H/P or p: No Changes Objective Vitals Vital Signs Date Time Temp Pulse Resp B/P (MAP) Pulse Ox O2 Delivery O2 Flow Rate FiO2 12/25/24 13:00 96.0 56 18 153/90 (111) 97 96.0 12/25/24 07:57 Nasal Cannula* 2 28 Intake/Output Intake and Output 12/25/24 07:00 Intake Total 1040 ml Balance 1040 ml Intake Oral 800 ml IV Total 240 ml # Voids 4 General Appearance: Alert, Oriented X3, Cooperative, No acute distress HEENT: Atraumatic, PERRLA, EOMI, Mucous membr. moist/pink Neck: Supple Lungs: Clear to auscultation, Normal air movement Cardiovascular: Regular rate, Normal S1, Normal S2, No murmurs, Gallops, Rubs Abdomen: Normal bowel sounds, Soft, No tenderness Extremities: Normal pulses Neuro: Cranial nerves 3-12 NL Psych/Mental Status: Mental status NL Medications Current Medications Medications Dose Ordered Sig/Johana Route Start Time Stop Time Status Last Admin Dose Admin Aspirin 81 mg DAILY PO 12/22/24 10:00 12/25/24 08:32 81 MG Atorvastatin Calcium 80 mg HS PO 12/23/24 22:00 12/24/24 21:05 80 MG Carvedilol 3.125 mg Q12HR PO 12/22/24 22:00 12/25/24 08:32 3.125 MG Sacubitril/ Valsartan 1 tab BID PO 12/22/24 10:00 12/25/24 08:32 1 TAB Acetaminophen/ Hydrocodone Bitart 1 tab DAILY PO 12/22/24 10:00 12/25/24 08:30 1 TAB Nitroglycerin 0.4 mg Q5MINP PRN SL 12/22/24 09:15 Levalbuterol HCl 1.25 mg Q6HR NEB 12/22/24 12:00 12/25/24 11:31 1.25 MG Ipratropium [place] 0.5 mg Q6HWA NEB 12/22/24 12:00 12/25/24 11:31 0.5 MG Insulin Glargine 40 units HS SC 12/22/24 22:00 12/24/24 22:00 40 UNITS Diagnostic Test (Pha) 1 strip ACHS 12/22/24 11:30 12/25/24 06:25 1 STRIP Insulin Human Regular HS SC 12/22/24 22:00 12/24/24 22:34 3 UNITS Insulin Human Regular AC SC 12/22/24 11:30 12/25/24 06:45 3 UNITS Dextrose 50 ml UD PRN IV 12/22/24 09:45 Insulin Human Lispro 6 units AC SC 12/22/24 17:00 12/24/24 05:37 6 UNITS Bumetanide 2 mg BIDD IV 12/22/24 18:00 12/25/24 06:19 2 MG Heparin Sodium/ Dextrose 250 ml @ 22 mls/hr [id number] IV 12/24/24 19:00 12/25/24 13:40 22 MLS/HR Morphine Sulfate 1 mg Q4HP PRN IV 12/25/24 10:45 12/25/24 11:04 1 MG Laboratory Results Laboratory Tests 12/24/24 04:55 12/25/24 08:44 Coagulation Test 12/24/24 17:06 12/25/24 00:50 12/25/24 07:22 12/25/24 13:15 Prothrombin Time 11.4 sec (9.3-11.8) 11.6 sec (9.3-11.8) 11.4 sec (9.3-11.8) 11.4 sec (9.3-11.8) Prothrombin Time INR 1.08 (0.9-1.15) 1.11 (0.9-1.15) 1.08 (0.9-1.15) 1.08 (0.9-1.15) Activated Partial Thromboplast Time 47.7 SEC (24.5-34.5) H 64.9 SEC (24.5-34.5) H 73.4 SEC (24.5-34.5) *H 72.9 SEC (24.5-34.5) *H Urinalysis Test 12/22/24 09:00 Urine Color Light-yellow (Yellow) Urine Clarity Clear (Clear) Urine pH 5.5 (5.0-9.0) Urine Specific [place] 1.007 (1.001-1.035) Urine Protein Trace (Negative) H Urine Ketones Negative (Negative) Urine Blood Negative /uL (Negative) Urine Nitrite Negative (Negative) Urine Bilirubin Negative (Negative) Urine Urobilinogen Normal mg/dL (Negative) Urine Leukocyte Esterase Negative /uL (Negative) Urine RBC None seen /hpf (0 - 3) Urine Microscopic WBC 2 /HPF (0-3) Urine Squamous Epithelial Cells Few /hpf (<5) Urine Bacteria Few /hpf (None Seen) H Urine Glucose 3+ mg/dL (Normal) H Microbiology Microbiology Date/Time Source Procedure Growth Status 12/22/24 00:44 Blood Blood Culture - Preliminary NO GROWTH AFTER 72 HOURS OF INCUBATION. Resulted Labs and/or images reviewed: Labs reviewed by me Assessment/Plan Assessment/Plan Chest pain, likely due to NSTEMI type 1 Acute on chronic hypoxic respiratory failure, likely due to heart failure Acute on chronic systolic heart failure History of coronary artery disease AFib with AVR Acquired hypercoagulopathy Hypertension Dyslipidemia Diabetes type 2 Morbid obesity Medication and adherence Methamphetamine use disorder SCOUT and CKD, likely VMN History of COPD, on 2 L of oxygen during the night Obstructive sleep apnea, on CPAP during night EKGs shows, AFib with RVR, diffuse Q-waves Trop I is raised, up trending Chest x-ray shows cardiomegaly with bilateral lower zone infiltration with pulmonary vascular congestion Plan/recommendation Atorvastatin and Aspirin and nitroglycerin sublingually Heparin drip Resume home meds Insulin Lantus 40 units daily, lispro 7 units t.i.d., insulin regular according to moderate sliding scale Consulted cardiology, performed left heart catheterization, has multiple coronary artery disease and recommended urgent CABG, social professionals consulted for transferred to higher level of care. Check echocardiogram Breathing treatment CPAP during the night Discussed with the patient regarding to transfer to higher level care. The patient requests [facility]. I explained to the patient for open heart surgery which is an urgent matter we will transfer the patient to any facility that the had available for him for CABG including [facility] however if any other facility accepted him I will transfer him. The patient verbally understand This medical document was created using an electronic medical record system with [employer] computerized dictation system. Although this document has been carefully reviewed, there may still be some phonetic and typographical errors. These areas are purely typographical due to imperfections of the software programs, and do not reflect any compromise in the patient's medical care. Plan discussed with: Patient My Orders Orders - LARA EDMONDSON MD Procedure Category Date Status Time Morphine Sulfate PHA 12/25/24 In Process Injection 10:45 Date of Service: Dec 25, 2024 Billing Provider: LARA EDMONDSON MD Common Visit Codes: [id number] INP/OBS CARE(HIGH) LARA EDMONDSON MD Dec 25, 2024 14:14
[2024-12-26] VITALS (15 sets, daily range): BP systolic 105–132; BP diastolic 68–88; PULSE 53–98; RESP 14–21; TEMP 36.8; O2SAT 93–100
[2024-12-26 07:54] LABS: Basophils # (auto) 0.1 10 ^3/uL (0-0.2); Basophils % (auto) 0.8 % (0.0-2.0); Eosinophils # (auto) 0.2 10 ^3/uL (0-0.8); Eosinophils % (auto) 3.2 % (0.0-7.0); Hematocrit 44.5 % (41.0-53.0); Hemoglobin 14.8 g/dL (13.5-17.5); INR 1.07 (0.9-1.15); Lymphocytes # (auto) 0.9 10 ^3/uL (0.4-5.4); Lymphocytes % (auto) 13.9 % (10.0-50.0); Mean Corpuscular Hemoglobin 28.1 pg (28.0-32.0); Mean Corpuscular Hgb Conc. 33.2 g/dL (32.0-36.0); Mean Corpuscular Volume 84.5 fL (80.0-100.0); Monocytes # (auto) 0.4 10 ^3/uL (0-1.3); Monocytes % (auto) 7.2 % (0.0-12.0); Neutrophils # (auto) 4.6 10 ^3/uL (1.6-8.6); Neutrophils % (auto) 74.9 % (37.0-80.0); Nucleated Red Blood Cells % 0.1 %; Partial Thromboplastin Time 46.4 SEC (24.5-34.5); Platelet Count (auto) 98 10^3/uL (140-450); Prothrombin Time 11.3 sec (9.3-11.8); Red Blood Cells 5.26 10^6/uL (4.5-5.90); Red Cell Distribution Width 19.3 % (11.8-14.3); White Blood Cell 6.1 10^3/uL (4.4-10.8)
--- NOTE | 2024-12-26 09:38 | CONS ---
Pharmacy Clinical Information: INCREASE HEPARIN DRIP RATE TO 2400 UNITS/HR PER APTT OF 46.4 (SUBTHERAPEUTIC) NEXT APTT DRAW SCHEDULED FOR 1600 PER RX PROTOCOL JUDSON MONTENEGRO PHARMACIST Dec 26, 2024 09:38
[2024-12-26] MEDS: HEPARIN DRIP/D5W 100UNITS/ML 250 ML IV SCH (09:45)
--- NOTE | 2024-12-26 16:25 | DVHPNRES ---
Progress Note Date Seen: Dec 26, 2024 Resident Creating Document: KATELIN TERRAZAS RESIDENT Has the PT tested + for MRSA If YES, has PT been informed?: No Medical Necessity Reason Pt with a Central, PICC or Fol: No Subjective Review of Systems Patient seen at bedside. Appears comfortable is waiting for higher level of care for CABG surgery at [facility]. He is upset because he is on cardiac diet and is hungry. Reduced ejection fraction, CAD, asthma, CKD, COPD,permanent AFib, diabetes PAD, morbidly obese, sleep apnea. Patient is not feeling any current chest pain cough shortness of breath or any palpitations. She does not have vomiting, nausea, abdominal pain, headache, dizziness. Constitutional: Denies weight loss, fever and chills. HEENT: Denies changes in vision and hearing. Respiratory: Denies shortness of breath and cough Cardiovascular: Denies chest discomfort or palpitations GI: morbidly obese abdomen : Denies dysuria and urinary frequency. Musculoskeletal: Denies myalgias and joint pain Skin: Denies rash and pruritus. Neurological: Denies dizziness, headache, vision or hearing problems Objective vital signs Vital Sign Date Time Temp Pulse Resp B/P (MAP) Pulse Ox O2 Delivery O2 Flow Rate FiO2 12/26/24 11:47 57 16 100 12/26/24 11:41 105/70 12/26/24 09:00 98.0 98.0 12/26/24 08:00 Nasal Cannula* 2 28 Total Intake and Output 12/25/24 12/25/24 12/26/24 15:00 23:00 07:00 Intake Total 817 ml 970 ml 830 ml Balance 817 ml 970 ml 830 ml medications Current Medications Medications Dose Ordered Sig/Johana Route Start Time Stop Time Status Last Admin Dose Admin Aspirin 81 mg DAILY PO 12/22/24 10:00 12/26/24 10:41 81 MG Atorvastatin Calcium 80 mg HS PO 12/23/24 22:00 12/25/24 22:12 80 MG Carvedilol 3.125 mg Q12HR PO 12/22/24 22:00 12/26/24 10:41 3.125 MG Sacubitril/ Valsartan 1 tab BID PO 12/22/24 10:00 12/26/24 10:41 1 TAB Acetaminophen/ Hydrocodone Bitart 1 tab DAILY PO 12/22/24 10:00 12/26/24 10:41 1 TAB Nitroglycerin 0.4 mg Q5MINP PRN SL 12/22/24 09:15 Levalbuterol HCl 1.25 mg Q6HR NEB 12/22/24 12:00 12/26/24 11:35 1.25 MG Ipratropium [place] 0.5 mg Q6HWA NEB 12/22/24 12:00 12/26/24 11:35 0.5 MG Insulin Glargine 40 units HS SC 12/22/24 22:00 12/25/24 22:24 40 UNITS Diagnostic Test (Pha) 1 strip ACHS 12/22/24 11:30 12/26/24 11:57 1 STRIP Insulin Human Regular HS SC 12/22/24 22:00 12/25/24 22:23 3 UNITS Insulin Human Regular AC SC 12/22/24 11:30 12/26/24 12:06 3 UNITS Dextrose 50 ml UD PRN IV 12/22/24 09:45 Bumetanide 2 mg BIDD IV 12/22/24 18:00 12/26/24 06:46 2 MG Morphine Sulfate 1 mg Q4HP PRN IV 12/25/24 10:45 Hold 12/25/24 22:14 1 MG Heparin Sodium/ Dextrose 250 ml @ 24 mls/hr [id number] IV 12/26/24 09:45 Acetaminophen/ Hydrocodone Bitart 1 tab Q6HR PRN PO 12/26/24 11:15 Examination General: Patient alert and oriented in person, place and time. Patient following commands. HEENT: Normocephalic, atraumatic, moist mucous membranes Respiratory/pulmonary: Clear lungs bilaterally, vesicular murmurs present in almost all lung flores, no associated crackles or wheezes. Cardiovascular: Normal heart sounds S1 and S2 with no associated murmurs Abdomen: Abdomen nondistended, there is no pain to palpation in any of the abdominal quadrants, no palpable masses. Extremities: There is no peripheral edema present at the lower extremities. Peripheral Pulses: 3+ Radial (R). 3+ Radial (L). 3+ Dorsalis pedis (R). 3+ Dorsalis pedis(L) Skin: No rashes or pruritus, there is no sacral edema present at this time. Neurological: Intact cranial nerves with no focal neurologic deficits laboratory and microbiology Laboratory Tests 12/26/24 05:24 12/24/24 04:55 Test 12/24/24 04:55 Range/Units Serum Glucose 100 74-106 mg/dL Microbiology Date/Time Source Procedure Growth Status 12/22/24 00:44 Blood Blood Culture - Preliminary NO GROWTH AFTER 72 HOURS OF INCUBATION. Resulted Problem List/Assessment/Plan Problem List/Assessment/Plan Acute on chronic systolic heart failure History of coronary artery disease AFib with AVR plan: cardiology is following continue home meds pt is on heparin drip protocol asprin 81 mg atorvastatin 80 mg bumex 2mg strict I&O fluid restriction GDMT- Coreg and entresto nitroglycerin morphine Hypertension Dyslipidemia Diabetes type 2 plan: continue home meds insulin sliding scale History of COPD, on 2 L of oxygen at home plan: continue 2 L of oxygen breathing treatment Obstructive sleep apnea, plan: continue CPAP during night Goal of care discussed with patient for 19 mins: Full Code DVT prophylaxis: Heparin PUD prophylaxis: pepsid plan discussed with patient and nurse. case discussed with Dr. Seymour. Plan discussed with: Patient My Orders My Orders Orders - KATELIN TERRAZAS RESIDENT Procedure Category Date Status Time Hydrocodone-Acet PHA 12/26/24 In Process 10/325mg Tab ([place] 11:15 Date of Service: Dec 26, 2024 Billing Provider: ADAM SEYMOUR MD Common Visit Codes: [id number] INP/OBS CARE(HIGH) KATELIN TERRAZAS Dec 26, 2024 16:25 ADAM SEYMOUR MD Dec 27, 2024 20:36
[2024-12-26 17:31] LABS: INR 1.08 (0.9-1.15); Partial Thromboplastin Time 49.1 SEC (24.5-34.5); Prothrombin Time 11.4 sec (9.3-11.8)
[2024-12-26] MEDS: HYDROcodone-ACET 10/325MG TAB PO PRN (20:13)
--- NOTE | 2024-12-27 07:27 | ECG ---
[facility] Test Date: 2024-12-24 Test Time: 08:27:32 Pat Name: TRINITY MARIANO Department: Respiratoy Room: 0287T B Gender: M Regional Program Manager: YADI ADAMES : 1970 Requested By: LARA EDMONDSON Order Number: [id number] Reading MD: Measurements Intervals [place] Rate: 87 P: 0 RI: 0 QRS: -72 QRSD: 110 T: 61 QT: 399 QTc: 480 Interpretive Statements Atrial fibrillation Inferior infarct, old Abnormal lateral Q waves Anterior infarct, old Please click the below link to view image of tracing.
--- NOTE | 2024-12-27 13:07 | DVHDSRES ---
Discharge Summary Date of Admission Resident Creating Document: KATELIN TERRAZAS RESIDENT Dec 22, 2024 at 05:30 Date of Discharge: Dec 26, 2024 Admitting Diagnosis chest pain rule out ACS Labs/Diagnostic Data: Laboratory Results Test 12/26/24 18:20 12/26/24 16:55 12/26/24 05:24 12/24/24 04:55 POC Glucose 135 mg/dl (70-106) Prothrombin Time 11.4 sec (9.3-11.8) Prothrombin Time INR 1.08 (0.9-1.15) Activated Partial Thromboplast Time 49.1 SEC (24.5-34.5) White Blood Count 6.1 10^3/uL (4.4-10.8) Red Blood Count 5.26 10^6/uL (4.5-5.90) Hemoglobin 14.8 g/dL (13.5-17.5) Hematocrit 44.5 % (41.0-53.0) Mean Corpuscular Volume 84.5 fL (80.0-100.0) Mean Corpuscular Hemoglobin 28.1 pg (28.0-32.0) Mean Corpuscular Hemoglobin Concent 33.2 g/dL (32.0-36.0) Red Cell Distribution Width 19.3 % (11.8-14.3) Platelet Count 98 10^3/uL (140-450) Mean Platelet Volume 11.2 fL (6.9-10.8) Neutrophils (%) (Auto) 74.9 % (37.0-80.0) Lymphocytes (%) (Auto) 13.9 % (10.0-50.0) Monocytes (%) (Auto) 7.2 % (0.0-12.0) Eosinophils (%) (Auto) 3.2 % (0.0-7.0) Basophils (%) (Auto) 0.8 % (0.0-2.0) Neutrophils # (Auto) 4.6 10 ^3/uL (1.6-8.6) Lymphocytes # (Auto) 0.9 10 ^3/uL (0.4-5.4) Monocytes # (Auto) 0.4 10 ^3/uL (0-1.3) Eosinophils # (Auto) 0.2 10 ^3/uL (0-0.8) Basophils # (Auto) 0.1 10 ^3/uL (0-0.2) Nucleated Red Blood Cells 0.1 % Sodium Level 139 mmol/L (136-145) Potassium Level 3.8 mmol/L (3.5-5.1) Chloride Level 102 mmol/L (98-107) Carbon Dioxide Level 28 mmol/L (20-31) Anion Gap 9 (5-15) Blood Urea Nitrogen 37 mg/dL (9-23) Creatinine 1.76 mg/dL (0.700-1.30) Glomerular Filtration Rate Calc 45 mL/min (>90) BUN/Creatinine Ratio 21.0 (10.0-20.0) Serum Glucose 100 mg/dL (74-106) Calcium Level 9.3 mg/dL (8.7-10.4) Test 12/23/24 05:10 12/22/24 09:15 12/22/24 09:00 12/22/24 06:26 Total Bilirubin 0.9 mg/dL (0.2-1.0) Aspartate Amino Transferase (AST) 23 U/L (<34) Alanine Aminotransferase (ALT) 12 U/L (7-40) Alkaline Phosphatase 86 U/L (46-116) Total Protein 6.5 g/dL (5.7-8.2) Albumin 3.9 g/dL (3.2-4.8) Influenza Type A Antigen Negative (Negative) Influenza Type B Antigen Negative (Negative) SARS-CoV-2 Antigen (Rapid) Negative (NEGATIVE) Urine Color Light-yellow (Yellow) Urine Clarity Clear (Clear) Urine pH 5.5 (5.0-9.0) Urine Specific [place] 1.007 (1.001-1.035) Urine Protein Trace (Negative) Urine Ketones Negative (Negative) Urine Blood Negative /uL (Negative) Urine Nitrite Negative (Negative) Urine Bilirubin Negative (Negative) Urine Urobilinogen Normal mg/dL (Negative) Urine Leukocyte Esterase Negative /uL (Negative) Urine RBC None seen /hpf (0 - 3) Urine Microscopic WBC 2 /HPF (0-3) Urine Squamous Epithelial Cells Few /hpf (<5) Urine Bacteria Few /hpf (None Seen) Urine Glucose 3+ mg/dL (Normal) Urine Opiates Screen Neg (NEGATIVE) Urine Fentanyl Screen Neg (NEGATIVE) Urine Barbiturates Screen Neg (NEGATIVE) Urine Phencyclidine Screen Neg (NEGATIVE) Urine Amphetamines Screen Pos (NEGATIVE) Urine Benzodiazepines Screen Neg (NEGATIVE) Urine Cocaine Screen Neg (NEGATIVE) Urine Cannabinoids Screen Neg (NEGATIVE) Magnesium Level 2.5 mg/dL (1.6-2.6) Troponin I High Sensitivity 2000 ng/L (</=54) Test 12/22/24 00:44 Lactic Acid Level 1.9 mmol/L (0.4-2.0) B-Type Natriuretic Peptide 273.82 pg/mL (0-100) Other Laboratory Tests 12/26/24 05:24 12/24/24 04:55 Brief Hx & Hospital Course: This is a 54 year old male past medical history of heart failure with reduced ejection fraction, coronary artery disease status post PCI, COPD, AFib, DM, PAD, sleep apnea, CHF presented with complaints of chest pain. The patient was at his friend's house when he started feeling chest pain which is described as substernal which was initially burning-type and relieved with nitroglycerin. Patient called the EMS and they gave him aspirin 325 mg and nitroglycerin 3 times after which his pain resolved. After coming to the hospital kept on heparin drip given aspirin and nitroglycerin atorvastatin. Pt is given Insulin Lantus, started on breathing treatment and CPAP during night. Patient is On home oxygen at 2 L. EKG showed AFib with a RVR, diffuse Q-waves. Cardiac troponin were Elevated and uprising. Echo showed decreased left ventricular ejection fraction 30%. Coronary Angiography shows three-vessel coronary artery disease. Cardiology was consulted and recommended CABG surgery. social services specialist consulted for higher level of care for the surgery and was accepted and transferred to [facility]. Operations or Procedures chest Xray: . Moderate interstitial pulmonary edema Echo: Conclusion DILATED LV MODERATE DEGREE LV GLOBAL HYPOKINESIS LV EF IS 30% MODERATELY DILATED LA HEAVILY CALCIFIED POSTERIOR MITRAL LEAFLET AND ANNULUS MODERATELY CALCIFIED AORTIC LEAFLETS RV MODERATELY DILATED AND IS HYPOKINETIC MODERATE DEGREE PULMONARY HYPERTENSION RVSP IS 45 MM F HG NO EFFUSION Angiography: The RCA is a large vessel. It has moderate plaquing. It is 99% occluded at its mid section. The acute marginal branch gives rise to the mid PDA and apical segment of the PDA. The distal RCA is filled faintly via sluggish flow from the 99% occluded mid RCA. A posterolateral branch is visualized however faintly filling. The left main is large and normal. Left anterior descending coronary artery is a large vessel. Has [id number] disease in his proximal mid section. There was a hazy 75-80% stenosis in its proximal portion. The mid LAD is 99% occluded. There is severe in stent restenosis. The distal LAD distal to the stent. Small. Diagonals are free of significant disease. The circumflex is a large vessel. The 1st obtuse marginal branch/intermediate has a hazy mid 60-70% stenosis. The 1st obtuse marginal branch has an ostial 99% stenosis. The distal circumflex which is codominant is 95% stenosis. Distal to the a posterolateral branch at its proximal portion has a 95% proximal stenosis Elevated left ventricular end-diastolic pressure rest. Decreased left ventricular ejection fraction. Three-vessel coronary artery disease as delineated above. Condition at Discharge: Fair Final Diagnosis/Problems List severe triple vessel disease req CABG chest pain, likely due to NSTEMI type 1 Acute on chronic systolic heart failure Acute on chronic hypoxic respiratory failure Hypertension Dyslipidemia Morbid obesity Methamphetamine use disorder SCOUT and CKD, likely VMN COPD, sleep on 2 L oxygen during the night Obstructive sleep apnea on CPAP History of coronary artery disease AFib with RVR Discharge Disposition: Acute Care Facility SNF Discharge Physician in charge at time of: Dr. Seymour Discharge Instruct/Medications Diet: Cardiac 2g Na,low cholest Activity: No Restrictions, As Tolerated Follow Up/Referral: Follow up with PCP in 1 week. Medications: As EMR Scheduled Apixaban Base (Eliquis), 5 MG PO BID, (Reported) Aspirin (Aspirin Low Dose), 81 MG PO DAILY Atorvastatin Calcium (Atorvastatin Calcium), 1 TAB PO DAILY, (Reported) Carvedilol (Coreg), 6.25 MG PO Q12HR Ciprofloxacin Hcl (Cipro), 1 TAB PO BID Furosemide (Furosemide), 1 TAB PO DAILY, (Reported) Hydralazine Hcl (Hydralazine Hcl), 10 MG PO Q8HR Insulin Glargine (Basaglar Kwikpen), 40 UNIT SC HS, (Reported) Isosorbide Dinitrate (Isosorbide Dinitrate), 30 MG PO DAILY, (Reported) Potassium Chloride (Potassium Chloride ER), 1 TAB PO DAILY, (Reported) Semaglutide (Ozempic), 0.25 MG SC QWEEKLY, (Reported) Sertraline Hcl (Sertraline Hcl), 1 TAB PO DAILY, (Reported) Umeclidinium-Vilanterol (Anoro Ellipta 62.5-25 Mcg/INH), 1 PUFF INH DAILY, (Reported) Scheduled PRN Albuterol Sulfate (Albuterol Sulfate Hfa), 2 PUFF PO Q6HPRN PRN for dyspnea, (Reported) Hydrocodone-Acetaminophen (Hydrocodone/Acetaminophen 10-325 mg), 1 TAB PO Q6HR PRN for SEVERE PAIN, (Reported) Ipratropium-Albuterol (Ipratropium [place]/Albut), 3 ML NEB Q6HR PRN for DIFFICULTY BREATHING, (Reported) Miscellaneous Medications Insulin Glargine (Lantus), 50 UNIT SC, (Reported) Discharge Statement: "Patient was advised to return to the ER or call 911 if any headaches, dizziness, shortness of breath, chest pain, abdominal pain, bleeding, fevers, or worsening of medical condition. Patient was counseled about treatment plan, medications, possible side effects, patientverbalized understanding. All questions were answered to the best of my ability. This discharge took greater then 30 minutes in planning, reviewing documentation, counseling the patient, and discussing with other team members." ASSESSMENT ASSESSMENT Assessment Acute on chronic systolic heart failure History of coronary artery disease AFib with RVR Date of Service: Dec 26, 2024 Billing Provider: REY ORTIZ MD Common Visit Codes: 17237-FUW/OBS DISCH DAY >30min KATELIN TERRAZAS RESIDENT Dec 27, 2024 13:07 REY ORTIZ MD Dec 27, 2024 21:13
== END 2024-12-26 21:00 | disposition short-term general hospital (02) | DRG 190 ==
LOC: EDBD 00:42 → ER 00:42 → OVERFLOW 05:30 → WEST WING 22:15 → TELE-WESTW 12-23 02:39
PROVIDERS: ADMIT Hospitalist; ATTEND Emergency Medicine
PROC: 4A023N7 Measurement of Cardiac Sampling and Pressure, Left Heart, Percutaneous Approach (ICD-10-PCS; principal; 2024-12-23)
PROC: B211YZZ Fluoroscopy of Multiple Coronary Arteries using Other Contrast (ICD-10-PCS; 2024-12-23)
PROC: B215YZZ Fluoroscopy of Left Heart using Other Contrast (ICD-10-PCS; 2024-12-23)
PROC: 5A09357 Assistance with Respiratory Ventilation, Less than 24 Consecutive Hours, Continuous Positive Airway Pressure (ICD-10-PCS; 2024-12-23)
PROC: 5A09357 Assistance with Respiratory Ventilation, Less than 24 Consecutive Hours, Continuous Positive Airway Pressure (ICD-10-PCS; 2024-12-24)
PROC: 5A09357 Assistance with Respiratory Ventilation, Less than 24 Consecutive Hours, Continuous Positive Airway Pressure (ICD-10-PCS; 2024-12-25)
PROC: 5A09357 Assistance with Respiratory Ventilation, Less than 24 Consecutive Hours, Continuous Positive Airway Pressure (ICD-10-PCS; 2024-12-26)
DX: I21.4 Non-ST elevation (NSTEMI) myocardial infarction (principal); N17.0 Acute kidney failure with tubular necrosis; J96.21 Acute and chronic respiratory failure with hypoxia; I50.23 Acute on chronic systolic (congestive) heart failure; I42.9 Cardiomyopathy, unspecified; Z68.43 Body mass index [BMI] 50.0-59.9, adult; I27.20 Pulmonary hypertension, unspecified; Z20.822 Contact with and (suspected) exposure to COVID-19; I13.0 Hypertensive heart and chronic kidney disease with heart failure and stage 1 through stage 4 chronic kidney disease, or unspecified chronic kidney disease; E11.51 Type 2 diabetes mellitus with diabetic peripheral angiopathy without gangrene; E11.22 Type 2 diabetes mellitus with diabetic chronic kidney disease; J44.89 Other specified chronic obstructive pulmonary disease; N18.9 Chronic kidney disease, unspecified; F15.10 Other stimulant abuse, uncomplicated; E66.01 Morbid (severe) obesity due to excess calories; I25.10 Atherosclerotic heart disease of native coronary artery without angina pectoris; G47.33 Obstructive sleep apnea (adult) (pediatric); Z99.81 Dependence on supplemental oxygen; I48.21 Permanent atrial fibrillation; E78.5 Hyperlipidemia, unspecified; Z80.1 Family history of malignant neoplasm of trachea, bronchus and lung; M10.9 Gout, unspecified; Z98.61 Coronary angioplasty status; Z79.01 Long term (current) use of anticoagulants; Z79.02 Long term (current) use of antithrombotics/antiplatelets; Z82.5 Family history of asthma and other chronic lower respiratory diseases; Z83.3 Family history of diabetes mellitus; Z82.49 Family history of ischemic heart disease and other diseases of the circulatory system; Z82.3 Family history of stroke; Z80.0 Family history of malignant neoplasm of digestive organs
CPT/HCPCS: 36415; 71045; 80048; 80053; 80307; 81001; 82962; 83605; 83735; 83880; 84484; 85025; 85610; 85730; 86850; 86900; 86901; 87040; 87426; 87804; 93005; 93306; 93458; 94640; 94660; 96374; 99152; G0378; J1815; J2250; Q9967

== ENCOUNTER 2025-01-15 00:20 | Emergency (ER) | payer MEDICAID ==
[~2025-01-15] VITALS: Ht 182.9 cm; Wt 81.7 kg
[~2025-01-15 00:20] MED LIST changes: -ASCO500C5 OR; -CLOT1CRE56 TOP; -DAPA1TAB4 PO; -FLUC150T38 PO
[2025-01-15 00:56] LABS: Hematocrit 42.4 % (41.0-53.0); Hemoglobin 14.0 g/dL (13.5-17.5); Mean Corpuscular Hemoglobin 28.1 pg (28.0-32.0); Mean Corpuscular Volume 85.3 fL (80.0-100.0); Nucleated Red Blood Cells % 0.1 %
[2025-01-15 01:00] VITALS: TEMP 98
[2025-01-15] MEDS: ONDANSETRON HCL 4 MG/2 ML VIAL IV ONE ×2 (01:06→02:33)
[2025-01-15] MEDS: MORPHINE SULFATE 4 MG/ML SYR/VIAL IV ONE (01:08)
[2025-01-15 01:11] LABS: INR 1.15 (0.9-1.15); Partial Thromboplastin Time 32.1 SEC (24.5-34.5); Prothrombin Time 12.0 sec (9.3-11.8)
--- NOTE | 2025-01-15 01:14 | ED.PDOC ---
History of Present Illness HPI Comments 54 y/o morbidly obese M is BIBA from private residence for c/c left flank pain. Per EMS report, patient was working out in his garage, this evening, when he felt sudden onset of pain. It is reported to be nonradiating, stabbing in quality, and a 10/10 in severity, with the patient being unable to bear his own weight and walk because of it. Only notable history of recent stent placement at [facility] 7x days ago, with patient reporting on being informed by staff on having some unspecified 'kidney issues' prior to discharge. Other significant history includes: AFib, SCOUT, anemia, asthma, CAD s/p PCI, CHF - reduced EF, CKF, COPD 2LPM home O2 at night, DM, gout, HLD, HTN, STEMI type I, obstructive sleep apnea on CPAP, triple vessel disease, PAD, and methamphetamine abuse. Patient denies any urinary symptoms, abnormal bowel movements, dizziness, weakness, or further associated symptoms. Vitals were noted to have been stable and within normal limits, with exception on the patient being found in AFIB, hypertensive at 150's systolically, and 90%RA. Blood glucose of 158, initially, on scene. Chief Complaint: Back Pain Time Seen by MD: 00:40 Primary Care Provider: [place] Reviewed Notes: Nurses Notes, Private Investigator Notes, Medications, Allergies Allergies: Coded Allergies: NO KNOWN ALLERGIES (Unverified , 08/14/13) Home Meds Active Scripts Cyclobenzaprine Hcl (CYCLOBENZAPRINE HCL) 7.5 Mg Tab, 7.5 MG PO Q6HP PRN, #30 TAB Prov:PIEDAD ZIMMERMAN MD 01/15/25 Gabapentin (Once-Daily) (Gabapentin) 300 Mg Tab, 300 MG PO Q6HP PRN, #30 TAB Prov:PIEDAD ZIMMERMAN MD 01/15/25 Ciprofloxacin Hcl (Cipro) 500 Mg Tab, 1 TAB PO BID for 7 Days, #14 TAB Prov:NGUYỄN AMADOR MD 08/30/24 Aspirin (Aspirin Low Dose) 81 Mg Tab, 81 MG PO DAILY for 30 Days, #30 TAB Prov:ISAEL CHIN 11/25/23 Hydralazine Hcl (Hydralazine Hcl) 10 Mg Tab, 10 MG PO Q8HR for 30 Days, #90 TAB Prov:ISAEL CHIN RESIDENT 11/25/23 Carvedilol (COREG) 3.125 Mg Tab, 6.25 MG PO Q12HR for 30 Days, #120 TAB Prov:ISAEL CHIN RESIDENT 11/25/23 Reported Medications Ipratropium-Albuterol (Ipratropium [place]/Albut) 1 Mattie Mattie, 3 ML NEB Q6HR PRN for DIFFICULTY BREATHING 11/19/23 Insulin Glargine (Basaglar Kwikpen) 100 Unit/Ml Inj, 40 UNIT SC HS 11/19/23 Semaglutide (Ozempic) 2 Mg/3 Ml Inj, 0.25 MG SC QWEEKLY 11/19/23 Umeclidinium-Vilanterol (Anoro Ellipta 62.5-25 Mcg/INH) 1 Aer Aer, 1 PUFF INH DAILY 11/19/23 Sertraline Hcl (Sertraline Hcl) 100 Mg Tab, 1 TAB PO DAILY 11/18/23 Atorvastatin Calcium (ATORVASTATIN CALCIUM) 40 Mg Tab, 1 TAB PO DAILY 11/18/23 Potassium Chloride (Potassium Chloride ER) 10 Meq Tab, 1 TAB PO DAILY 03/19/23 Albuterol Sulfate (Albuterol Sulfate Hfa) 108 Mcg/Act Aer, 2 PUFF PO Q6HPRN PRN for dyspnea 03/19/23 Furosemide (Furosemide) 40 Mg Tab, 1 TAB PO DAILY 03/19/23 Hydrocodone-Acetaminophen (Hydrocodone/Acetaminophen 10-325 mg) 1 Tab Tab, 1 TAB PO Q6HR PRN for SEVERE PAIN 02/25/23 Apixaban Base (ELIQUIS) 5 Mg Tab, 5 MG PO BID, TAB 12/01/21 Isosorbide Dinitrate (Isosorbide Dinitrate) 20 Mg Tab, 30 MG PO DAILY, MG 12/01/21 Insulin Glargine (Lantus) 100 Unit/Ml Inj, 50 UNIT SC 08/24/20 Information Source: Patient, Emergency Med Personnel Mode of Arrival: EMS Severity: Moderate Timing: Hours Duration: Since onset Prehospital treatment: 12 Lead EKG, Accucheck, Char Filter Operator, Other (IV access) Past Medical History PAST MEDICAL HISTORY: AFIB, Anemia, Asthma, CAD, CHF (reducd EF ), CKF, COPD (2LPM home O2 at night ), DM, Gout, High Lipids, HTN, IA (NSTEMI type I ), PAD Past Medical History (Other): obstructive sleep apnea on CPAP triple vessel disease SCOUT morbid obesity Surgical History: PTCA Surgical History (Other): PCI Family History Family History: Unknown Social History Smoker: Non-Smoker Alcohol: Denies ETOH Use Drugs: Methamphetamine Lives In: Home All Other Systems: Reviewed and Negative (Comprehensive review of systems are negative unless otherwise stated in HPI) Physical Exam General Appearance: Moderate Distress, Obese HEENT: Normal ENT Inspection, Pharynx Normal, TMs Normal Neck: Full Range of Motion, Non-Tender, Normal, Normal Inspection Respiratory: Chest Non-Tender, Lungs Clear, No Accessory Muscle Use, No Respiratory Distress, Normal Breath Sounds Cardiovascular: No Edema, No JVD, No Murmur, No Gallop, Normal Peripheral Pulses, Regular Rate/Rhythm Breast Exam: Deferred Gastrointestinal: No Organomegaly, Non Tender, No Pulsatile Mass, Normal Bowel Sounds, Soft Genitalia: Deferred Pelvic: Deferred Rectal: Deferred Extremities: No calf tenderness, Normal capillary refill, Normal inspection, Normal range of motion, Non-tender, No pedal edema Musculoskeletal : Location: Left Extremity Location: Back (lumbar paraspinal area ) Apperance: Normal, Tenderness Neurologic: Alert, tariff publishing agent II-XII nml as Tested, No Motor Deficits, Normal Affect, Normal Mood, No Sensory Deficits Cerebellar Function: Normal Reflexes: Normal Skin: Dry, Normal Color, Warm Lymphatic: No Adenopathy Was a procedure done? Was a procedure done?: No Differential Dx Considerations may include: nephrolithiasis, pyelonephritis, cystitis, musculoskeletal pain, among others X-Ray, Labs, Meds, VS Vital Signs Date Time Temp Pulse Resp B/P (MAP) Pulse Ox O2 Delivery O2 Flow Rate FiO2 01/15/25 02:34 89 18 127/76 01/15/25 01:08 76 21 135/80 01/15/25 01:00 Room Air* 0 21 01/15/25 01:00 98.0 91 12 135/80 (98) 93 98.0 01/15/25 00:32 98.0 82 18 155/93 (113) 93 98.0 Lab Test 01/15/25 02:23 01/15/25 01:37 01/15/25 00:42 Range/Units Urine Color Yellow Yellow Urine Clarity Clear Clear Urine pH 5.5 5.0-9.0 Urine Specific [place] 1.021 1.001-1.035 Urine Protein 1+ H Negative Urine Ketones Negative Negative Urine Blood Negative Negative /uL Urine Nitrite Negative Negative Urine Bilirubin Negative Negative Urine Urobilinogen Normal Negative mg/dL Urine Leukocyte Esterase Negative Negative /uL Urine RBC 1 0 - 3 /hpf Urine Microscopic WBC 3 0-3 /HPF Urine Squamous Epithelial Cells Few <5 /hpf Urine Bacteria None seen None Seen /hpf Urine Glucose Normal Normal mg/dL Troponin I High Sensitivity 38 36 </=54 ng/L White Blood Count 7.6 4.4-10.8 10^3/uL Red Blood Count 4.97 4.5-5.90 10^6/uL Hemoglobin 14.0 13.5-17.5 g/dL Hematocrit 42.4 41.0-53.0 % Mean Corpuscular Volume 85.3 80.0-100.0 fL Mean Corpuscular Hemoglobin 28.1 28.0-32.0 pg Mean Corpuscular Hemoglobin Concent 32.9 32.0-36.0 g/dL Red Cell Distribution Width 18.9 H 11.8-14.3 % Platelet Count 103 L 140-450 10^3/uL Mean Platelet Volume 11.0 H 6.9-10.8 fL Neutrophils (%) (Auto) 78.4 37.0-80.0 % Lymphocytes (%) (Auto) 11.7 10.0-50.0 % Monocytes (%) (Auto) 5.2 0.0-12.0 % Eosinophils (%) (Auto) 4.0 0.0-7.0 % Basophils (%) (Auto) 0.7 0.0-2.0 % Neutrophils # (Auto) 6.0 1.6-8.6 10 ^3/uL Lymphocytes # (Auto) 0.9 0.4-5.4 10 ^3/uL Monocytes # (Auto) 0.4 0-1.3 10 ^3/uL Eosinophils # (Auto) 0.3 0-0.8 10 ^3/uL Basophils # (Auto) 0.1 0-0.2 10 ^3/uL Nucleated Red Blood Cells 0.1 % Prothrombin Time 12.0 H 9.3-11.8 sec Prothrombin Time INR 1.15 0.9-1.15 Activated Partial Thromboplast Time 32.1 24.5-34.5 SEC Sodium Level 140 136-145 mmol/L Potassium Level 5.0 3.5-5.1 mmol/L Chloride Level 108 H 98-107 mmol/L Carbon Dioxide Level 24 20-31 mmol/L Anion Gap 8 5-15 Blood Urea Nitrogen 57 H 9-23 mg/dL Creatinine 2.06 H 0.700-1.30 mg/dL Glomerular Filtration Rate Calc 37 >90 mL/min BUN/Creatinine Ratio 27.7 H 10.0-20.0 Serum Glucose 133 H 74-106 mg/dL Calcium Level 8.7 8.7-10.4 mg/dL Total Bilirubin 0.6 0.2-1.0 mg/dL Aspartate Amino Transferase (AST) 29 13-40 U/L Alanine Aminotransferase (ALT) 24 7-40 U/L Alkaline Phosphatase 71 46-116 U/L Total Protein 6.4 5.7-8.2 g/dL Albumin 4.0 3.2-4.8 g/dL Lipase 31 12-53 U/L Current Medications Medications (Trade) Dose Ordered Sig/Johana Route Start Time Stop Time Status Last Admin Ondansetron HCl (Zofran) 4 mg ONCE ONCE IV 01/15/25 00:45 01/15/25 00:47 DC 01/15/25 01:06 Morphine Sulfate 4 mg ONCE ONCE IV 01/15/25 00:45 01/15/25 00:47 DC 01/15/25 01:08 Hydromorphone HCl (Dilaudid Injection) 1 mg ONCE ONCE IV 01/15/25 02:30 01/15/25 02:31 DC 01/15/25 02:34 Ondansetron HCl (Zofran) 4 mg ONCE ONCE IV 01/15/25 02:30 01/15/25 02:31 DC 01/15/25 02:33 PATIENT: TRINITY MARIANO I ACCT: [id number] UNIT: [id number] : 1970 LOC: ER ROOM / BED: / AGE / SEX: 54 / M ADM STATUS: REG ER SERVICE [id number] ORDERING PHYSICIAN: PIEDAD ZIMMERMAN MD PROCEDURE(s): ABPL - CT AB PEL WO CON-NO ORAL OR IV REASON: left flank pain ORDER NUMBER(s): [id number], ACCESSION NUMBER(s): [id number] Exam: CT CT AB PEL WO CON-NO ORAL OR IV History: left flank pain Comparison Study: CT CT AB PEL WO CON-NO ORAL OR IV on DOS: 08/21/22, [facility] on DOS: 12/01/21, [facility] on DOS: 03/07/21 Technique: Multidetector spiral CT of the abdomen was performed from lung bases to pubic symphysis. Imaging was performed without IV contrast. Axial, coronal and sagittal multiplanar reformats were obtained from the axial data set by the technologist. Radiation Dose : 1. Abdomen/Pelvis: CTDIvol 27.87 mGy, DLP 1713.68 mGy*cm. Findings: Evaluation of solid organs is limited due to lack of intravenous contrast use. Lung Bases: No acute or significant lung base finding. Cardiomegaly. No pleural or pericardial effusion. Liver: The liver is enlarged, measuring 19.9 cm in craniocaudal dimension.. No focal lesions. Gallbladder and Biliary Tree: Moderate gallbladder distention and cholelithiasis. Spleen: Spleen is enlarged, measuring 18.7 cm in craniocaudal dimension. Pancreas: The pancreas is grossly normal in appearance. Adrenal Glands: Unremarkable Kidneys: Mild bilateral atrophy and cortical scarring. No evidence of calculi or hydronephrosis. Bladder: Grossly unremarkable for degree of distention. Bowel: The stomach is grossly normal in appearance. Small bowel and colon are normal in caliber and distribution. The appendix is normal. Ascites: Absent Lymphadenopathy: No mesenteric, retroperitoneal or periportal lymphadenopathy. Abdominal Wall and Mesentery: Unremarkable. Vasculature: The visualized abdominal aorta is normal in size and caliber. Atherosclerotic vascular calcifications.r Evaluation of abdominal and pelvic vessels is limited due to lack of intravenous contrast. Pelvic Organs: Unremarkable Musculoskeletal: No aggressive focal bony lesions, acute fractures or dislocation. IMPRESSION: 1. No acute abdominal or pelvic findings. 2. Cardiomegaly. 3. Hepatosplenomegaly. 4. Bilateral renal atrophy and cortical scarring. Radiation optimization: All CT scans at this facility use at least one of these dose optimization techniques: automated exposure control mA and/or kV adjustment per patient size (includes targeted exams where dose is matched to clinical indication) or iterative reconstruction. Time of 1ST Reevaluation: 01:20 Reevaluation 1ST: Unchanged Patient Education/Counseling: Diagnosis, Treatment, Other (need for admission ) Family Education/Counseling: No Family Present SEPSIS Sepsis Screen Date sepsis recognized/suspect: Jan 15, 2025 Time Sepsis recognized/suspect: 34 Recent Procedure: No On Antibiotic Therapy: No Respiratory Rate >20: No Heart Rate >90: No Temp<36 C (96.8 F) or >38.3 C: No SBP <90 or MAP <65 mmHG: No New Acute Mental Status Change: No Is the patient on CPAP, BIPAP,: No Physician Orders Ct Ab Pel Wo Con-No Oral Or Iv (01/15/25 00:44) Heplock Iv (01/15/25 00:44) Electrocardigram (01/15/25 00:44) Troponin-I Hs (01/15/25 03:44) Vital Signs Date Time Temp Pulse Resp B/P (MAP) Pulse Ox O2 Delivery O2 Flow Rate FiO2 01/15/25 02:34 89 18 127/76 01/15/25 01:08 76 21 135/80 01/15/25 01:00 Room Air* 0 21 01/15/25 01:00 98.0 91 12 135/80 (98) 93 98.0 01/15/25 00:32 98.0 82 18 155/93 (113) 93 98.0 Laboratory Tests Test 01/15/25 00:42 White Blood Count 7.6 10^3/uL (4.4-10.8) Medications Medications Dose Ordered Sig/Johana Route Start Time Stop Time Status Last Admin Dose Admin Hydromorphone HCl 1 mg ONCE ONCE IV 01/15/25 02:30 01/15/25 02:31 DC 01/15/25 02:34 Morphine Sulfate 4 mg ONCE ONCE IV 01/15/25 00:45 01/15/25 00:47 DC 01/15/25 01:08 Ondansetron HCl 4 mg ONCE ONCE IV 01/15/25 00:45 01/15/25 00:47 DC 01/15/25 01:06 Ondansetron HCl 4 mg ONCE ONCE IV 01/15/25 02:30 01/15/25 02:31 DC 01/15/25 02:33 Departure 1 Departure Time of Disposition: 03:30 Impression: Primary Impression: Renal insufficiency Additional Impression: Left low back pain Disposition: HOME / SELF CARE / HOMELESS Condition: Stable e-Prescriptions Cyclobenzaprine Hcl (CYCLOBENZAPRINE HCL) 7.5 Mg Tab 7.5 MG PO Q6HP PRN, #30 TAB Prov: PIEDAD ZIMMERMAN MD 01/15/25 Gabapentin (Once-Daily) (Gabapentin) 300 Mg Tab 300 MG PO Q6HP PRN, #30 TAB Prov: PIEDAD ZIMMERMAN MD 01/15/25 Discharged With: Self Critical Care Note Critical Care Time?: No Stability Stability form required: No Heart Score Heart Score: Heart Score Response (Comments) Value History N/A 0 EKG N/A 0 Age N/A 0 Risk Factors N/A 0 Troponin N/A 0 Total 0 I personally scribed for PIEDAD ZIMMERMAN MD ([email or web address]) on 01/15/25 at 01:14. Electronically submitted by Brandon Jones ([email or web address]). I personally scribed for PIEDAD ZIMMERMAN MD ([email or web address]) on 01/15/25 at 02:13. Electronically submitted by Donnell Saldana ([email or web address]). I personally scribed for PIEDAD ZIMMERMAN MD ([email or web address]) on 01/15/25 at 02:24. Electronically submitted by Donnell Saldana ([email or web address]). PIEDAD ZIMMERMAN MD Jan 15, 2025 01:14
[2025-01-15 01:23] LABS: Alanine Aminotransferase 24 U/L (7-40); Albumin 4.0 g/dL (3.2-4.8); Alkaline Phosphatase 71 U/L (46-116); Anion Gap 8 (5-15); BUN/Creatinine Ratio 27.7 (10.0-20.0); Carbon Dioxide 24 mmol/L (20-31); Lipase 31 U/L (12-53); Potassium 5.0 mmol/L (3.5-5.1); Sodium 140 mmol/L (136-145); Total Protein 6.4 g/dL (5.7-8.2)
[2025-01-15 01:24] LABS: Bilirubin, Total 0.6 mg/dL (0.2-1.0)
[2025-01-15 01:32] LABS: Blood Urea Nitrogen 57 mg/dL (9-23); Calcium 8.7 mg/dL (8.7-10.4); Chloride 108 mmol/L (98-107); Glucose 133 mg/dL (74-106)
--- NOTE | 2025-01-15 02:07 | DVH ---
Exam: CT CT AB PEL WO CON-NO ORAL OR IV History: left flank pain Comparison Study: CT CT AB PEL WO CON-NO ORAL OR IV on DOS: 08/21/22, [facility] on DOS: 12/01/21, [facility] on D OS: 03/07/21 Technique: Multidetector spiral CT of the abdomen was performed from lung bases to pubic symphysis. I maging was performed without IV contrast. Axial, coronal and sagittal multiplanar reformats were obta ined from the axial data set by the technologist. Radiation Dose : 1. Abdomen/Pelvis: CTDIvol 27.87 mGy, DLP 1713.68 mGy*cm. Findings: Evaluation of solid organs is limited due to lack of intravenous contrast use. Lung Bases: No acute or significant lung base finding. Cardiomegaly. No pleural or pericardial effus ion. Liver: The liver is enlarged, measuring 19.9 cm in craniocaudal dimension.. No focal lesions. Gallbladder and Biliary Tree: Moderate gallbladder distention and cholelithiasis. Spleen: Spleen is enlarged, measuring 18.7 cm in craniocaudal dimension. Pancreas: The pancreas is grossly normal in appearance. Adrenal Glands: Unremarkable Kidneys: Mild bilateral atrophy and cortical scarring. No evidence of calculi or hydronephrosis. Bladder: Grossly unremarkable for degree of distention. Bowel: The stomach is grossly normal in appearance. Small bowel and colon are normal in caliber and d istribution. The appendix is normal. Ascites: Absent Lymphadenopathy: No mesenteric, retroperitoneal or periportal lymphadenopathy. Abdominal Wall and Mesentery: Unremarkable. Vasculature: The visualized abdominal aorta is normal in size and caliber. Atherosclerotic vascular c alcifications.r Evaluation of abdominal and pelvic vessels is limited due to lack of intravenous con trast. Pelvic Organs: Unremarkable Musculoskeletal: No aggressive focal bony lesions, acute fractures or dislocation. IMPRESSION: 1. No acute abdominal or pelvic findings. 2. Cardiomegaly. 3. Hepatosplenomegaly. 4. Bilateral renal atrophy and cortical scarring. Radiation optimization: All CT scans at this facility use at least one of these dose optimization bladimir hniques: automated exposure control mA and/or kV adjustment per patient size (includes targeted exam s where dose is matched to clinical indication) or iterative reconstruction.
[2025-01-15] MEDS: HYDROmorphone HCL 2 MG/ML VL/or syr IV ONE (02:34)
[2025-01-15 03:01] LABS: Urine Protein, UAD 1+ (Negative)
[2025-01-15] MEDS ORDERED: GABA300T4 PO (03:26)
[2025-01-15] MEDS ORDERED: CYCL-838 PO (03:26)
[2025-01-15 04:00] VITALS: BP 123/83; PULSE 69; RESP 16; O2SAT 95
--- NOTE | 2025-01-15 07:16 | ECG ---
[facility] Test Date: 2025-01-15 Test Time: 00:31:24 Pat Name: TRINITY MARIANO Department: ED Room: Gender: M Radio News Anchor: yuki : 1970 Requested By: PIEDAD ZIMMERMAN Order Number: [id number] Reading MD: Paddy Richard Measurements Intervals [place] Rate: 70 P: 0 MN: 0 QRS: -109 QRSD: 119 T: 44 QT: 372 QTc: 402 Interpretive Statements Atrial fibrillation Incomplete right bundle branch block Inferior infarct, old Anterior infarct, old Electronically Signed On 01-18-2025 15:52:38 PDT by Paddy Richard Please click the below link to view image of tracing.
== END 2025-01-15 04:00 | disposition home or self-care (01) ==
LOC: ER 00:20 → EDUNIT# 00:20 → EDBD 00:20 → ER 04:00
DX: I13.0 Hypertensive heart and chronic kidney disease with heart failure and stage 1 through stage 4 chronic kidney disease, or unspecified chronic kidney disease (principal); I50.9 Heart failure, unspecified; E11.22 Type 2 diabetes mellitus with diabetic chronic kidney disease; N18.9 Chronic kidney disease, unspecified; M54.59 Other low back pain; F19.90 Other psychoactive substance use, unspecified, uncomplicated; E78.5 Hyperlipidemia, unspecified; I25.2 Old myocardial infarction; I48.91 Unspecified atrial fibrillation; I25.10 Atherosclerotic heart disease of native coronary artery without angina pectoris; G47.33 Obstructive sleep apnea (adult) (pediatric); E66.01 Morbid (severe) obesity due to excess calories; M10.9 Gout, unspecified; J44.89 Other specified chronic obstructive pulmonary disease; Z79.01 Long term (current) use of anticoagulants; Z95.5 Presence of coronary angioplasty implant and graft; Z79.899 Other long term (current) drug therapy; Z79.85 Long-term (current) use of injectable non-insulin antidiabetic drugs; Z79.82 Long term (current) use of aspirin; Z68.24 Body mass index [BMI] 24.0-24.9, adult
CPT/HCPCS: 36415; 74176; 80053; 81001; 83690; 84484; 85025; 85610; 85730; 93005; 96374; 96375; 96376; 99285; J1171; J2270; J2405

== ENCOUNTER 2025-01-15 06:57 | Emergency (ER) | payer MEDICAID ==
[~2025-01-15] VITALS: Ht 182.9 cm; Wt 173.0 kg
[~2025-01-15 06:57] MED LIST changes: +CYCL-838 PO; +GABA300T4 PO
--- NOTE | 2025-01-15 07:07 | ED.PDOC ---
GI ASSESSMENT HPI Comments HPI from 01/15/25 00:40 54 y/o morbidly obese M is SERENA from private residence for c/c left flank pain. Per EMS report, patient was working out in his garage, this evening, when he felt sudden onset of pain. It is reported to be nonradiating, stabbing in quality, and a 10/10 in severity, with the patient being unable to bear his own weight and walk because of it. Only notable history of recent stent placement at [facility] 7x days ago, with patient reporting on being informed by staff on having some unspecified 'kidney issues' prior to discharge. Other significant history includes: AFib, SCOUT, anemia, asthma, CAD s/p PCI, CHF - reduced EF, CKF, COPD 2LPM home O2 at night, DM, gout, HLD, HTN, STEMI type I, obstructive sleep apnea on CPAP, triple vessel disease, PAD, and methamphetamine abuse. Patient denies any urinary symptoms, abnormal bowel movements, dizziness, weakness, or further associated symptoms. Vitals were noted to have been stable and within normal limits, with exception on the patient being found in AFIB, hypertensive at 150's systolically, and 90%RA. Blood glucose of 158, initially, on scene. Patient states pain has not improved, did not leave ED, decided to check back in due to pain. Time Seen by : 07:04 Primary Care Provider: BERLIN Maya Notes: Medications, Allergies Allergies: Coded Allergies: NO KNOWN ALLERGIES (Unverified , 08/14/13) Home Meds Active Scripts Cyclobenzaprine Hcl (CYCLOBENZAPRINE HCL) 7.5 Mg Tab, 7.5 MG PO Q6HP PRN, #30 TAB Prov:PIEDAD ZIMMERMAN MD 01/15/25 Gabapentin (Once-Daily) (Gabapentin) 300 Mg Tab, 300 MG PO Q6HP PRN, #30 TAB Prov:PIEDAD ZIMMERMAN MD 01/15/25 Ciprofloxacin Hcl (Cipro) 500 Mg Tab, 1 TAB PO BID for 7 Days, #14 TAB Prov:NGUYỄN AMADOR MD 08/30/24 Aspirin (Aspirin Low Dose) 81 Mg Tab, 81 MG PO DAILY for 30 Days, #30 TAB Prov:ISAEL CHIN RESIDENT 11/25/23 Hydralazine Hcl (Hydralazine Hcl) 10 Mg Tab, 10 MG PO Q8HR for 30 Days, #90 TAB Prov:ISAEL CHIN RESIDENT 11/25/23 Carvedilol (COREG) 3.125 Mg Tab, 6.25 MG PO Q12HR for 30 Days, #120 TAB Prov:ISAEL CHIN RESIDENT 11/25/23 Reported Medications Ipratropium-Albuterol (Ipratropium [place]/Albut) 1 Mattie Mattie, 3 ML NEB Q6HR PRN for DIFFICULTY BREATHING 11/19/23 Insulin Glargine (Basaglar Kwikpen) 100 Unit/Ml Inj, 40 UNIT SC HS 11/19/23 Semaglutide (Ozempic) 2 Mg/3 Ml Inj, 0.25 MG SC QWEEKLY 11/19/23 Umeclidinium-Vilanterol (Anoro Ellipta 62.5-25 Mcg/INH) 1 Aer Aer, 1 PUFF INH DAILY 11/19/23 Sertraline Hcl (Sertraline Hcl) 100 Mg Tab, 1 TAB PO DAILY 11/18/23 Atorvastatin Calcium (ATORVASTATIN CALCIUM) 40 Mg Tab, 1 TAB PO DAILY 11/18/23 Potassium Chloride (Potassium Chloride ER) 10 Meq Tab, 1 TAB PO DAILY 03/19/23 Albuterol Sulfate (Albuterol Sulfate Hfa) 108 Mcg/Act Aer, 2 PUFF PO Q6HPRN PRN for dyspnea 03/19/23 Furosemide (Furosemide) 40 Mg Tab, 1 TAB PO DAILY 03/19/23 Hydrocodone-Acetaminophen (Hydrocodone/Acetaminophen 10-325 mg) 1 Tab Tab, 1 TAB PO Q6HR PRN for SEVERE PAIN 02/25/23 Apixaban Base (ELIQUIS) 5 Mg Tab, 5 MG PO BID, TAB 12/01/21 Isosorbide Dinitrate (Isosorbide Dinitrate) 20 Mg Tab, 30 MG PO DAILY, MG 12/01/21 Insulin Glargine (Lantus) 100 Unit/Ml Inj, 50 UNIT SC 08/24/20 Information Source: Patient Mode of Arrival: Wheelchair Timing: Hours Duration: Since onset Prehospital treatment: None Quality: Sharp Severity: Moderate Recent: None Recent Hx of: None Pain Location: Diffuse Modifying Factors: Nothing Associated sign and symptoms: Abdominal Pain Past Medical History PAST MEDICAL HISTORY: AFIB, Anemia, Asthma, CAD, CHF, CKF, COPD, DM, Gout, High Lipids, HTN, [place], PAD Surgical History: PTCA Family History Family History: Unknown Social History Smoker: Non-Smoker Alcohol: Denies ETOH Use Drugs: Methamphetamine Lives In: Home Constitutional: denies: chills, diaphoresis, fatigue, fever, malaise, sweats, weakness, others EENTM: denies: blurred vision, double vision, ear bleeding, ear discharge, ear drainage, ear pain, ear ringing, eye pain, eye redness, hearing loss, mouth pain, mouth swelling, nasal discharge, nose bleeding, nose congestion, nose pain, photophobia, tearing, throat pain, throat swelling, voice changes, others Respiratory: denies: cough, hemoptysis, orthopnea, SOB at rest, shortness of breath, SOB with excertion, stridor, wheezing, others Cardiovascular: denies: chest pain, dizzy spells, diaphoresis, Dyspnea on exertion, edema, irregular heart beat, left arm pain, lightheadedness, palpitations, PND, syncope, others Gastrointestinal: reports: abdominal pain; denies: abdomen distended, blood streaked bowels, constipated, diarrhea, dysphagia, difficulty swallowing, hem atemesis, melena, nausea, poor appetite, poor fluid intake, rectal bleeding, rectal pain, vomiting, others Genitourinary: denies: burning, dysuria, flank pain, frequency, hematuria, incontinence, penile discharge, penile sore, pain, testicle pain, testicle swelling, urgency, others Neurological: denies: dizziness, fainting, headache, left sided numbness, left sided weakness, numbness, paresthesia, pre-existing deficit, right sided numbness, right sided weakness, seizure, speech problems, tingling, tremors, weakness, others Musculoskeletal: denies: back pain, gout, joint pain, joint swelling, muscle pain, muscle stiffness, neck pain, others Integumetry: denies: bruises, change in color, change in hair/nails, dryness, laceration, lesions, lumps, rash, wounds, others Allergic/Immunocompromised: denies: Difficulty Healing, Frequent Infections, Hives, Itching, others Hematologic/Lymphatic: denies: anemia, blood clots, easy bleeding, easy bruising, swollen glands, others Endocrine: denies: excessive hunger, excessive sweating, excessive thirst, excessive urination, flushing, intolerance to cold, intolerance to heat, unexplained weight gain, unexplained weight loss, others Psychiatric: denies: anxiety, bipolar disorder, depression, hopeless, panic disorder, schizophrenia, sleepless, suicidal, others All Other Systems: Reviewed and Negative Physical Exam General Appearance: Moderate Distress, Obese HEENT: Normal ENT Inspection, Pharynx Normal, TMs Normal Neck: Full Range of Motion, Non-Tender, Normal, Normal Inspection Respiratory: Chest Non-Tender, Lungs Clear, No Accessory Muscle Use, No Respiratory Distress, Normal Breath Sounds Cardiovascular: No Edema, No JVD, No Murmur, No Gallop, Normal Peripheral Pu lses, Regular Rate/Rhythm Breast Exam: Deferred Gastrointestinal: No Organomegaly, Non Tender, No Pulsatile Mass, Normal Bowel Sounds, Soft Genitalia: Deferred Pelvic: Deferred Rectal: Deferred Extremities: No calf tenderness, Normal capillary refill, Normal inspection, Normal range of motion, Non-tender, No pedal edema Musculoskeletal : Apperance: Normal Neurologic: Alert, community mental health social worker II-XII nml as Tested, No Motor Deficits, Normal Affect, Normal Mood, No Sensory Deficits Cerebellar Function: Normal Reflexes: Normal Skin: Dry, Normal Color, Warm Peripheral Pulses: 3+ Radial (R), 3+ Radial (L) Lymphatic: No Adenopathy Was a procedure done? Was a procedure done?: No GI differential Dx Differential Diagnosis: Constipation, Diverticular disease, Esophagitis, Gastritis/PUD, Gastroenteritis X-Ray, Labs, Meds, VS Patient alert. He is obese. Vitals stable. Answering questions Reviewed his previous visit which was few hours ago. Kidney function elevated. WBC within normal limits. CT scan of the abdomen reviewed does not show any acute changes. Possible muscle strain. Was given [place]. Explained to the patient. Was told to follow up with his primary care physician. Was told to come back if there is any problem. Time of 1ST Reevaluation: 07:34 Reevaluation 1ST: Improved Patient Education/Counseling: Diagnosis, Treatment, Prognosis Family Education/Counseling: No Family Present Departure 1 Departure Time of Disposition: 07:37 Impression: Primary Impression: Lumbar sprain Qualified Codes: S33.5XXA - Sprain of ligaments of lumbar spine, initial encounter Additional Impressions: Musculoskeletal pain Renal insufficiency Disposition: 01 HOME / SELF CARE / HOMELESS Condition: Good Discharged With: Self Critical Care Note Critical Care Time?: No Stability Stability form required: No Heart Score Heart Score: Heart Score Response (Comments) Value History N/A 0 EKG N/A 0 Age N/A 0 Risk Factors N/A 0 Troponin N/A 0 Total 0 I personally scribed for ANTONETTE SOLORZANO MD ([email or web address]) on 01/15/25 at 07:07. Electronically submitted by Gwen Aldridge ([email or web address]). ANTONETTE SOLORZANO MD Jan 15, 2025 07:07
[2025-01-15 07:52] VITALS: PULSE 75; RESP 16; O2SAT 96
[2025-01-15] MEDS: HYDROcodone-ACET 10/325MG TAB PO ONE (07:57)
[2025-01-15 08:41] VITALS: BP 114/81; PULSE 60; RESP 18; TEMP 97.9; O2SAT 92
== END 2025-01-15 08:43 | disposition home or self-care (01) ==
LOC: ER 06:57
DX: S33.5XXA Sprain of ligaments of lumbar spine, initial encounter (principal); M79.18 Myalgia, other site; I13.0 Hypertensive heart and chronic kidney disease with heart failure and stage 1 through stage 4 chronic kidney disease, or unspecified chronic kidney disease; E11.22 Type 2 diabetes mellitus with diabetic chronic kidney disease; N18.9 Chronic kidney disease, unspecified; I50.9 Heart failure, unspecified; E78.5 Hyperlipidemia, unspecified; I25.10 Atherosclerotic heart disease of native coronary artery without angina pectoris; I25.2 Old myocardial infarction; I48.91 Unspecified atrial fibrillation; J44.89 Other specified chronic obstructive pulmonary disease; Z79.82 Long term (current) use of aspirin; Z79.85 Long-term (current) use of injectable non-insulin antidiabetic drugs; Z79.899 Other long term (current) drug therapy; Z95.5 Presence of coronary angioplasty implant and graft; Z98.890 Other specified postprocedural states; X58.XXXA Exposure to other specified factors, initial encounter; Y93.89 Activity, other specified; Y92.89 Other specified places as the place of occurrence of the external cause; Y99.8 Other external cause status

== ENCOUNTER 2025-05-30 23:29 | Inpatient (IN) | payer MEDICAID ==
[~2025-05-30] VITALS: Ht 182.9 cm; Wt 183.1 kg
--- NOTE | 2025-05-30 23:39 | ECG ---
[facility] Test Date: 2025-05-30 Test Time: 23:35:09 Pat Name: TRINITY MARIANO Department: ED Room: 0281T Gender: M Logistics Administrator: YURI : 1970 Requested By: EMERGENCY EMERGENCY Order Number: [id number] Reading MD: Paddy Richard Measurements Intervals [place] Rate: 74 P: 46 DC: 219 QRS: -76 QRSD: 103 T: 67 QT: 401 QTc: 445 Interpretive Statements Sinus rhythm Prolonged DC interval Anterolateral infarct, age indeterminate Baseline wander in lead(s) I,III,aVL Electronically Signed On 06-01-2025 17:03:58 PST by Paddy Richard Please click the below link to view image of tracing.
[2025-05-31] VITALS (11 sets, daily range): BP systolic 142–159; BP diastolic 75–86; PULSE 63–72; RESP 14–19; TEMP 97.9–98.1; O2SAT 94–100
[2025-05-31 00:11] LABS: Alanine Aminotransferase 29 U/L (7-40); Alkaline Phosphatase 109 U/L (46-116); Anion Gap 11 (5-15); BUN/Creatinine Ratio 25.1 (10.0-20.0); Carbon Dioxide 25 mmol/L (20-31); Chloride 103 mmol/L (98-107); Potassium 4.0 mmol/L (3.5-5.1); Sodium 139 mmol/L (136-145); Total Protein 6.8 g/dL (5.7-8.2)
[2025-05-31 00:12] LABS: Albumin 3.9 g/dL (3.2-4.8); Bilirubin, Total 0.3 mg/dL (0.2-1.0); Blood Urea Nitrogen 43 mg/dL (9-23); Calcium 8.5 mg/dL (8.7-10.4); Glucose 271 mg/dL (74-106)
--- NOTE | 2025-05-31 00:25 | ED.PDOC ---
History of Present Illness HPI Comments 54-year-old male is brought in by ambulance from private residence for chief complaint of nonradiating, midsternal chest pain. Complaining of 8/10, burning sensation in his chest after walking around his home 1.5 hours prior to ED arrival. Pain is stated to not be as severe as when he had an [place] in the past, however but feels similar. Patient reports associated worsening dyspnea from his usual baseline and left arm tingling sensation which began today. Significant history for AFib s/p cardiac ablation, anemia, asthma, CAD, CHF, CKD, COPD, DM, gout, HLD, HTN, [place], PTCA, PAD, and methamphetamine abuse. Patient also has a nonproductive cough since 05/25/25. Patient took his own prescription nitroglycerin and aspirin prior to EMS arrival on scene and received an additional dose of nitroglycerin EN route. All initial vitals were reported to have been stable and within normal limits. He denies any fever, nausea, vomiting, diarrhea, sick contacts, recent travel. Chief Complaint: Chest Pain Time Seen by MD: 23:45 Primary Care Provider: [place]ER[place] Reviewed Notes: Nurses Notes, Spline Rolling Machine Job Setter Notes, Medications, Allergies Allergies: Coded Allergies: NO KNOWN ALLERGIES (Unverified , 08/14/13) Home Meds Active Scripts Cyclobenzaprine Hcl (CYCLOBENZAPRINE HCL) 7.5 Mg Tab, 7.5 MG PO Q6HP PRN, #30 TAB Prov:PIEDAD ZIMMERMAN MD 01/15/25 Gabapentin (Once-Daily) (Gabapentin) 300 Mg Tab, 300 MG PO Q6HP PRN, #30 TAB Prov:PIEDAD ZIMMERMAN MD 01/15/25 Ciprofloxacin Hcl (Cipro) 500 Mg Tab, 1 TAB PO BID for 7 Days, #14 TAB Prov:NGUYỄN AMADOR MD 08/30/24 Aspirin (Aspirin Low Dose) 81 Mg Tab, 81 MG PO DAILY for 30 Days, #30 TAB Prov:ISAEL CHIN RESIDENT 11/25/23 Hydralazine Hcl (Hydralazine Hcl) 10 Mg Tab, 10 MG PO Q8HR for 30 Days, #90 TAB Prov:ISAEL CHIN RESIDENT 11/25/23 Carvedilol (COREG) 3.125 Mg Tab, 6.25 MG PO Q12HR for 30 Days, #120 TAB Prov:ISAEL CHIN RESIDENT 11/25/23 Reported Medications Ipratropium-Albuterol (Ipratropium [place]/Albut) 1 Mattie Mattie, 3 ML NEB Q6HR PRN for DIFFICULTY BREATHING 11/19/23 Insulin Glargine (Basaglar Kwikpen) 100 Unit/Ml Inj, 40 UNIT SC HS 11/19/23 Semaglutide (Ozempic) 2 Mg/3 Ml Inj, 0.25 MG SC QWEEKLY 11/19/23 Umeclidinium-Vilanterol (Anoro Ellipta 62.5-25 Mcg/INH) 1 Aer Aer, 1 PUFF INH DAILY 11/19/23 Sertraline Hcl (Sertraline Hcl) 100 Mg Tab, 1 TAB PO DAILY 11/18/23 Atorvastatin Calcium (ATORVASTATIN CALCIUM) 40 Mg Tab, 1 TAB PO DAILY 11/18/23 Potassium Chloride (Potassium Chloride ER) 10 Meq Tab, 1 TAB PO DAILY 03/19/23 Albuterol Sulfate (Albuterol Sulfate Hfa) 108 Mcg/Act Aer, 2 PUFF PO Q6HPRN PRN for dyspnea 03/19/23 Furosemide (Furosemide) 40 Mg Tab, 1 TAB PO DAILY 03/19/23 Hydrocodone-Acetaminophen (Hydrocodone/Acetaminophen 10-325 mg) 1 Tab Tab, 1 TAB PO Q6HR PRN for SEVERE PAIN 02/25/23 Apixaban Base (ELIQUIS) 5 Mg Tab, 5 MG PO BID, TAB 12/01/21 Isosorbide Dinitrate (Isosorbide Dinitrate) 20 Mg Tab, 30 MG PO DAILY, MG 12/01/21 Insulin Glargine (Lantus) 100 Unit/Ml Inj, 50 UNIT SC 08/24/20 Information Source: Patient, Emergency Med Personnel Mode of Arrival: EMS Severity: Moderate Timing: Hours Duration: Since onset Prehospital treatment: 12 Lead EKG, ASA, Patient Services Clerk, NTG Past Medical History PAST MEDICAL HISTORY: AFIB (Status post cardiac ablation), Anemia, Asthma, CAD, CHF, CKF, COPD, DM, Gout, High Lipids, HTN, [place], PAD Past Medical History (Other): History of Eliquis use Surgical History: PTCA Surgical History (Other): Cardiac ablation Family History Family History: Unknown Social History Smoker: Non-Smoker Alcohol: Denies ETOH Use Drugs: Methamphetamine Lives In: Home All Other Systems: Reviewed and Negative (Comprehensive review of systems are negative unless otherwise stated in HPI) Physical Exam General Appearance: Mild Distress, Obese HEENT: Normal ENT Inspection, Pharynx Normal, TMs Normal Neck: Full Range of Motion, Non-Tender, Normal, Normal Inspection Respiratory: Chest Non-Tender, Lungs Clear, No Accessory Muscle Use, No Respiratory Distress, Normal Breath Sounds, Other (Tachypneic) Cardiovascular: No Edema, No JVD, No Murmur, No Gallop, Normal Peripheral Pulses, Regular Rate/Rhythm Breast Exam: Deferred Gastrointestinal: No Organomegaly, Non Tender, No Pulsatile Mass, Normal Bowel Sounds, Soft Genitalia: Deferred Pelvic: Deferred Rectal: Deferred Extremities: Leg edema (3+ pitting edema to bilateral lower extremities), No calf tenderness, Normal capillary refill, Normal inspection, Normal range of motion, Swelling (3+ pitting edema to bilateral lower extremities) Musculoskeletal : Apperance: Normal Neurologic: Alert, kayaking instructor II-XII nml as Tested, No Motor Deficits, Normal Affect, Normal Mood, No Sensory Deficits Cerebellar Function: Normal Reflexes: Normal Skin: Dry, Normal Color, Warm Lymphatic: No Adenopathy Was a procedure done? Was a procedure done?: No EKG EKG : Pulse Rate (adult): 74 [place]: Normal Cardiac Rhythm: NSR Block: None Hypertrophy: None ST: Normal Differential Dx Considerations may include: AMI, ACS, CAD, acute CHF exacerbation, acute COPD exacerbation, URI, pneumonia, angina, anxiety, gastritis, among others X-Ray, Labs, Meds, VS Vital Signs Date Time Temp Pulse Resp B/P (MAP) Pulse Ox O2 Delivery O2 Flow Rate FiO2 05/31/25 00:33 70 05/31/25 00:25 74 05/31/25 00:00 98.1 72 14 150/75 (100) 94 98.1 05/31/25 00:00 72 Nasal Cannula* 2 28 05/30/25 23:41 99.2 78 20 131/94 95 99.2 05/30/25 23:35 74 Lab Test 05/31/25 00:15 05/30/25 23:35 Range/Units Troponin I High Sensitivity 57 *H 36 </=54 ng/L White Blood Count 8.6 4.4-10.8 10^3/uL Red Blood Count 5.21 4.5-5.90 10^6/uL Hemoglobin 14.3 13.5-17.5 g/dL Hematocrit 43.4 41.0-53.0 % Mean Corpuscular Volume 83.3 80.0-100.0 fL Mean Corpuscular Hemoglobin 27.4 L 28.0-32.0 pg Mean Corpuscular Hemoglobin Concent 32.8 32.0-36.0 g/dL Red Cell Distribution Width 19.6 H 11.8-14.3 % Platelet Count 100 L 140-450 10^3/uL Mean Platelet Volume 9.7 6.9-10.8 fL Neutrophils (%) (Auto) 81.5 H 37.0-80.0 % Lymphocytes (%) (Auto) 10.5 10.0-50.0 % Monocytes (%) (Auto) 4.8 0.0-12.0 % Eosinophils (%) (Auto) 2.7 0.0-7.0 % Basophils (%) (Auto) 0.5 0.0-2.0 % Neutrophils # (Auto) 7.0 1.6-8.6 10 ^3/uL Lymphocytes # (Auto) 0.9 0.4-5.4 10 ^3/uL Monocytes # (Auto) 0.4 0-1.3 10 ^3/uL Eosinophils # (Auto) 0.2 0-0.8 10 ^3/uL Basophils # (Auto) 0 0-0.2 10 ^3/uL Nucleated Red Blood Cells 0.1 % Sodium Level 139 136-145 mmol/L Potassium Level 4.0 3.5-5.1 mmol/L Chloride Level 103 98-107 mmol/L Carbon Dioxide Level 25 20-31 mmol/L Anion Gap 11 5-15 Blood Urea Nitrogen 43 H 9-23 mg/dL Creatinine 1.71 H 0.700-1.30 mg/dL Glomerular Filtration Rate Calc 46 >90 mL/min BUN/Creatinine Ratio 25.1 H 10.0-20.0 Serum Glucose 271 H 74-106 mg/dL Calcium Level 8.5 L 8.7-10.4 mg/dL Total Bilirubin 0.3 0.2-1.0 mg/dL Aspartate Amino Transferase (AST) 29 13-40 U/L Alanine Aminotransferase (ALT) 29 7-40 U/L Alkaline Phosphatase 109 46-116 U/L Total Protein 6.8 5.7-8.2 g/dL Albumin 3.9 3.2-4.8 g/dL X-Ray, Labs, Meds, VS Comment Patient with history of CAD, CHF, etc., presents with chest pain, shortness of breath, left arm paresthesias, concerning for cardiac etiology. Chest x-ray to evaluate for evidence of pneumonia, pneumothorax, CHF EKG and troponin to evaluate for evidence of arrhythmia, ACS, AMI Lab work (CBC, BMP) to evaluate for evidence of severe anemia, electrolyte abnormality including hypokalemia, hyperkalemia, hypernatremia, hyponatremia, hyperglycemia, hypoglycemia, etc. Consider CT angio chest due to patient's presenting symptoms, but no CT angio chest obtained due to alternate cause of patient's presenting symptoms more likely after initial workup and management Re-evaluate Social determinant surveillance affecting care: Social determinants of health that will affect the patient's care: Poor access to outpatient care/followup (provided outpatient resources) Time of 1ST Reevaluation: 00:25 Reevaluation 1ST: Unchanged Patient Education/Counseling: Diagnosis, Treatment, Other (Need for hospital admission) Family Education/Counseling: No Family Present SEPSIS Sepsis Screen Date sepsis recognized/suspect: May 30, 2025 Time Sepsis recognized/suspect: 2344 Recent Procedure: No On Antibiotic Therapy: No Respiratory Rate >20: No Heart Rate >90: No Temp<36 C (96.8 F) or >38.3 C: No SBP <90 or MAP <65 mmHG: No New Acute Mental Status Change: No Is the patient on CPAP, BIPAP,: No Physician Orders Electrocardigram (05/31/25 02:38) Troponin-I Hs (05/31/25 02:40) Chest Xray 1 View (05/30/25 23:40) Aspirin Chewable Tablet (05/31/25 01:00) Vital Signs Date Time Temp Pulse Resp B/P (MAP) Pulse Ox O2 Delivery O2 Flow Rate FiO2 05/31/25 00:33 70 05/31/25 00:25 74 05/31/25 00:00 98.1 72 14 150/75 (100) 94 98.1 05/31/25 00:00 72 Nasal Cannula* 2 28 05/30/25 23:41 99.2 78 20 131/94 95 99.2 05/30/25 23:35 74 Laboratory Tests Test 05/30/25 23:35 White Blood Count 8.6 10^3/uL (4.4-10.8) Departure 1 Departure Time of Disposition: 01:02 (On reassessment, patient found to have an elevated troponin, up trending on repeat. So complaining of active chest pain. EKG is nonischemic. Labs and imaging otherwise unremarkable. We will admit for further cardiac evaluation.) Impression: Primary Impression: Acute chest pain Additional Impressions: NSTEMI (non-ST elevated myocardial infarction) Acute dyspnea Elevated troponin Disposition: ADMITTED INPATIENT Admit to: Tele Condition: Serious Critical Care Note Critical Care Time?: Yes (45 min-critical care time only) Critical care comment: NSTEMI Stability Stability form required: No Heart Score Heart Score: Heart Score Response (Comments) Value History Highly Suspicious 2 EKG Normal 0 Age 45-64 1 Risk Factors >3 or Hx ASHD 2 Troponin 1-2 x's Normal limit 1 Total 6 I personally scribed for CHUY BOB MD ([email or web address]) on 05/31/25 at 00:25. Electronically submitted by Brandon Jones [email or web address]). CHUY BOB MD May 31, 2025 00:25
--- NOTE | 2025-05-31 00:27 | DVH ---
CHEST RADIOGRAPH Indication: CP Technique: Single frontal view of the chest was obtained COMPARISON: XY CHEST PORTABLE on DOS: 12/22/24, XY CHEST PORTABLE on DOS: 08/29/24, XY CHEST PORTABLE on DOS: 12/18/23, XY CHEST PORTABLE on DOS: 12/18/23, XY CHEST PORTABLE on DOS: 11/30/23 FINDINGS: Lines and Tubes: None Lungs: Moderate diffuse increased prominence of the pulmonary vasculature. No evidence of focal consolidation. Pleura: No effusion. No pneumothorax. Cardiomediastinal contours: Cardiomegaly. Bones: Unremarkable IMPRESSION: 1. Cardiomegaly with moderate pulmonary vascular congestion.
[2025-05-31 00:29] LABS: Hematocrit 43.4 % (41.0-53.0); Hemoglobin 14.3 g/dL (13.5-17.5); Mean Corpuscular Hemoglobin 27.4 pg (28.0-32.0); Mean Corpuscular Volume 83.3 fL (80.0-100.0); Nucleated Red Blood Cells % 0.1 %
--- NOTE | 2025-05-31 00:36 | ECG ---
[facility] Test Date: 2025-05-31 Test Time: 00:33:40 Pat Name: TRINITY MARIANO Department: ED Room: 0281T Gender: M Valance Cutter: YURI : 1970 Requested By: EMERGENCY EMERGENCY Order Number: [id number] Reading MD: Paddy Richard Measurements Intervals [place] Rate: 70 P: 23 RI: 219 QRS: -76 QRSD: 102 T: 47 QT: 400 QTc: 432 Interpretive Statements Sinus rhythm Prolonged RI interval Consider left atrial enlargement Anterolateral infarct, age indeterminate Baseline wander in lead(s) III Electronically Signed On 06-01-2025 17:04:06 PST by Paddy Richard Please click the below link to view image of tracing.
[2025-05-31] MEDS ORDERED: NITROGLYCERIN 0.4 MG SL TAB SL PRN (02:30)
[2025-05-31] MEDS ORDERED: MORPHINE SULFATE INJ 2 MG/ml SYRG IV PRN (02:30)
[2025-05-31] MEDS ORDERED: ACETAMINOPHEN 325 MG TAB PO PRN (02:30)
--- NOTE | 2025-05-31 02:55 | DVHHPRES ---
History of Present Illness Resident Creating Document: CESAR YOUSIF RESIDENT History of Present Illness This is a 54-year-old male with Significant history for morbid obesity, A-Fib s/p cardiac ablation March 2025, anemia, asthma, CAD S/P two stent december, [facility], CHFrEF 30%, CKD, COPD with 2 L home oxygen, DM2, gout, HLD, HTN, [place], PTCA, PAD, and methamphetamine abuse came to ER with a complaint of chest pain for 2 days but worsen today morning which is 8/10 intensity, substernal, aggravated on movement, took 2 doses of sublingual nitroglycerin which helps a little. Patient follow-up with his cardiology day before admission and EKG done, negative for any acute changes. Patient's chest pain also associated with blurry vision, lightheadedness and shortness of breaths , current on 2 L home oxygen. coronary angiogram on 12/23/2024: Elevated left ventricular end-diastolic pressure rest. Decreased left ventricular ejection fraction 95%. suggest referral to tertiary care center for coronary bypass grafting. Patient went [facility] and stent placed. On the way to the hospital, EMS provided another dose of sublingual nitroglycerin. Currently patient denies any fever, abdominal pain, dysuria, cough, any focal weakness or any other acute distress. Patient lives with his roommate and having NEGATIVE ASSEMBLER. Past medical history: As above Past surgical history: Cardiac ablation due to AFib April 17, stent placed December 29, 2024. Personal: Current smoker, remote history of amphetamine use, occasion EtOH. Family history: Further-lung cancer, brother-CAD Allergy: No known allergy PCP: Dr. Elise. Review of Systems Constitutional: Yes: Weakness, Malaise, Other (Morbid obesity) Respiratory: Shortness of breath, SOB with excertion Cardiovascular: Chest Pain, Paroxysmal Noc. Dyspnea, Other Musculoskeletal: other Skin: Other (Bilateral lower extremity chronic skin changes) Allergies: Coded Allergies: NO KNOWN ALLERGIES (Unverified , 08/14/13) Exam Vital Signs Vital Signs Date Time Temp Pulse Resp B/P (MAP) Pulse Ox O2 Delivery O2 Flow Rate FiO2 05/31/25 00:33 70 05/31/25 00:00 98.1 14 150/75 (100) 94 98.1 05/31/25 00:00 Nasal Cannula* 2 28 General Appearance: Alert, Cooperative, mild distress, Other (Currently on 2 L home oxygen, morbid obesity) HEENT: Atraumatic, PERRLA, EOMI Respiratory: Clear to auscultation, Normal air movement Cardiovascular: Regular rate, Normal S1, Normal S2, No murmurs Abdominal: Normal bowel sounds, Soft, No tenderness, No hepatospenomegaly Extremities: No clubbing, No cyanosis, No edema, Normal pulses Skin: No rashes, No breakdown Neuro: Normal gait, Normal speech, Strength at 5/5 X4 ext Labs/Xrays Labs Test 05/31/25 02:25 05/30/25 23:35 Range/Units White Blood Count 8.6 4.4-10.8 10^3/uL Red Blood Count 5.21 4.5-5.90 10^6/uL Hemoglobin 14.3 13.5-17.5 g/dL Hematocrit 43.4 41.0-53.0 % Mean Corpuscular Volume 83.3 80.0-100.0 fL Mean Corpuscular Hemoglobin 27.4 L 28.0-32.0 pg Mean Corpuscular Hemoglobin Concent 32.8 32.0-36.0 g/dL Red Cell Distribution Width 19.6 H 11.8-14.3 % Platelet Count 100 L 140-450 10^3/uL Mean Platelet Volume 9.7 6.9-10.8 fL Neutrophils (%) (Auto) 81.5 H 37.0-80.0 % Lymphocytes (%) (Auto) 10.5 10.0-50.0 % Monocytes (%) (Auto) 4.8 0.0-12.0 % Eosinophils (%) (Auto) 2.7 0.0-7.0 % Basophils (%) (Auto) 0.5 0.0-2.0 % Neutrophils # (Auto) 7.0 1.6-8.6 10 ^3/uL Lymphocytes # (Auto) 0.9 0.4-5.4 10 ^3/uL Monocytes # (Auto) 0.4 0-1.3 10 ^3/uL Eosinophils # (Auto) 0.2 0-0.8 10 ^3/uL Basophils # (Auto) 0 0-0.2 10 ^3/uL Nucleated Red Blood Cells 0.1 % Sodium Level 139 136-145 mmol/L Potassium Level 4.0 3.5-5.1 mmol/L Chloride Level 103 98-107 mmol/L Carbon Dioxide Level 25 20-31 mmol/L Anion Gap 11 5-15 Blood Urea Nitrogen 43 H 9-23 mg/dL Creatinine 1.71 H 0.700-1.30 mg/dL Glomerular Filtration Rate Calc 46 >90 mL/min BUN/Creatinine Ratio 25.1 H 10.0-20.0 Serum Glucose 271 H 74-106 mg/dL Calcium Level 8.5 L 8.7-10.4 mg/dL Total Bilirubin 0.3 0.2-1.0 mg/dL Aspartate Amino Transferase (AST) 29 13-40 U/L Alanine Aminotransferase (ALT) 29 7-40 U/L Alkaline Phosphatase 109 46-116 U/L Total Protein 6.8 5.7-8.2 g/dL Albumin 3.9 3.2-4.8 g/dL SEPSIS Sepsis Screen Date sepsis recognized/suspect: May 30, 2025 Time Sepsis recognized/suspect: 2344 Recent Procedure: No On Antibiotic Therapy: No Respiratory Rate >20: No Heart Rate >90: No Temp<36 C (96.8 F) or >38.3 C: No SBP <90 or MAP <65 mmHG: No New Acute Mental Status Change: No Is the patient on CPAP, BIPAP,: No Physician Orders Electrocardigram (05/31/25 02:38) Troponin-I Hs (05/31/25 02:40) Chest Xray 1 View (05/30/25 23:40) Admit (05/31/25 02:20) Code Status (05/31/25 02:20) Acetaminophen Tablet (Tylenol Tablet) (05/31/25 02:30) Nitroglycerin Sublingual (Ntrostat Subli (05/31/25 02:30) Morphine Sulfate Injection (05/31/25 02:30) Oxygen By Nasal Cannula (05/31/25 02:20) Stat Ekg For Chest Pain (05/31/25 02:20) Notify Md Of Changes From Base (05/31/25 02:20) House Wrecker For 24 Hours (05/31/25 02:20) Emergency Dysrhythmia Protocol (05/31/25 02:20) Rhythm Strips Once Every Shift (05/31/25 02:20) Heparin Sodium (Porcine) (05/31/25 06:00) Consistent Carb(Ccho)Diabetes (05/31/25 Breakfast) Vital Signs Date Time Temp Pulse Resp B/P (MAP) Pulse Ox O2 Delivery O2 Flow Rate FiO2 05/31/25 00:33 70 05/31/25 00:25 74 05/31/25 00:00 98.1 72 14 150/75 (100) 94 98.1 05/31/25 00:00 72 Nasal Cannula* 2 28 05/30/25 23:41 99.2 78 20 131/94 95 99.2 05/30/25 23:35 74 Laboratory Tests Test 05/30/25 23:35 White Blood Count 8.6 10^3/uL (4.4-10.8) Medications Medications Dose Ordered Sig/Johana Route Start Time Stop Time Status Last Admin Dose Admin Aspirin 324 mg ONCE ONCE PO 05/31/25 01:00 05/31/25 01:01 DC 05/31/25 01:08 324 MG Assessment/Plan Assessment/Plan Chest pain likely Non ST-elevation myocardial infarction Chest pain, rule out progressive coronary artery disease Coronary artery disease status post PTCA x 2 OLIVE Atrial fibrillation s/p cardiac ablation Acute on chronic decompensated HFrEF, NYHA class III Severe triple vessel disease required CABG vital temperature 99.2 patient received aspirin 324 mg in ER no leukocytosis but left-shifted CXR: sinus rhythm, HR 74, QTC 445 Troponin: 36> 57>187>285 EKG: Sinus rhythm, rate 68, QTC [address] changes Echocardiogram from 11/19/2023 reveals an EF of 30% Initiate guideline directed medical therapy for CHF as renal function permits Plavix Carvedilol Lasix Isosorbide dinitrate Entresto Cardiology consult Acute on chronic hypoxic respiratory failure Hypertensive heart disease Dyslipidemia COPD with 2 L home oxygen Asthma without exacerbation Type 2 diabetes mellitus with hyperglycemia Obstructive sleep apnea on CPAP Morbid obesity serum glucose 271 Albuterol and ipratropium Atorvastatin Basal bolus insulin HbA1c Monitor blood sugar SCOUT and CKD stage III, likely VMN creatinine 1.7 on, EGFR 46 Hypocalcemia calcium level 8.5 monitor labs Avoid nephrotoxic Thrombocytopenia platelet 100 CBC Monitor signs symptoms of bleeding Hypothyroidism Morbid obesity Levothyroxine Life style modification Substance abuse/current smoker History of methamphetamine Counseling done >13 min spent DIET CARDIAC GI prophylaxis: Pantoprazole DVT prophylaxis: Heparin Goals of care discussions. More than 29 minute spent with the patient. Full code status. Case discussed with Dr. Longoria Plan discussed with: Patient, Other (Nurse) My Orders Orders - CESAR YOUSIF Procedure Category Date Status Time Admit ADMIT 05/31/25 Transmitted 02:20 Code Status CODE 05/31/25 Transmitted 02:20 Acetaminophen Tablet PHA 05/31/25 Transmitted (Tylenol Tablet) 02:30 Nitroglycerin PHA 05/31/25 Transmitted Sublingual (Ntrostat 02:30 Morphine Sulfate PHA 05/31/25 Transmitted Injection 02:30 Oxygen By Nasal RT 05/31/25 Transmitted Cannula 02:20 Stat Ekg For Chest JOSH 05/31/25 Transmitted Pain 02:[address] Of Changes [facility] 05/31/25 Transmitted From Base 02:20 House Wrecker For JOSH 05/31/25 Transmitted 24 Hours 02:[address] [facility] 05/31/25 Transmitted Protocol 02:20 Rhythm Strips Once JOSH 05/31/25 Transmitted Every Shift 02:20 Heparin Sodium PHA 05/31/25 Transmitted (Porcine) 06:00 Consistent DIET 05/31/25 Transmitted Carb(Ccho)Diabetes Breakfast Visit Coding STANDARD RES Billing Provider: DENISHA LONGORIA MD Date of Service if different f: May 31, 2025 Common Visit Codes: 75087-IUYLYCK INP/OBS CARE (HIGH) Secondary Visit Codes: 46067-EYPBVCRW CARE PLAN 30 MINUTES CESAR YOUSIF RESIDENT May 31, 2025 02:55
[2025-05-31] MEDS ORDERED: DEXTROSE (50%) 50ML SYRG IV PRN ×2 (03:00→04:00)
--- NOTE | 2025-05-31 03:22 | ECG ---
[facility] Test Date: 2025-05-31 Test Time: 02:31:47 Pat Name: TRINITY MARIANO Department: ED Room: 0281T Gender: M Staff Editor: YURI : 1970 Requested By: EMERGENCY EMERGENCY Order Number: [id number] Reading MD: Paddy Richard Measurements Intervals Adams Rate: 68 P: 0 NJ: 61 QRS: -72 QRSD: 113 T: 53 QT: 424 QTc: 451 Interpretive Statements Sinus rhythm Short NJ interval Borderline IVCD with LAD Anterolateral infarct, old Baseline wander in lead(s) V2,V3 Electronically Signed On 06-01-2025 17:04:19 PST by Paddy Richard Please click the below link to view image of tracing.
[2025-05-31] MEDS: ISOSORBIDE DINITRATE 10 MG TAB PO ONE (03:36)
[2025-05-31 04:18] LABS: Hematocrit 43.7 % (41.0-53.0); Hemoglobin 14.6 g/dL (13.5-17.5); Mean Corpuscular Hemoglobin 27.7 pg (28.0-32.0); Mean Corpuscular Volume 83.3 fL (80.0-100.0); Nucleated Red Blood Cells % 0.2 %
[2025-05-31] MEDS: INSULIN LANTUS (GLARGINE) 1 /0.01ml (100units/ml) SC SCH (04:18)
[2025-05-31 04:22] LABS: Chloride 103 mmol/L (98-107); Potassium 4.2 mmol/L (3.5-5.1); Sodium 138 mmol/L (136-145)
[2025-05-31 04:23] LABS: Anion Gap 13 (5-15); Calcium 9.0 mg/dL (8.7-10.4); Carbon Dioxide 22 mmol/L (20-31)
[2025-05-31 04:28] LABS: BUN/Creatinine Ratio 25.8 (10.0-20.0)
[2025-05-31] MEDS ORDERED: HEPARIN DRIP/D5W 100UNITS/ML 250 ML IV SCH ×2 (04:30→20:15)
[2025-05-31 04:31] LABS: Blood Urea Nitrogen 46 mg/dL (9-23); Glucose 213 mg/dL (74-106)
[2025-05-31] MEDS: HYDROcodone-ACET 10/325MG TAB PO ONE (04:37)
[2025-05-31 04:43] LABS: INR 1.03 (0.9-1.15); Partial Thromboplastin Time 32.6 SEC (24.5-34.5); Prothrombin Time 10.9 sec (9.3-11.8)
[2025-05-31] MEDS: ALBUTEROL SULF 2.5 MG/0.5ML(0.5%) NEB SOLN NEB SCH (05:23)
[2025-05-31] MEDS: IPRATROPIUM BROM 0.5 MG/2.5ML INH SOL NEB SCH (05:23)
[2025-05-31] MEDS: PANTOPRAZOLE 40 MG TAB PO SCH (05:25)
[2025-05-31] MEDS: LEVOTHYROXINE SODIUM 100 MCG TAB PO SCH (05:25)
[2025-05-31] MEDS: FUROSEMIDE 40 MG/4 ML VIAL IV SCH (05:29)
[2025-05-31] MEDS: HEPARIN DRIP/D5W 100UNITS/ML 250 ML IV SCH ×2 (05:40→12:30)
[2025-05-31] MEDS ORDERED: HEPARIN SODIUM (PORCINE) 5000 UNITS/ML 1ML VIAL SC SCH (06:00)
[2025-05-31] MEDS: ACCU-CHEK COMFORT CURVE STRIP VI SCH (06:29)
[2025-05-31] MEDS: InsuLIN REG 1unit/0.01ml Soln (100units/ml) SC SCH ×2 (06:39→21:37)
[2025-05-31] MEDS ORDERED: InsuLIN REG 1unit/0.01ml Soln (100units/ml) SC SCH (07:00)
[2025-05-31] MEDS ORDERED: INSULIN LANTUS (GLARGINE) 1 /0.01ml (100units/ml) SC SCH (07:00)
[2025-05-31] MEDS ORDERED: ACCU-CHEK COMFORT CURVE STRIP VI SCH (07:00)
[2025-05-31] MEDS ORDERED: INSULIN LISPRO (HUMAN) 100 UNITS/ML ML SC SCH (07:00)
[2025-05-31 08:12] LABS: Hematocrit 42.7 % (41.0-53.0); Hemoglobin 14.1 g/dL (13.5-17.5); Mean Corpuscular Hemoglobin 27.6 pg (28.0-32.0); Mean Corpuscular Volume 83.6 fL (80.0-100.0); Nucleated Red Blood Cells % 0.2 %
[2025-05-31 08:21] LABS: Urine Protein, UAD 1+ (Negative)
[2025-05-31 08:24] LABS: INR 1.05 (0.9-1.15); Partial Thromboplastin Time 37.0 SEC (24.5-34.5); Prothrombin Time 11.1 sec (9.3-11.8)
[2025-05-31 08:32] LABS: Alanine Aminotransferase 32 U/L (7-40); Albumin 3.9 g/dL (3.2-4.8); Alkaline Phosphatase 111 U/L (46-116); Anion Gap 11 (5-15); BUN/Creatinine Ratio 27.2 (10.0-20.0); Calcium 8.9 mg/dL (8.7-10.4); Carbon Dioxide 25 mmol/L (20-31); Chloride 104 mmol/L (98-107); Potassium 4.0 mmol/L (3.5-5.1); Sodium 140 mmol/L (136-145); Total Protein 6.5 g/dL (5.7-8.2)
[2025-05-31 08:32] LABS: Benzodiazephine Screen, Urine Neg (NEGATIVE)
[2025-05-31 08:33] LABS: Bilirubin, Total 0.4 mg/dL (0.2-1.0)
[2025-05-31 08:45] LABS: Amphetamine Screen, Urine Neg (NEGATIVE); Barbiturate Scree,Urine Neg (NEGATIVE); Cannabinoid Screen, Urine Neg (NEGATIVE); Cocaine Screen, Urine Neg (NEGATIVE); Opiate Scree,Urine Pos (NEGATIVE); Phencyclidine Screen, Urine Neg (NEGATIVE)
[2025-05-31 08:45] LABS: Blood Urea Nitrogen 55 mg/dL (9-23); Glucose 153 mg/dL (74-106)
--- NOTE | 2025-05-31 08:49 | CONS ---
Pharmacy Clinical Information: HEPARIN PROTOCOL NO BOLUS DOSE ON 05/31/25 LAST ELIQUIS DOSE AT 09:00 ON 05/30/25 APTT 32.6 ON 05/31/25 AT 02:25 APTT 37.0 ON 05/31/25 AT 05:40 INITIAL DOSE: 1000 UNITS/HR OR 10 ML/HR ON 05/31/25 AT 05:40 NEXT APTT ON 05/31/25 AT 11:00 RN GRISELDA READ BACK AND CONFIRMED PER RX PROTOCOL ASH EDMONDSON PHARMACIST May 31, 2025 08:49
[2025-05-31 08:50] LABS: Cholesterol 234 mg/dL (< 200); HDL Cholesterol 37 mg/dL (40-59); Triglycerides 439 mg/dL (< 150)
[2025-05-31 09:03] LABS: Lactic Acid w/Reflex 2.7 mmol/L (0.4-2.0)
[2025-05-31] MEDS ORDERED: MORPHINE SULFATE 4 MG/ML SYR/VIAL IV PRN (09:30)
[2025-05-31] MEDS: SACUBITRIL-VALSARTAN 24mg/26mg TAB PO SCH (09:33)
[2025-05-31] MEDS: HYDROcodone-ACET 10/325MG TAB PO PRN (09:34)
[2025-05-31] MEDS: CARVEDILOL 3.125 MG TAB PO SCH (09:34)
[2025-05-31] MEDS: ASPirin-EC 81 mg tab PO SCH (09:35)
[2025-05-31] MEDS: CLOPIDOGREL BISULFATE 75 MG TAB PO SCH (09:35)
[2025-05-31] MEDS ORDERED: ENOXAPARIN SOD 100 MG/1 ML SYRINGE SC SCH (10:00)
[2025-05-31] MEDS ORDERED: ENOXAPARIN SOD 40 MG/0.4 ML SYRINGE SC SCH (10:00)
[2025-05-31] MEDS ORDERED: ASPirin-EC 81 mg tab PO SCH (10:00)
--- NOTE | 2025-05-31 10:49 | DVHPNRES ---
Progress Note Date Seen: May 31, 2025 Resident Creating Document: MEGHANN HUBBARD MD Medical Necessity Reason Pt with a Central, PICC or Fol: No Subjective Review of Systems This is a 54-year-old male with Significant history for morbid obesity, A-Fib s/p cardiac ablation March 2025, anemia, asthma, CAD S/P two stent december, [facility], CHFrEF 30%, CKD, COPD with 2 L home oxygen, DM2, gout, HLD, HTN, [place], PTCA, PAD, and methamphetamine abuse came to ER with a complaint of chest pain for 2 days but worsen today morning which is 8/10 intensity, substernal, sharp, pressure-like, constant, aggravated on movement, took 2 doses of sublingual nitroglycerin which relieved a little bit. Chest pain was associated with shortness of breaths and nonproductive cough. Patient follow-up with his cardiology day before admission and EKG done, negative for any acute changes. Denied acute fever, palpitation, acute joint redness or swelling.Patient was admitted at [facility] in November,. CAD on 12/23/2024 revealed triple-vessel disease with RCA, 99%, RCA 99%,, LAD 19 echo 2D on 12/23/2024 revealed LVEF 30%, moderate degree LV global hypokinesia, dilated LV, moderately dilated LA, RV moderately dilated and hypokinetic, RVSP 45 mm of mercury. No effusion. Patient was transferred to [facility]. As per patient he had 2 stent at [facility]. EKG revealed anterior inferior wall OR, sinus rhythm, NE prolongation. Initial lab workup revealed thrombocytopenia with a platelet 100, serum creatinine 1.71, BUN 43> 55, A1c 6.8, lactic acid 2.7, magnesium 2.2, troponin I 36> 57> 187> 285> 311> 259. Triglyceride 439, cholesterol 234, HDL 37, TSH 4.46.Lactic acid 2.7> 1.6> 1.7 CXR- Cardiomegaly with moderate pulmonary vascular congestion. Urinalysis glucose 4+, UDS positive for opiates. Past medical history: morbid obesity, A-Fib s/p cardiac ablation March 2025, anemia, asthma, CAD S/P two stent december, [facility], CHFrEF 30%, CKD, COPD with 2 L home oxygen, DM2, gout, HLD, HTN, [place], PTCA, PAD Past surgical history: Cardiac ablation due to AFib April 17, stent placed December 29, 2024. Personal: Current smoker, remote history of amphetamine use, occasion EtOH. Family history: Further-lung cancer, brother-CAD Allergy: No known allergy PCP: Dr. Elise. ROS Cardiovascular- chest pain, shortness of Respiratory -shortness of breaths, cough nonproductive Gastrointestinal- denies any rectal bleeding, nausea or vomiting Musculoskeletal-denies acute joint swelling or tenderness or redness Neurological- denies acute dysarthria, dysphagia, change in vision Psychiatry- denies depression or SI or HI Skin- denies acute rash or purpura Patient was seen today at bedside, labs and chart reviewed. Lactic acid 2.7> 1.6> 1.7 likely due to hypoperfusion Duplex study of the bilateral lower extremity- Moderate peripheral arterial disease primarily within the bilateral infrapopliteal/tibial vasculature where there are hemodynamically significant stenoses. Doppler study of the bilateral lower extremity negative for DVT Patient on heparin drip On Lasix for heart failure and GDMT Pending echo 2D report Patient was seen by cardiology recommended, recommended to start Jardiance and spironolactone Objective vital signs Vital Sign Date Time Temp Pulse Resp B/P (MAP) Pulse Ox O2 Delivery O2 Flow Rate FiO2 05/31/25 10:31 66 122/72 05/31/25 08:24 95 Nasal Cannula* 2 28 05/31/25 08:24 98.3 19 98.3 Total Intake and Output 05/30/25 05/30/25 05/31/25 15:00 23:00 07:00 Intake Total 10 ml Balance 10 ml medications Current Medications Medications Dose Ordered Sig/Johana Route Start Time Stop Time Status Last Admin Dose Admin Acetaminophen 650 mg Q6HP PRN PO 05/31/25 02:30 Nitroglycerin 0.4 mg Q5MINP PRN SL 05/31/25 02:30 Albuterol 2.5 mg Q6HR NEB 05/31/25 06:00 05/31/25 05:23 2.5 MG Ipratropium [place] 0.5 mg Q6HR NEB 05/31/25 06:00 05/31/25 05:23 0.5 MG Pantoprazole Sodium 40 mg DAILY@0600 PO 05/31/25 06:00 05/31/25 05:25 40 MG Clopidogrel Bisulfate 75 mg DAILY PO 05/31/25 10:00 Atorvastatin Calcium 40 mg HS PO 05/31/25 22:00 Furosemide 40 mg BIDD IV 05/31/25 06:00 05/31/25 05:29 40 MG Carvedilol 3.125 mg Q12HR PO 05/31/25 10:00 05/31/25 09:34 3.125 MG Sacubitril/ Valsartan 1 tab BID PO 05/31/25 10:00 05/31/25 09:33 1 TAB Levothyroxine Sodium 100 mcg QAM@0600 PO 05/31/25 06:00 05/31/25 05:25 100 MCG Insulin Glargine 25 units QAM SC 05/31/25 04:00 05/31/25 06:40 25 UNITS Diagnostic Test (Pha) 1 strip ACHS 05/31/25 07:00 05/31/25 06:29 1 STRIP Insulin Human Regular HS SC 05/31/25 22:00 Insulin Human Regular AC SC 05/31/25 07:00 05/31/25 06:39 3 UNITS Dextrose 50 ml UD PRN IV 05/31/25 04:00 Heparin Sodium/ Dextrose 250 ml @ 10 mls/hr Q24H IV 05/31/25 05:15 05/31/25 05:40 10 MLS/HR Aspirin 81 mg DAILY PO 05/31/25 10:00 Acetaminophen/ Hydrocodone Bitart 1 tab Q6HP PRN PO 05/31/25 09:00 05/31/25 09:34 1 TAB Morphine Sulfate 2 mg Q30M PRN IV 05/31/25 09:30 Examination General examination- awake, alert, oriented, obese HEENT- PEERLA, no acute nasal discharge Cardiovascular- S1-S2 audible, rate and rhythm regular, no murmur Respiratory- bilateral lung crackles+ Gastrointestinal-nontender, bowel sound+. Nondistended Musculoskeletal-no acute joint swelling or tenderness or redness Lower extremity- bilateral trace edema, depigmentation of the skin, decreased pulsation of the left arterial dorsalis pedis Neurological- cranial nerves intact, no acute dysarthria or dysphagia Psychiatry- denies depression or SI or HI Skin- no acute rash or purpura laboratory and microbiology Laboratory Tests 05/31/25 07:55 Test 05/31/25 07:55 Range/Units Serum Glucose 153 H 74-106 mg/dL Problem List/Assessment/Plan Problem List/Assessment/Plan Assessment and plan- # acute chest pain likely due to acute coronary syndrome # CAD, history of triple-vessel disease, status post PCI x2 at [facility] # hypertensive heart disease with heart failure # peripheral arterial disease -pending echo 2D report -troponin I trending down -patient on heparin drip -continue antiplatelet as prescribed -cardiology recommendation reviewed and appreciated -patient on GDMT -monitor vitals # acute hypoxic respiratory failure likely due to acute on chronic HFrEF -echo on 12/23/2024 LVEF 30% # bilateral leg edema -CXR pulmonary congestion -continue GDMT as prescribed # COPD on home oxygen NC O2 2 L/min # asthma -continue nebulization PRN # AFib, status post cardiac ablation now in sinus rhythm, -patient on heparin drip as per protocol # diabetes mellitus type 2 -hemoglobin A1c 6.8 -continue insulin as prescribed # CKD stage IIIB -avoid dehydration and nephrotoxic drugs -continue current diuresis #Gout -continue current conservative management # morbid obesity -counseled about the effect of obesity on health Goals of care, Code status full code; discussed with >15 minutes PUD prophylaxis: Pantoprazole DVT prophylaxis: Heparin Plan discussed with Dr. Hubbard, , nursing staff, Total time spent on patient evaluation, chart review, assessment and plan, discussion discussion >35 minutes Plan discussed with: Patient, Other My Orders My Orders Orders - GE PORTILLO Procedure Category Date Status Time Echo 2d Mode Cardiac US 05/31/25 Logged DOP 07:47 Hydrocodone-Acet PHA 05/31/25 In Process 10/325mg Tab ([place] 09:00 Bilat Low Ext Art US 05/31/25 Logged Duplex 09:27 Lactic Acid W/ Reflex LAB 05/31/25 Logged Order 14:00 Visit Coding STANDARD RES Billing Provider: MEGHANN HUBBARD MD Date of Service if different f: May 31, 2025 Common Visit Codes: [id number] INP/OBS CARE(HIGH) GE PORTILLO May 31, 2025 10:48
--- NOTE | 2025-05-31 11:32 | DVH ---
Indication: RULE OUT PERIPHERAL ARTERIAL DISEASE Technique: Real- time ultrasound images of the bilateral lower extremity with grayscale, color, and spectral wave Doppler. Comparison: US BILAT LOW EXT ART DUPLEX on DOS: 11/20/23 Findings: Biphasic waveforms right SPRINKLER INSPECTOR, SFA, popliteal artery. Monophasic waveform right posterior tibial, anterior tibial artery. Triphasic waveform right dorsalis pedis artery. Triphasic waveform left SPRINKLER INSPECTOR, SFA, popliteal artery. Monophasic waveform left anterior tibial, posterior tibial, dorsalis pedis arteries. Scattered atherosclerotic calcification disease. Peak systolic velocities are as follows (in cm/s): Right: Common femoral artery: 97 Profunda femoris: 109 Proximal superficial femoral: 105 Mid superficial femoral artery: 114 Distal superficial femoral artery: 111 Popliteal artery: 65 Posterior tibial artery: 28 Anterior tibial artery: 39 Dorsalis pedis artery: 42 Left: Common femoral artery: 84 Profunda femoris: 80 Proximal superficial femoral: 102 Mid superficial femoral artery: 76 Distal superficial femoral artery: 61 Popliteal artery: 53 Posterior tibial artery: 7 Anterior tibial artery: 15 Dorsalis pedis artery: 37 Impression: Moderate peripheral arterial disease primarily within the bilateral infrapopliteal/tibial vasculature where there are hemodynamically significant stenoses.
--- NOTE | 2025-05-31 11:47 | DVHINCON2 ---
Date Seen: May 31, 2025 Referring Physician MD Jocelyn resident Reason for Consultation Chest pain, NSTEMI History of Present Illness This is a 54 year old male patient who presents to emergency room with chief complaint of chest pain. The patient reports that the pain began yesterday while driving. He describes the pain as unprovoked, intermittent, pressure-like in nature, substernal with radiation down his left arm to his left hand. Associated symptoms include shortness of breath. Initial twelve lead electrocardiogram reveals normal sinus rhythm with first-degree conduction delay. Initial troponin level of 36ng/L with up trend and peak level at 311ng/L. Significant past medical history includes coronary artery disease status post PTCA x 3 OLIVE (on Plavix), atrial fibrillation s/p ablation on Apr 17 2025(on Eliquis), congestive heart failure, peripheral arterial disease, hypertension, dyslipidemia, COPD, type 2 diabetes mellitus, peripheral neuropathy, chronic kidney disease, and morbid obesity. The patient reports he follows up with human resource intern Dr. Oliver olson at [facility]. Of note, the patient was seen at this facility and underwent a coronary angiogram on 12/23/2024 which revealed three-vessel coronary artery disease. The patient reports that he underwent another coronary angiogram at [facility] in which two drug-eluting stents were placed on December 29, 2024. Past Medical History Past medical history reviewed. No other significant than mentioned above. Past Surgical History Cardiac ablation on April 17, 2025 Family History: Cardiovascular disease G8 BROTHER, , Cause: Lung cancer G8 BROTHER, , Cause: Heart attack Cerebrovascular accident (CVA) G8 MOTHER, , Cause: Stroke Chronic obstructive pulmonary disease G8 FATHER, , Cause: Stomach cancer Diabetes mellitus G8 FATHER, , Cause: Stomach cancer G8 BROTHER, , Cause: Lung cancer G8 BROTHER, , Cause: Heart attack FH: stomach cancer G8 FATHER, , Cause: Stomach cancer FHx: heart failure G8 FATHER, , Cause: Stomach cancer Hypertension G8 MOTHER, , Cause: Stroke Family History Family history reviewed. Social History Denies the use of tobacco, alcohol or illicit drugs. 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 Allergies: Coded Allergies: NO KNOWN ALLERGIES (Unverified , 08/14/13) Home Meds Active Scripts Cyclobenzaprine Hcl (CYCLOBENZAPRINE HCL) 7.5 Mg Tab, 7.5 MG PO Q6HP PRN, #30 TAB Prov:PIEDAD ZIMMERMAN MD 01/15/25 Gabapentin (Once-Daily) (Gabapentin) 300 Mg Tab, 300 MG PO Q6HP PRN, #30 TAB Prov:PIEDAD ZIMMERMAN MD 01/15/25 Ciprofloxacin Hcl (Cipro) 500 Mg Tab, 1 TAB PO BID for 7 Days, #14 TAB Prov:NGUYỄN AMADOR MD 08/30/24 Aspirin (Aspirin Low Dose) 81 Mg Tab, 81 MG PO DAILY for 30 Days, #30 TAB Prov:ISAEL CHIN RESIDENT 11/25/23 Hydralazine Hcl (Hydralazine Hcl) 10 Mg Tab, 10 MG PO Q8HR for 30 Days, #90 TAB Prov:ISAEL CHIN RESIDENT 11/25/23 Carvedilol (COREG) 3.125 Mg Tab, 6.25 MG PO Q12HR for 30 Days, #120 TAB Prov:ISAEL CHIN RESIDENT 11/25/23 Reported Medications Ipratropium-Albuterol (Ipratropium Worden/Albut) 1 Mattie Mattie, 3 ML NEB Q6HR PRN for DIFFICULTY BREATHING 11/19/23 Insulin Glargine (Basaglar Kwikpen) 100 Unit/Ml Inj, 40 UNIT SC HS 11/19/23 Semaglutide (Ozempic) 2 Mg/3 Ml Inj, 0.25 MG SC QWEEKLY 11/19/23 Umeclidinium-Vilanterol (Anoro Ellipta 62.5-25 Mcg/INH) 1 Aer Aer, 1 PUFF INH DAILY 11/19/23 Sertraline Hcl (Sertraline Hcl) 100 Mg Tab, 1 TAB PO DAILY 11/18/23 Atorvastatin Calcium (ATORVASTATIN CALCIUM) 40 Mg Tab, 1 TAB PO DAILY 11/18/23 Potassium Chloride (Potassium Chloride ER) 10 Meq Tab, 1 TAB PO DAILY 03/19/23 Albuterol Sulfate (Albuterol Sulfate Hfa) 108 Mcg/Act Aer, 2 PUFF PO Q6HPRN PRN for dyspnea 03/19/23 Furosemide (Furosemide) 40 Mg Tab, 1 TAB PO DAILY 03/19/23 Hydrocodone-Acetaminophen (Hydrocodone/Acetaminophen 10-325 mg) 1 Tab Tab, 1 TAB PO Q6HR PRN for SEVERE PAIN 02/25/23 Apixaban Base (ELIQUIS) 5 Mg Tab, 5 MG PO BID, TAB 12/01/21 Isosorbide Dinitrate (Isosorbide Dinitrate) 20 Mg Tab, 30 MG PO DAILY, MG 12/01/21 Insulin Glargine (Lantus) 100 Unit/Ml Inj, 50 UNIT SC 08/24/20 Home Meds Home medications reviewed. Current Medications Current Medications Medications (Trade) Dose Ordered Sig/Johana Route PRN Reason Start Time Stop Time Status Last Admin Acetaminophen (Tylenol Tablet) 650 mg Q6HP PRN PO PAIN SCALE 1-3 OR TEMP>100.4 05/31/25 02:30 Nitroglycerin (Ntrostat Sublingual) 0.4 mg Q5MINP PRN SL FOR CHEST PAIN 05/31/25 02:30 Morphine Sulfate 2 mg Q30M PRN IV FOR CHEST PAIN 05/31/25 02:30 05/31/25 09:25 DC Heparin Sodium (Porcine) 5,000 units Q8HR SC 05/31/25 06:00 05/31/25 03:54 DC Albuterol (Ventolin Medneb) 2.5 mg Q6HR NEB 05/31/25 06:00 05/31/25 05:23 Ipratropium Worden (Atrovent Medneb) 0.5 mg Q6HR NEB 05/31/25 06:00 05/31/25 05:23 Aspirin (Ecotrin Enteric Coated Tablet) 81 mg DAILY PO 05/31/25 10:00 05/31/25 03:57 DC Pantoprazole Sodium (Protonix Tablet) 40 mg DAILY@0600 PO 05/31/25 06:00 05/31/25 05:25 Clopidogrel Bisulfate (Plavix) 75 mg DAILY PO 05/31/25 10:00 Atorvastatin Calcium (Lipitor) 40 mg HS PO 05/31/25 22:00 Furosemide (Lasix Injection) 40 mg BIDD IV 05/31/25 06:00 05/31/25 05:29 Carvedilol (Coreg Tablet) 3.125 mg Q12HR PO 05/31/25 10:00 05/31/25 09:34 Insulin Glargine (Lantus) 35 units QAM SC 05/31/25 07:00 05/31/25 03:54 DC Insulin Human Lispro (HumaLOG) 10 units AC SC 05/31/25 07:00 05/31/25 03:54 DC Diagnostic Test (Pha) (Accu-Chek Comfort Curve T) 1 strip ACHS 05/31/25 07:00 05/31/25 03:58 DC Insulin Human Regular (InsuLIN R) ACHS UT 05/31/25 07:00 05/31/25 03:58 DC Dextrose 50 ml UD PRN IV Blood Sugar LESS THAN 60 05/31/25 03:00 05/31/25 03:58 DC Sacubitril/ Valsartan (Entresto 24-26 Mg tab) 1 tab BID PO 05/31/25 10:00 05/31/25 09:33 Levothyroxine Sodium (Synthroid Tablet) 100 mcg QAM@0600 PO 05/31/25 06:00 05/31/25 05:25 Insulin Glargine (Lantus) 25 units QAM UT 05/31/25 04:00 05/31/25 06:40 Enoxaparin Sodium (Lovenox) 40 mg DAILY SC 05/31/25 10:00 05/31/25 07:41 DC Diagnostic Test (Pha) (Accu-Chek Comfort Curve T) 1 strip ACHS 05/31/25 07:00 05/31/25 06:29 Insulin Human Regular (InsuLIN R) [facility] 05/31/25 22:00 Insulin Human Regular (InsuLIN R) AC UT 05/31/25 07:00 05/31/25 11:26 Dextrose 50 ml UD PRN IV Blood Sugar LESS THAN 60 05/31/25 04:00 Enoxaparin Sodium (Lovenox) 100 mg Q12HR SC 05/31/25 10:00 05/31/25 04:23 DC Heparin Sodium/ Dextrose 250 ml @ 21 mls/hr [id number] IV 05/31/25 04:30 05/31/25 05:13 DC Heparin Sodium/ Dextrose 250 ml @ 10 mls/hr Q24H IV 05/31/25 05:15 05/31/25 05:40 Aspirin (Ecotrin Enteric Coated Tablet) 81 mg DAILY PO 05/31/25 10:00 Acetaminophen/ Hydrocodone Bitart ([place] 10/325MG Tab) 1 tab Q6HP PRN PO MODERATE PAIN (4-6 PAIN SCALE) 05/31/25 09:00 05/31/25 09:34 Morphine Sulfate 2 mg Q30M PRN IV FOR CHEST PAIN 05/31/25 09:30 Review of Systems Constitutional: No symptom reported Ears, Nose, & Throat: No symptom reported Eyes: No symptom reported Neurological: No symptoms reported Pulmonary/Respiratory: No symptoms reported Cardiovascular: Chest pain Gastrointestinal: No symptom reported Genitourinary: No symptom reported Musculoskeletal: No symptom reported Skin: No symptom reported Psychiatric: No symptom reported Endocrine: No symptom reported Hematologic/Lymphatic: No symptom reported Vital Signs Vital Signs Date Time Temp Pulse Resp B/P (MAP) Pulse Ox O2 Delivery O2 Flow Rate FiO2 05/31/25 10:31 66 122/72 05/31/25 08:24 95 Nasal Cannula* 2 28 05/31/25 08:24 98.3 19 98.3 Physical Exam General Appearance: Cooperative. Morbidly obese Pulmonary/Respiratory: Clear, bilateral breaths sounds. Cardiovascular/Chest: Regular rate and rhythm. Peripheral Pulses: 2+ Radial (R). 2+ Radial (L). 2+ Pedal (R). 2+ Pedal (L) Abdominal Exam: Normal bowel sounds. Ankle Exam: Negative ankle edema Lower extremities: Nonpitting bilateral lower extremity edema Neuro/Mental Status: A/OX4, coherent. Thoughts/Psych: Normal thought pattern. Appropriate mood and affect. Good judgment and insight. Appearance: No acute distress. Skin Exam: Hyperpigmentation to bilateral lower extremities. Skin warm and dry Labs/Diagnostic Data Labs Test 05/31/25 09:50 05/31/25 08:28 05/31/25 08:00 05/31/25 07:55 Range/Units Troponin I High Sensitivity 259 *H </=54 ng/L Lactic Acid Level 2.7 *H 0.4-2.0 mmol/L Urine Color Light-yellow Yellow Urine Clarity Clear Clear Urine pH 5.5 5.0-9.0 Urine Specific [place] 1.017 1.001-1.035 Urine Protein 1+ H Negative Urine Ketones Negative Negative Urine Blood Negative Negative /uL Urine Nitrite Negative Negative Urine Bilirubin Negative Negative Urine Urobilinogen Normal Negative mg/dL Urine Leukocyte Esterase Negative Negative /uL Urine RBC 1 0 - 3 /hpf Urine Microscopic WBC 1 0-3 /HPF Urine Squamous Epithelial Cells Few <5 /hpf Urine Bacteria None seen None Seen /hpf Urine Glucose 4+ H Normal mg/dL Urine Opiates Screen Pos NEGATIVE Urine Fentanyl Screen Neg NEGATIVE Urine Barbiturates Screen Neg NEGATIVE Urine Phencyclidine Screen Neg NEGATIVE Urine Amphetamines Screen Neg NEGATIVE Urine Benzodiazepines Screen Neg NEGATIVE Urine Cocaine Screen Neg NEGATIVE Urine Cannabinoids Screen Neg NEGATIVE White Blood Count 7.6 4.4-10.8 10^3/uL Red Blood Count 5.11 4.5-5.90 10^6/uL Hemoglobin 14.1 13.5-17.5 g/dL Hematocrit 42.7 41.0-53.0 % Mean Corpuscular Volume 83.6 80.0-100.0 fL Mean Corpuscular Hemoglobin 27.6 L 28.0-32.0 pg Mean Corpuscular Hemoglobin Concent 33.0 32.0-36.0 g/dL Red Cell Distribution Width 19.5 H 11.8-14.3 % Platelet Count 96 L 140-450 10^3/uL Mean Platelet Volume 10.0 6.9-10.8 fL Neutrophils (%) (Auto) 75.3 37.0-80.0 % Lymphocytes (%) (Auto) 14.0 10.0-50.0 % Monocytes (%) (Auto) 6.8 0.0-12.0 % Eosinophils (%) (Auto) 2.9 0.0-7.0 % Basophils (%) (Auto) 1.0 0.0-2.0 % Neutrophils # (Auto) 5.7 1.6-8.6 10 ^3/uL Lymphocytes # (Auto) 1.1 0.4-5.4 10 ^3/uL Monocytes # (Auto) 0.5 0-1.3 10 ^3/uL Eosinophils # (Auto) 0.2 0-0.8 10 ^3/uL Basophils # (Auto) 0.1 0-0.2 10 ^3/uL Nucleated Red Blood Cells 0.2 % Prothrombin Time 11.1 9.3-11.8 sec Prothrombin Time INR 1.05 0.9-1.15 Activated Partial Thromboplast Time 37.0 H 24.5-34.5 SEC Sodium Level 140 136-145 mmol/L Potassium Level 4.0 3.5-5.1 mmol/L Chloride Level 104 98-107 mmol/L Carbon Dioxide Level 25 20-31 mmol/L Anion Gap 11 5-15 Blood Urea Nitrogen 55 H 9-23 mg/dL Creatinine 2.02 H 0.700-1.30 mg/dL Glomerular Filtration Rate Calc 38 >90 mL/min BUN/Creatinine Ratio 27.2 H 10.0-20.0 Serum Glucose 153 H 74-106 mg/dL Calcium Level 8.9 8.7-10.4 mg/dL Phosphorus Level 4.6 2.4-5.1 mg/dL Total Bilirubin 0.4 0.2-1.0 mg/dL Aspartate Amino Transferase (AST) 33 13-40 U/L Alanine Aminotransferase (ALT) 32 7-40 U/L Alkaline Phosphatase 111 46-116 U/L Total Protein 6.5 5.7-8.2 g/dL Albumin 3.9 3.2-4.8 g/dL Triglycerides Level 439 H < 150 mg/dL Cholesterol Level 234 H < 200 mg/dL LDL Cholesterol < 100 mg/dL HDL Cholesterol 37 L 40-59 mg/dL Folic Acid 11.68 >5.38 ng/mL Test 05/31/25 06:28 05/31/25 02:25 05/31/25 00:15 05/30/25 23:35 Range/Units POC Glucose 184 H 70-106 mg/dl Hemoglobin A1c 6.8 H <5.7 % A1C Magnesium Level 2.2 1.6-2.6 mg/dL B-Type Natriuretic Peptide 99.59 0-100 pg/mL Thyroid Stimulating Hormone (TSH) 4.46 0.55-4.78 uIU/mL Vitamin B12 Level 374 211-911 pg/mL Vitamin D 25-Hydroxy 22.8 L 30.0-100 ng/mL Assessment Chest pain, rule out progressive coronary artery disease Coronary artery disease status post PTCA x 3 OLIVE (on Plavix) Atrial fibrillation s/p ablation on 04/17/25 (on Eliquis) Acute on chronic decompensated HFrEF, NYHA class III Peripheral arterial disease Hypertension Dyslipidemia 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 Richard): * Transthoracic echocardiogram to evaluate cardiac function * Previous echocardiogram from 12/22/2024 reveals an EF of 30% * Initiate guideline directed medical therapy for CHF as renal function permits * Avoid nephrotoxic agents at this time. Initiate MRA (spironolactone) and SGLT2i with improved renal function * Chest pain protocol * TANNER score: 3 points * HEART score: 5 points (moderate score) * Heparin drip per ACS protocol * Antiplatelet therapy and lipid-lowering agent * Close Cardiac surveillance: Notify Cardiology immediately for any ECG changes Case reviewed and discussed with . The patient noted to have previous three-vessel coronary artery disease. The patient states he had two stents placed at [facility] in December 2024. Given patient's clinical presentation, known CAD, and elevated troponin level, we will recommend for the patient to undergo a coronary angiogram with left heart catheterization. Unfortunately, the patient exceeds weight limit for cardiac catheterization at this facility. We will recommend for the patient to be transferred to a tertiary center for coronary angiogram that can accommodate patient's weight. In the meantime, continue with heparin drip per ACS protocol, antiplatelet therapy and lipid-lowering agent. Thank you for allowing us to care for this patient. Please call with any questions or concerns. Critical care time spent: 44 minutes This medical document was created using an electronic medical record system with voice recognition software and computerized dictation system. Although this d ocument has been carefully reviewed, there might still be some phonetic and typographical errors. Occasional wrong-word or ``sound-alike substitutions may have occurred due to the inherent limitations of voice recognition software. These areas are purely typographical due to imperfections of the software programs and do not reflect any compromise in the patient's medical care. Please read the chart carefully and recognize, using context, where these substitutions have occurred. Plan discussed with: Patient NYHA Physical activity limitations: Class3(Marked) ordinary (activity causes symtoms) Date of Service: May 31, 2025 Billing Provider: [facility] Card[facility] Common Codes: [id number] INP/OBS CARE (High) Cardiology Consultation Codes: [id number] CONSULT <45MIN [facility] May 31, 2025 11:47
[2025-05-31 11:59] LABS: INR 1.05 (0.9-1.15); Partial Thromboplastin Time 37.0 SEC (24.5-34.5); Prothrombin Time 11.1 sec (9.3-11.8)
--- NOTE | 2025-05-31 12:21 | CONS ---
Pharmacy Clinical Information: HEPARIN PROTOCOL APTT 37.0 AT 11:03 ON 05/31/25 NEW HEPARIN RATE 1200 UNITS/HR OR 12 ML/HR AT 12:30 05/31/25 NEXT APTT AT 18:30 ON 05/31/25 RX GRISELDA READ BACK AND CONFIRMED PER RX PROTOCOL ASH EDMONDSON PHARMACIST May 31, 2025 12:21
--- NOTE | 2025-05-31 15:35 | DVH ---
Technique: Real-time ultrasound imaging, with color Doppler and compression of the bilateral common femoral vein, femoral vein, greater saphenous vein, and popliteal vein. Indication: LEG SWEIING Comparison: US BILAT LOWER DVT on DOS: 11/18/23, US BILAT LOWER DVT on DOS: 09/03/22, BLDVT on DOS: 03/07/21 Findings: There is normal compressibility and flow augmentation in all of the imaged deep veins. There are no filling defects. Impression: No evidence of DVT in the bilateral lower extremities
[2025-05-31] MEDS: EMPAGLIFLOZIN 10 MG TAB PO SCH (17:10)
[2025-05-31] MEDS: SPIRONOLACTONE 25 MG TAB PO SCH (17:11)
--- NOTE | 2025-05-31 17:53 | DVHDSRES ---
Discharge Summary Date of Admission Resident Creating Document: MEGHANN HUBBARD MD May 31, 2025 at 02:20 Date of Discharge: May 31, 2025 Admitting Diagnosis Acute coronary syndrome with acute on chronic heart failure Labs/Diagnostic Data: Laboratory Results Test 05/31/25 16:47 05/31/25 13:44 05/31/25 11:03 05/31/25 09:50 POC Glucose 190 mg/dl (70-106) Lactic Acid Level 1.7 mmol/L (0.4-2.0) Prothrombin Time 11.1 sec (9.3-11.8) Prothrombin Time INR 1.05 (0.9-1.15) Activated Partial Thromboplast Time 37.0 SEC (24.5-34.5) Troponin I High Sensitivity 259 ng/L (</=54) Test 05/31/25 08:00 05/31/25 07:55 05/31/25 02:25 05/31/25 00:15 Urine Color Light-yellow (Yellow) Urine Clarity Clear (Clear) Urine pH 5.5 (5.0-9.0) Urine Specific [place] 1.017 (1.001-1.035) Urine Protein 1+ (Negative) Urine Ketones Negative (Negative) Urine Blood Negative /uL (Negative) Urine Nitrite Negative (Negative) Urine Bilirubin Negative (Negative) Urine Urobilinogen Normal mg/dL (Negative) Urine Leukocyte Esterase Negative /uL (Negative) Urine RBC 1 /hpf (0 - 3) Urine Microscopic WBC 1 /HPF (0-3) Urine Squamous Epithelial Cells Few /hpf (<5) Urine Bacteria None seen /hpf (None Seen) Urine Glucose 4+ mg/dL (Normal) Urine Opiates Screen Pos (NEGATIVE) Urine Fentanyl Screen Neg (NEGATIVE) Urine Barbiturates Screen Neg (NEGATIVE) Urine Phencyclidine Screen Neg (NEGATIVE) Urine Amphetamines Screen Neg (NEGATIVE) Urine Benzodiazepines Screen Neg (NEGATIVE) Urine Cocaine Screen Neg (NEGATIVE) Urine Cannabinoids Screen Neg (NEGATIVE) White Blood Count 7.6 10^3/uL (4.4-10.8) Red Blood Count 5.11 10^6/uL (4.5-5.90) Hemoglobin 14.1 g/dL (13.5-17.5) Hematocrit 42.7 % (41.0-53.0) Mean Corpuscular Volume 83.6 fL (80.0-100.0) Mean Corpuscular Hemoglobin 27.6 pg (28.0-32.0) Mean Corpuscular Hemoglobin Concent 33.0 g/dL (32.0-36.0) Red Cell Distribution Width 19.5 % (11.8-14.3) Platelet Count 96 10^3/uL (140-450) Mean Platelet Volume 10.0 fL (6.9-10.8) Neutrophils (%) (Auto) 75.3 % (37.0-80.0) Lymphocytes (%) (Auto) 14.0 % (10.0-50.0) Monocytes (%) (Auto) 6.8 % (0.0-12.0) Eosinophils (%) (Auto) 2.9 % (0.0-7.0) Basophils (%) (Auto) 1.0 % (0.0-2.0) Neutrophils # (Auto) 5.7 10 ^3/uL (1.6-8.6) Lymphocytes # (Auto) 1.1 10 ^3/uL (0.4-5.4) Monocytes # (Auto) 0.5 10 ^3/uL (0-1.3) Eosinophils # (Auto) 0.2 10 ^3/uL (0-0.8) Basophils # (Auto) 0.1 10 ^3/uL (0-0.2) Nucleated Red Blood Cells 0.2 % Sodium Level 140 mmol/L (136-145) Potassium Level 4.0 mmol/L (3.5-5.1) Chloride Level 104 mmol/L (98-107) Carbon Dioxide Level 25 mmol/L (20-31) Anion Gap 11 (5-15) Blood Urea Nitrogen 55 mg/dL (9-23) Creatinine 2.02 mg/dL (0.700-1.30) Glomerular Filtration Rate Calc 38 mL/min (>90) BUN/Creatinine Ratio 27.2 (10.0-20.0) Serum Glucose 153 mg/dL (74-106) Calcium Level 8.9 mg/dL (8.7-10.4) Phosphorus Level 4.6 mg/dL (2.4-5.1) Total Bilirubin 0.4 mg/dL (0.2-1.0) Aspartate Amino Transferase (AST) 33 U/L (13-40) Alanine Aminotransferase (ALT) 32 U/L (7-40) Alkaline Phosphatase 111 U/L (46-116) Total Protein 6.5 g/dL (5.7-8.2) Albumin 3.9 g/dL (3.2-4.8) Triglycerides Level 439 mg/dL (< 150) Cholesterol Level 234 mg/dL (< 200) LDL Cholesterol mg/dL (< 100) HDL Cholesterol 37 mg/dL (40-59) Folic Acid 11.68 ng/mL (>5.38) Hemoglobin A1c 6.8 % A1C (<5.7) Magnesium Level 2.2 mg/dL (1.6-2.6) B-Type Natriuretic Peptide 99.59 pg/mL (0-100) Thyroid Stimulating Hormone (TSH) 4.46 uIU/mL (0.55-4.78) Test 05/30/25 23:35 Vitamin B12 Level 374 pg/mL (211-911) Vitamin D 25-Hydroxy 22.8 ng/mL (30.0-100) Other Laboratory Tests 05/31/25 07:55 Brief Hx & Hospital Course: This is a 54-year-old male with Significant history for morbid obesity, A-Fib s/p cardiac ablation March 2025, anemia, asthma, CAD S/P two stent december, [facility], CHFrEF 30%, CKD, COPD with 2 L home oxygen, DM2, gout, HLD, HTN, [place], PTCA, PAD, and methamphetamine abuse came to ER with a complaint of chest pain for 2 days but worsen today morning which is 8/10 intensity, substernal, sharp, pressure-like, constant, aggravated on movement, took 2 doses of sublingual nitroglycerin which relieved a little bit. Chest pain was associated with shortness of breaths and nonproductive cough. Patient follow-up with his cardiology day before admission and EKG done, negative for any acute changes. Denied acute fever, palpitation, acute joint redness or swelling.Patient was admitted at [facility] in November,. CAD on 12/23/2024 revealed triple-vessel disease with RCA, 99%, RCA 99%,, LAD 19 echo 2D on 12/23/2024 revealed LVEF 30%, moderate degree LV global hypokinesia, dilated LV, moderately dilated LA, RV moderately dilated and hypokinetic, RVSP 45 mm of mercury. No effusion. Patient was transferred to [facility]. As per patient he had 2 stent at [facility]. EKG revealed anterior inferior wall [place], sinus rhythm, [place] prolongation. Initial lab workup revealed thrombocytopenia with a platelet 100, serum creatinine 1.71, BUN 43> 55, A1c 6.8, lactic acid 2.7, magnesium 2.2, troponin I 36> 57> 187> 285> 311> 259. Triglyceride 439, cholesterol 234, HDL 37, TSH 4.46.Lactic acid 2.7> 1.6> 1.7 likely due to hypoperfusion. CXR- Cardiomegaly with moderate pulmonary vascular congestion. Urinalysis glucose 4+, UDS positive for opiates.Duplex study of the bilateral lower extremity- Moderate peripheral arterial disease primarily within the bilateral infrapopliteal/tibial vasculature where there are hemodynamically significant stenoses. Doppler study of the bilateral lower extremity negative for DVT. Patient was started on heparin drip, On Lasix for heart failure and GDMT, Pending echo 2D report. Patient was seen by cardiology recommended, recommended to start Jardiance and spironolactone. 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 Patient needs to be transferred to higher level of care the patient is hemodynamically stable to be transferred. ROS Cardiovascular- chest pain, shortness of Respiratory -shortness of breaths, cough nonproductive Gastrointestinal- denies any rectal bleeding, nausea or vomiting Musculoskeletal-denies acute joint swelling or tenderness or redness Neurological- denies acute dysarthria, dysphagia, change in vision Psychiatry- denies depression or SI or HI Skin- denies acute rash or purpura Plan of care discussed with Dr. Hubbard Duplex study of the bilateral lower extremity- Moderate peripheral arterial disease primarily within the bilateral infrapopliteal/tibial vasculature where there are hemodynamically significant stenoses. Doppler study of the bilateral lower extremity negative for DVT Patient on heparin drip On Lasix for heart failure and GDMT Pending echo 2D report Patient was seen by cardiology recommended, recommended to start Jardiance and spironolactone Operations or Procedures [address] [address] Ph: [phone] DIAGNOSTIC IMAGING Diagnostic Imaging Report : [id number] Signed PATIENT: TRINITY MARIANO I ACCT: [id number] UNIT: [id number] : 1970 LOC: ER ROOM / BED: / AGE / SEX: 54 / M ADM STATUS: REG ER SERVICE 2340 ORDERING PHYSICIAN: ER PROCEDURE(s): CXR1 - CHEST XRAY 1 VIEW REASON: CP ORDER NUMBER(s): [id number], ACCESSION NUMBER(s): [id number] CHEST RADIOGRAPH Indication: CP Technique: Single frontal view of the chest was obtained COMPARISON: XY CHEST PORTABLE on DOS: 12/22/24, XY CHEST PORTABLE on DOS: 08/29/24, XY CHEST PORTABLE on DOS: 12/18/23, XY CHEST PORTABLE on DOS: 12/18/23, XY CHEST PORTABLE on DOS: 11/30/23 FINDINGS: Lines and Tubes: None Lungs: Moderate diffuse increased prominence of the pulmonary vasculature. No evidence of focal consolidation. Pleura: No effusion. No pneumothorax. Cardiomediastinal contours: Cardiomegaly. Bones: Unremarkable IMPRESSION: 1. Cardiomegaly with moderate pulmonary vascular congestion. ATED BY: SATYA DAS MD DICTATED DATE/TIME: 05/31/2523 SIGNED BY: SATYA DAS MD SIGNED DATE/TIME: 05/31/2523 CC: [place] [id number] Ph: [phone] DIAGNOSTIC IMAGING Diagnostic Imaging Report : [id number] Signed PATIENT: TRINITY MARIANO I ACCT: [id number] UNIT: [id number] : 1970 LOC: OVERFLOW ROOM / BED: [address] [place] [address] / A AGE / SEX: 54 / M ADM STATUS: ADM IN SERVICE 6 ORDERING PHYSICIAN: GE PORTILLO RESIDENT PROCEDURE(s): BLEAD - BiLat Low Ext Art Duplex REASON: RULE OUT PERIPHERAL ARTERIAL DISEASE ORDER NUMBER(s): [id number], ACCESSION NUMBER(s): [id number] Indication: RULE OUT PERIPHERAL ARTERIAL DISEASE Technique: Real- time ultrasound images of the bilateral lower extremity with grayscale, color, and spectral wave Doppler. Comparison: US BILAT LOW EXT ART DUPLEX on DOS: 11/20/23 Findings: Biphasic waveforms right MANAGER VIDEO GAMES, SFA, popliteal artery. Monophasic waveform right posterior tibial, anterior tibial artery. Triphasic waveform right dorsalis pedis artery. Triphasic waveform left MANAGER V[employer] GAMES, SFA, popliteal artery. Monophasic waveform left anterior tibial, posterior tibial, dorsalis pedis arteries. Scattered atherosclerotic calcification disease. Peak systolic velocities are as follows (in cm/s): Right: Common femoral artery: 97 Profunda femoris: 109 Proximal superficial femoral: 105 Mid superficial femoral artery: 114 Distal superficial femoral artery: 111 Popliteal artery: 65 Posterior tibial artery: 28 Anterior tibial artery: 39 Dorsalis pedis artery: 42 Left: Common femoral artery: 84 Profunda femoris: 80 Proximal superficial femoral: 102 Mid superficial femoral artery: 76 Distal superficial femoral artery: 61 Popliteal artery: 53 Posterior tibial artery: 7 Anterior tibial artery: 15 Dorsalis pedis artery: 37 Impression: Moderate peripheral arterial disease primarily within the bilateral infrapopliteal/tibial vasculature where there are hemodynamically significant stenoses. ATED BY: TALYA PETTY MD DICTATED DATE/TIME: 05/31/251134 SIGNED BY: TALYA PETTY MD SIGNED DATE/TIME: 05/31/251134 CC: [place] [id number] Ph: [phone] DIAGNOSTIC IMAGING Diagnostic Imaging Report : [id number] Signed PATIENT: TRINITY MARIANO I ACCT: [id number] UNIT: [id number] : 1970 LOC: OVERFLOW ROOM / BED: [address] [place] [address] AGE / SEX: 54 / M ADM STATUS: ADM IN SERVICE 1447 ORDERING PHYSICIAN: GE PORTILLO RESIDENT PROCEDURE(s): BLDVT - BiLat Lower DVT REASON: LEG SWEIING ORDER NUMBER(s): [id number], ACCESSION NUMBER(s): [id number] Technique: Real-time ultrasound imaging, with color Doppler and compression of the bilateral common femoral vein, femoral vein, greater saphenous vein, and popliteal vein. Indication: LEG SWEIING Comparison: US BILAT LOWER DVT on DOS: 11/18/23, US BILAT LOWER DVT on DOS: 09/03/22, BLDVT on DOS: 03/07/21 Findings: There is normal compressibility and flow augmentation in all of the imaged deep veins. There are no filling defects. Impression: No evidence of DVT in the bilateral lower extremities ATED BY: TALYA PETTY MD DICTATED DATE/TIME: 05/31/251536 SIGNED BY: TALYA PETTY MD SIGNED DATE/TIME: 05/31/251536 CC: Condition at Discharge: Stable Final Diagnosis/Problems List # acute chest pain likely due to acute coronary syndrome # CAD, history of triple-vessel disease, status post PCI x2 at [facility] # hypertensive heart disease with heart failure # peripheral arterial disease # acute hypoxic respiratory failure likely due to acute on chronic HFrEF # bilateral leg edema # COPD on home oxygen [place] O2 2 L/min # asthma # AFib, status post cardiac ablation now in sinus rhythm, # diabetes mellitus type 2 # CKD stage IIIB #Gout # morbid obesity Discharge Disposition: Acute Care Facility Discharge Instruct/Medications Diet: Consistent carbohydrate, Cardiac 2g Na,low cholest Activity: Light activity Follow Up/Referral: As above Medications: As prescribed Scheduled Apixaban Base (Eliquis), 5 MG PO BID, (Reported) Aspirin (Aspirin Low Dose), 81 MG PO DAILY Atorvastatin Calcium (Atorvastatin Calcium), 1 TAB PO DAILY, (Reported) Carvedilol (Coreg), 6.25 MG PO Q12HR Ciprofloxacin Hcl (Cipro), 1 TAB PO BID Furosemide (Furosemide), 1 TAB PO DAILY, (Reported) Hydralazine Hcl (Hydralazine Hcl), 10 MG PO Q8HR Insulin Glargine (Basaglar Kwikpen), 40 UNIT SC HS, (Reported) Isosorbide Dinitrate (Isosorbide Dinitrate), 30 MG PO DAILY, (Reported) Potassium Chloride (Potassium Chloride ER), 1 TAB PO DAILY, (Reported) Semaglutide (Ozempic), 0.25 MG SC QWEEKLY, (Reported) Sertraline Hcl (Sertraline Hcl), 1 TAB PO DAILY, (Reported) Umeclidinium-Vilanterol (Anoro Ellipta 62.5-25 Mcg/INH), 1 PUFF INH DAILY, (Reported) Scheduled PRN Albuterol Sulfate (Albuterol Sulfate Hfa), 2 PUFF PO Q6HPRN PRN for dyspnea, (Reported) Cyclobenzaprine Hcl (Cyclobenzaprine Hcl), 7.5 MG PO Q6HP PRN Gabapentin (Once-Daily) (Gabapentin), 300 MG PO Q6HP PRN Hydrocodone-Acetaminophen (Hydrocodone/Acetaminophen 10-325 mg), 1 TAB PO Q6HR PRN for SEVERE PAIN, (Reported) Ipratropium-Albuterol (Ipratropium [place]/Albut), 3 ML NEB Q6HR PRN for DIFFICULTY BREATHING, (Reported) Miscellaneous Medications Insulin Glargine (Lantus), 50 UNIT SC, (Reported) Discharge Statement: "Patient was advised to return to the ER or call 911 if any headaches, dizziness, shortness of breath, chest pain, abdominal pain, bleeding, fevers, or worsening of medical condition. Patient was counseled about treatment plan, medications, possible side effects, patientverbalized understanding. All questions were answered to the best of my ability. This discharge took greater then 30 minutes in planning, reviewing documentation, counseling the patient, and discussing with other team members." ASSESSMENT ASSESSMENT Assessment Visit Coding STANDARD RES Billing Provider: MEGHANN HUBBARD MD Date of Service if different f: May 31, 2025 Common Visit Codes: 51939-WJV/OBS DISCH DAY >30min GE PORTILLO RESIDENT May 31, 2025 17:53
[2025-05-31 19:48] LABS: INR 1.04 (0.9-1.15); Partial Thromboplastin Time 39.1 SEC (24.5-34.5); Prothrombin Time 11.0 sec (9.3-11.8)
[2025-05-31] MEDS: ATORVASTATIN 20 MG TAB PO SCH (21:25)
[2025-06-01] VITALS (17 sets, daily range): BP systolic 136–170; BP diastolic 70–96; PULSE 66–84; RESP 14–20; TEMP 97.3–99.4; O2SAT 95–100
[2025-06-01 02:34] LABS: Hematocrit 42.9 % (41.0-53.0); Hemoglobin 14.1 g/dL (13.5-17.5); Mean Corpuscular Hemoglobin 27.2 pg (28.0-32.0); Mean Corpuscular Volume 82.7 fL (80.0-100.0); Nucleated Red Blood Cells % 0.1 %
[2025-06-01 02:44] LABS: INR 1.02 (0.9-1.15); Partial Thromboplastin Time 43.6 SEC (24.5-34.5); Prothrombin Time 10.8 sec (9.3-11.8)
[2025-06-01 02:47] LABS: Alanine Aminotransferase 33 U/L (7-40); Albumin 3.8 g/dL (3.2-4.8); Alkaline Phosphatase 107 U/L (46-116); Anion Gap 10 (5-15); BUN/Creatinine Ratio 25.0 (10.0-20.0); Bilirubin, Total 0.4 mg/dL (0.2-1.0); Carbon Dioxide 25 mmol/L (20-31); Chloride 102 mmol/L (98-107); Magnesium 2.3 mg/dL (1.6-2.6); Potassium 4.1 mmol/L (3.5-5.1); Sodium 137 mmol/L (136-145); Total Protein 6.7 g/dL (5.7-8.2)
[2025-06-01 03:18] LABS: Blood Urea Nitrogen 50 mg/dL (9-23); Calcium 8.7 mg/dL (8.7-10.4); Glucose 171 mg/dL (74-106)
[2025-06-01] MEDS: HEPARIN DRIP/D5W 100UNITS/ML 250 ML IV SCH ×2 (03:59→12:05)
[2025-06-01 10:37] LABS: INR 1.02 (0.9-1.15); Partial Thromboplastin Time 45.3 SEC (24.5-34.5); Prothrombin Time 10.8 sec (9.3-11.8)
--- NOTE | 2025-06-01 11:31 | CONS ---
Pharmacy Clinical Information: INCREASE HEPARIN RATE TO 18 ML/HR OR 1800 UNITS/HR SINCE APTT = 45.3 (@1012 ON 06/01) PER RX PROTOCOL. NEXT APTT SHAMAR 6 HOURS FROM STARTING NEW HEPARIN RATE. CHRISTY ADAMES AWARE RATE INCREASED FROM 16 ML/HR TO 18ML/HR AND REPEATED ORDER BACK VIKKI EDMONDSON PHARMACIST Jun 01, 2025 11:31
--- NOTE | 2025-06-01 13:34 | DVHPN2 ---
Consult Progress Note Subjective Other Systems: Patient is in normal sinus rhythm with first-degree conduction delay on nuclear monitoring technician. The patient is denying any cardiac symptoms at time of assessment Objective vital signs Vital Sign Date Time Temp Pulse Resp B/P (MAP) Pulse Ox O2 Delivery O2 Flow Rate FiO2 06/01/25 10:44 70 153/70 06/01/25 09:00 98.2 18 98 98.2 06/01/25 08:10 Nasal Cannula* 2 28 Total Intake and Output 05/31/25 05/31/25 06/01/25 15:00 23:00 07:00 Intake Total 74 ml 12 ml 150 ml Balance 74 ml 12 ml 150 ml medications Current Medications Medications Dose Ordered Sig/Johana Route Start Time Stop Time Status Last Admin Dose Admin Acetaminophen 650 mg Q6HP PRN PO 05/31/25 02:30 Nitroglycerin 0.4 mg Q5MINP PRN SL 05/31/25 02:30 Albuterol 2.5 mg Q6HR NEB 05/31/25 06:00 06/01/25 07:10 2.5 MG Ipratropium Hardy 0.5 mg Q6HR NEB 05/31/25 06:00 06/01/25 07:10 0.5 MG Pantoprazole Sodium 40 mg DAILY@0600 PO 05/31/25 06:00 06/01/25 05:13 40 MG Clopidogrel Bisulfate 75 mg DAILY PO 05/31/25 10:00 Atorvastatin Calcium 40 mg HS PO 05/31/25 22:00 05/31/25 21:25 40 MG Furosemide 40 mg BIDD IV 05/31/25 06:00 05/31/25 05:29 40 MG Carvedilol 3.125 mg Q12HR PO 05/31/25 10:00 06/01/25 10:44 3.125 MG Sacubitril/ Valsartan 1 tab BID PO 05/31/25 10:00 06/01/25 10:46 1 TAB Levothyroxine Sodium 100 mcg QAM@0600 PO 05/31/25 06:00 06/01/25 05:13 100 MCG Insulin Glargine 25 units QAM SC 05/31/25 04:00 06/01/25 06:19 25 UNITS Diagnostic Test (Pha) 1 strip ACHS 05/31/25 07:00 06/01/25 11:30 1 STRIP Insulin Human Regular HS SC 05/31/25 22:00 05/31/25 21:37 4 UNITS Insulin Human Regular AC SC 05/31/25 07:00 06/01/25 12:19 3 UNITS Dextrose 50 ml UD PRN IV 05/31/25 04:00 Aspirin 81 mg DAILY PO 05/31/25 10:00 Acetaminophen/ Hydrocodone Bitart 1 tab Q6HP PRN PO 05/31/25 09:00 05/31/25 20:40 1 TAB Morphine Sulfate 2 mg Q30M PRN IV 05/31/25 09:30 Empaglifozin 10 mg DAILY PO 05/31/25 16:15 06/01/25 10:41 10 MG Spironolactone 25 mg DAILY PO 05/31/25 16:15 06/01/25 10:41 25 MG Heparin Sodium/ Dextrose 250 ml @ 18 mls/hr [id number] IV 06/01/25 11:30 06/01/25 12:05 18 MLS/HR Examination: GENERAL:Normal, LUNGS:Normal, CVS:Normal, NEURO:Normal laboratory and microbiology Laboratory Tests 06/01/25 02:21 Test 06/01/25 02:21 Range/Units Serum Glucose 171 H 74-106 mg/dL Problem List/Assessment/Plan Problem List/Assessment/Plan Chest pain, rule out progressive coronary artery disease Coronary artery disease status post PTCA x 3 OLIVE (on Plavix) Atrial fibrillation s/p ablation on 04/17/25 (on Eliquis) Acute on chronic decompensated HFrEF, NYHA class III Peripheral arterial disease Hypertension Dyslipidemia SCOUT on CKD COPD Type 2 diabetes mellitus Morbid obesity History of amphetamine use Plan/Recommendations (Dr. Richard): * Transthoracic echocardiogram to evaluate cardiac function * Previous echocardiogram from 12/22/2024 reveals an EF of 30% * Initiate guideline directed medical therapy for CHF as renal function permits * Avoid nephrotoxic agents at this time. Initiate MRA (spironolactone) and SGLT2i with improved renal function * Chest pain protocol * TANNER score: 3 points * HEART score: 5 points (moderate score) * Heparin drip per ACS protocol * Antiplatelet therapy and lipid-lowering agent * Close Cardiac surveillance: Notify Cardiology immediately for any ECG changes Case reviewed and discussed with . The patient noted to have previous three-vessel coronary artery disease. The patient states he had two stents placed at [facility] in December 2024. Given patient's clinical presentation, known CAD, and elevated troponin level, we will recommend for the patient to undergo a coronary angiogram with left heart catheterization. Unfortunately, the patient exceeds weight limit for cardiac catheterization at this facility. We will recommend for the patient to be transferred to a tertiary center for coronary angiogram that can accommodate patient's weight. In the meantime, continue with heparin drip per ACS protocol, antiplatelet therapy and lipid-lowering agent. Thank you for allowing us to care for this patient. Please call with any questions or concerns. This medical document was created using an electronic medical record system with voice recognition software and computerized dictation system. Although this document has been carefully reviewed, there might still be some phonetic and typographical errors. Occasional wrong-word or ``sound-alike substitutions may have occurred due to the inherent limitations of voice recognition software. These areas are purely typographical due to imperfections of the software programs and do not reflect any compromise in the patient's medical care. Please read the chart carefully and recognize, using context, where these substitutions have occurred. Plan discussed with: Patient Date of Service: Jun 01, 2025 Billing Provider: STAR CAMP Common Visit Codes: [id number] INP/OBS CARE(HIGH) STAR CAMP Jun 01, 2025 13:34
--- NOTE | 2025-06-01 17:08 | DVHSR ---
APPROVED REPORT EXAM: LIMITED Two-dimensional and M-mode echocardiogram. Blood Pressure: 100/50 mmHg INDICATION Heart Failure RISK FACTORS Height: 6', Weight: 385 DIMENSIONS LVDd 4.9 (3.8-5.7cm) LA (2D) (1.9-4.0cm) Aortic Root (2.0-3.7cm) LVDs 2.6 (2.5-4.0cm) LA (MM) (1.9-4.0cm) Aortic Cusp Exc (1.5-2.0cm) EF (%) 78.0 (55-70%) Rt. Atrium (1.9-4.0cm) Asc. Aorta cm IVSd 1.4 (0.7-1.1cm) RV (D) (1.8-2.4cm) PWd 1.5 (0.7-1.1cm) Mitral Valve Mitral Mitral Stenosis E/A ratio 0.0 2D MVA cm2 Other Information Quality : Technically Limited Rhythm : Technically limited study due to body habitus. Conclusion LVEF normal 60-65%. Mild to moderate LVH Right ventricle size and function grossly normal Posterior Mitral annular calcification
--- NOTE | 2025-06-01 17:45 | DVHPNRES ---
Progress Note Date Seen: Jun 01, 2025 Resident Creating Document: GE PORTILLO RESIDENT Medical Necessity Reason Pt with a Central, PICC or Fol: No Subjective Review of Systems This is a 54-year-old male with Significant history for morbid obesity, A-Fib s/p cardiac ablation March 2025, anemia, asthma, CAD S/P two stent december, [facility], CHFrEF 30%, CKD, COPD with 2 L home oxygen, DM2, gout, HLD, HTN, CA, PTCA, PAD, and methamphetamine abuse came to ER with a complaint of chest pain for 2 days but worsen today morning which is 8/10 intensity, substernal, sharp, pressure-like, constant, aggravated on movement, took 2 doses of sublingual nitroglycerin which relieved a little bit. Chest pain was associated with shortness of breaths and nonproductive cough. Patient follow-up with his cardiology day before admission and EKG done, negative for any acute changes. Denied acute fever, palpitation, acute joint redness or swelling.Patient was admitted at [facility] in November,. CAD on 12/23/2024 revealed triple-vessel disease with RCA, 99%, RCA 99%,, LAD 19 echo 2D on 12/23/2024 revealed LVEF 30%, moderate degree LV global hypokinesia, dilated LV, moderately dilated LA, RV moderately dilated and hypokinetic, RVSP 45 mm of mercury. No effusion. Patient was transferred to [facility]. As per patient he had 2 stent at [facility]. EKG revealed anterior inferior wall CA, sinus rhythm, [place] prolongation. Initial lab workup revealed thrombocytopenia with a platelet 100, serum creatinine 1.71, BUN 43> 55, A1c 6.8, lactic acid 2.7, magnesium 2.2, troponin I 36> 57> 187> 285> 311> 259. Triglyceride 439, cholesterol 234, HDL 37, TSH 4.46.Lactic acid 2.7> 1.6> 1.7 CXR- Cardiomegaly with moderate pulmonary vascular congestion. Urinalysis glucose 4+, UDS positive for opiates. Past medical history: morbid obesity, A-Fib s/p cardiac ablation March 2025, anemia, asthma, CAD S/P two stent december, [facility], CHFrEF 30%, CKD, COPD with 2 L home oxygen, DM2, gout, HLD, HTN, CA, PTCA, PAD Past surgical history: Cardiac ablation due to AFib April 17, stent placed December 29, 2024. Personal: Current smoker, remote history of amphetamine use, occasion EtOH. Family history: Further-lung cancer, brother-CAD Allergy: No known allergy PCP: Dr. Elise. ROS Cardiovascular- chest pain, shortness of Respiratory -shortness of breaths, cough nonproductive Gastrointestinal- denies any rectal bleeding, nausea or vomiting Musculoskeletal-denies acute joint swelling or tenderness or redness Neurological- denies acute dysarthria, dysphagia, change in vision Psychiatry- denies depression or SI or HI Skin- denies acute rash or purpura Patient was seen today at bedside, labs and chart reviewed. No acute complaints Patient is waiting to be transferred to [facility] for CAG Objective vital signs Vital Sign Date Time Temp Pulse Resp B/P (MAP) Pulse Ox O2 Delivery O2 Flow Rate FiO2 06/01/25 17:00 97.3 71 16 136/86 (103) 98 97.3 06/01/25 10:00 Nasal Cannula 2.0 06/01/25 10:00 28 Total Intake and Output 05/31/25 05/31/25 06/01/25 15:00 23:00 07:00 Intake Total 74 ml 12 ml 150 ml Balance 74 ml 12 ml 150 ml medications Current Medications Medications Dose Ordered Sig/Johana Route Start Time Stop Time Status Last Admin Dose Admin Acetaminophen 650 mg Q6HP PRN PO 05/31/25 02:30 Nitroglycerin 0.4 mg Q5MINP PRN SL 05/31/25 02:30 Albuterol 2.5 mg Q6HR NEB 05/31/25 06:00 06/01/25 13:22 2.5 MG Ipratropium [place] 0.5 mg Q6HR NEB 05/31/25 06:00 06/01/25 13:22 0.5 MG Pantoprazole Sodium 40 mg DAILY@0600 PO 05/31/25 06:00 06/01/25 05:13 40 MG Clopidogrel Bisulfate 75 mg DAILY PO 05/31/25 10:00 Atorvastatin Calcium 40 mg HS PO 05/31/25 22:00 05/31/25 21:25 40 MG Furosemide 40 mg BIDD IV 05/31/25 06:00 05/31/25 05:29 40 MG Carvedilol 3.125 mg Q12HR PO 05/31/25 10:00 06/01/25 10:44 3.125 MG Sacubitril/ Valsartan 1 tab BID PO 05/31/25 10:00 06/01/25 10:46 1 TAB Levothyroxine Sodium 100 mcg QAM@0600 PO 05/31/25 06:00 06/01/25 05:13 100 MCG Insulin Glargine 25 units QAM SC 05/31/25 04:00 06/01/25 06:19 25 UNITS Diagnostic Test (Pha) 1 strip ACHS 05/31/25 07:00 06/01/25 17:27 1 STRIP Insulin Human Regular HS SC 05/31/25 22:00 05/31/25 21:37 4 UNITS Insulin Human Regular AC SC 05/31/25 07:00 06/01/25 17:29 3 UNITS Dextrose 50 ml UD PRN IV 05/31/25 04:00 Aspirin 81 mg DAILY PO 05/31/25 10:00 Acetaminophen/ Hydrocodone Bitart 1 tab Q6HP PRN PO 05/31/25 09:00 06/01/25 17:27 1 TAB Morphine Sulfate 2 mg Q30M PRN IV 05/31/25 09:30 Empaglifozin 10 mg DAILY PO 05/31/25 16:15 06/01/25 10:41 10 MG Spironolactone 25 mg DAILY PO 05/31/25 16:15 06/01/25 10:41 25 MG Heparin Sodium/ Dextrose 250 ml @ 18 mls/hr [id number] IV 06/01/25 11:30 06/01/25 12:05 18 MLS/HR Examination General examination- awake, alert, oriented, obese HEENT- PEERLA, no acute nasal discharge Cardiovascular- S1-S2 audible, rate and rhythm regular, no murmur Respiratory- bilateral lung crackles+ Gastrointestinal-nontender, bowel sound+. Nondistended Musculoskeletal-no acute joint swelling or tenderness or redness Lower extremity- bilateral trace edema, depigmentation of the skin, decreased pulsation of the left arterial dorsalis pedis Neurological- cranial nerves intact, no acute dysarthria or dysphagia Psychiatry- denies depression or SI or HI Skin- no acute rash or purpura laboratory and microbiology Laboratory Tests 06/01/25 02:21 Test 06/01/25 02:21 Range/Units Serum Glucose 171 H 74-106 mg/dL Problem List/Assessment/Plan Problem List/Assessment/Plan Assessment and plan- # Acute chest pain likely due to acute coronary syndrome # NSTEMI Type 1 # CAD, history of triple-vessel disease, status post PCI x2 at [facility] # Hypertensive heart disease with heart failure # Peripheral arterial disease -pending echo 2D report -troponin I trending down -patient on heparin drip -continue antiplatelet as prescribed -cardiology recommendation reviewed and appreciated -patient on GDMT -monitor vitals Patient is waiting to be transferred to [facility] for left heart catheterization # acute hypoxic respiratory failure likely due to acute on chronic HFrEF -echo on 12/23/2024 LVEF 30% # bilateral leg edema -CXR pulmonary congestion -continue GDMT as prescribed # COPD on home oxygen [place] O2 2 L/min # asthma -continue nebulization PRN # AFib, status post cardiac ablation now in sinus rhythm, -patient on heparin drip as per protocol # diabetes mellitus type 2 -hemoglobin A1c 6.8 -continue insulin as prescribed # CKD stage IIIB -avoid dehydration and nephrotoxic drugs -continue current diuresis #Gout -continue current conservative management # morbid obesity -counseled about the effect of obesity on health Goals of care, Code status full code; PUD prophylaxis: Pantoprazole DVT prophylaxis: Heparin Plan discussed with Dr. Hubbard, , nursing staff, Total time spent on patient evaluation, chart review, assessment and plan, discussion discussion >35 minutes Plan discussed with: Patient, Other (RN) My Orders My Orders Orders - GE PORTILLO RESIDENT Procedure Category Date Status Time Discharge DISCHARGE 05/31/25 Transmitted 17:55 * Resistance [employer]ter CONS 05/31/25 Transmitted Consult Complete Blood Count LAB 06/02/25 Verified 04:00 Comprehensive LAB 06/02/25 Verified Metabolic Panel 04:00 Magnesium LAB 06/02/25 Verified 04:00 Visit Coding STANDARD RES Billing Provider: MEGHANN HUBBARD MD Date of Service if different f: Jun 01, 2025 Common Visit Codes: [id number] INP/OBS CARE(HIGH) GE PORTILLO RESIDENT Jun 01, 2025 17:45 ISAEL CHIN RESIDENT Jun 02, 2025 10:56
[2025-06-01 19:00] LABS: INR 1.01 (0.9-1.15); Partial Thromboplastin Time 52.6 SEC (24.5-34.5); Prothrombin Time 10.7 sec (9.3-11.8)
[2025-06-02] VITALS (8 sets, daily range): BP systolic 116–152; BP diastolic 75–94; PULSE 68–85; RESP 18–20; TEMP 96.6–98.7; O2SAT 92–99
[2025-06-02 00:53] LABS: INR 1.01 (0.9-1.15); Partial Thromboplastin Time 32.7 SEC (24.5-34.5); Prothrombin Time 10.7 sec (9.3-11.8)
[2025-06-02] MEDS: HEPARIN SODIUM (PORCINE) 5000 UNITS/ML 1ML VIAL IV ONE (01:28)
[2025-06-02] MEDS: HEPARIN DRIP/D5W 100UNITS/ML 250 ML IV SCH (01:32)
[2025-06-02 08:02] LABS: Hematocrit 44.0 % (41.0-53.0); Hemoglobin 14.5 g/dL (13.5-17.5); Mean Corpuscular Hemoglobin 27.1 pg (28.0-32.0); Mean Corpuscular Volume 82.1 fL (80.0-100.0); Nucleated Red Blood Cells % 0.2 %
[2025-06-02 08:11] LABS: INR 1.03 (0.9-1.15); Partial Thromboplastin Time 66.3 SEC (24.5-34.5); Prothrombin Time 10.9 sec (9.3-11.8)
[2025-06-02 08:19] LABS: Alanine Aminotransferase 29 U/L (7-40); Albumin 4.1 g/dL (3.2-4.8); Anion Gap 11 (5-15); BUN/Creatinine Ratio 23.0 (10.0-20.0); Bilirubin, Total 0.6 mg/dL (0.2-1.0); Calcium 9.3 mg/dL (8.7-10.4); Carbon Dioxide 25 mmol/L (20-31); Chloride 101 mmol/L (98-107); Magnesium 2.3 mg/dL (1.6-2.6); Potassium 4.2 mmol/L (3.5-5.1); Sodium 137 mmol/L (136-145); Total Protein 7.3 g/dL (5.7-8.2)
[2025-06-02 08:30] LABS: Alkaline Phosphatase 118 U/L (46-116); Blood Urea Nitrogen 41 mg/dL (9-23); Glucose 151 mg/dL (74-106)
--- NOTE | 2025-06-02 08:40 | CONS ---
Pharmacy Clinical Information: HEPARIN DRIP, ACS PROTOCOL @0737 APTT 66.3 - NO BOLUS, NO CHANGE NEXT APTT DRAW SCHEDULED @1330 PER RX PROTOCOL CONFIRMED AND READ BACK WITH RN IAIN BARRIOS [facility] RESIDENT Jun 02, 2025 08:40
--- NOTE | 2025-06-02 10:45 | DVHPNRES ---
Progress Note Date Seen: Jun 02, 2025 Resident Creating Document: GE PORTILLO RESIDENT Medical Necessity Reason Pt with a Central, PICC or Fol: No Subjective Review of Systems This is a 54-year-old male with Significant history for morbid obesity, A-Fib s/p cardiac ablation March 2025, anemia, asthma, CAD S/P two stent december, [facility], CHFrEF 30%, CKD, COPD with 2 L home oxygen, DM2, gout, HLD, HTN, [place], PTCA, PAD, and methamphetamine abuse came to ER with a complaint of chest pain for 2 days but worsen today morning which is 8/10 intensity, substernal, sharp, pressure-like, constant, aggravated on movement, took 2 doses of sublingual nitroglycerin which relieved a little bit. Chest pain was associated with shortness of breaths and nonproductive cough. Patient follow-up with his cardiology day before admission and EKG done, negative for any acute changes. Denied acute fever, palpitation, acute joint redness or swelling.Patient was admitted at [facility] in November,. CAD on 12/23/2024 revealed triple-vessel disease with RCA, 99%, RCA 99%,, LAD 19 echo 2D on 12/23/2024 revealed LVEF 30%, moderate degree LV global hypokinesia, dilated LV, moderately dilated LA, RV moderately dilated and hypokinetic, RVSP 45 mm of mercury. No effusion. Patient was transferred to [facility]. As per patient he had 2 stent at [facility]. EKG revealed anterior inferior wall DC, sinus rhythm, [place] prolongation. Initial lab workup revealed thrombocytopenia with a platelet 100, serum creatinine 1.71, BUN 43> 55, A1c 6.8, lactic acid 2.7, magnesium 2.2, troponin I 36> 57> 187> 285> 311> 259. Triglyceride 439, cholesterol 234, HDL 37, TSH 4.46.Lactic acid 2.7> 1.6> 1.7 CXR- Cardiomegaly with moderate pulmonary vascular congestion. Urinalysis glucose 4+, UDS positive for opiates. Past medical history: morbid obesity, A-Fib s/p cardiac ablation March 2025, anemia, asthma, CAD S/P two stent december, [facility], CHFrEF 30%, CKD, COPD with 2 L home oxygen, DM2, gout, HLD, HTN, DC, PTCA, PAD Past surgical history: Cardiac ablation due to AFib April 17, stent placed December 29, 2024. Personal: Current smoker, remote history of amphetamine use, occasion EtOH. Family history: Further-lung cancer, brother-CAD Allergy: No known allergy PCP: Dr. Elise. ROS Cardiovascular- chest pain, shortness of Respiratory -shortness of breaths, cough nonproductive Gastrointestinal- denies any rectal bleeding, nausea or vomiting Musculoskeletal-denies acute joint swelling or tenderness or redness Neurological- denies acute dysarthria, dysphagia, change in vision Psychiatry- denies depression or SI or HI Skin- denies acute rash or purpura Patient was seen today at bedside, labs and chart reviewed. Mild skin abration in the right groin, wound care done by the nurses No acute complaints Patient was transferred to [facility] for CAG/left heart catheterization Objective vital signs Vital Sign Date Time Temp Pulse Resp B/P (MAP) Pulse Ox O2 Delivery O2 Flow Rate FiO2 06/02/25 09:51 71 152/94 06/02/25 09:00 96.6 18 99 96.6 06/02/25 08:00 Nasal Cannula* 2 28 Total Intake and Output 06/01/25 06/01/25 06/02/25 15:00 23:00 07:00 Intake Total 1270 ml 450 ml Balance 1270 ml 450 ml medications Current Medications Medications Dose Ordered Sig/Johana Route Start Time Stop Time Status Last Admin Dose Admin Acetaminophen 650 mg Q6HP PRN PO 05/31/25 02:30 Nitroglycerin 0.4 mg Q5MINP PRN SL 05/31/25 02:30 Albuterol 2.5 mg Q6HR NEB 05/31/25 06:00 06/02/25 07:15 2.5 MG Ipratropium [place] 0.5 mg Q6HR NEB 05/31/25 06:00 06/02/25 07:15 0.5 MG Pantoprazole Sodium 40 mg DAILY@0600 PO 05/31/25 06:00 06/02/25 06:10 40 MG Clopidogrel Bisulfate 75 mg DAILY PO 05/31/25 10:00 Atorvastatin Calcium 40 mg HS PO 05/31/25 22:00 06/01/25 21:19 40 MG Furosemide 40 mg BIDD IV 05/31/25 06:00 06/02/25 06:09 40 MG Carvedilol 3.125 mg Q12HR PO 05/31/25 10:00 06/02/25 09:51 3.125 MG Sacubitril/ Valsartan 1 tab BID PO 05/31/25 10:00 06/02/25 09:49 1 TAB Levothyroxine Sodium 100 mcg QAM@0600 PO 05/31/25 06:00 06/02/25 06:10 100 MCG Insulin Glargine 25 units QAM SC 05/31/25 04:00 06/02/25 06:41 25 UNITS Diagnostic Test (Pha) 1 strip ACHS 05/31/25 07:00 06/02/25 06:10 1 STRIP Insulin Human Regular HS SC 05/31/25 22:00 06/01/25 21:24 4 UNITS Insulin Human Regular AC SC 05/31/25 07:00 06/02/25 06:21 3 UNITS Dextrose 50 ml UD PRN IV 05/31/25 04:00 Aspirin 81 mg DAILY PO 05/31/25 10:00 Acetaminophen/ Hydrocodone Bitart 1 tab Q6HP PRN PO 05/31/25 09:00 06/02/25 06:10 1 TAB Morphine Sulfate 2 mg Q30M PRN IV 05/31/25 09:30 Empaglifozin 10 mg DAILY PO 05/31/25 16:15 06/02/25 09:49 10 MG Spironolactone 25 mg DAILY PO 05/31/25 16:15 06/02/25 09:49 25 MG Heparin Sodium/ Dextrose 250 ml @ 21 mls/hr [id number] IV 06/02/25 01:30 06/02/25 01:32 21 MLS/HR Examination General examination- awake, alert, oriented, obese HEENT- PEERLA, no acute nasal discharge Cardiovascular- S1-S2 audible, rate and rhythm regular, no murmur Respiratory- bilateral lung crackles+ Gastrointestinal-nontender, bowel sound+. Nondistended Musculoskeletal-no acute joint swelling or tenderness or redness Lower extremity- bilateral trace edema, depigmentation of the skin, decreased pulsation of the left arterial dorsalis pedis Neurological- cranial nerves intact, no acute dysarthria or dysphagia Psychiatry- denies depression or SI or HI Skin- no acute rash or purpura laboratory and microbiology Laboratory Tests 06/02/25 07:37 Test 06/02/25 07:37 Range/Units Serum Glucose 151 H 74-106 mg/dL Problem List/Assessment/Plan Problem List/Assessment/Plan Assessment and plan- # acute chest pain likely due to acute coronary syndrome #NSTEMI Type 1 # CAD, history of triple-vessel disease, status post PCI x2 at [facility] # hypertensive heart disease with heart failure # peripheral arterial disease -pending echo 2D report -troponin I trending down -patient on heparin drip -continue antiplatelet as prescribed -cardiology recommendation reviewed and appreciated -patient on GDMT -monitor vitals Patient is waiting to be transferred to [facility] for left heart catheterization. Patient transported on 06/02/2025 on DAPT, heparin drip and optimal medical therapy # acute hypoxic respiratory failure likely due to acute on chronic HFrEF -echo on 12/23/2024 LVEF 30% # bilateral leg edema -CXR pulmonary congestion -continue GDMT as prescribed # COPD exacerbation on home oxygen [place] O2 2 L/min # asthma -continue nebulization PRN # AFib, status post cardiac ablation now in sinus rhythm, -patient on heparin drip as per protocol # diabetes mellitus type 2 -hemoglobin A1c 6.8 -continue insulin as prescribed # CKD stage IIIB -avoid dehydration and nephrotoxic drugs -continue current diuresis #Gout -continue current conservative management # morbid obesity -counseled about the effect of obesity on health Goals of care, Code status full code; PUD prophylaxis: Pantoprazole DVT prophylaxis: Heparin Plan discussed with Dr. Hubbard, , nursing staff, Total time spent on patient evaluation, chart review, assessment and plan, discussion discussion >35 minutes Plan discussed with: Patient, Other (RN) My Orders My Orders Orders - GE PORTILLO RESIDENT Procedure Category Date Status Time Imaging Transfer ORDERS 06/02/25 Transmitted Request 04:51 Visit Coding STANDARD RES Billing Provider: MEGHANN HUBBARD MD Date of Service if different f: Jun 02, 2025 Common Visit Codes: [id number] INP/OBS CARE(HIGH) GE PORTILLO RESIDENT Jun 02, 2025 10:45 ISAEL CHIN RESIDENT Jun 02, 2025 20:16
== END 2025-06-02 10:38 | disposition short-term general hospital (02) | DRG 190 ==
LOC: ER 23:29 → EDBD 23:29 → OVERFLOW 05-31 02:20 → TELE-WESTW 05-31 18:07
PROVIDERS: ADMIT Internal Medicine Geriatric Medicine; ATTEND Internal Medicine Geriatric Medicine
DX: I21.4 Non-ST elevation (NSTEMI) myocardial infarction (principal); J96.21 Acute and chronic respiratory failure with hypoxia; I50.23 Acute on chronic systolic (congestive) heart failure; D69.6 Thrombocytopenia, unspecified; E83.51 Hypocalcemia; N17.9 Acute kidney failure, unspecified; Z68.43 Body mass index [BMI] 50.0-59.9, adult; I13.0 Hypertensive heart and chronic kidney disease with heart failure and stage 1 through stage 4 chronic kidney disease, or unspecified chronic kidney disease; N18.32 Chronic kidney disease, stage 3b; E11.51 Type 2 diabetes mellitus with diabetic peripheral angiopathy without gangrene; J44.89 Other specified chronic obstructive pulmonary disease; E03.9 Hypothyroidism, unspecified; E66.01 Morbid (severe) obesity due to excess calories; E78.5 Hyperlipidemia, unspecified; I25.10 Atherosclerotic heart disease of native coronary artery without angina pectoris; I48.91 Unspecified atrial fibrillation; E11.22 Type 2 diabetes mellitus with diabetic chronic kidney disease; M10.9 Gout, unspecified; E11.65 Type 2 diabetes mellitus with hyperglycemia; F17.200 Nicotine dependence, unspecified, uncomplicated; Z98.61 Coronary angioplasty status; Z80.1 Family history of malignant neoplasm of trachea, bronchus and lung; Z82.49 Family history of ischemic heart disease and other diseases of the circulatory system; Z99.81 Dependence on supplemental oxygen; Z82.3 Family history of stroke; Z82.5 Family history of asthma and other chronic lower respiratory diseases; Z83.3 Family history of diabetes mellitus; Z80.0 Family history of malignant neoplasm of digestive organs
CPT/HCPCS: 36415; 80048; 80053; 80061; 80307; 81001; 82306; 82607; 82746; 82962; 83036; 83605; 83735; 83880; 84100; 84443; 84484; 85025; 85610; 85730; 93005; 93306; 93925; 93970; 94640; 96365; 96372; 99291; G0378; J1815

== ENCOUNTER 2025-06-11 17:10 | Inpatient (IN) | payer MEDICAID ==
[~2025-06-11] VITALS: Ht 182.9 cm; Wt 188.5 kg
--- NOTE | 2025-06-11 17:18 | ECG ---
[facility] Test Date: 2025-06-11 Test Time: 17:11:09 Pat Name: TRINITY MARIANO Department: ED Room: Gender: M Corn Popper: mary : 1970 Requested By: ASHOK ESPINOZA Order Number: [id number] Reading MD: Measurements Intervals [place] Rate: 71 P: -39 SD: 224 QRS: -79 QRSD: 165 T: 75 QT: 459 QTc: 499 Interpretive Statements Sinus rhythm Prolonged SD interval Nonspecific IVCD with LAD Probable inferior infarct, acute Anterolateral infarct, old Baseline wander in lead(s) V1,V2 Please click the below link to view image of tracing.
[2025-06-11 17:36] LABS: Hematocrit 46.7 % (41.0-53.0); Hemoglobin 15.1 g/dL (13.5-17.5); Mean Corpuscular Hemoglobin 27.4 pg (28.0-32.0); Mean Corpuscular Volume 84.5 fL (80.0-100.0); Nucleated Red Blood Cells % 1.1 %
[2025-06-11 17:45] LABS: Alanine Aminotransferase 32 U/L (7-40); Albumin 4.4 g/dL (3.2-4.8); Alkaline Phosphatase 97 U/L (46-116); Anion Gap 9 (5-15); BUN/Creatinine Ratio 25.4 (10.0-20.0); Calcium 9.6 mg/dL (8.7-10.4); Carbon Dioxide 29 mmol/L (20-31); Chloride 99 mmol/L (98-107); Potassium 4.9 mmol/L (3.5-5.1); Sodium 137 mmol/L (136-145); Total Protein 7.5 g/dL (5.7-8.2)
[2025-06-11 17:46] LABS: Bilirubin, Total 0.4 mg/dL (0.2-1.0)
[2025-06-11 17:48] LABS: Blood Urea Nitrogen 53 mg/dL (9-23); Glucose 206 mg/dL (74-106)
--- NOTE | 2025-06-11 17:57 | DVH ---
CHEST RADIOGRAPH INDICATION: CHEST PAIN TECHNIQUE: Single frontal view of the chest was obtained COMPARISON: XY CHEST XRAY 1 VIEW on DOS: 05/31/25, XY CHEST PORTABLE on DOS: 12/22/24, XY CHEST PORTABLE on DOS: 08/29/24 FINDINGS: Lines and Tubes: None Lungs: No focal consolidation. Mild interstitial prominence. Pleura: No effusion. No pneumothorax. Cardiomediastinal contours: Borderline cardiomegaly. Bones: No acute osseous abnormality. IMPRESSION: Mild pulmonary vascular congestion.
[2025-06-11 18:00] VITALS: O2SAT 96
--- NOTE | 2025-06-11 18:02 | ED.PDOC ---
History of Present Illness HPI Comments 54-year-old male SERENA with prior medical history of LA x3(06/01),, gout, COPD, diabetes, hypertension, CHF and the chief complaint of chest pain. Patient reports on having a sternal stabbing pain 1 hour ago while the patient was walking. Patient states that the pain is nonradiating and took one nitro home a nd was given one nitro EN route to the ER. Patient notes the pain being discharged from [place] few days ago due from due from an LA. Denies any other symptoms at this time. Denies chills, fever, N/V/D, SOB. No other associated symptoms, modifiers, recent injuries or sick contacts present at this time. Chief Complaint: Chest Pain Time Seen by MD: 17:15 Primary Care Provider: [place] Reviewed Notes: Nurses Notes, Medications, Allergies Allergies: Coded Allergies: NO KNOWN ALLERGIES (Unverified , 08/14/13) Home Meds Active Scripts Cyclobenzaprine Hcl (CYCLOBENZAPRINE HCL) 7.5 Mg Tab, 7.5 MG PO Q6HP PRN, #30 TAB Prov:PIEDAD ZIMMERMAN MD 01/15/25 Gabapentin (Once-Daily) (Gabapentin) 300 Mg Tab, 300 MG PO Q6HP PRN, #30 TAB Prov:PIEDAD ZIMMERMAN MD 01/15/25 Ciprofloxacin Hcl (Cipro) 500 Mg Tab, 1 TAB PO BID for 7 Days, #14 TAB Prov:NGUYỄN AMADOR MD 08/30/24 Aspirin (Aspirin Low Dose) 81 Mg Tab, 81 MG PO DAILY for 30 Days, #30 TAB Prov:ISAEL CHIN RESIDENT 11/25/23 Hydralazine Hcl (Hydralazine Hcl) 10 Mg Tab, 10 MG PO Q8HR for 30 Days, #90 TAB Prov:ISAEL CHIN RESIDENT 11/25/23 Carvedilol (COREG) 3.125 Mg Tab, 6.25 MG PO Q12HR for 30 Days, #120 TAB Prov:ISAEL CHIN RESIDENT 11/25/23 Reported Medications Ipratropium-Albuterol (Ipratropium [place]/Albut) 1 Mattie Mattie, 3 ML NEB Q6HR PRN for DIFFICULTY BREATHING 11/19/23 Insulin Glargine (Basaglar Kwikpen) 100 Unit/Ml Inj, 40 UNIT SC HS 11/19/23 Semaglutide (Ozempic) 2 Mg/3 Ml Inj, 0.25 MG SC QWEEKLY 11/19/23 Umeclidinium-Vilanterol (Anoro Ellipta 62.5-25 Mcg/INH) 1 Aer Aer, 1 PUFF INH D AILY 11/19/23 Sertraline Hcl (Sertraline Hcl) 100 Mg Tab, 1 TAB PO DAILY 11/18/23 Atorvastatin Calcium (ATORVASTATIN CALCIUM) 40 Mg Tab, 1 TAB PO DAILY 11/18/23 Potassium Chloride (Potassium Chloride ER) 10 Meq Tab, 1 TAB PO DAILY 03/19/23 Albuterol Sulfate (Albuterol Sulfate Hfa) 108 Mcg/Act Aer, 2 PUFF PO Q6HPRN PRN for dyspnea 03/19/23 Furosemide (Furosemide) 40 Mg Tab, 1 TAB PO DAILY 03/19/23 Hydrocodone-Acetaminophen (Hydrocodone/Acetaminophen 10-325 mg) 1 Tab Tab, 1 TAB PO Q6HR PRN for SEVERE PAIN 02/25/23 Apixaban Base (ELIQUIS) 5 Mg Tab, 5 MG PO BID, TAB 12/01/21 Isosorbide Dinitrate (Isosorbide Dinitrate) 20 Mg Tab, 30 MG PO DAILY, MG 12/01/21 Insulin Glargine (Lantus) 100 Unit/Ml Inj, 50 UNIT SC 08/24/20 Information Source: Patient Mode of Arrival: EMS Severity: Moderate Timing: Minutes Duration: Since onset, Minutes Prehospital treatment: None Past Medical History PAST MEDICAL HISTORY: CHF, COPD, DM, Gout, HTN, LA (x3(most recent being on 06/01)), Thyroid Surgical History: Denies all surgeries Family History Family History: Reviewed,noncontributory to illness, Unknown Social History Smoker: Non-Smoker Alcohol: Denies ETOH Use Drugs: Methamphetamine Lives In: Home Constitutional: denies: chills, diaphoresis, fatigue, fever, malaise, sweats, weakness, others EENTM: denies: blurred vision, double vision, ear bleeding, ear discharge, ear drainage, ear pain, ear ringing, eye pain, eye redness, hearing loss, mouth pain, mouth swelling, nasal discharge, nose bleeding, nose congestion, nose pain, photophobia, tearing, throat pain, throat swelling, voice changes, others Respiratory: denies: cough, hemoptysis, orthopnea, SOB at rest, shortness of breath, SOB with excertion, stridor, wheezing, others Cardiovascular: reports: chest pain; denies: dizzy spells, diaphoresis, Dyspnea on exertion, edema, irregular heart beat, left arm pain, lightheadedness, palpitations, PND, syncope, others Gastrointestinal: denies: abdomen distended, abdominal pain, blood streaked bowels, constipated, diarrhea, dysphagia, difficulty swallowing, hematemesis, melena, nausea, poor appetite, poor fluid intake, rectal bleeding, rectal pain, vomiting, others Genitourinary: denies: burning, dysuria, flank pain, frequency, hematuria, incontinence, penile discharge, penile sore, pain, testicle pain, testicle swelling, urgency, others Neurological: denies: dizziness, fainting, headache, left sided numbness, left sided weakness, numbness, paresthesia, pre-existing deficit, right sided numbness, right sided weakness, seizure, speech problems, tingling, tremors, weakness, others Musculoskeletal: denies: back pain, gout, joint pain, joint swelling, muscle pain, muscle stiffness, neck pain, others Integumetry: denies: bruises, change in color, change in hair/nails, dryness, laceration, lesions, lumps, rash, wounds, others Allergic/Immunocompromised: denies: Difficulty Healing, Frequent Infections, Hives, Itching, others Hematologic/Lymphatic: denies: anemia, blood clots, easy bleeding, easy bruising, swollen glands, others Endocrine: denies: excessive hunger, excessive sweating, excessive thirst, excessive urination, flushing, intolerance to cold, intolerance to heat, unexplained weight gain, unexplained weight loss, others Psychiatric: denies: anxiety, bipolar disorder, depression, hopeless, panic disorder, schizophrenia, sleepless, suicidal, others All Other Systems: Reviewed and Negative Physical Exam Exam Comments Appears uncomfortable General Appearance: No Apparent Distress, Normal HEENT: Normal ENT Inspection, Pharynx Normal, TMs Normal Neck: Full Range of Motion, Non-Tender, Normal, Normal Inspection Respiratory: Chest Non-Tender, Lungs Clear, No Accessory Muscle Use, No Respiratory Distress, Normal Breath Sounds Cardiovascular: No Edema, No JVD, No Murmur, No Gallop, Normal Peripheral Pulses, Regular Rate/Rhythm Breast Exam: Deferred Gastrointestinal: No Organomegaly, Non Tender, No Pulsatile Mass, Normal Bowel Sounds, Soft Genitalia: Deferred Pelvic: Deferred Rectal: Deferred Extremities: No calf tenderness, Normal capillary refill, Normal inspection, Normal range of motion, Non-tender, No pedal edema Musculoskeletal : Apperance: Normal Neurologic: Alert, psychology tech II-XII nml as Tested, No Motor Deficits, Normal Affect, Normal Mood, No Sensory Deficits Cerebellar Function: Normal Reflexes: Normal Skin: Dry, Normal Color, Warm Lymphatic: No Adenopathy Was a procedure done? Was a procedure done?: No EKG EKG : Pulse Rate (adult): 71 [place]: Normal Cardiac Rhythm: NSR Block: None Hypertrophy: None ST: Normal Differential Dx Considerations may include: ACS, CVA, viral syndrome, electrolyte tonight, and I infectious etiology X-Ray, Labs, Meds, VS Vital Signs Date Time Temp Pulse Resp B/P (MAP) Pulse Ox O2 Delivery O2 Flow Rate FiO2 06/11/25 18:32 98.4 73 18 150/83 (105) 96 98.4 06/11/25 18:14 70 06/11/25 18:02 71 06/11/25 18:00 96 Nasal Cannula* 2 28 06/11/25 17:49 98.4 73 18 144/70 (94) 96 98.4 06/11/25 17:11 71 06/11/25 17:10 98.7 72 20 130/102 95 98.7 Lab Test 06/11/25 18:22 06/11/25 17:23 Range/Units Troponin I High Sensitivity 29 31 </=54 ng/L White Blood Count 8.8 4.4-10.8 10^3/uL Red Blood Count 5.52 4.5-5.90 10^6/uL Hemoglobin 15.1 13.5-17.5 g/dL Hematocrit 46.7 41.0-53.0 % Mean Corpuscular Volume 84.5 80.0-100.0 fL Mean Corpuscular Hemoglobin 27.4 L 28.0-32.0 pg Mean Corpuscular Hemoglobin Concent 32.4 32.0-36.0 g/dL Red Cell Distribution Width 19.0 H 11.8-14.3 % Platelet Count 102 L 140-450 10^3/uL Mean Platelet Volume 10.2 6.9-10.8 fL Neutrophils (%) (Auto) 81.1 H 37.0-80.0 % Lymphocytes (%) (Auto) 10.5 10.0-50.0 % Monocytes (%) (Auto) 4.8 0.0-12.0 % Eosinophils (%) (Auto) 2.6 0.0-7.0 % Basophils (%) (Auto) 1.0 0.0-2.0 % Neutrophils # (Auto) 7.1 1.6-8.6 10 ^3/uL Lymphocytes # (Auto) 0.9 0.4-5.4 10 ^3/uL Monocytes # (Auto) 0.4 0-1.3 10 ^3/uL Eosinophils # (Auto) 0.2 0-0.8 10 ^3/uL Basophils # (Auto) 0.1 0-0.2 10 ^3/uL Nucleated Red Blood Cells 1.1 % Sodium Level 137 136-145 mmol/L Potassium Level 4.9 3.5-5.1 mmol/L Chloride Level 99 98-107 mmol/L Carbon Dioxide Level 29 20-31 mmol/L Anion Gap 9 5-15 Blood Urea Nitrogen 53 H 9-23 mg/dL Creatinine 2.09 H 0.700-1.30 mg/dL Glomerular Filtration Rate Calc 36 >90 mL/min BUN/Creatinine Ratio 25.4 H 10.0-20.0 Serum Glucose 206 H 74-106 mg/dL Calcium Level 9.6 8.7-10.4 mg/dL Total Bilirubin 0.4 0.2-1.0 mg/dL Aspartate Amino Transferase (AST) 33 13-40 U/L Alanine Aminotransferase (ALT) 32 7-40 U/L Alkaline Phosphatase 97 46-116 U/L Total Protein 7.5 5.7-8.2 g/dL Albumin 4.4 3.2-4.8 g/dL Time of 1ST Reevaluation: 17:45 Reevaluation 1ST: Unchanged Patient Education/Counseling: Diagnosis, Treatment, Prognosis Family Education/Counseling: No Family Present SEPSIS Sepsis Screen Date sepsis recognized/suspect: Jun 11, 2025 Time Sepsis recognized/suspect: 1752 Recent Procedure: Yes On Antibiotic Therapy: No Respiratory Rate >20: No Heart Rate >90: No Temp<36 C (96.8 F) or >38.3 C: No SBP <90 or MAP <65 mmHG: No New Acute Mental Status Change: No Is the patient on CPAP, BIPAP,: No Physician Orders Urinalysis (06/11/25 17:16) Troponin-I Hs (06/11/25 20:16) Electrocardigram (06/11/25 20:16) Chest Xray 1 View (06/11/25 17:16) Vital Signs Date Time Temp Pulse Resp B/P (MAP) Pulse Ox O2 Delivery O2 Flow Rate FiO2 06/11/25 18:32 98.4 73 18 150/83 (105) 96 98.4 06/11/25 18:14 70 06/11/25 18:02 71 06/11/25 18:00 96 Nasal Cannula* 2 28 06/11/25 17:49 98.4 73 18 144/70 (94) 96 98.4 06/11/25 17:11 71 06/11/25 17:10 98.7 72 20 130/102 95 98.7 Laboratory Tests Test 06/11/25 17:23 White Blood Count 8.8 10^3/uL (4.4-10.8) Departure 1 Departure Time of Disposition: 19:33 (Patient presented with chest pain that was concerning for possible STEMI, ACS, PE, Pneumonia, Muscle Strain, COPD, Diss ection. Data: 1. I ordered and reviewed the result of at least 3 labs including a CBC, BMP, and Troponin. 2. I independently interpreted the following tests: EKG which shows bundle branch block and Chest X-ray which shows pulmonary vascular congestion.Risk:This patient has a high risk of morbidity due to further diagnostic testing or treatment and may suffer from an acute cardiac or respiratory disorder. Workup reveals concern for ACS and patient should be admitted for further workup and possible expert consultation. ) Impression: Primary Impression: Acute chest pain Disposition: ADMITTED INPATIENT Admit to: Tele Condition: Guarded Critical Care Note Critical Care Time?: Yes Critical care comment: Acute chest pain concerning for STEMI Authorized and Performed by: Ashok Espinoza MD Total critical care time: Approximately 37 minutes Due to a high probability of clinically significant, life threatening deterioration, the patient required my highest level of preparedness to intervene emergently and I personally spent this critical care time directly and personally managing the patient. This critical care time included obtaining a history; examining the patient; pulse oximetry; ordering and review of studies; arranging urgent treatment with development of a management plan; evaluation of patient's response to treatment; frequent reassessment; and, discussions with other providers. This critical care time was performed to assess and manage the high probability of imminent, life-threatening deterioration that could result in multi-organ failure. It was exclusive of separately billable procedures and treating other patients and teaching time. Please see my other sections and the rest of the note for further information on patient assessment and treatment.37 Stability Stability form required: No I personally scribed for ASHOK ESPINOZA MD ([email or web address]) on 06/11/25 at 18:02. Electronically submitted by Boni Fisher ([email or web address]). ASHOK ESPINOZA MD Jun 11, 2025 18:02
--- NOTE | 2025-06-11 18:16 | ECG ---
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
[2025-06-11] MEDS ORDERED: MORPHINE SULFATE INJ 2 MG/ml SYRG IV PRN (20:15)
[2025-06-11] MEDS ORDERED: NITROGLYCERIN 0.4 MG SL TAB SL PRN (20:15)
[2025-06-11] MEDS ORDERED: ACETAMINOPHEN 325 MG TAB PO PRN (22:30)
[2025-06-11] MEDS ORDERED: DEXTROSE (50%) 50ML SYRG IV PRN (22:30)
[2025-06-11] MEDS ORDERED: ONDANSETRON HCL 4 MG/2 ML VIAL IV PRN (22:30)
--- NOTE | 2025-06-11 22:38 | DVHHP2 ---
History of Present Illness Reason for Visit: Chest pain History of Present Illness 54-year-old male presents for evaluation of chest pain. Patient reports a one day history of substernal sharp nonradiating chest pain with associated shortness for breath. Currently rates the pain at 3/10 intensity. No nausea or vomiting. No cough or fever. Past Medical History Diabetes mellitus, gout, hypertension, mi, thyroid, COPD, CHF Past Surgical History PTCA, cardiac ablation Family History Noncontributory Smoke: No ALCOHOL: none Drugs: Other (Methamphetamine) Lives: with Family Review of Systems Review of Systems Review of systems are currently negative otherwise addressed in HPI. Allergies: Coded Allergies: NO KNOWN ALLERGIES (Unverified , 08/14/13) Medications Current Medications Medications Dose Ordered Sig/Johana Route Start Time Stop Time Status Last Admin Dose Admin Nitroglycerin 0.4 mg Q5MINP PRN SL 06/11/25 20:15 Morphine Sulfate 2 mg Q30M PRN IV 06/11/25 20:15 Exam Vital Signs Vital Signs Date Time Temp Pulse Resp B/P (MAP) Pulse Ox O2 Delivery O2 Flow Rate FiO2 06/11/25 20:02 66 06/11/25 20:00 98.4 18 137/78 (97) 95 98.4 06/11/25 18:00 Nasal Cannula* 2 28 Exam Gen: 54-year-old male in mild distress Skin: Warm, dry, normal color and texture, no rash. HEENT: Normocephalic atraumatic, mucous membranes moist and pink. Neck: Cervical and supraclavicular nodes normal without enlargement, trachea is midline, thyroid gland is normal without masses. Pulmonary: Clear to auscultation and percussion bilaterally. Cardiac: Regular rate and rhythm. No murmur Abdomen: Soft, nontender, nondistended, bowel sounds present all 4 quadrants, no guarding, no rigidity, no organomegaly. Extremities: No cyanosis, clubbing, no edema Neuro: Cranial nerves II through XII grossly intact, normal affect and speech, no focal motor deficits. Labs/Xrays ORDERING PHYSICIAN: GE PORTILLO RESIDENT PROCEDURE(s): ECIDC - ECHO 2D MODE CARDIAC DOP REASON: CHF ORDER NUMBER(s): [id number], ACCESSION NUMBER(s): [id number] APPROVED REPORT EXAM: LIMITED Two-dimensional and M-mode echocardiogram. Blood Pressure: 100/50 mmHg INDICATION Heart Failure RISK FACTORS Height: 6', Weight: 385 DIMENSIONS LVDd 4.9 (3.8-5.7cm) LA (2D) (1.9-4.0cm) Aortic Root (2.0-3.7cm) LVDs 2.6 (2.5-4.0cm) LA (MM) (1.9-4.0cm) Aortic Cusp Exc (1.5- 2.0cm) EF (%) 78.0 (55-70%) Rt. Atrium (1.9-4.0cm) Asc. Aorta cm IVSd 1.4 (0.7-1.1cm) RV (D) (1.8-2.4cm) PWd 1.5 (0.7-1.1cm) Mitral Valve Mitral Mitral Stenosis E/A ratio 0.0 2D MVA cm2 Other Information Quality : Technically Limited Rhythm : Technically limited study due to body habitus. Conclusion LVEF normal 60-65%. Mild to moderate LVH Right ventricle size and function grossly normal Posterior Mitral annular calcification SIGNED BY: SHERI MARTIN MD SIGNED DATE/TIME: 06/01/25 1703 CC: ORDERING PHYSICIAN: ASHOK ESPINOZA MD PROCEDURE(s): CXR1 - CHEST XRAY 1 VIEW REASON: CHEST PAIN ORDER NUMBER(s): [id number], ACCESSION NUMBER(s): [id number] CHEST RADIOGRAPH INDICATION: CHEST PAIN TECHNIQUE: Single frontal view of the chest was obtained COMPARISON: XY CHEST XRAY 1 VIEW on DOS: 05/31/25, XY CHEST PORTABLE on DOS: 12/22/24, XY CHEST PORTABLE on DOS: 08/29/24 FINDINGS: Lines and Tubes: None Lungs: No focal consolidation. Mild interstitial prominence. Pleura: No effusion. No pneumothorax. Cardiomediastinal contours: Borderline cardiomegaly. Bones: No acute osseous abnormality. IMPRESSION: Mild pulmonary vascular congestion. Labs Test 06/11/25 18:22 06/11/25 17:23 Range/Units Troponin I High Sensitivity 29 </=54 ng/L White Blood Count 8.8 4.4-10.8 10^3/uL Red Blood Count 5.52 4.5-5.90 10^6/uL Hemoglobin 15.1 13.5-17.5 g/dL Hematocrit 46.7 41.0-53.0 % Mean Corpuscular Volume 84.5 80.0-100.0 fL Mean Corpuscular Hemoglobin 27.4 L 28.0-32.0 pg Mean Corpuscular Hemoglobin Concent 32.4 32.0-36.0 g/dL Red Cell Distribution Width 19.0 H 11.8-14.3 % Platelet Count 102 L 140-450 10^3/uL Mean Platelet Volume 10.2 6.9-10.8 fL Neutrophils (%) (Auto) 81.1 H 37.0-80.0 % Lymphocytes (%) (Auto) 10.5 10.0-50.0 % Monocytes (%) (Auto) 4.8 0.0-12.0 % Eosinophils (%) (Auto) 2.6 0.0-7.0 % Basophils (%) (Auto) 1.0 0.0-2.0 % Neutrophils # (Auto) 7.1 1.6-8.6 10 ^3/uL Lymphocytes # (Auto) 0.9 0.4-5.4 10 ^3/uL Monocytes # (Auto) 0.4 0-1.3 10 ^3/uL Eosinophils # (Auto) 0.2 0-0.8 10 ^3/uL Basophils # (Auto) 0.1 0-0.2 10 ^3/uL Nucleated Red Blood Cells 1.1 % Sodium Level 137 136-145 mmol/L Potassium Level 4.9 3.5-5.1 mmol/L Chloride Level 99 98-107 mmol/L Carbon Dioxide Level 29 20-31 mmol/L Anion Gap 9 5-15 Blood Urea Nitrogen 53 H 9-23 mg/dL Creatinine 2.09 H 0.700-1.30 mg/dL Glomerular Filtration Rate Calc 36 >90 mL/min BUN/Creatinine Ratio 25.4 H 10.0-20.0 Serum Glucose 206 H 74-106 mg/dL Calcium Level 9.6 8.7-10.4 mg/dL Total Bilirubin 0.4 0.2-1.0 mg/dL Aspartate Amino Transferase (AST) 33 13-40 U/L Alanine Aminotransferase (ALT) 32 7-40 U/L Alkaline Phosphatase 97 46-116 U/L Total Protein 7.5 5.7-8.2 g/dL Albumin 4.4 3.2-4.8 g/dL SEPSIS Sepsis Screen Date sepsis recognized/suspect: Jun 11, 2025 Time Sepsis recognized/suspect: 1752 Recent Procedure: Yes On Antibiotic Therapy: No Respiratory Rate >20: No Heart Rate >90: No Temp<36 C (96.8 F) or >38.3 C: No SBP <90 or MAP <65 mmHG: No New Acute Mental Status Change: No Is the patient on CPAP, BIPAP,: No Physician Orders Urinalysis (06/11/25 17:16) Electrocardigram (06/11/25 20:16) Chest Xray 1 View (06/11/25 17:16) Admit (06/11/25 20:05) Nitroglycerin Sublingual (Ntrostat Subli (06/11/25 20:15) Morphine Sulfate Injection (06/11/25 20:15) Stat Ekg For Chest Pain (06/11/25 20:05) Notify Md Of Changes From Base (06/11/25 20:05) Fine Arts Teacher For 24 Hours (06/11/25 20:05) Emergency Dysrhythmia Protocol (06/11/25 20:05) Rhythm Strips Once Every Shift (06/11/25 20:05) Oxygen By Nasal Cannula (06/11/25 20:05) Vital Signs Date Time Temp Pulse Resp B/P (MAP) Pulse Ox O2 Delivery O2 Flow Rate FiO2 06/11/25 20:02 66 06/11/25 20:00 98.4 65 18 137/78 (97) 95 98.4 06/11/25 18:32 98.4 73 18 150/83 (105) 96 98.4 06/11/25 18:14 70 06/11/25 18:02 71 06/11/25 18:00 96 Nasal Cannula* 2 28 06/11/25 17:49 98.4 73 18 144/70 (94) 96 98.4 06/11/25 17:11 71 06/11/25 17:10 98.7 72 20 130/102 95 98.7 Laboratory Tests Test 06/11/25 17:23 White Blood Count 8.8 10^3/uL (4.4-10.8) Assessment/Plan Assessment/Plan Assessment Chest pain rule out ACS Hypertension CHF Acute on chronic renal failure Morbid obesity Plan Admit the patient to telemetry to the hospitalist Cardiology consultation Resume home medications IV Lasix Continue treatment per orders. Plan discussed with: Patient My Orders Orders - LELA TRAMMELL Procedure Category Date Status Time Admit ADMIT 06/11/25 Transmitted 20:05 Nitroglycerin [facility] 06/11/25 In Process Sublingual (Ntrostat 20:15 Morphine Sulfate [facility] 06/11/25 In Process Injection 20:15 Stat Ekg For Chest [facility]OS[facility] 06/11/25 In Process Pain 20:05 Notify Md Of Changes [facility] 06/11/25 In Process From Base 20:05 Fine Arts Teacher For [facility] 06/11/25 In Process 24 Hours 20:05 Emergency Dysrhythmia [facility] 06/11/25 In Process Protocol 20:05 Rhythm Strips Once [facility] 06/11/25 In Process Every Shift 20:05 Oxygen By Nasal RT 06/11/25 Transmitted Cannula 20:05 Date of Service: Jun 11, 2025 Billing Provider: LELA TRAMMELL Common Visit Codes: [id number] INP/OBS CARE (HIGH) LELA TRAMMELL Jun 11, 2025 22:38
[2025-06-11 23:01] VITALS: PULSE 68; RESP 18; O2SAT 99
[2025-06-11] MEDS: ALBUTEROL SULF 2.5 MG/0.5ML(0.5%) NEB SOLN NEB PRN (23:01)
[2025-06-11] MEDS: FUROSEMIDE 20 MG/2 ML VIAL IV ONE (23:03)
[2025-06-11 23:05] VITALS: BP 149/74; PULSE 68; RESP 18; TEMP 98.4; O2SAT 99
[2025-06-11 23:07] VITALS: PULSE 70; RESP 18; O2SAT 100
[2025-06-12] VITALS (16 sets, daily range): BP systolic 102–148; BP diastolic 51–91; PULSE 66–79; RESP 16–20; TEMP 97.7–98.2; O2SAT 94–100
[2025-06-12 02:13] LABS: Urine Protein, UAD 1+ (Negative)
[2025-06-12] MEDS: HYDROcodone-ACET 7.5/325MG TAB PO PRN (02:53)
[2025-06-12] MEDS ORDERED: LEVO200T PO (04:51)
[2025-06-12] MEDS ORDERED: CLOP75TA70 PO (04:53)
[2025-06-12] MEDS ORDERED: ALL100T PO (04:59)
[2025-06-12] MEDS ORDERED: DAPA1TAB4 PO (04:59)
[2025-06-12] MEDS ORDERED: BUMEX2MG (04:59)
[2025-06-12 05:35] LABS: Chloride 99 mmol/L (98-107); Potassium 4.4 mmol/L (3.5-5.1); Sodium 136 mmol/L (136-145)
[2025-06-12 05:36] LABS: Anion Gap 8 (5-15); Carbon Dioxide 29 mmol/L (20-31)
[2025-06-12 05:37] LABS: Calcium 9.1 mg/dL (8.7-10.4)
[2025-06-12 05:42] LABS: BUN/Creatinine Ratio 24.5 (10.0-20.0)
[2025-06-12 05:48] LABS: Blood Urea Nitrogen 53 mg/dL (9-23); Glucose 174 mg/dL (74-106)
[2025-06-12] MEDS: ACCU-CHEK COMFORT CURVE STRIP VI SCH (06:03)
[2025-06-12] MEDS: InsuLIN REG 1unit/0.01ml Soln (100units/ml) SC SCH (06:06)
[2025-06-12] MEDS: FUROSEMIDE 40 MG/4 ML VIAL IV SCH (09:04)
[2025-06-12] MEDS: SERTRALINE HCL 50 MG TAB PO SCH (09:05)
[2025-06-12] MEDS: ISOSORBIDE MONONITRATE ER 60 MG TAB PO SCH (09:06)
[2025-06-12] MEDS: APIXABAN 5 MG TAB PO SCH (09:06)
[2025-06-12] MEDS: CARVEDILOL 3.125 MG TAB PO SCH (09:07)
--- NOTE | 2025-06-12 10:20 | DVHINCON2 ---
JHAJJZEKE RESIDENT 06/12/25 1019: Date Seen: Jun 12, 2025 Referring Physician HORTENCIA Ugalde Reason for Consultation chest pain History of Present Illness Patient is a 54-year-old male presented to the hospital yesterday with a chief complaint of chest pain. Chest pain was substernal, sharp and later on dull, brought on by exertion and relieved on taking nitroglycerin, nonradiating associated with shortness of the breath and coughing which the patient experience yesterday in the afternoon. Patient was seen in his facility in November 2024 when he was found to have multivessel disease and was transferred to [facility] where he got 2 OLIVE. he got ablation for atrial fibrillation in March 2025. Patient then came to the hospital in 1st week of May 2025 with chest pain and was found to have NSTEMI type 1 for which patient who suggested to have a coronary angiogram but since the patient exceeded the weight limit of the cath table, he was transferred to higher level of care to [facility] where he got balloon angioplasty and was discharged a week ago. Past Medical History Multivessel coronary artery disease s/p 3 OLIVE, atrial fibrillation on Eliquis s/p ablation in March 2025, congestive heart failure, hypertension, COPD, insulin-dependent type 2 diabetes mellitus, CKD, hypothyroidism, morbid obesity Past Surgical History PCI s/p 3 OLIVE Ablation for atrial fibrillation Family History: Cardiovascular disease G8 BROTHER, , Cause: Lung cancer G8 BROTHER, , Cause: Heart attack Cerebrovascular accident (CVA) G8 MOTHER, , Cause: Stroke Chronic obstructive pulmonary disease G8 FATHER, , Cause: Stomach cancer Diabetes mellitus G8 FATHER, , Cause: Stomach cancer G8 BROTHER, , Cause: Lung cancer G8 BROTHER, , Cause: Heart attack FH: stomach cancer G8 FATHER, , Cause: Stomach cancer FHx: heart failure G8 FATHER, , Cause: Stomach cancer Hypertension G8 MOTHER, , Cause: Stroke Social History Previous history of methamphetamine use, 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 Allergies: Coded Allergies: NO KNOWN ALLERGIES (Unverified , 08/14/13) Home Meds Active Scripts Cyclobenzaprine Hcl (CYCLOBENZAPRINE HCL) 7.5 Mg Tab, 7.5 MG PO Q6HP PRN, #30 TAB Prov:PIEDAD ZIMMERMAN MD 01/15/25 Gabapentin (Once-Daily) (Gabapentin) 300 Mg Tab, 300 MG PO Q6HP PRN, #30 TAB Prov:PIEDAD ZIMMERMAN MD 01/15/25 Ciprofloxacin Hcl (Cipro) 500 Mg Tab, 1 TAB PO BID for 7 Days, #14 TAB Prov:NGUYỄN AMADOR MD 08/30/24 Aspirin (Aspirin Low Dose) 81 Mg Tab, 81 MG PO DAILY for 30 Days, #30 TAB Prov:ISAEL CHIN RESIDENT 11/25/23 Hydralazine Hcl (Hydralazine Hcl) 10 Mg Tab, 10 MG PO Q8HR for 30 Days, #90 TAB Prov:ISAEL CHIN [facility] 11/25/23 Carvedilol (COREG) 3.125 Mg Tab, 6.25 MG PO Q12HR for 30 Days, #120 TAB Prov:ISAEL CHIN RESIDENT 11/25/23 Reported Medications Dapagliflozin Propanediol (Farxiga) 10 Mg Tab, 10 MG PO, TAB 06/12/25 Allopurinol (ZYLOPRIM TABLET) 100 Mg Tb, 1 TAB PO DAILY, #30 TAB 5 Refills 06/12/25 Bumetanide (Bumex) 2 Mg Tab 06/12/25 Clopidogrel Bisulfate (CLOPIDOGREL) 75 Mg Tab, 1 TAB PO DAILY, #90 TAB 1 Refill 06/12/25 Levothyroxine Sodium (Synthroid) 200 Mcg Tab, 1 TAB PO DAILY, #30 TAB 5 Refills 06/12/25 Ipratropium-Albuterol (Ipratropium [place]/Albut) 1 Mattie Mattie, 3 ML NEB Q6HR PRN for DIFFICULTY BREATHING 11/19/23 Insulin Glargine (Basaglar Kwikpen) 100 Unit/Ml Inj, 40 UNIT SC HS 11/19/23 Semaglutide (Ozempic) 2 Mg/3 Ml Inj, 0.25 MG SC QWEEKLY 11/19/23 Umeclidinium-Vilanterol (Anoro Ellipta 62.5-25 Mcg/INH) 1 Aer Aer, 1 PUFF INH DAILY 11/19/23 Sertraline Hcl (Sertraline Hcl) 100 Mg Tab, 1 TAB PO DAILY 11/18/23 Atorvastatin Calcium (ATORVASTATIN CALCIUM) 40 Mg Tab, 1 TAB PO DAILY 11/18/23 Potassium Chloride (Potassium Chloride ER) 10 Meq Tab, 1 TAB PO DAILY 03/19/23 Albuterol Sulfate (Albuterol Sulfate Hfa) 108 Mcg/Act Aer, 2 PUFF PO Q6HPRN PRN for dyspnea 03/19/23 Furosemide (Furosemide) 40 Mg Tab, 1 TAB PO DAILY 03/19/23 Hydrocodone-Acetaminophen (Hydrocodone/Acetaminophen 10-325 mg) 1 Tab Tab, 1 TAB PO Q6HR PRN for SEVERE PAIN 02/25/23 Apixaban Base (ELIQUIS) 5 Mg Tab, 5 MG PO BID, TAB 12/01/21 Isosorbide Dinitrate (Isosorbide Dinitrate) 20 Mg Tab, 30 MG PO DAILY, MG 12/01/21 Insulin Glargine (Lantus) 100 Unit/Ml Inj, 50 UNIT SC 08/24/20 Current Medications Current Medications Medications (Trade) Dose Ordered Sig/Johana Route PRN Reason Start Time Stop Time Status Last Admin Nitroglycerin (Ntrostat Sublingual) 0.4 mg Q5MINP PRN SL FOR CHEST PAIN 06/11/25 20:15 Morphine Sulfate 2 mg Q30M PRN IV FOR CHEST PAIN 06/11/25 20:15 Albuterol (Ventolin Medneb) 2.5 mg Q6HPRN PRN NEB SHORTNESS OF BREATH 06/11/25 22:30 06/11/25 23:01 Apixaban (Eliquis) 5 mg BID PO 06/12/25 10:00 06/12/25 09:06 Atorvastatin Calcium (Lipitor) 40 mg HS PO 06/12/25 22:00 Carvedilol (Coreg Tablet) 6.25 mg Q12HR PO 06/12/25 10:00 06/12/25 09:07 Furosemide (Lasix Injection) 40 mg DAILY IV 06/12/25 10:00 06/12/25 09:04 Acetaminophen/ Hydrocodone Bitart ([place] 7.5/325MG Tab) 1 tab Q6HP PRN PO MODERATE PAIN (4-6 PAIN SCALE) 06/11/25 22:30 06/12/25 02:53 Isosorbide Mononitrate (Imdur Er Tablet) 30 mg DAILY PO 06/12/25 10:00 06/12/25 09:06 Sertraline HCl (Zoloft) 100 mg DAILY PO 06/12/25 10:00 06/12/25 09:05 Diagnostic Test (Pha) (Accu-Chek Comfort Curve T) 1 strip ACHS 06/12/25 07:00 06/12/25 06:03 Insulin Human Regular (InsuLIN R) ACHS SC 06/12/25 07:00 06/12/25 06:06 Dextrose 50 ml UD PRN IV Blood Sugar LESS THAN 60 06/11/25 22:30 Ondansetron HCl (Zofran) 4 mg Q4HP PRN IV NAUSEA / VOMITING 06/11/25 22:30 Acetaminophen (Tylenol Tablet) 650 mg Q6HP PRN PO PAIN SCALE 1-3 OR TEMP>100.4 06/11/25 22:30 Review of Systems Patient seen and examined at the bedside Reports of shortness of Breath with a minimal activity Functional Class III Vital Signs Vital Signs Date Time Temp Pulse Resp B/P (MAP) Pulse Ox O2 Delivery O2 Flow Rate FiO2 06/12/25 09:07 69 145/91 06/12/25 08:47 98.0 16 98 98.0 06/12/25 00:30 Nasal Cannula* 2 28 Physical Exam Skin - Patients skin is warm and dry, bilateral lower extremity discoloration due to venous stasis. HEENT - normocephalic, atraumatic, moist mucous membranes, no conjunctival pallor, no scleral icterus. Neck - full ROM, no LAD, JVP could not be assessed due to body habitus Pulmonary - B/L clear breath sounds without any wheezing or rales cardiovascular - faint regular S1,S2 heard, no murmurs could be appreciated. GI - soft, nontender abdomen. no hepatospleenomegaly. Bowel sounds normoactive Neurological - Patient is A/O X 3 . Bilateral upper extremity strength 5/5, bilateral lower extremity strength 5/5, no facial droop, normal speech, no t remor, no sensory deficiets. Labs/Diagnostic Data Labs Test 06/12/25 06:01 06/12/25 05:09 06/11/25 22:25 06/11/25 18:22 Range/Units POC Glucose 157 H 70-106 mg/dl Sodium Level 136 136-145 mmol/L Potassium Level 4.4 3.5-5.1 mmol/L Chloride Level 99 98-107 mmol/L Carbon Dioxide Level 29 20-31 mmol/L Anion Gap 8 5-15 Blood Urea Nitrogen 53 H 9-23 mg/dL Creatinine 2.16 H 0.700-1.30 mg/dL Glomerular Filtration Rate Calc 35 >90 mL/min BUN/Creatinine Ratio 24.5 H 10.0-20.0 Serum Glucose 174 H 74-106 mg/dL Calcium Level 9.1 8.7-10.4 mg/dL Urine Color Light-yellow Yellow Urine Clarity Clear Clear Urine pH 5.5 5.0-9.0 Urine Specific [place] 1.016 1.001-1.035 Urine Protein 1+ H Negative Urine Ketones Negative Negative Urine Blood Negative Negative /uL Urine Nitrite Negative Negative Urine Bilirubin Negative Negative Urine Urobilinogen Normal Negative mg/dL Urine Leukocyte Esterase Negative Negative /uL Urine RBC None seen 0 - 3 /hpf Urine Microscopic WBC 1 0-3 /HPF Urine Squamous Epithelial Cells Few <5 /hpf Urine Bacteria None seen None Seen /hpf Urine Glucose 3+ H Normal mg/dL Troponin I High Sensitivity 29 </=54 ng/L Test 06/11/25 17:23 Range/Units White Blood Count 8.8 4.4-10.8 10^3/uL Red Blood Count 5.52 4.5-5.90 10^6/uL Hemoglobin 15.1 13.5-17.5 g/dL Hematocrit 46.7 41.0-53.0 % Mean Corpuscular Volume 84.5 80.0-100.0 fL Mean Corpuscular Hemoglobin 27.4 L 28.0-32.0 pg Mean Corpuscular Hemoglobin Concent 32.4 32.0-36.0 g/dL Red Cell Distribution Width 19.0 H 11.8-14.3 % Platelet Count 102 L 140-450 10^3/uL Mean Platelet Volume 10.2 6.9-10.8 fL Neutrophils (%) (Auto) 81.1 H 37.0-80.0 % Lymphocytes (%) (Auto) 10.5 10.0-50.0 % Monocytes (%) (Auto) 4.8 0.0-12.0 % Eosinophils (%) (Auto) 2.6 0.0-7.0 % Basophils (%) (Auto) 1.0 0.0-2.0 % Neutrophils # (Auto) 7.1 1.6-8.6 10 ^3/uL Lymphocytes # (Auto) 0.9 0.4-5.4 10 ^3/uL Monocytes # (Auto) 0.4 0-1.3 10 ^3/uL Eosinophils # (Auto) 0.2 0-0.8 10 ^3/uL Basophils # (Auto) 0.1 0-0.2 10 ^3/uL Nucleated Red Blood Cells 1.1 % Total Bilirubin 0.4 0.2-1.0 mg/dL Aspartate Amino Transferase (AST) 33 13-40 U/L Alanine Aminotransferase (ALT) 32 7-40 U/L Alkaline Phosphatase 97 46-116 U/L B-Type Natriuretic Peptide 78.25 0-100 pg/mL Total Protein 7.5 5.7-8.2 g/dL Albumin 4.4 3.2-4.8 g/dL Assessment Acute chest pain likely angina Multivessel coronary artery disease s/p 3 OLIVE Atrial fibrillation status post ablation in March 2025 on Eliquis Acute on chronic congestive heart failure with improved ejection fraction 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 for angina - recommend continuing DAPT as per primary profiling machine set up operator tool at [facility] for 30 days since balloon angioplasty in May 29, later continue on Plavix and Eliquis - monitor H&H - continue diuretics and guideline directed medical therapy for heart failure Goals of care discussed with the patient for over 17 minutes Plan discussed with Dr. Mtz Plan discussed with: Patient NYHA Physical activity limitations: Class3(Marked) ordinary Date of Service: Jun 12, 2025 Billing Provider: SEAN MTZ MD Cardiology Common Codes: [id number] INP/OBS CARE (High) SEAN MTZ MD 06/13/25 1649: Family History: Cardiovascular disease G8 BROTHER, , Cause: Lung cancer G8 BROTHER, , Cause: Heart attack Cerebrovascular accident (CVA) G8 MOTHER, , Cause: Stroke Chronic obstructive pulmonary disease G8 FATHER, , Cause: Stomach cancer Diabetes mellitus G8 FATHER, , Cause: Stomach cancer G8 BROTHER, , Cause: Lung cancer G8 BROTHER, , Cause: Heart attack FH: stomach cancer G8 FATHER, , Cause: Stomach cancer FHx: heart failure G8 FATHER, , Cause: Stomach cancer Hypertension G8 MOTHER, , Cause: Stroke Allergies: Coded Allergies: NO KNOWN ALLERGIES (Unverified , 08/14/13) Home Meds Active Scripts Cyclobenzaprine Hcl (CYCLOBENZAPRINE HCL) 7.5 Mg Tab, 7.5 MG PO Q6HP PRN, #30 TAB Prov:PIEDAD ZIMMERMAN MD 01/15/25 Gabapentin (Once-Daily) (Gabapentin) 300 Mg Tab, 300 MG PO Q6HP PRN, #30 TAB Prov:PIEDAD ZIMMERMAN MD 01/15/25 Ciprofloxacin Hcl (Cipro) 500 Mg Tab, 1 TAB PO BID for 7 Days, #14 TAB Prov:NGUYỄN AMADOR MD 08/30/24 Aspirin (Aspirin Low Dose) 81 Mg Tab, 81 MG PO DAILY for 30 Days, #30 TAB Prov:ISAEL CHIN [facility] 11/25/23 Hydralazine Hcl (Hydralazine Hcl) 10 Mg Tab, 10 MG PO Q8HR for 30 Days, #90 TAB Prov:ISAEL CHIN [facility] 11/25/23 Carvedilol (COREG) 3.125 Mg Tab, 6.25 MG PO Q12HR for 30 Days, #120 TAB Prov:ISAEL CHIN RESIDENT 11/25/23 Reported Medications Dapagliflozin Propanediol (Farxiga) 10 Mg Tab, 10 MG PO, TAB 06/12/25 Allopurinol (ZYLOPRIM TABLET) 100 Mg Tb, 1 TAB PO DAILY, #30 TAB 5 Refills 06/12/25 Bumetanide (Bumex) 2 Mg Tab 06/12/25 Clopidogrel Bisulfate (CLOPIDOGREL) 75 Mg Tab, 1 TAB PO DAILY, #90 TAB 1 Refill 06/12/25 Levothyroxine Sodium (Synthroid) 200 Mcg Tab, 1 TAB PO DAILY, #30 TAB 5 Refills 06/12/25 Ipratropium-Albuterol (Ipratropium [place]/Albut) 1 Mattie Mattie, 3 ML NEB Q6HR PRN for DIFFICULTY BREATHING 11/19/23 Insulin Glargine (Basaglar Kwikpen) 100 Unit/Ml Inj, 40 UNIT SC HS 11/19/23 Semaglutide (Ozempic) 2 Mg/3 Ml Inj, 0.25 MG SC QWEEKLY 11/19/23 Umeclidinium-Vilanterol (Anoro Ellipta 62.5-25 Mcg/INH) 1 Aer Aer, 1 PUFF INH DAILY 11/19/23 Sertraline Hcl (Sertraline Hcl) 100 Mg Tab, 1 TAB PO DAILY 11/18/23 Atorvastatin Calcium (ATORVASTATIN CALCIUM) 40 Mg Tab, 1 TAB PO DAILY 11/18/23 Potassium Chloride (Potassium Chloride ER) 10 Meq Tab, 1 TAB PO DAILY 03/19/23 Albuterol Sulfate (Albuterol Sulfate Hfa) 108 Mcg/Act Aer, 2 PUFF PO Q6HPRN PRN for dyspnea 03/19/23 Furosemide (Furosemide) 40 Mg Tab, 1 TAB PO DAILY 03/19/23 Hydrocodone-Acetaminophen (Hydrocodone/Acetaminophen 10-325 mg) 1 Tab Tab, 1 TAB PO Q6HR PRN for SEVERE PAIN 02/25/23 Apixaban Base (ELIQUIS) 5 Mg Tab, 5 MG PO BID, TAB 12/01/21 Isosorbide Dinitrate (Isosorbide Dinitrate) 20 Mg Tab, 30 MG PO DAILY, MG 12/01/21 Insulin Glargine (Lantus) 100 Unit/Ml Inj, 50 UNIT SC 08/24/20 Plan/Recommendation cath images reviewed pt is admitted constantly s/p ptca on triple therapy his prognosis is guarded, trops are - add ranexa fu with [facility] recommend not coming here given his size and complexity Plan discussed with: Patient ZEKE SKINNER RESIDENT Jun 12, 2025 10:19 SEAN MTZ MD Jun 13, 2025 16:49
--- NOTE | 2025-06-12 10:25 | ECG ---
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
--- NOTE | 2025-06-12 10:27 | DVHPN2 ---
Progress Note Date Seen: Jun 12, 2025 Medical Necessity Reason Pt with a Central, PICC or Fol: No Subjective Patient reports: No new complaints Review of Systems: HEENT:Normal, CVS:Normal, RESPIRATORY:Normal, GI:Normal, :Normal, MSK:Normal, NEURO:Normal Objective vital signs Vital Sign Date Time Temp Pulse Resp B/P (MAP) Pulse Ox O2 Delivery O2 Flow Rate FiO2 06/12/25 09:07 69 145/91 06/12/25 08:47 98.0 16 98 98.0 06/12/25 08:10 Room Air* 0 21 Total Intake and Output 06/11/25 06/11/25 06/12/25 15:00 23:00 07:00 Intake Total 840 ml Balance 840 ml medications Current Medications Medications Dose Ordered Sig/Johana Route Start Time Stop Time Status Last Admin Dose Admin Nitroglycerin 0.4 mg Q5MINP PRN SL 06/11/25 20:15 Morphine Sulfate 2 mg Q30M PRN IV 06/11/25 20:15 Albuterol 2.5 mg Q6HPRN PRN NEB 06/11/25 22:30 06/11/25 23:01 2.5 MG Apixaban 5 mg BID PO 06/12/25 10:00 06/12/25 09:06 5 MG Atorvastatin Calcium 40 mg HS PO 06/12/25 22:00 Carvedilol 6.25 mg Q12HR PO 06/12/25 10:00 06/12/25 09:07 6.25 MG Furosemide 40 mg DAILY IV 06/12/25 10:00 06/12/25 09:04 40 MG Acetaminophen/ Hydrocodone Bitart 1 tab Q6HP PRN PO 06/11/25 22:30 06/12/25 02:53 1 TAB Isosorbide Mononitrate 30 mg DAILY PO 06/12/25 10:00 06/12/25 09:06 30 MG Sertraline HCl 100 mg DAILY PO 06/12/25 10:00 06/12/25 09:05 100 MG Diagnostic Test (Pha) 1 strip ACHS 06/12/25 07:00 06/12/25 06:03 1 STRIP Insulin Human Regular ACHS SC 06/12/25 07:00 06/12/25 06:06 2 UNITS Dextrose 50 ml UD PRN IV 06/11/25 22:30 Ondansetron HCl 4 mg Q4HP PRN IV 06/11/25 22:30 Acetaminophen 650 mg Q6HP PRN PO 06/11/25 22:30 Clopidogrel Bisulfate 75 mg DAILY PO 06/13/25 10:00 UNV Examination: GENERAL:Normal, HEENT:Normal, NECK:Normal, LUNGS:Normal, LUNGS:Abnormal (on oxygen), CVS:Normal, ABDOMEN:Normal, MSK:Normal, MSK:Abnormal (edema+), SKIN:Normal, NEURO:Normal, :Normal laboratory and microbiology Laboratory Tests 06/12/25 05:09 06/11/25 17:23 Test 06/12/25 05:09 Range/Units Serum Glucose 174 H 74-106 mg/dL Problem List/Assessment/Plan Problem List/Assessment/Plan #1 acute on chronic systolic heart failure: cont lasix iv #2 cad s/p stents/angioplasty: cont meds, cardio eval #3 copd with chronic resp failure #4 hypothyroidism #5 gout #6 morbid obesity #7 ckd stage 3 #8 thrombocytopenia #9 dm: lantus, ssi #10 htn #11 hyperlipidemia #12 a fib s/p ablation: on [employer] advance care planning- full code- time spent 18 mins Plan discussed with: Patient My Orders My Orders Orders - LELA EDUARDO MD Procedure Category Date Status Time Clopidogrel Bisulfate PHA 06/13/25 Logged (Plavix) 10:00 Clopidogrel Bisulfate PHA 06/12/25 Logged (Plavix) 10:15 Levothyroxine Tablet PHA 06/13/25 Verified (Synthroid Tablet) 06:00 Allopurinol Tablet PHA 06/13/25 Verified (Zyloprim Tablet) 10:00 Insulin Lantus PHA 06/12/25 Verified (Glargine) (Lantus) 22:00 Basic Metabolic Panel LAB 06/13/25 Verified 06:00 Complete Blood Count LAB 06/13/25 Verified 06:00 PTPTT LAB 06/13/25 Verified 04:00 Uric Acid LAB 06/13/25 Verified 06:00 Pantoprazole Tablet PHA 06/12/25 Verified (Protonix Tablet) 10:15 Pantoprazole Tablet PHA 06/13/25 Verified (Protonix Tablet) 06:00 Date of Service: Jun 12, 2025 Billing Provider: LELA EDUARDO MD Common Visit Codes: [id number] INP/OBS CARE(HIGH) Secondary Visit Codes: [id number] CARE PLAN 30 MINUTES LELA EDUARDO MD Jun 12, 2025 10:27
[2025-06-12] MEDS: PANTOPRAZOLE 40 MG TAB PO ONE (10:36)
[2025-06-12] MEDS: CLOPIDOGREL BISULFATE 75 MG TAB PO ONE (10:37)
[2025-06-12] MEDS: ATORVASTATIN 20 MG TAB PO SCH (22:04)
[2025-06-12] MEDS: RANOLAZINE ER 500 MG TAB PO SCH (22:07)
[2025-06-12] MEDS: INSULIN LANTUS (GLARGINE) 1 /0.01ml (100units/ml) SC SCH (22:24)
[2025-06-13] VITALS (8 sets, daily range): BP systolic 120–178; BP diastolic 56–98; PULSE 61–73; RESP 16–20; TEMP 97.4–98.3; O2SAT 93–100
[2025-06-13] MEDS: PANTOPRAZOLE 40 MG TAB PO SCH (05:51)
[2025-06-13] MEDS: LEVOTHYROXINE SODIUM 100 MCG TAB PO SCH (05:52)
[2025-06-13 06:36] LABS: INR 1.07 (0.9-1.15); Partial Thromboplastin Time 34.4 SEC (24.5-34.5); Prothrombin Time 11.3 sec (9.3-11.8)
[2025-06-13 06:38] LABS: Calcium 9.0 mg/dL (8.7-10.4); Chloride 99 mmol/L (98-107); Potassium 4.2 mmol/L (3.5-5.1); Sodium 136 mmol/L (136-145)
[2025-06-13 06:39] LABS: Anion Gap 9 (5-15); Carbon Dioxide 28 mmol/L (20-31)
[2025-06-13 06:44] LABS: BUN/Creatinine Ratio 21.6 (10.0-20.0)
[2025-06-13 06:46] LABS: Blood Urea Nitrogen 40 mg/dL (9-23); Glucose 145 mg/dL (74-106); Uric Acid 9.7 mg/dL (3.7-9.2)
[2025-06-13 06:51] LABS: Hematocrit 41.5 % (41.0-53.0); Hemoglobin 13.8 g/dL (13.5-17.5); Mean Corpuscular Hemoglobin 27.3 pg (28.0-32.0); Mean Corpuscular Volume 82.4 fL (80.0-100.0); Nucleated Red Blood Cells % 0.1 %
[2025-06-13] MEDS: CLOPIDOGREL BISULFATE 75 MG TAB PO SCH (09:04)
[2025-06-13] MEDS: ALLOPURINOL 100 MG TAB PO SCH (09:05)
--- NOTE | 2025-06-13 10:16 | DVHDS2 ---
Discharge Summary Date of Admission Jun 11, 2025 at 20:05 Date of Discharge: Jun 13, 2025 Labs/Diagnostic Data: Laboratory Results Test 06/13/25 05:56 06/13/25 05:08 06/11/25 22:25 06/11/25 18:22 POC Glucose 167 mg/dl (70-106) White Blood Count 7.4 10^3/uL (4.4-10.8) Red Blood Count 5.04 10^6/uL (4.5-5.90) Hemoglobin 13.8 g/dL (13.5-17.5) Hematocrit 41.5 % (41.0-53.0) Mean Corpuscular Volume 82.4 fL (80.0-100.0) Mean Corpuscular Hemoglobin 27.3 pg (28.0-32.0) Mean Corpuscular Hemoglobin Concent 33.1 g/dL (32.0-36.0) Red Cell Distribution Width 18.8 % (11.8-14.3) Platelet Count 95 10^3/uL (140-450) Mean Platelet Volume 10.1 fL (6.9-10.8) Neutrophils (%) (Auto) 77.9 % (37.0-80.0) Lymphocytes (%) (Auto) 13.0 % (10.0-50.0) Monocytes (%) (Auto) 5.1 % (0.0-12.0) Eosinophils (%) (Auto) 3.4 % (0.0-7.0) Basophils (%) (Auto) 0.6 % (0.0-2.0) Neutrophils # (Auto) 5.8 10 ^3/uL (1.6-8.6) Lymphocytes # (Auto) 1.0 10 ^3/uL (0.4-5.4) Monocytes # (Auto) 0.4 10 ^3/uL (0-1.3) Eosinophils # (Auto) 0.3 10 ^3/uL (0-0.8) Basophils # (Auto) 0 10 ^3/uL (0-0.2) Nucleated Red Blood Cells 0.1 % Prothrombin Time 11.3 sec (9.3-11.8) Prothrombin Time INR 1.07 (0.9-1.15) Activated Partial Thromboplast Time 34.4 SEC (24.5-34.5) Sodium Level 136 mmol/L (136-145) Potassium Level 4.2 mmol/L (3.5-5.1) Chloride Level 99 mmol/L (98-107) Carbon Dioxide Level 28 mmol/L (20-31) Anion Gap 9 (5-15) Blood Urea Nitrogen 40 mg/dL (9-23) Creatinine 1.85 mg/dL (0.700-1.30) Glomerular Filtration Rate Calc 42 mL/min (>90) BUN/Creatinine Ratio 21.6 (10.0-20.0) Serum Glucose 145 mg/dL (74-106) Uric Acid 9.7 mg/dL (3.7-9.2) Calcium Level 9.0 mg/dL (8.7-10.4) Urine Color Light-yellow (Yellow) Urine Clarity Clear (Clear) Urine pH 5.5 (5.0-9.0) Urine Specific [place] 1.016 (1.001-1.035) Urine Protein 1+ (Negative) Urine Ketones Negative (Negative) Urine Blood Negative /uL (Negative) Urine Nitrite Negative (Negative) Urine Bilirubin Negative (Negative) Urine Urobilinogen Normal mg/dL (Negative) Urine Leukocyte Esterase Negative /uL (Negative) Urine RBC None seen /hpf (0 - 3) Urine Microscopic WBC 1 /HPF (0-3) Urine Squamous Epithelial Cells Few /hpf (<5) Urine Bacteria None seen /hpf (None Seen) Urine Glucose 3+ mg/dL (Normal) Troponin I High Sensitivity 29 ng/L (</=54) Test 06/11/25 17:23 Total Bilirubin 0.4 mg/dL (0.2-1.0) Aspartate Amino Transferase (AST) 33 U/L (13-40) Alanine Aminotransferase (ALT) 32 U/L (7-40) Alkaline Phosphatase 97 U/L (46-116) B-Type Natriuretic Peptide 78.25 pg/mL (0-100) Total Protein 7.5 g/dL (5.7-8.2) Albumin 4.4 g/dL (3.2-4.8) Other Laboratory Tests 06/13/25 05:08 Brief Hx & Hospital Course: see dictated note Condition at Discharge: Fair Final Diagnosis/Problems List chf Discharge Disposition: Home Discharge Instruct/Medications Diet: Consistent carbohydrate, Cardiac 2g Na,low cholest Activity: No Restrictions, As Tolerated Follow Up/Referral: fu with pcp/cardiology in 1 wk Medications: resume home meds Scheduled Allopurinol (Zyloprim Tablet), 1 TAB PO DAILY, (Reported) Apixaban Base (Eliquis), 5 MG PO BID, (Reported) Aspirin (Aspirin Low Dose), 81 MG PO DAILY Atorvastatin Calcium (Atorvastatin Calcium), 1 TAB PO DAILY, (Reported) Carvedilol (Coreg), 6.25 MG PO Q12HR Ciprofloxacin Hcl (Cipro), 1 TAB PO BID Clopidogrel Bisulfate (Clopidogrel), 1 TAB PO DAILY, (Reported) Furosemide (Furosemide), 1 TAB PO DAILY, (Reported) Hydralazine Hcl (Hydralazine Hcl), 10 MG PO Q8HR Insulin Glargine (Basaglar Kwikpen), 40 UNIT SC HS, (Reported) Isosorbide Dinitrate (Isosorbide Dinitrate), 30 MG PO DAILY, (Reported) Levothyroxine Sodium (Synthroid), 1 TAB PO DAILY, (Reported) Potassium Chloride (Potassium Chloride ER), 1 TAB PO DAILY, (Reported) Semaglutide (Ozempic), 0.25 MG SC QWEEKLY, (Reported) Sertraline Hcl (Sertraline Hcl), 1 TAB PO DAILY, (Reported) Umeclidinium-Vilanterol (Anoro Ellipta 62.5-25 Mcg/INH), 1 PUFF INH DAILY, (Reported) Scheduled PRN Albuterol Sulfate (Albuterol Sulfate Hfa), 2 PUFF PO Q6HPRN PRN for dyspnea, (Reported) Cyclobenzaprine Hcl (Cyclobenzaprine Hcl), 7.5 MG PO Q6HP PRN Gabapentin (Once-Daily) (Gabapentin), 300 MG PO Q6HP PRN Hydrocodone-Acetaminophen (Hydrocodone/Acetaminophen 10-325 mg), 1 TAB PO Q6HR PRN for SEVERE PAIN, (Reported) Ipratropium-Albuterol (Ipratropium [place]/Albut), 3 ML NEB Q6HR PRN for DIFFICULTY BREATHING, (Reported) Miscellaneous Medications Bumetanide (Bumex), (Reported) Dapagliflozin Propanediol (Farxiga), 10 MG PO, (Reported) Insulin Glargine (Lantus), 50 UNIT SC, (Reported) Discharge Statement: "Patient was advised to return to the ER or call 911 if any headaches, dizziness, shortness of breath, chest pain, abdominal pain, bleeding, fevers, or worsening of medical condition. Patient was counseled about treatment plan, medications, possible side effects, patientverbalized understanding. All questions were answered to the best of my ability. This discharge took greater then 30 minutes in planning, reviewing documentation, counseling the patient, and discussing with other team members." ASSESSMENT ASSESSMENT Assessment chf Date of Service: Jun 13, 2025 Billing Provider: LELA EDUARDO MD Common Visit Codes: [id number]-FDC/OBS DISCH DAY >30min LELA EDUARDO MD Jun 13, 2025 10:16
--- NOTE | 2025-06-13 11:02 | DVHDS ---
HISTORY OF PRESENT ILLNESS: The patient is a 54-year-old gentleman who was admitted with complaints of chest pain and shortness of breath and has history of congestive heart failure, coronary artery disease, atrial fibrillation, previous ablation, diabetes, hypertension, gout, and hypothyroidism. HOSPITAL COURSE: The patient was seen in Cardiology consult. The patient was diuresed with intravenous Lasix. Chest x-ray showed pulmonary venous congestion. The patient's troponin levels are negative for acute MD. The patient is now improved in his symptoms and will be discharged home to resume his home medications and follow up with his primary and lead caster helper. FINAL DIAGNOSES: * [id number] systolic heart failure. * Coronary artery disease, status post stent, status post angioplasty. * Chronic obstructive pulmonary disease with chronic respiratory failure. * Hypothyroidism. * Gout. * Morbid obesity. * Chronic kidney disease stage 3. * Thrombocytopenia. * Diabetes mellitus. * Hypertension. * Hyperlipidemia. * Atrial fibrillation with previous ablation with secondary hypercoagulable state. Time spent in discharge planning and review of plan with the patient and nursing was 38 minutes. MD RASHEED Benson/BILL TID: [id number] RECEIPT: [id number]
== END 2025-06-13 13:25 | disposition home or self-care (01) | DRG 194 ==
LOC: EDBD 17:10 → ER 17:10 → OVERFLOW 20:05 → TELE-CENTR 22:14
PROVIDERS: ADMIT Internal Medicine; ATTEND Internal Medicine
DX: I13.0 Hypertensive heart and chronic kidney disease with heart failure and stage 1 through stage 4 chronic kidney disease, or unspecified chronic kidney disease (principal); D69.6 Thrombocytopenia, unspecified; I24.9 Acute ischemic heart disease, unspecified; E11.22 Type 2 diabetes mellitus with diabetic chronic kidney disease; D68.69 Other thrombophilia; J96.10 Chronic respiratory failure, unspecified whether with hypoxia or hypercapnia; N17.9 Acute kidney failure, unspecified; Z79.02 Long term (current) use of antithrombotics/antiplatelets; Z79.01 Long term (current) use of anticoagulants; I50.23 Acute on chronic systolic (congestive) heart failure; E66.01 Morbid (severe) obesity due to excess calories; E03.9 Hypothyroidism, unspecified; J44.9 Chronic obstructive pulmonary disease, unspecified; N18.30 Chronic kidney disease, stage 3 unspecified; I48.91 Unspecified atrial fibrillation; E78.5 Hyperlipidemia, unspecified; M10.9 Gout, unspecified; Z95.5 Presence of coronary angioplasty implant and graft; Z83.3 Family history of diabetes mellitus; Z82.5 Family history of asthma and other chronic lower respiratory diseases; Z82.49 Family history of ischemic heart disease and other diseases of the circulatory system; Z82.3 Family history of stroke; Z80.1 Family history of malignant neoplasm of trachea, bronchus and lung; Z80.0 Family history of malignant neoplasm of digestive organs; Z79.4 Long term (current) use of insulin; I25.2 Old myocardial infarction; Z68.43 Body mass index [BMI] 50.0-59.9, adult
CPT/HCPCS: 36415; 71045; 80048; 80053; 81001; 82962; 83880; 84484; 84550; 85025; 85610; 85730; 87081; 93005; 94640; 96374; 99291; G0378; J1815